=== PATIENT | male | born 1960 | race Caucasian/White ===

== ENCOUNTER 2018-03-04 20:55 | Emergency (ER) | payer BC, SELFPAY ==
[2018-03-05 00:04] LABS: Absolute Lymphocytes (CBC) 2.6 K/uL (0.7-4.9); Absolute Neutrophil 6.1 K/uL (1.8-8.0); Basophils % 0.2 % (0-1.3); Eosinophils % 4.4 % (0-4.4); Hematocrit 46.2 % (39.6-49.0); Lymphocytes % 25.4 % (15.3-44.8); MCH 33.4 pg (27.0-35.0); MCV 100.5 fL (80-100); MPV 6.7 fL (7.6-11.3); Monocytes % 10.2 % (3.3-12.3); RBC Red Blood Cell Count 4.59 M/uL (4.33-5.43)
[2018-03-05 00:08] LABS: Potassium 3.6 mEq/L (3.6-5.0)
[2018-03-05 00:14] LABS: Albumin 3.4 g/dL (3.2-5.5); Bilirubin Direct 0.2 mg/dL (0-0.2); Bilirubin Total 0.9 mg/dL (0.3-1.2)
[2018-03-05 00:52] LABS: Protime INR 1.11
--- NOTE | 2018-03-05 01:52 | ER ---
Nurse's Notes [facility] Name: Narendra Martin Age: 57 yrs Sex: Male : 1960 Arrival Date: 03/04/2018 Time: 20:57 Bed 17 Private MD: Octavia Martinez K Diagnosis: Edema, unspecified;Dermatitis, unspecified Presentation: 03/04 22:19 Presenting complaint: Patient states: he is having bilateral ankle swelling x 1 week bb with an itchy rash which is also on his back. Transition of care: patient was not received from another setting of care. Onset of symptoms was February 27, 2018. Initial Sepsis Screen: Does the patient meet any 2 criteria? No. Patient's initial sepsis screen is negative. Does the patient have a suspected source of infection? No. Patient's initial sepsis screen is negative. Care prior to arrival: None. 22:19 Method Of Arrival: Ambulatory bb 22:19 Acuity: FLORES 3 bb Historical: - Allergies: 22:23 No Known Allergies; bb - Home Meds: 22:23 felodipine oral oral [Active]; Folbic oral oral [Active]; bb lisinopril-hydrochlorothiazide oral oral [Active]; Omeprazole Oral [Active]; Thiamine Oral [Active]; 22:24 Chantix oral oral [Active]; bb - PMHx: 22:23 COPD; Hypertension; GERD; polycythemia vera; bb - PSHx: 22:23 None; bb - Immunization history:: Adult Immunizations up to date. - Social history:: Smoking status: quit one month ago. Screenin/19 01:45 Abuse screen: Denies threats or abuse. Denies injuries from another. Nutritional bs1 screening: No deficits noted. Tuberculosis screening: No symptoms or risk factors identified. Fall Risk None identified. Assessment: 03/04 22:35 General: Appears in no apparent distress. uncomfortable, Behavior is calm, cooperative, bs1 appropriate for age. Pain: Complains of pain in bilateral legs/ankles Pain does not radiate. Pain currently is 4 out of 10 on a pain scale. Quality of pain is described as aching. Neuro: Level of Consciousness is awake, alert, obeys commands, Oriented to person, place, time, situation, Appropriate for age Cable Reeler are equal bilaterally Moves all extremities. Cardiovascular: Denies chest pain, lightheadedness, palpitations, shortness of breath, Heart tones S1 S2 present Capillary refill < 3 seconds Patient's skin is warm and dry. Edema is 2+ to left ankle, left foot, right ankle and right foot pitting to left ankle, left foot, right ankle and right foot. Respiratory: Airway is patent Trachea midline Respiratory effort is even, unlabored, Respiratory pattern is regular, symmetrical, Breath sounds are clear bilaterally. GI: No deficits noted. No signs and/or symptoms were reported involving the gastrointestinal system. : No deficits noted. No signs and/or symptoms were reported regarding the genitourinary system. EENT: No deficits noted. No signs and/or symptoms were reported regarding the EENT system. Derm: Skin is intact. Musculoskeletal: Circulation, motion, and sensation intact. Capillary refill < 3 seconds, Range of motion: intact in all extremities, Swelling present in bilateral legs/ankles 2+ pitting edema. 23:35 Reassessment: No changes from previously documented assessment. Patient and/or family bs1 updated on plan of care and expected duration. Pain level reassessed. Patient is alert, oriented x 3, equal unlabored respirations, skin warm/dry/pink. 03/05 00:35 Reassessment: Patient appears in no apparent distress at this time. No changes from bs1 previously documented assessment. Patient and/or family updated on plan of care and expected duration. Pain level reassessed. Patient is alert, oriented x 3, equal unlabored respirations, skin warm/dry/pink. at bedside, pending CT results. 01:47 Reassessment: Patient appears in no apparent distress at this time. Patient is alert, bs1 oriented x 3, equal unlabored respirations, skin warm/dry/pink. No further needs at this time. 02:09 Reassessment: Pending discharge. bs1 Vital Signs: 03/04 22:24 BP 135 / 49; Pulse 80; Resp 18 S; Temp 98.4(O); Pulse Ox 98% on R/A; Weight 72.57 kg bb (R); Height 5 ft. 9 in. (175.26 cm) (R); Pain 0/10; 23:24 BP 137 / 65; Pulse 78; Resp 17; Pulse Ox 100% on R/A; Pain 0/10; bs1 03/05 00:24 BP 131 / 58; Pulse 79; Resp 16; Pulse Ox 100% on R/A; bs1 01:24 BP 131 / 57; Pulse 77; Resp 16; Temp 98.3(O); Pulse Ox 98% on R/A; Pain 0/10; bs1 18 22:24 Body Mass Index 23.63 (72.57 kg, 175.26 cm) ED Course: 03/04 20:57 Patient arrived in ED. am2 20:57 Octavia Martinez MD is Private Physician. am2 22:20 Triage completed. bb 22:24 Arm band placed on Patient placed in waiting room, Patient notified of wait time. bb Family accompanied patient. 22:36 Damian Bennett MD is Attending Physician. 23:23 Inserted saline lock: 20 gauge in right antecubital area, using aseptic technique. bs1 23:48 Patient moved to radiology via wheelchair. ag1 23:49 XRAY Chest Pa And Lat (2 Views) In Process Unspecified. EDMI 23:52 X-ray completed. Patient tolerated procedure well. ag1 23:52 Patient moved back from radiology. ag1 03/05 00:32 Kesha Barnard, VEL is Primary Nurse. bs1 01:46 Patient has correct armband on for positive identification. Bed in low position. Call bs1 light in reach. Side rails up X 1. Pulse ox on. NIBP on. Warm blanket given. 01:46 No provider procedures requiring assistance completed. bs1 02:15 IV discontinued, bleeding controlled, No redness/swelling at site. Pressure dressing bs1 applied. Administered Medications: No medications were administered Outcome: 01:51 Discharge ordered by . 02:14 Discharged to home ambulatory, with significant other. bs1 02:14 Condition: stable 02:14 Discharge instructions given to patient, Instructed on discharge instructions, follow up and referral plans. medication usage, Demonstrated understanding of instructions, follow-up care, medications, Prescriptions given X 1. 02:15 Patient left the ED. bs1 Signatures: Dispatcher [employer] EDMS Ora Reyna RN RN Miranda Marie ag1 Abbey Moreno am2 Damian Bennett MD MD gs Salazar, Brittany, VEL RN bs1 Corrections: (The following items were deleted from the chart) 02:14 01:24 BP 131 / 57; Pulse 77bpm; Pulse Ox 98% RA; bs1 bs1
--- NOTE | 2018-03-05 01:52 | EDPHYS ---
Physician Documentation [facility] Name: Narendra Martin Age: 57 yrs Sex: Male : 1960 Arrival Date: 03/04/2018 Time: 20:57 Bed 17 Private MD: Octavia Martinez K ED Physician Damian Bennett HPI: 03/05 03:52 This 57 yrs old Male presents to ER via Ambulatory with complaints of Ankle gs Swelling, Leg Swelling, Rash. 03:52 The patient's rash thought to be caused by Dermatitis. The rash is located on the right gs ankle and left ankle. The rash can be described as flat, PETICHIAL. Onset: The symptoms/episode began/occurred 1 week(s) ago, and became persistent. Associated signs and symptoms: Pertinent positives: PEDAL EDEMA, Pertinent negatives: difficulty breathing. Severity of symptoms: At their worst the symptoms were mild in the emergency department the symptoms are unchanged. The patient has not recently seen a physician. 03:52 RECENT PNEUMONIA POSSIBLE LUNG MASS. gs Historical: - Allergies: 03/04 22:23 No Known Allergies; bb - Home Meds: 22:23 felodipine oral oral [Active]; Folbic oral oral [Active]; bb lisinopril-hydrochlorothiazide oral oral [Active]; Omeprazole Oral [Active]; Thiamine Oral [Active]; 22:24 Chantix oral oral [Active]; bb - PMHx: 22:23 COPD; Hypertension; GERD; polycythemia vera; bb - PSHx: 22:23 None; bb - Immunization history:: Adult Immunizations up to date. - Social history:: Smoking status: quit one month ago. ROS: 03/05 03:52 Constitutional: Negative for fever. gs All other systems are negative. Exam: 03:52 Head/Face: Normocephalic, atraumatic. Eyes: Pupils equal round and reactive to light, gs extra-ocular motions intact. Lids and lashes normal. Conjunctiva and sclera are non-icteric and not injected. Cornea within normal limits. Periorbital areas with no swelling, redness, or edema. ENT: Nares patent. No nasal discharge, no septal abnormalities noted. Tympanic membranes are normal and external auditory canals are clear. Oropharynx with no redness, swelling, or masses, exudates, or evidence of obstruction, uvula midline. Mucous membranes moist. Neck: Trachea midline, no thyromegaly or masses palpated, and no cervical lymphadenopathy. Supple, full range of motion without nuchal rigidity, or vertebral point tenderness. No Meningismus. Chest/axilla: Normal chest wall appearance and motion. Nontender with no deformity. No lesions are appreciated. Cardiovascular: Regular rate and rhythm with a normal S1 and S2. No gallops, murmurs, or rubs. Normal PMI, no JVD. No pulse deficits. Respiratory: Lungs have equal breath sounds bilaterally, clear to auscultation and percussion. No rales, rhonchi or wheezes noted. No increased work of breathing, no retractions or nasal flaring. Abdomen/GI: Soft, non-tender, with normal bowel sounds. No distension or tympany. No guarding or rebound. No evidence of tenderness throughout. Back: No spinal tenderness. No costovertebral tenderness. Full range of motion. Neuro: Awake and alert, GCS 15, oriented to person, place, time, and situation. Cranial nerves II-XII grossly intact. Motor strength 5/5 in all extremities. Sensory grossly intact. Cerebellar exam normal. Normal gait. 03:52 Constitutional: The patient appears alert, awake. 03:52 Musculoskeletal/extremity: ROM: no acute changes, Circulation is intact in all extremities. Edema, 2+ to the left ankle and right ankle is noted. 03:52 Skin: rash a mild rash is noted, rash can be described as PETICHIAL, on the left ankle and right ankle. Vital Signs: 03/04 22:24 BP 135 / 49; Pulse 80; Resp 18 S; Temp 98.4(O); Pulse Ox 98% on R/A; Weight 72.57 kg bb (R); Height 5 ft. 9 in. (175.26 cm) (R); Pain 0/10; 23:24 BP 137 / 65; Pulse 78; Resp 17; Pulse Ox 100% on R/A; Pain 0/10; bs1 03/05 00:24 BP 131 / 58; Pulse 79; Resp 16; Pulse Ox 100% on R/A; bs1 01:24 BP 131 / 57; Pulse 77; Resp 16; Temp 98.3(O); Pulse Ox 98% on R/A; Pain 0/10; bs1 03/04 22:24 Body Mass Index 23.63 (72.57 kg, 175.26 cm) bb MDM: 03/04 23:08 Patient medically screened. 03/05 03:52 Differential diagnosis: allergic reaction, DERMATITIS. Data reviewed: vital signs, nurses notes. Counseling: I had a detailed discussion with the patient and/or guardian regarding: lab results, the need for outpatient follow up. Response to treatment: There is no appreciated change of the patient's symptoms at this time. 03/04 23:17 Order name: CBC with Diff; Complete Time: 00:49 03/04 23:17 Order name: Basic Metabolic Panel; Complete Time: 00:49 03/04 23:17 Order name: Hepatic Function; Complete Time: 00:49 03/04 23: Order name: PT-INR; Complete Time: 01:47 03/04 23:17 Order name: XRAY Chest Pa And Lat (2 Views) Administered Medications: No medications were administered Disposition: 03/05/18 01:51 Discharged to Home. Impression: Edema, unspecified, Dermatitis, unspecified. - Condition is Stable. - Discharge Instructions: Edema, Rash. - Prescriptions for Triamcinolone Acetonide 0.5 % Topical Cream - apply 1 application by TOPICAL route 2 times per day As needed; 1 tube. - Medication Reconciliation Form, Thank You Letter, Antibiotic Education, Prescription Opioid Use form. - Follow up: Private Physician; When: 2 - 3 days; Reason: Re-evaluation by your physician. Signatures: Dispatcher [employer] Ora Petty RN RN Damian Nuñez MD MD Kesha Barnard RN RN bs1
--- NOTE | 2018-03-05 07:56 | RAD REPORT ---
EXAM DESCRIPTION: Rosa M Pa And Lat (2 Views)03/04/2018 11:56 pm CLINICAL HISTORY: Cough COMPARISON: January 2018 FINDINGS: A left lower lobe opacity is without obvious change. The right lung appears clear. The jah ngs are hyperaerated. . The heart is normal size IMPRESSION: Left lower lobe opacity is without obvious change from a January 2018 cat scan. This may r epresent pneumonia or neoplasm such as a bronchioloalveolar cell carcinoma.
== END 2018-03-05 02:15 | disposition home or self-care (01) ==
LOC: ER 20:55
DX: L30.9 Dermatitis, unspecified (principal); I10 Essential (primary) hypertension; J44.9 Chronic obstructive pulmonary disease, unspecified
CPT/HCPCS: 36415; 71046; 80048; 80076; 85025; 85610; 99284

== ENCOUNTER 2018-03-17 06:56 | Day surgery (SDC) | payer BC ==
[2018-03-17] MEDS ORDERED: GLYCOPYRROLATE 0.2 MG/ML SYR ONE ×2 (06:59→07:26)
[2018-03-17] MEDS ORDERED: Phenylephrine HCl 10 MG/ML 1 ML VIAL ONE (07:00)
[2018-03-17] MEDS ORDERED: LIDOCAINE 4% TOP SOLUTION TOP ONE ×2 (07:20→07:31)
[2018-03-17] MEDS ORDERED: LIDOCAINE 1% MPF 5 ML VIAL ONE ×3 (07:26→07:49)
[2018-03-17] MEDS ORDERED: EPHEDRINE SULF 50 MG/ML SYR ONE (07:26)
[2018-03-17] MEDS ORDERED: PROPOFOL 200 MG/20 ML VIAL IV ONE (07:26)
[2018-03-17] MEDS ORDERED: MIDAZOLAM HCL 2 MG/2 ML INJ ONE (07:26)
[2018-03-17] MEDS ORDERED: LIDOCAINE VISCOUS 2% SOLN 15 ML UDC ONE (07:30)
[2018-03-17] MEDS ORDERED: LIDOCAINE 4% TOP SOLUTION ONE (07:34)
[2018-03-17] MEDS ORDERED: LIDOCAINE 1% 20 ML MDV ONE (07:36)
--- NOTE | 2018-03-17 08:17 | P.OP ---
Date of Service: 03/17/18 (Bronchoscopy with transbronchial biopsies of the left lower lobe and a BAL) Findings and Operative Technique Patient is 57 years of age evaluated by me for persistent left lower lobe lung mass hence the reason for bronchoscopy Narrative report after obtaining informed consent from the patient he was premedicated by anesthesia Findings normal vocal cords normal trachea normal aleida normal right and left- sided bronchial anatomy no endobronchial lesions visible he has some cope Rosario mucoid secretion throughout the entire respiratory tract Multiple biopsies were done from the left lower lobe lateral segment including a BAL patient tolerated the procedure very well did not experience any hypertension or arrhythmia see he has some bleeding
--- NOTE | 2018-03-17 08:53 | RAD REPORT ---
EXAM DESCRIPTION: RAD - FLUORO-GUIDE FOR BRONCH UPT1HR - 03/17/2018 8:39 am FINDINGS: The left-side chest fluoroscopy performed. Portable C-arm views were obtained during fluoroscopic assisted bronchoscopy. No suspicious or unexpected finding.
--- NOTE | 2018-03-17 09:42 | RAD REPORT ---
EXAM DESCRIPTION: RAD - Chest Single View - 03/17/2018 9:18 am CLINICAL HISTORY: Post bronchoscopy chest film COMPARISON: March 04 TECHNIQUE: AP portable chest image was obtained in expiration at 0907 hours . FINDINGS: No pneumothorax. No significant change to the mass or consolidated parenchyma in the lower left lung field. Heart and vasculature are normal. No measurable pleural fluid. Trachea is midline. No gross bony abnormality seen. No acute aortic findings suspected. IMPRESSION: No post bronchoscopy pneumothorax.
[2018-03-17] MEDS ORDERED: Ringers Lactate 1,000 ML IV ONE (09:56)
== END 2018-03-17 10:00 | disposition home or self-care (01) ==
LOC: ENDO 06:56
PROVIDERS: ATTEND Internal Medicine Sleep Medicine
PROC: 0B9J8ZX Drainage of Left Lower Lung Lobe, Via Natural or Artificial Opening Endoscopic, Diagnostic (ICD-10-PCS; 2018-03-17)
PROC: 0BDJ8ZX Extraction of Left Lower Lung Lobe, Via Natural or Artificial Opening Endoscopic, Diagnostic (ICD-10-PCS; principal; 2018-03-17 08:03)
DX: R91.8 Other nonspecific abnormal finding of lung field (principal); I10 Essential (primary) hypertension; J44.9 Chronic obstructive pulmonary disease, unspecified; Z87.891 Personal history of nicotine dependence
CPT/HCPCS: 71045; 76000; 87015; 87070; 87077; 87102; 87116; 87186; 87206; 88108; 88305; J2250; J2370

== ENCOUNTER 2018-05-15 10:28 | Emergency (ER) | payer BC ==
--- OUTSIDE RECORDS SUMMARY | 2018-05-15 10:38 | XMS REPORT | Clinical Summary ---
:1960 Author Organization [facility] Address [address] [place] [address] Care Team Providers Name Role Phone Octavia Martinez MD Primary Care Provider Allergies No Known Allergies Current Medications Prescription Sig. Disp. Refills Start Date End Date Status FOLBIC 2.5-25-2 mg tablet 03/16/2018 Active omeprazole (PriLOSEC) 20 MG 20 mg. 04/06/2018 Active capsule TRELEGY ELLIPTA 100-62.5-25 03/30/2018 Active mcg blister with device spironolactone (ALDACTONE) 25 04/23/2018 Active MG tablet lisinopril-hydrochlorothiazid DAILY 07/01/2017 Active e (PRINZIDE,ZESTORETIC) 20-12.5 mg per tablet felodipine (PLENDIL) 5 MG 24 04/28/2018 Active hr tablet felodipine (PLENDIL) 10 MG 24 10 mg. 03/16/2018 05/07/2018 Discontinued hr tablet lisinopril-hydrochlorothiazid 03/16/2018 05/07/2018 Discontinued e (PRINZIDE,ZESTORETIC) 20-12.5 mg per tablet aspirin (ECOTRIN) 81 MG DAILY 07/01/2017 05/07/2018 Discontinued enteric coated tablet Active Problems Problem Noted Date Lung cancer 04/23/2018 Hypertension 04/23/2018 Encounters Date Type Specialty Care Team Description 05/07/2018 Office Visit Cardiothoracic Yobany Davey Malignant neoplasm of Surgery MD Lobito lower lobe of right lung (Primary Dx) 05/06/2018 Telephone Cardiothoracic [place], Surgery Flory, LINDA 05/05/2018 Telephone Cardiothoracic Heidy, Surgery [place], [place] 05/01/2018 Telephone Cardiothoracic Yobany Davey Surgery MD [place]ob[place] 04/29/2018 [facility] Radiology Matty Aguilar, Encounter 04/29/2018 [facility] Radiology Matty Aguilar, Encounter MD 04/29/2018 [facility] Radiology Matty Aguilar, Encounter MD 04/29/2018 [facility] Radiology [facility], Yobany No Show Encounter MD [place]ob[place] 04/29/2018 [facility] [place] 04/29/2018 [facility] Radiology Matty Aguilar, Encounter 04/29/2018 [facility] Lung mass; Encounter MD [place] Nodule of left lung 04/29/2018 Ancillary Orders Cardiothoracic DaveyYobany Lung mass Surgery MD Lobito 04/29/2018 Ancillary Orders Cardiothoracic [facility] alba Lung mass Surgery MD Lobito 04/27/2018 Telephone Cardiothoracic Jeremy, Tip Gibbons NP 04/24/2018 Telephone Cardiothoracic Heidy, Surgery [place], LINDA 04/24/2018 Telephone Radiology Ange Freire, VEL 04/23/2018 Office Visit Cardiothoracic Yobany Davey Lung mass (Primary Dx); Surgery MD Lobito Malignant neoplasm of lung, unspecified laterality, unspecified part of lung 04/23/2018 [facility] Pulmonology Yobany Davey Lung nodule Encounter MD [place] 04/23/2018 Orders Only Cardiothoracic Provider, Tip Gamble MD 04/23/2018 Telephone Cardiothoracic Heidy, Surgery [place], [place] 04/23/2018 [facility] [place] 04/22/2018 Orders Only Cardiothoracic Heidy, Lung nodule (Primary Surgery [place], [place] Dx) 04/17/2018 [facility] of lower lobe of left lung; Encounter MD Lobito Lung nodule; LAD (lymphadenopathy), mediastinal 04/17/2018 [facility] Cardiothoracic AdveyYobany Cancer of lower lobe of left lung; Encounter Surgery MD Lobito Lung nodule; Lymphadenopathy syndrome 04/17/2018 Anesthesia Event Cardiothoracic Justina Qureshi Surgery 04/17/2018 Procedure Pass Cardiothoracic Surgery 04/17/2018 Surgery Cardiothoracic Yobany Davey FLEXIBLE BRONCHOSCOPY, Surgery MD [place]obito 04/16/2018 Telephone Cardiothoracic Heidy, Surgery [place], [place] 04/15/2018 Lab Lab Yobany Davey MD 04/15/2018 Telephone Cardiothoracic Heidy, Surgery [place], [place] 04/10/2018 Telephone Cardiothoracic Heidy, Surgery [place], [place] 04/09/2018 [facility] Radiology DaveyYobany MD 04/09/2018 [facility] [place] 04/09/2018 [facility] [place] 04/09/2018 [facility] 04[facility]09[facility]2018 [facility] MD [place] 04/09/2018 [facility] MD [place] 04/09/2018 [facility] 04/09/2018 Lab Lab Yobany Davey Malignant neoplasm of lower lobe of left lung; MD Lobito Lung nodule; LAD (lymphadenopathy), mediastinal 04/09/2018 [facility] 04[facility]2018 [facility] 04/09[facility]2018 [facility] 04/09[facility]2018 [facility] 04/09/2018 [facility] 04/09/2018 Office Visit Cardiothoracic Yobany Davey Malignant neoplasm of lower lobe of left lung (Primary Dx); Surgery MD Lobito Lung nodule; LAD (lymphadenopathy), mediastinal 04/09/2018 Telephone Cardiothoracic Heidy, Surgery [place], [place] 04/09/2018 Transcribe Orders Procedural Cardiology DaveyYobany Malignant neoplasm of lower lobe of left lung; MD Lobito Lung nodule; LAD (lymphadenopathy), mediastinal 04/09/2018 Procedure Pass Radiology 04/09/2018 Ancillary Orders Radiology Yobany Davey MD 04/03/2018 Orders Only Cardiothoracic Provider, Tip Gamble MD after 05/14/2017 Family History Medical History Relation Name Comments Stroke Brother Esophageal cancer Father COPD Mother Heart disease Mother Kidney disease Mother Heart attack Sister Relation Name Status Comments Brother Father Mother Sister Social History Tobacco Use Types Packs/Day Years Used Date Former Smoker Cigarettes 0.2 40 Quit: 01/15/2018 Smokeless Tobacco: Never Used Alcohol Use Drinks/Week oz/Week Comments Yes 14 Cans of beer 8.4 Sex Assigned at Date Recorded Not on file Last Filed Vital Signs Vital Sign Reading Time Taken Blood Pressure 132/75 05/07/2018 9:24 AM CDT Pulse 89 05/07/2018 9:24 AM CDT Temperature 36.7 C (98.1 F) 05/07/2018 9:24 AM CDT Respiratory Rate 16 05/07/2018 9:24 AM CDT Oxygen Saturation 97% 05/07/2018 9:24 AM CDT Inhaled Oxygen Concentration - - Weight 73.6 kg (162 lb 3.2 oz) 05/07/2018 9:24 AM CDT Height 175.3 cm (5' 9") 05/07/2018 9:24 AM CDT Body Mass Index 23.95 05/07/2018 9:24 AM CDT Plan of Treatment Health Maintenance Due Date Last Done Comments COLON CANCER SCREENING 2010 SHINGRIX VACCINE (#1) 2010 INFLUENZA VACCINE 06/17/2018 Procedures Procedure Name Priority Date/Time Associated Comments Diagnosis XR CHEST 1 VW Routine 04/29/2018 4:13 Results for this PM CDT procedure are in the results section. XR CHEST 1 VW Routine 04/29/2018 2:17 Results for this PM CDT procedure are in the results section. SURGICAL PATHOLOGY Routine 04/29/2018 2:10 Results for this REQUEST PM CDT procedure are in the results section. SURGICAL PATHOLOGY Routine 04/29/2018 2:10 Results for this REQUEST PM CDT procedure are in the results section. SURGICAL PATHOLOGY Routine 04/29/2018 2:10 Results for this REQUEST PM CDT procedure are in the results section. SURGICAL PATHOLOGY Routine 04/29/2018 2:10 Results for this REQUEST PM CDT procedure are in the results section. SURGICAL PATHOLOGY Routine 04/29/2018 2:10 Results for this REQUEST PM CDT procedure are in the results section. CYTOLOGY Routine 04/29/2018 1:53 Results for this (NON-GYNECOLOGICAL) PM CDT procedure are in REQUEST the results section. XR CHEST 1 VW Routine 04/29/2018 1:16 Results for this PM CDT procedure are in the results section. CT NEEDLE BIOPSY NO Routine 04/29/2018 12:15 Nodule of left lung Results for this CONTRAST PM CDT procedure are in the results section. CT CHEST WO CONTRAST Routine 04/29/2018 11:14 Results for this AM CDT procedure are in the results section. US NEEDLE BIOPSY STAT 04/29/2018 10:57 Lung mass Results for this AM CDT procedure are in the results section. SPIROMETRY PRE AND Routine 04/23/2018 9:51 Lung nodule Results for this POST WITH AM CDT procedure are in BRONCHILATOR, the results DIFFUSION, LUNG section. VOLUMES PULMONARY FUNCTION Routine 04/23/2018 12:00 TEST AM CDT SURGICAL PATHOLOGY Routine 04/17/2018 2:08 Results for this REQUEST PM CDT procedure are in the results section. CYTOLOGY Routine 04/17/2018 1:44 Results for this (NON-GYNECOLOGICAL) PM CDT procedure are in REQUEST the results section. XR CHEST 1 VW STAT 04/17/2018 11:07 Results for this PORTABLE AM CDT procedure are in the results section. CYTOLOGY Routine 04/17/2018 10:19 Results for this (NON-GYNECOLOGICAL) AM CDT procedure are in REQUEST the results section. CYTOLOGY Routine 04/17/2018 10:18 Results for this (NON-GYNECOLOGICAL) AM CDT procedure are in REQUEST the results section. CYTOLOGY Routine 04/17/2018 10:18 Results for this (NON-GYNECOLOGICAL) AM CDT procedure are in REQUEST the results section. CYTOLOGY Routine 04/17/2018 10:11 Results for this (NON-GYNECOLOGICAL) AM CDT procedure are in REQUEST the results section. CYTOLOGY Routine 04/17/2018 10:10 Results for this (NON-GYNECOLOGICAL) AM CDT procedure are in REQUEST the results section. RESPIRATORY CULTURE Timed 04/17/2018 9:32 Results for this AM CDT procedure are in the results section. GRAM STAIN Timed 04/17/2018 9:32 Results for this AM CDT procedure are in the results section. RESPIRATORY PATHOGEN Timed 04/17/2018 9:32 Results for this PANEL AM CDT procedure are in the results section. AFB STAIN Timed 04/17/2018 9:32 Results for this AM CDT procedure are in the results section. FUNGUS SMEAR Timed 04/17/2018 9:32 Results for this AM CDT procedure are in the results section. AFB CULTURE Timed 04/17/2018 9:32 Cancer of lower AM CDT lobe of left lung Lung nodule Lymphadenopathy syndrome NOCARDIA CULTURE Timed 04/17/2018 9:32 Cancer of lower Results for this AM CDT lobe of left lung procedure are in Lung nodule the results Lymphadenopathy section. syndrome LEGIONELLA CULTURE Timed 04/17/2018 9:32 Cancer of lower Results for this AM CDT lobe of left lung procedure are in Lung nodule the results Lymphadenopathy section. syndrome FUNGUS CULTURE Timed 04/17/2018 9:32 Cancer of lower AM CDT lobe of left lung Lung nodule Lymphadenopathy syndrome SD AN ELECTIVE Routine 04/17/2018 8:51 ENDOTRACHEAL AIRWAY AM CDT Procedure Note - Vera Lopez, DAVID - 04/17/2018 8:51 AM CDT Airway Date/Time: 04/17/2018 8:46 AM Performed by: VERA LOPEZ Authorized by: KARRIE TILLEY Location: OR Urgency: Elective Anesthesiologist: KARRIE TILLEY Resident/BOTTOM FILLER/AA: VERA LOPEZ Preoxygenated with 100% O2: Yes C-spine Precautions Maintained Throughout: Yes Mask Ventilation: Easy mask Final Airway Type: Endotracheal airway Final Endotracheal Airway: ETT Cuffed: Yes Technique Used: Direct laryngoscopy Devices/Methods Used in Placement: Intubating stylet Insertion Site: Oral Blade Type: Jamil Laryngoscope Blade/Videolaryngoscope Blade Size: 2 ETT Size (mm): 8.5 Cuff at minimum occlusion pressure: Yes Measured from: Lips ETT to Lips (cm): 23 Placement Verified by: CO2 detection, direct visualization and equal breath sounds Laryngoscopic view: Grade I - full view of glottis Rapid Sequence Induction (RSI): Yes Modified RSI: No Number of Attempts at Approach: 1 Atraumatic No damage to lips teeth eyes tongue or vocal cords. Patient has right chipped incisor tooth that was chipped in preop CT CHEST WO CONTRAST Routine 04/17/2018 7:59 Malignant neoplasm of Results for AM CDT lower lobe of left lung this procedure Lung nodule are in the LAD (lymphadenopathy), results mediastinal section. SURGICAL PATHOLOGY Routine 04/15/2018 4:35 Results for REQUEST PM CDT this procedure are in the results section. ECG 12-LEAD Routine 04/09/2018 11:14 Malignant neoplasm of Results for AM CDT lower lobe of left lung this procedure Lung nodule are in the LAD (lymphadenopathy), results mediastinal section. ESTIMATED GFR Routine 04/09/2018 10:19 Results for AM CDT this procedure are in the results section. PARTIAL Routine 04/09/2018 10:19 Malignant neoplasm of Results for THROMBOPLASTIN TIME AM CDT lower lobe of left lung this procedure (PTT) Lung nodule are in the LAD (lymphadenopathy), results mediastinal section. PROTHROMBIN TIME WITH Routine 04/09/2018 10:19 Malignant neoplasm of Results for INR AM CDT lower lobe of left lung this procedure Lung nodule are in the LAD (lymphadenopathy), results mediastinal section. HC COMPLETE BLD COUNT Routine 04/09/2018 10:19 Malignant neoplasm of Results for W/AUTO DIFF AM CDT lower lobe of left lung this procedure Lung nodule are in the LAD (lymphadenopathy), results mediastinal section. COMPREHENSIVE Routine 04/09/2018 10:19 Malignant neoplasm of Results for METABOLIC PANEL AM CDT lower lobe of left lung this procedure Lung nodule are in the LAD (lymphadenopathy), results mediastinal section. PET CT WHOLE BODY Routine 04/02/2018 9:53 Results for EXTERNAL STUDY AM CDT this procedure are in the results section. PET CT SKULL BASE MID Routine 04/02/2018 12:00 THIGH EXTERNAL STUDY AM CDT MRI HEAD EXTERNAL Routine 03/27/2018 3:37 Results for STUDY PM CDT this procedure are in the results section. MRI BRAIN W WO Routine 03/27/2018 12:00 CONTRAST AM CDT XR CHEST EXTERNAL Routine 03/17/2018 9:07 Results for STUDY AM CDT this procedure are in the results section. FL EXTERNAL STUDY Routine 03/17/2018 8:35 Results for EXAM AM CDT this procedure are in the results section. XR CHEST 1 VW Routine 03/17/2018 12:00 AM CDT US VASCULAR EXTERNAL Routine 03/09/2018 3:34 Results for STUDY PM CDT this procedure are in the results section. XR CHEST EXTERNAL Routine 03/04/2018 11:40 Results for STUDY PM CDT this procedure are in the results section. XR CHEST 2 VW Routine 03/04/2018 12:[address] CHEST EXTERNAL Routine 01/28/2018 9:58 Results for STUDY AM CDT this procedure are in the results section. CT CHEST W CONTRAST Routine 01/28/2018 12:00 AM CDT PULMONARY FUNCTION Routine 12/31/2017 12:00 TEST AM SOIL CHECKER US ABDOMINAL EXTERNAL Routine 12/30/2017 9:08 Results for STUDY AM SOIL CHECKER this procedure are in the results section. XR CHEST EXTERNAL Routine 07/01/2017 7:58 Results for STUDY AM CDT this procedure are in the results section. after 05/14/2017 Results XR Chest 1 Vw (04/29/2018 4:13 PM)Only the most recent of4 resultswithin the time period is included. Narrative Performed At EXAMINATION:XR CHEST 1 VW [facility] CLINICAL HISTORY:post left lung mass biopsy. COMPARISON:04/29/2018 IMPRESSION: 1.Large mass in the left lung base, unchanged. Minimal residual left chest wall emphysema. Near-complete resolution of apical pneumothorax. 2.Stable cardiomediastinal silhouette. 3.No acute osseous abnormality. [facility]-[id number] Procedure Note Interface, Radiology Results Incoming - 04/29/2018 4:26 PM CDT EXAMINATION: XR CHEST 1 VW CLINICAL HISTORY: post left lung mass biopsy. COMPARISON: 04/29/2018 IMPRESSION: 1. Large mass in the left lung base, unchanged. Minimal residual left chest wall emphysema. Near-complete resolution of apical pneumothorax. 2. Stable cardiomediastinal silhouette. 3. No acute osseous abnormality. [id number] Performing Organization Address City/[facility] Phone Number [facility] [address] [place] [phone] Surgical pathology request (04/29/2018 2:10 PM)Only the most recent of7 resultswithin the time period is included. [facility] DEPARTMENT OF PATHOLOGY AND GENOMIC MEDICINE Surgical pathology See link below for PDF Lab [facility] DEPARTMENT OF report Report PATHOLOGY AND GENOMIC MEDICINE Result status This is Supplemental Report [facility] DEPARTMENT OF to [id number] PATHOLOGY AND GENOMIC MEDICINE Performing Organization Address City/[facility]/Zipcode Phone Number [facility] DEPARTMENT OF PATHOLOGY AND [address] [place] [id number] GENOMIC MEDICINE Cytology (non-gynecological) request (04/29/2018 1:53 PM)Only the most recent of7 resultswithin the time period is included. [facility] DEPARTMENT OF PATHOLOGY AND GENOMIC MEDICINE Cytology See link below for PDF [facility] DEPARTMENT OF (non-gynecological) report Lab Report PATHOLOGY AND GENOMIC MEDICINE Result status This is Final Report to [facility] DEPARTMENT OF [id number] PATHOLOGY AND GENOMIC MEDICINE Performing Organization Address City/State/Zipcode Phone Number [facility] DEPARTMENT OF PATHOLOGY AND [address] [place] [address] Needle Biopsy No Contrast (04/29/2018 12:15 PM) Narrative Performed At [facility] Examination:CT NEEDLE BIOPSY NO CONTRAST Clinical history:"R91.1 Solitary pulmonary nodule, left lung mass biosy" Comparison:April 17, 2018 Anesthesia:Lidocaine solution was injected into the involved tissues. Conscious sedation: None. Technique:The patient was prepared using sterile technique after signed, informed consent was obtained. Maximal sterile barrier technique was implemented. Chest CT images were obtained and again reveal the known 7 cm left lower lobe mass.There was a small overlying pneumothorax, which precluded ultrasound visualization, and required using CT guidance. An appropriate access site was chosen, and the overlying skin was anesthetized with 1% lidocaine. A 19-gauge coaxial needle was advanced into the pleural space, and the pneumothorax was aspirated. After pneumothorax was satisfactorily aspirated, the guide needle was advanced into the mass, and 4 20-gauge cores were obtainedThe samples were submitted to the department of pathology for initial review.Subsequently, the attending pathologist indicated that sufficient tissue had been obtained to establish a diagnosis. The guide needle was then removed. Postprocedure imaging demonstrated a trace residual pneumothorax which will be followed. CT imaging was performed using radiation dose reduction techniques.Technical factors are evaluated and adjusted to ensure appropriate moderation of exposure.Automated dose management technology is applied to adjust radiation exposure while achieving a diagnostic quality image. Estimated blood loss:Less than 2 cc. Complications:None. Specimens removed:As above. Assistants:None. IMPRESSION: Technically successful core biopsy of left lower lobe mass. There is a trace pneumothorax which will be followed on subsequent chest x-rays. Thank you for allowing us to participate in the care of your patient. [facility]-[id number] Procedure Note Interface, Radiology Results Incoming - 04/29/2018 2:34 PM CDT Examination: CT NEEDLE BIOPSY NO CONTRAST Clinical history: "R91.1 Solitary pulmonary nodule, left lung mass biosy" Comparison: April 17, 2018 Anesthesia: Lidocaine solution was injected into the involved tissues. Conscious sedation: None. Technique: The patient was prepared using sterile technique after signed, informed consent was obtained. Maximal sterile barrier technique was implemented. Chest CT images were obtained and again reveal the known 7 cm left lower lobe mass. There was a small overlying pneumothorax, which precluded ultrasound visualization, and required using CT guidance. An appropriate access site was chosen, and the overlying skin was anesthetized with 1% lidocaine. A 19-gauge coaxial needle was advanced into the pleural space, and the pneumothorax was aspirated. After pneumothorax was satisfactorily aspirated, the guide needle was advanced into the mass, and 4 20-gauge cores were obtained The samples were submitted to the department of pathology for initial review. Subsequently, the attending pathologist indicated that sufficient tissue had been obtained to establish a diagnosis. The guide needle was then removed. Postprocedure imaging demonstrated a trace residual pneumothorax which will be followed. CT imaging was performed using radiation dose reduction techniques. Technical factors are evaluated and adjusted to ensure appropriate moderation of exposure. Automated dose management technology is applied to adjust radiation exposure while achieving a diagnostic quality image. Estimated blood loss: Less than 2 cc. Complications: None. Specimens removed: As above. Assistants: None. IMPRESSION: Technically successful core biopsy of left lower lobe mass. There is a trace pneumothorax which will be followed on subsequent chest x-rays. Thank you for allowing us to participate in the care of your patient. [facility]-[id number] Performing Organization Address City/State/Zipcode Phone Number [facility] [address] [place] [address] CT Chest Wo Contrast (04/29/2018 11:14 AM)Only the most recent of2 resultswithin the time period is included. Narrative Performed At EXAMINATION:CT CHEST WO CONTRAST [facility] CLINICAL HISTORY:post lungmass biopsy TECHNIQUE:Multiple axial images of the chest were obtained without intravenous contrast. The lack of intravenous contrast reduces the sensitivity of detecting solid organ disease and evaluating vasculature. Sagittal and coronal computerized reformatted images were also obtained. CT scans are performed using radiation dose reduction techniques. Technical factors are evaluated and adjusted to ensure appropriate moderation of exposure. Automated dose management technology is applied to adjust radiation exposure while achieving a diagnostic quality image. COMPARISON:April 17, 2018 IMPRESSION: 1.There is a small left pneumothorax status post ultrasound guided biopsy of a left lower lobe mass. 2.The left lower lobe mass is reidentified, measuring 7.7 cm. This is grossly unchanged from the prior study. There is a background of mild emphysema. 3.There is a 13 mm subcarinal lymph node which is indeterminate. Correlation with PET/CT may be obtained versus endobronchial ultrasound/FNA. 4.Limited evaluation of the upper abdomen demonstrates no adrenal mass. 5.The heart is normal in size. The thoracic aorta is normal in caliber. 6.No suspicious osseous lesions are seen. [facility]-[id number] Procedure Note Interface, Radiology Results Incoming - 04/29/2018 3:10 PM CDT EXAMINATION: CT CHEST WO CONTRAST CLINICAL HISTORY: post lung mass biopsy TECHNIQUE: Multiple axial images of the chest were obtained without intravenous contrast. The lack of intravenous contrast reduces the sensitivity of detecting solid organ disease and evaluating vasculature. Sagittal and coronal computerized reformatted images were also obtained. CT scans are performed using radiation dose reduction techniques. Technical factors are evaluated and adjusted to ensure appropriate moderation of exposure. Automated dose management technology is applied to adjust radiation exposure while achieving a diagnostic quality image. COMPARISON: April 17, 2018 IMPRESSION: 1. There is a small left pneumothorax status post ultrasound guided biopsy of a left lower lobe mass. 2. The left lower lobe mass is reidentified, measuring 7.7 cm. This is grossly unchanged from the prior study. There is a background of mild emphysema. 3. There is a 13 mm subcarinal lymph node which is indeterminate. Correlation with PET/CT may be obtained versus endobronchial ultrasound/FNA. 4. Limited evaluation of the upper abdomen demonstrates no adrenal mass. 5. The heart is normal in size. The thoracic aorta is normal in caliber. 6. No suspicious osseous lesions are seen. 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 The physician intraservice [id number] time with the patient was 15 minutes. Technique:Alternative therapies and the procedure's risks and benefits were discussed with the patient.Written, informed consent was obtained. The left lower lobe was imaged sonographically.The left lower lobe mass was identified sonographically.The overlying skin was prepared using routine, sterile technique.For local analgesia, 1% buffered lidocaine solution was injected into the overlying soft tissues.Using real-time sonographic guidance, 2 20-gauge cores were obtained through a guide needle.Subsequently, the lesion was obscured from view, and pneumothorax were suspected. Patient was then transferred to CT for a CT of the chest to evaluate for pneumothorax. The sample obtained was reviewed by the attending pathologist and was deemed insufficient for diagnostic evaluation. Estimated blood loss:Less than 1 cc. Complications:None. Specimens removed:As above. Assistants:None. IMPRESSION: Ultrasound-guided biopsy of left lower lobe mass was performed. Sample was deemed unsatisfactory for evaluation by the pathology service. Additionally, pneumothorax was suspected. This was later confirmed with a CT of the chest, dictated separately. The procedure was therefore reattempted with CT guidance dictated separately. Thank you for allowing us to participate in the care of your patient. 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 Throughout the conscious sedation duration, the patient was continuously monitored by a registered nurse. The physician intraservice [id number] time with the patient was 15 minutes. Technique: Alternative therapies and the procedure's risks and benefits were discussed with the patient. Written, informed consent was obtained. The left lower lobe was imaged sonographically. The left lower lobe mass was identified sonographically. The overlying skin was prepared using routine, sterile technique. For local analgesia, 1% buffered lidocaine solution was injected into the overlying soft tissues. Using real-time sonographic guidance, 2 20-gauge cores were obtained through a guide needle. Subsequently, the lesion was obscured from view, and pneumothorax were suspected. Patient was then transferred to CT for a CT of the chest to evaluate for pneumothorax. The sample obtained was reviewed by the attending pathologist and was deemed insufficient for diagnostic evaluation. Estimated blood loss: Less than 1 cc. Complications: None. Specimens removed: As above. Assistants: None. IMPRESSION: Ultrasound-guided biopsy of left lower lobe mass was performed. Sample was deemed unsatisfactory for evaluation by the pathology service. Additionally, pneumothorax was suspected. This was later confirmed with a CT of the chest, dictated separately. The procedure was therefore reattempted with CT guidance dictated separately. Thank you for allowing us to participate in the care of your patient. [facility]-[id number] Performing Organization Address City/State/Zipcode Phone Number [facility] [address] [place] [address] Spirometry pre & post w/ bronchodilator, diffusion, lung volumes (2017 9:51 AM) FEV1 Post 2.16 2.82 - 4.35 L [facility] FEV1/FVC % Post 55.16 66.61 - 85.97 % [facility] FVC Post 3.91 3.79 - 5.60 L [facility] PEF Post 6.20 6.96 - 11.46 L/s [facility] FEF 25-75% Post 0.69 1.48 - 4.58 L/s [facility] FEV1 Pre 2.18 2.82 - 4.35 L [facility] FEV1/FVC % Pre 55.73 66.61 - 85.97 % [facility] FVC Pre 3.92 3.79 - 5.60 L [facility] PEF Pre 6.36 6.96 - 11.46 L/s [facility] FEF 25-75% Pre 0.83 1.48 - 4.58 L/s [facility] DLCO Pre 27.74 20.74 - 36.67 ml/(min*mmHg) [facility] DL/VA Pre 4.32 3.19 - 5.60 ml/(min*mmHg*L) [facility] VA SB Pre 6.42 5.26 - 7.99 L [facility] DLCOc Pre 26.67 20.74 - 36.67 ml/(min*mmHg) [facility] KCOc SB Pre 4.16 3.19 - 5.60 ml/(min*mmHg*L) [facility] Hb Pre 16.10 g(Hb)/dL [facility] R0.5IN Pre 2.38 3.06 - 3.06 cmH2O*s/L [facility] FRCpl Pre 5.14 2.54 - 4.51 L [facility] RV Pre 4.20 1.65 - 2.99 L [facility] TLC Pre 8.06 5.77 - 8.07 L [facility] RV % TLC Pre 52.05 27.21 - 45.17 % [facility] VC Pre 3.87 3.79 - 5.60 L [facility] ERV Pre 0.94 1.20 - 1.20 L [facility] IC Pre 2.92 3.24 - 3.24 L [facility] sR0.5IN Pre 13.34 cmH2O*s [facility] Raw Pre 2.98 3.06 - 3.06 cmH2O*s/L [facility] sGaw Predicted 0.06 0.08 - 0.08 1/(cmH2O*s) [facility] FEV1 Predicted 3.58 [facility] FEV1 LLN 2.82 [facility] FEV1 % Pre of Predicted 60.9 % [facility] FEV1 % Post of Predicted 60.2 % [facility] FEV1 % Change -1.1 % [facility] FVC Predicted 4.70 [facility] FVC LLN 3.79 [facility] FVC % Pre of Predicted 83.4 % [facility] FVC % Post of Predicted 83.3 % [facility] FVC % Change -0.1 % [facility] FEV1/FVC % Predicted 76 [facility] FEV1/FVC % LLN 67 [facility] FEV1/FVC % Pre of Predicted 73.1 % [facility] FEV1/FVC % Post of Predicted 72.3 % [facility] FEV1/FVC % Change -1.0 % [facility] FEF 25-75% Predicted 3.03 [facility] FEF 25-75% LLN 1.48 [facility] FEF 25-75% % Pre of Predicted 27.5 % [facility] FEF 25-75% % Post of Predicted 22.6 % [facility] FEF 25-75% % Change -17.6 % [facility] PEF Predicted 9.21 [facility] PEF LLN 6.96 [facility] PEF % Pre of Predicted 69.1 % [facility] PEF % Post of Predicted 67.3 % [facility] PEF % Change -2.5 % [facility] VC Predicted 4.70 [facility] VC LLN 3.79 [facility] VC % Pre of Predicted 82.3 % [facility] ERV Predicted 1.20 [facility] ERV LLN 1.20 [facility] ERV % Pre of Predicted 78.2 % [facility] FRCpl % Predicted 3.52 [facility] FRCpl % LLN 2.54 [facility] FRCpl % Pre of Predicted 145.8 % [facility] IC Predicted 3.24 [facility] IC LLN 3.24 [facility] IC % Pre of Predicted 90.2 % [facility] RV Predicted 2.32 [facility] RV LLN 1.65 [facility] RV % Pre of Predicted 180.9 % [facility] RV % TLC Predicted 36 [facility] RV % TLC LLN 27 [facility] RV % TLC % Pre of Predicted 143.8 % [facility] TLC Predicted 6.92 [facility] TLC LLN 5.77 [facility] TLC % Pre of Predicted 116.5 % [facility] Raw Predicted 3.06 [facility] Raw LLN 3.06 [facility] Raw % Pre of Predicted 97.4 % [facility] R0.5IN Predicted 3.06 [facility] R0.5IN LLN 3.06 [facility] R0.5IN % Pre of Predicted 77.7 % [facility] sGaw Predicted 0.08 [facility] sGaw LLN 0.08 [facility] sGaw % Pre of Predicted 71.7 % [facility] DLCO Predicted 28.71 [facility] DLCO LLN 20.74 [facility] DLCO % Pre of Predicted 96.6 % [facility] DLCOc Predicted 28.71 [facility] DLCOc LLN 20.74 [facility] DLCOc % Pre of Predicted 92.9 % [facility] DL/VA Predicted 4.40 [facility] DL/VA LLN 3.19 [facility] DL/VA % Pre of Predicted 98.3 % [facility] KCOc SB Predicted 4.40 [facility] KCOc SB LLN 3.19 [facility] KCOc SB % Pre of Predicted 94.6 % [facility] VA SB Predicted 6.63 [facility] VA SB LLN 5.26 [facility] VA SB % Pre of Predicted 96.8 % [facility] MIP Predicted 89.54 [facility] MIP LLN 37.72 [facility] MEP Predicted 136.66 [facility] MEP LLN 80.91 [facility] MVV Predicted 136 [facility] MVV LLN 115 [facility] Performing Organization Address City/State/Zipcode Phone Number [facility] [address] [place] [address] Pulmonary function tests, complete (04/23/2018) Narrative Performed At XR Chest 1 Vw Portable (04/17/2018 11:07 AM) Narrative Performed At EXAMINATION:XR CHEST 1 VW PORTABLE [facility] CLINICAL HISTORY:Post-op surgery XR CHEST 1 VW PORTABLEimages are submitted COMPARISON:03/17/2018 FINDINGS: Cardiac silhouette is normal in size. The pulmonary vasculature is within normal limits. The right lung zone remains clear. There is persistent focal opacification seen at the left lung base. The left upper lobe remains clear. There is no pleural effusion or pneumothorax. IMPRESSION: 1. Focal opacification persists at the left lung base and demonstrates minimal change from the prior study. 2. The remaining lung zones are clear. [id number] Procedure Note Interface, Radiology Results Incoming - 04/17/2018 11:12 AM CDT EXAMINATION: XR CHEST 1 VW PORTABLE CLINICAL HISTORY: Post-op surgery XR CHEST 1 VW PORTABLE images are submitted COMPARISON: 03/17/2018 FINDINGS: Cardiac silhouette is normal in size. The pulmonary vasculature is within normal limits. The right lung zone remains clear. There is persistent focal opacification seen at the left lung base. The left upper lobe remains clear. There is no pleural effusion or pneumothorax. IMPRESSION: 1. Focal opacification persists at the left lung base and demonstrates minimal change from the prior study. 2. The remaining lung zones are clear. [id number] Performing Organization Address City/[facility]/Zipcode Phone Number [facility] [address] [place] [id number] Respiratory culture (04/17/2018 9:32 AM) Respiratory culture Normal oral jatinder isolated. [facility] DEPARTMENT OF isolate Comment: PATHOLOGY AND GENOMIC Specimen Information MEDICINE Specimen Source: Bronchial alveolar lavage Specimen Site: Lung, right lower lobe Specimen Bronchial alveolar lavage - Lung, right lower lobe Performing Organization Address City/[facility] Phone Number [facility] DEPARTMENT OF PATHOLOGY AND [address] [place] [id number] [facility] MEDICINE Fungus smear (04/17/2018 9:32 AM) Fungus smear No fungi observed. [facility] DEPARTMENT OF PATHOLOGY Comment: AND GENOMIC MEDICINE Specimen Information Specimen Source: Bronchial alveolar lavage Specimen Site: Lung, right lower lobe Specimen Bronchial alveolar lavage - Lung, right lower lobe Performing Organization Address [facility] Cent[facility]ode Phone Number [facility] DEPARTMENT OF PATHOLOGY AND [address] [place] [phone] [facility] MEDICINE Respiratory pathogen panel (04/17/2018 9:32 AM) Respiratory pathogen Negative for all pathogens tested: [facility] DEPARTMENT OF panel Negative for Adenovirus PATHOLOGY AND GENOMIC Negative for Coronavirus HKU1 MEDICINE Negative for Coronavirus NL63 Negative for Coronavirus 229E Negative for Coronavirus OC43 Negative for Human Metapneumovirus Negative for Rhinovirus/Enterovirus Negative for Influenza A Negative for Influenza A/H1 Negative for Influenza A/H3 Negative for Influenza A/H1-2009 Negative for Influenza B Negative for Parainfluenza Virus 1 Negative for Parainfluenza Virus 2 Negative for Parainfluenza Virus 3 Negative for Parainfluenza Virus 4 Negative for Respiratory Syncytial Virus Negative for Bordetella pertussis Negative for Chlamydophila pneumoniae Negative for Mycoplasma pneumoniae This real-time PCR assay detects the presence of nucleic acids (RNA or DNA) for the respiratory pathogens listed. A result of "Not-detected" does not exclude the possibility of the presence of one or more pathogens at concentrations less than the detectable limits of the assay. Comment: Specimen Information Specimen Source: Bronchial alveolar lavage Specimen Site: Lung, right lower lobe Specimen Bronchial alveolar lavage - Lung, right lower lobe Performing Organization Address [facility] [place] [place] Phone Number [facility] DEPARTMENT OF PATHOLOGY AND [address] [place] [phone] GENOMIC MEDICINE Nocardia culture (04/17/2018 9:32 AM) Nocardia culture isolate No Nocardia isolated after 7 days. [facility] DEPARTMENT OF Comment: PATHOLOGY AND GENOMIC Specimen Information MEDICINE Specimen Source: Bronchial alveolar lavage Specimen Site: Lung, right lower lobe Specimen Bronchial alveolar lavage - Lung, right lower lobe Performing Organization Address [facility] [place] [place] Phone Number [facility] DEPARTMENT OF PATHOLOGY AND [address] [place] [address] GENOMIC MEDICINE Legionella culture (04/17/2018 9:32 AM) Legionella culture No Legionella isolated. [facility] DEPARTMENT OF isolate Comment: PATHOLOGY AND GENOMIC Specimen Information MEDICINE Specimen Source: Bronchial alveolar lavage Specimen Site: Lung, right lower lobe Specimen Bronchial alveolar lavage - Lung, right lower lobe Performing Organization Address [facility] [place] [place] Phone Number [facility] DEPARTMENT OF PATHOLOGY AND [address] [place] [phone] GENOMIC MEDICINE Gram stain (04/17/2018 9:32 AM) Gram stain isolate No WBC's or organisms seen. [facility] DEPARTMENT OF PATHOLOGY Comment: AND GENOMIC MEDICINE Specimen Information Specimen Source: Bronchial alveolar lavage Specimen Site: Lung, right lower lobe Specimen Bronchial alveolar lavage - Lung, right lower lobe Performing Organization Address [facility] [place] [place] Phone Number [facility] DEPARTMENT OF PATHOLOGY AND [address] [place] [phone] GENOMIC MEDICINE AFB stain (04/17/2018 9:32 AM) AFB stain No acid fast bacilli (AFB) seen. [facility] DEPARTMENT OF PATHOLOGY AND Comment: GENOMIC MEDICINE Specimen Information Specimen Source: Bronchial alveolar lavage Specimen Site: Lung, right lower lobe Specimen Bronchial alveolar lavage - Lung, right lower lobe Performing Organization Address [facility]ode Phone Number [facility] DEPARTMENT OF PATHOLOGY AND [address] [place] [phone] [facility] ECG 12 lead (04/09/2018 11:14 AM) Ventricular rate 69 [facility] Atrial rate 69 [facility] SD interval 126 [facility] QRSD interval 90 [facility] QT interval 408 [facility] QTC interval 437 [facility] MUSE P axis 1 70 [facility] QRS axis 1 86 [facility] MUSE T wave axis 78 [facility] MUSE EKG impression Normal sinus rhythm-Normal ECG-No previous [facility] MUSE ECGs available- Performing Organization Address [facility] Cent[facility]ode Phone Number [facility] MUSE [address] [place] [address] Estimated GFR (04/09/2018 10:19 AM) GFR Non Af Amer 77 mL/min/1.73 m2 [facility] DEPARTMENT OF PATHOLOGY AND [facility] MEDICINE GFR Af Amer >90 mL/min/1.73 m2 [facility] DEPARTMENT OF Comment: PATHOLOGY AND GENOMIC Chronic kidney disease: <60 mL/min/1.73m2 MEDICINE Kidney failure: <15 mL/min/1.73m2 The estimated GFR is calculated from the IDMS-traceable Modification of Diet in Renal Disease Equation. The accuracy of the calculation is poor when the creatinine is normal. Calculated values >90 mL/min/1.73m2 are not reported. This equation has not been validated in children (<18 years), women, the elderly (>70 years), or ethnic groups other than Caucasians and Americans. Specimen Plasma specimen Performing Organization Address [facility] Cent[facility]ode Phone Number [facility] DEPARTMENT OF PATHOLOGY AND [address] [place] [address] [facility] Partial thromboplastin time, activated (04/09/2018 10:19 AM) PTT 32.7 23.0 - 36.0 sec [facility] DEPARTMENT OF PATHOLOGY Comment: AND [facility] PTT therapeutic range for unfractionated heparin is 61.0-112.0 seconds which corresponds to Anti-Xa 0.3-0.7 U/ml. Specimen Blood Performing Organization Address [facility]/Zipcode Phone Number [facility] DEPARTMENT OF PATHOLOGY AND [address] [place] [address] [facility] Prothrombin time with INR (04/09/2018 10:19 AM) Prothrombin time 13.1 12.0 - 15.0 sec [facility] DEPARTMENT OF PATHOLOGY AND GENOMIC MEDICINE INR 1.0 [facility] DEPARTMENT OF Comment: PATHOLOGY AND GENOMIC The International Normalized Ratio (INR) is a therapeutic MEDICINE monitoring tool for patients who are stable on oral anticoagulant therapy. An INR of 2.0-3.0 is suggested for deep vein thrombosis/pulmonary embolism. Specimen Blood Performing Organization Address City/State/Zipcode Phone Number [facility] DEPARTMENT OF PATHOLOGY AND [address] [place] [address] [facility] CBC with platelet and differential (04/09/2018 10:19 AM) WBC 10.16 4.50 - 11.00 k/uL [facility] DEPARTMENT OF PATHOLOGY AND GENOMIC MEDICINE RBC 4.97 4.40 - 6.00 m/uL [facility] DEPARTMENT OF PATHOLOGY AND GENOMIC MEDICINE HGB 16.1 14.0 - 18.0 g/dL [facility] DEPARTMENT OF PATHOLOGY AND GENOMIC MEDICINE HCT 46.0 41.0 - 51.0 % [facility] DEPARTMENT OF PATHOLOGY AND GENOMIC MEDICINE MCV 92.6 82.0 - 100.0 fL [facility] DEPARTMENT OF PATHOLOGY AND GENOMIC MEDICINE MCH 32.4 27.0 - 34.0 pg [facility] DEPARTMENT OF PATHOLOGY AND GENOMIC MEDICINE MCHC 35.0 31.0 - 37.0 g/dL [facility] DEPARTMENT OF PATHOLOGY AND GENOMIC MEDICINE RDW - SD 46.3 37.0 - 55.0 fL [facility] DEPARTMENT OF PATHOLOGY AND GENOMIC MEDICINE MPV 8.2 (L) 8.8 - 13.2 fL [facility] DEPARTMENT OF PATHOLOGY AND GENOMIC MEDICINE Platelet count 335 150 - 400 k/uL [facility] DEPARTMENT OF PATHOLOGY AND GENOMIC MEDICINE Nucleated RBC 0.00 /100 WBC [facility] DEPARTMENT OF PATHOLOGY AND GENOMIC MEDICINE Neutrophils 62.2 39.0 - 69.0 % [facility] DEPARTMENT OF PATHOLOGY AND GENOMIC MEDICINE Lymphocytes 26.0 25.0 - 45.0 % [facility] DEPARTMENT OF PATHOLOGY AND GENOMIC MEDICINE Monocytes 9.1 0.0 - 10.0 % [facility] DEPARTMENT OF PATHOLOGY AND GENOMIC MEDICINE Eosinophils 1.8 0.0 - 5.0 % [facility] DEPARTMENT OF PATHOLOGY AND GENOMIC MEDICINE Basophils 0.4 0.0 - 1.0 % [facility] DEPARTMENT OF PATHOLOGY AND GENOMIC MEDICINE Immature granulocytes 0.5Comment: 0.0 - 1.0 % [facility] DEPARTMENT OF "Immature PATHOLOGY AND GENOMIC granulocytes" MEDICINE (promyelocytes, myelocytes, metamyelocytes) Specimen Blood Performing Organization Address City/[facility] [place] [place] Phone Number [facility] DEPARTMENT OF [place] [address] GENOMIC MEDICINE Comprehensive metabolic panel (04/09/2018 10:19 AM) Sodium 136 135 - 148 mEq/L [facility] DEPARTMENT OF PATHOLOGY AND GENOMIC MEDICINE Potassium 3.5 3.5 - 5.0 mEq/L [facility] DEPARTMENT OF PATHOLOGY AND GENOMIC MEDICINE Chloride 93 (L) 98 - 112 mEq/L [facility] DEPARTMENT OF PATHOLOGY AND GENOMIC MEDICINE CO2 29 24 - 31 mEq/L [facility] DEPARTMENT OF PATHOLOGY AND GENOMIC MEDICINE Anion gap 14@ANIO 7 - 15 mEq/L [facility] DEPARTMENT OF PATHOLOGY AND GENOMIC MEDICINE BUN 10 6 - 20 mg/dL [facility] DEPARTMENT OF PATHOLOGY AND GENOMIC MEDICINE Creatinine 1.0 0.7 - 1.2 mg/dL [facility] DEPARTMENT OF PATHOLOGY AND GENOMIC MEDICINE Glucose 122 (H) 65 - 99 mg/dL [facility] DEPARTMENT OF PATHOLOGY AND GENOMIC MEDICINE Calcium 9.2 8.3 - 10.2 mg/dL [facility] DEPARTMENT OF PATHOLOGY AND GENOMIC MEDICINE Protein 7.5 6.3 - 8.3 g/dL [facility] DEPARTMENT OF Comment: PATHOLOGY AND GENOMIC 4.6-7.0 g/dL MEDICINE 1 week 4.4-7.6 g/dL 7 months-1year5.1-7.3 g/dL 1-2 years5.6-7.5 g/dL >3 years6.0-8.0 g/dL 18-150 6.3-8.3 g/dL Albumin 3.1 (L) 3.5 - 5.0 g/dL [facility] DEPARTMENT OF PATHOLOGY AND GENOMIC MEDICINE A/G ratio 0.7 0.7 - 3.8 [facility] DEPARTMENT OF PATHOLOGY AND GENOMIC MEDICINE Alkaline phosphatase 49 40 - 129 U/L [facility] DEPARTMENT OF PATHOLOGY AND GENOMIC MEDICINE AST 30 10 - 50 U/L [facility] DEPARTMENT OF PATHOLOGY AND GENOMIC MEDICINE ALT 13 5 - 50 U/L [facility] DEPARTMENT OF PATHOLOGY AND GENOMIC MEDICINE Total bilirubin 0.5 0.0 - 1.2 mg/dL [facility] DEPARTMENT OF PATHOLOGY AND GENOMIC MEDICINE Specimen Plasma specimen Performing Organization Address City/[facility] Phone Number [facility] DEPARTMENT OF PATHOLOGY AND [address] [place] [address] GENOMIC MEDICINE PET/CT Whole Body External Study (04/02/2018 9:53 AM) Narrative Performed At This exam was not acquired at a [facility] facility and has not been [facility] interpreted by a [facility] Provider.The exam was imported into our imaging system for comparisons purposes. Performing Organization Address [facility]ode Phone Number [facility] [address] [place] [address] PET/CT Skull Base Mid Thigh External Study (04/02/2018) Narrative Performed At MRI Head External Study (03/27/2018 3:37 PM) Narrative Performed At This exam was not acquired at a [facility] facility and has not been [facility] interpreted by a [facility] Provider.The exam was imported into our imaging system for comparisons purposes. Performing Organization Address [facility]ode Phone Number [facility] [address] [place] [address] MRI Brain W Wo Contrast (03/27/2018) Narrative Performed At XR Chest External Study (03/17/2018 9:07 AM)Only the most recent of3 resultswithin the time period is included. Narrative Performed At This exam was not acquired at a [facility] facility and has not been [facility] interpreted by a [facility] Provider.The exam was imported into our imaging system for comparisons purposes. Performing Organization Address [facility]ode Phone Number [facility] [address] [place] [address] [place] External Study Exam (03/17/2018 8:35 AM) Narrative Performed At This exam was not acquired at a [facility] facility and has not been [facility] interpreted by a [facility] Provider.The exam was imported into our imaging system for comparisons purposes. Performing Organization Address City/State/Zipcode Phone Number [facility] [address] [place] [address] [place] Vascular External Study (03/09/2018 3:34 PM) Narrative Performed At This exam was not acquired at a [facility] facility and has not been [facility] interpreted by a [facility] Provider.The exam was imported into our imaging system for comparisons purposes. Performing Organization Address City/State/Zipcode Phone Number [facility] [address] [place] [address] XR Chest 2 Vw (03/04/2018) Narrative Performed At CT Chest External Study (01/28/2018 9:58 AM) Narrative Performed At This exam was not acquired at a [facility] facility and has not been [facility] interpreted by a [facility] Provider.The exam was imported into our imaging system for comparisons purposes. Performing Organization Address City/[facility] Phone Number [facility] [address] [place] [address] CT Chest W Contrast (01/28/2018) Narrative Performed At Pulmonary function tests, complete (12/31/2017) Narrative Performed At US Abdominal External Study (12/30/2017 9:08 AM) Narrative Performed At This exam was not acquired at a [facility] facility and has not been [facility] interpreted by a [facility] Provider.The exam was imported into our imaging system for comparisons purposes. Performing Organization Address [facility] Cent[facility]ode Phone Number RAD[facility] [address] [place] [address] after 05/14/2017 Insurance Payer Benefit Plan / Group Subscriber ID Type Phone Address BCBS BCBS CHOICE PPO/FEDERAL EMPL PPO xxxxxxxxxxxx PPO Work: [id number] [facility] [phone] [address] Home: [phone] [facility]
[2018-05-15] MEDS ORDERED: NA CHLORIDE 0.9% 500 ML ONE ×2 (11:06→12:59)
[2018-05-15] MEDS ORDERED: ASPIRIN 81 MG CHEWABLE TABLET ONE (11:06)
[2018-05-15 11:08] LABS: Absolute Lymphocytes (CBC) 0.7 K/uL (0.7-4.9); Absolute Neutrophil 25.3 K/uL (1.8-8.0); Basophils % 0.2 % (0-1.3); Eosinophils % 0.2 % (0-4.4); Hematocrit 42.5 % (39.6-49.0); Lymphocytes % 2.5 % (15.3-44.8); MCH 29.5 pg (27.0-35.0); MCV 90.5 fL (80-100); MPV 6.9 fL (7.6-11.3); Monocytes % 0.1 % (3.3-12.3); RBC Red Blood Cell Count 4.69 M/uL (4.33-5.43)
[2018-05-15 11:13] LABS: Protime INR 1.12
[2018-05-15 11:33] LABS: Potassium 3.4 mmol/L (3.5-5.1)
--- NOTE | 2018-05-15 12:11 | RAD REPORT ---
EXAM DESCRIPTION: VASExtremity Venous Uni Ltd05/15/2018 11:44 am CLINICAL HISTORY: Left arm pain COMPARISON: None FINDINGS: The left internal jugular, left subclavian, left cephalic, left axillary, left brachial, l eft basilic, left ulnar and left radial veins are generally compressible and demonstrate augmentation . Doppler demonstrates good flow. IMPRESSION: No evidence of thrombus within the veins of the left upper extremity
--- NOTE | 2018-05-15 12:16 | RAD REPORT ---
EXAM DESCRIPTION: VAS - Upper Ext Artery Uni Sebastián - 05/15/2018 12:03 pm CLINICAL HISTORY: Left arm pain COMPARISON: None FINDINGS: The waveforms of left common carotid, left subclavian, left axillary, left brachial, left radial and left ulnar artery are generally triphasic. An arterial occlusion is not seen. A high-grade stenosis is not visualized IMPRESSION: Unremarkable exam
[2018-05-15 12:54] LABS: Blood Morphology Comment NOT SEEN (NOT SEEN); Platelet Estimate ADEQ
[2018-05-15] MEDS ORDERED: HEPARIN 5000 UNIT/ML 1 ML VIAL ONE (12:59)
[2018-05-15] MEDS ORDERED: HEPARIN/D5W 25,000 UNIT/500 ML BAG IV ONE (12:59)
--- NOTE | 2018-05-15 13:35 | EDPHYS ---
Physician Documentation [facility] Name: Narendra Martin Age: 57 yrs Sex: Male : 1960 Arrival Date: 05/15/2018 Time: 10:31 Bed 8 Private MD: Octavia Martinez K ED Physician Sam Patterson HPI: 05/15 10:48 This 57 yrs old Male presents to ER via Ambulatory with complaints of rn Possible clot-L arm. 10:48 The patient or guardian complains of pain. The complaints affect the left hand and rn palmar aspect of left forearm. Onset: The symptoms/episode began/occurred last night. Associated signs and symptoms: Pertinent positives: pain, Pertinent negatives: fever. Severity of symptoms: At their worst the symptoms were moderate, in the emergency department the symptoms have improved. The patient has not experienced similar symptoms in the past. Reports noticed pain to left forearm last night, along with fingers in that hand bluish/white, improved some with heat, but not back to baseline, sent in by his cancer doctor for u/s and eval. Reports slowly improving but not back to baseline. + former smoker, has small cell and non-small cell lung cancer, undergoing chemo. Also with polycythemia vera and stopped taking aspirin.. Historical: - Allergies: 10:56 No Known Allergies; ss - PMHx: 10:50 COPD; GERD; Hypertension; polycythemia vera; Lung CA, recieving chemotherapy; ss - Immunization history:: Adult Immunizations up to date. - Social history:: Smoking status: Patient uses tobacco products, "vape". - Ebola Screening: : Patient denies exposure to infectious person Patient denies travel to an Ebola-affected area in the 21 days before illness onset. - Family history:: not pertinent. - Hospitalizations: : No recent hospitalization is reported. ROS: 10:48 Constitutional: Negative for fever, chills, and weight loss, Eyes: Negative for injury, rn pain, redness, and discharge, Neck: Negative for injury, pain, and swelling, Cardiovascular: Negative for chest pain, palpitations, and edema, Respiratory: Negative for shortness of breath, cough, wheezing, and pleuritic chest pain, Abdomen/GI: Negative for abdominal pain, nausea, vomiting, diarrhea, and constipation, MS/Extremity: Negative for injury and deformity, Skin: + pallor and cyanosis of left hand/fingers Neuro: Negative for headache, weakness, numbness, tingling, and seizure. Exam: 10:48 Constitutional: This is a well developed, well nourished patient who is awake, alert, rn and in no acute distress. MS/ Extremity: Pulses equal, + distal cyanosis of left 2nd/3rd/4th digits, not cold, slow cap refill. 10:51 Head/Face: Normocephalic, atraumatic. Eyes: Pupils equal round and reactive to light, rn extra-ocular motions intact. Lids and lashes normal. Conjunctiva and sclera are non-icteric and not injected. Cornea within normal limits. Periorbital areas with no swelling, redness, or edema. Neuro: Awake and alert, GCS 15, oriented to person, place, time, and situation. Motor strength 5/5 in all extremities. Sensory grossly intact. Vital Signs: 10:50 BP 138 / 67; Pulse 54; Resp 17; Pulse Ox 97% on R/A; Pain 0/10; ss 10:55 Temp 97.9; Weight 75.3 kg; Height 5 ft. 9 in. (175.26 cm); ss 11:50 BP 126 / 57; Pulse 74; Resp 18; Pulse Ox 97% on R/A; dh3 12:12 BP 131 / 60; Pulse 74; Resp 18; Pulse Ox 97% on R/A; sv 12:52 Weight 76.16 kg; dh3 12:55 BP 131 / 64; Pulse 75; Resp 18; Pulse Ox 97% on R/A; dh3 13:58 BP 127 / 53; Pulse 77; Resp 18; Pulse Ox 98% on R/A; sv 14:19 BP 134 / 56; Pulse 69; Resp 18; Pulse Ox 97% on R/A; dh3 14:57 BP 124 / 55; Pulse 71; Resp 18; Pulse Ox 96% on R/A; dh3 12:52 Body Mass Index 24.79 (76.16 kg, 175.26 cm) dh3 MDM: 10:39 Patient medically screened. rn 13:33 Differential diagnosis: cyanosis, hypoxia, vasospasm, embolism, DVT, arterial rn occlusion. Data reviewed: vital signs, nurses notes, lab test result(s), EKG, radiologic studies, ultrasound, and as a result, I will admit patient. Counseling: I had a detailed discussion with the patient and/or guardian regarding: the historical points, exam findings, and any diagnostic results supporting the discharge/admit diagnosis, lab results, radiology results, the need to transfer to another facility, [facility] does not immediately have the required specialist. Special discussion:. ED course: Pt accepted for transfer to [facility] for hospitalist admit, fluids for renal failure, and vascular consult. . 13:34 ED course: Consulted with vascular surgeon at [facility], requests fluids and heparin.. rn 05/15 10:47 Order name: CBC with Diff; Complete Time: 12:59 rn 05/15 10:47 Order name: Basic Metabolic Panel; Complete Time: 12:17 rn 05/15 10:47 Order name: Protime (+inr); Complete Time: 11:39 rn 05/15 10:47 Order name: Ptt, Activated; Complete Time: 11:39 05/15 11:15 Order name: Manual Differential; Complete Time: 12:59 EDUT 05/15 12:55 Order name: Blood Culture Adult (2) rn 05/15 10:47 Order name: Extremity Venous Uni Ltd US; Complete Time: 12:17 rn 05/15 12:03 Order name: Upper Ext Artery Uni Sebastián; Complete Time: 12:17 EDUT 05/15 10:47 Order name: IV Start; Complete Time: 11:02 rn Administered Medications: 11:10 Drug: NS 0.9% 500 ml Route: IV; Rate: bolus; Site: right antecubital; sv 11:45 Follow up: Response: No adverse reaction; IV Status: Completed infusion; IV Intake: sv 500ml 11:10 Drug: Aspirin Chewable Tablet 243 mg Route: PO; sv 11:12 Follow up: Response: No adverse reaction sv 13:14 Drug: Heparin (DVT/PE Drip) 18 units/kg/hr - (HEParin 43867 units, D5W 500 ml) sv {Co-Signature: hb (Marixa Guzman RN).} Route: IV; Rate: calculated rate; Site: right hand; 15:43 Follow up: Response: No adverse reaction; IV Status: Infusion continued upon transfer sv 13:14 Drug: NS 0.9% 500 ml Route: IV; Rate: bolus; Site: right antecubital; sv 14:07 Follow up: Response: No adverse reaction; IV Status: Completed infusion; IV Intake: sv 500ml 13:15 Drug: Heparin (DVT/PE- Bolus per protocol) - HEParin 80 units/kg {Co-Signature: hb sv (Marixa Guzman RN).} Route: IVP; Site: right hand; 13:30 Follow up: Response: No adverse reaction sv Disposition: 05/15/18 13:34 Transfer ordered to [facility]. Diagnosis are Cyanosis, Acute kidney failure. - Reason for transfer: Higher level of care. - Accepting physician is Dr. Garcia. - Condition is Stable. - Problem is new. - Symptoms are unchanged. Signatures: Dispatcher [employer] EDMS Rula Burnett RN RN Sam Madera MD MD rn Smirch, Shelby, RN RN ss Marixa rivera Corrections: (The following items were deleted from the chart) 12:03 10:47 Lower Extremity Artery Uni Ltd+US.RAD.BRZ ordered. [facility] EDUT 13:44 13:34 05/15/2018 13:34 Transfer ordered to [facility]. Diagnosis is rn Cyanosis; Acute kidney failure. Reason for transfer: Higher level of care. Accepting physician is . Condition is Stable. Problem is new. Symptoms are unchanged. rn 15:44 13:44 05/15/2018 13:34 Transfer ordered to [facility]. Diagnosis is sv Cyanosis; Acute kidney failure. Reason for transfer: Higher level of care. Accepting physician is Dr. Garcia. Condition is Stable. Problem is new. Symptoms are unchanged. rn
--- NOTE | 2018-05-15 13:35 | ER ---
Nurse's Notes [facility] Name: Narendra Martin Age: 57 yrs Sex: Male : 1960 Arrival Date: 05/15/2018 Time: 10:31 Bed 8 Private MD: Octavia Martinez K Diagnosis: Cyanosis;Acute kidney failure Presentation: 05/15 10:44 Presenting complaint: states: "he woke up in pain and his whole hand was just ss herring." Dr. Jin told patient and to come to ER for evaluation. Transition of care: patient was not received from another setting of care. Onset of symptoms was May 15, 2018 at 03:00. Risk Assessment: Do you want to hurt yourself or someone else? Patient reports no desire to harm self or others. Initial Sepsis Screen: Does the patient meet any 2 criteria? No. Patient's initial sepsis screen is negative. Does the patient have a suspected source of infection? No. Patient's initial sepsis screen is negative. Care prior to arrival: None. 10:44 Method Of Arrival: Ambulatory ss 10:44 Acuity: FLORES 3 ss Historical: - Allergies: 10:56 No Known Allergies; ss - PMHx: 10:50 COPD; GERD; Hypertension; polycythemia vera; Lung CA, recieving chemotherapy; ss - Immunization history:: Adult Immunizations up to date. - Social history:: Smoking status: Patient uses tobacco products, "vape". - Ebola Screening: : Patient denies exposure to infectious person Patient denies travel to an Ebola-affected area in the 21 days before illness onset. - Family history:: not pertinent. - Hospitalizations: : No recent hospitalization is reported. Screenin:10 Abuse screen: Denies threats or abuse. Denies injuries from another. Nutritional sv screening: No deficits noted. Tuberculosis screening: No symptoms or risk factors identified. Fall Risk None identified. Assessment: 11:10 General: Appears in no apparent distress. comfortable, Behavior is calm, cooperative, sv appropriate for age. Pain: Denies pain. Neuro: Level of Consciousness is awake, alert, obeys commands, Oriented to person, place, time, situation, Moves all extremities. Full function Gait is steady. Respiratory: Respiratory effort is even, unlabored, Respiratory pattern is regular, symmetrical. Derm: Skin is normal, cyanosis noted to left 2nd and 3rd digit. Musculoskeletal: Range of motion: intact in all extremities. 11:10 Cardiovascular: Capillary refill is > 3 seconds is sluggish in left fingers Patient's sv skin is warm and dry. 13:14 Reassessment: Patient appears in no apparent distress at this time. No changes from sv previously documented assessment. Patient and/or family updated on plan of care and expected duration. Pain level reassessed. Patient is alert, oriented x 3, equal unlabored respirations, skin warm/dry/pink. 14:07 Reassessment: Patient appears in no apparent distress at this time. No changes from sv previously documented assessment. Patient and/or family updated on plan of care and expected duration. Pain level reassessed. Patient is alert, oriented x 3, equal unlabored respirations, skin warm/dry/pink. 15:18 Reassessment: Patient appears in no apparent distress at this time. Patient and/or sv family updated on plan of care and expected duration. Pain level reassessed. Patient is alert, oriented x 3, equal unlabored respirations, skin warm/dry/pink. Report called to [facility]. 15:41 Reassessment: Report given to EMS. sv Vital Signs: 10:50 BP 138 / 67; Pulse 54; Resp 17; Pulse Ox 97% on R/A; Pain 0/10; ss 10:55 Temp 97.9; Weight 75.3 kg; Height 5 ft. 9 in. (175.26 cm); ss 11:50 BP 126 / 57; Pulse 74; Resp 18; Pulse Ox 97% on R/A; dh3 12:12 BP 131 / 60; Pulse 74; Resp 18; Pulse Ox 97% on R/A; sv 12:52 Weight 76.16 kg; dh3 12:55 BP 131 / 64; Pulse 75; Resp 18; Pulse Ox 97% on R/A; dh3 13:58 BP 127 / 53; Pulse 77; Resp 18; Pulse Ox 98% on R/A; sv 14:19 BP 134 / 56; Pulse 69; Resp 18; Pulse Ox 97% on R/A; dh3 14:57 BP 124 / 55; Pulse 71; Resp 18; Pulse Ox 96% on R/A; dh3 12:52 Body Mass Index 24.79 (76.16 kg, 175.26 cm) 3 ED Course: 10:31 Patient arrived in ED. as 10:32 Octavia Martinez MD is Private Physician. as 10:39 Sam Patterson MD is Attending Physician. rn 10:48 Triage completed. ss 10:51 Rula Burnett, RN is Primary Nurse. sv 10:51 Arm band placed on right wrist. ss 11:02 Initial lab(s) drawn, by ga, sent to lab. Inserted saline lock: 20 gauge in right 3 antecubital area, using aseptic technique. Blood collected. 11:10 Patient has correct armband on for positive identification. Bed in low position. Call sv light in reach. Adult w/ patient. Pulse ox on. NIBP on. Door closed. Warm blanket given. Head of bed elevated. 11:14 Patient taken to ultrasound. via wheelchair. sv 11:28 Extremity Venous Uni Ltd US In Process Unspecified. EDMS 12:03 Upper Ext Artery Uni Sebastián In Process Unspecified. EDMS 13:00 Inserted saline lock: 22 gauge in right hand, using aseptic technique. Flushed right sv hand with 5 ml normal saline. 14:16 transfer approval from receiving facility. sv 15:19 No provider procedures requiring assistance completed. Patient transferred, IV remains sv in place. intact. Administered Medications: 11:10 Drug: NS 0.9% 500 ml Route: IV; Rate: bolus; Site: right antecubital; sv 11:45 Follow up: Response: No adverse reaction; IV Status: Completed infusion; IV Intake: sv 500ml 11:10 Drug: Aspirin Chewable Tablet 243 mg Route: PO; sv 11:12 Follow up: Response: No adverse reaction sv 13:14 Drug: Heparin (DVT/PE Drip) 18 units/kg/hr - (HEParin 25017 units, D5W 500 ml) sv {Co-Signature: hb (Marixa Guzman RN).} Route: IV; Rate: calculated rate; Site: right hand; 15:43 Follow up: Response: No adverse reaction; IV Status: Infusion continued upon transfer sv 13:14 Drug: NS 0.9% 500 ml Route: IV; Rate: bolus; Site: right antecubital; sv 14:07 Follow up: Response: No adverse reaction; IV Status: Completed infusion; IV Intake: sv 500ml 13:15 Drug: Heparin (DVT/PE- Bolus per protocol) - HEParin 80 units/kg {Co-Signature: hb sv (Marixa Guzman RN).} Route: IVP; Site: right hand; 13:30 Follow up: Response: No adverse reaction sv Intake: 11:45 IV: 500ml; Total: 500ml. sv 14:07 IV: 500ml; Total: 1000ml. sv Outcome: 13:34 ER care complete, transfer ordered by . rn 15:20 Transferred by ground EMS to [facility], Transfer form completed. sv 15:20 Condition: stable 15:20 Instructed on the need for transfer. 15:44 Patient left the ED. sv Signatures: Dispatcher [employer] EDRula Herring RN RN Karon Mak Roman, MD MD rn Smirch, Shelby, RN RN Ally Arreaga [facility] Marixa Guzman RN hb Corrections: (The following items were deleted from the chart) 14:07 11:10 Respiratory: Respiratory effort is even, unlabored, Respiratory pattern is sv regular, symmetrical, sv 14:07 11:10 Derm: Skin is normal, sv sv
== END 2018-05-15 15:44 | disposition short-term general hospital (02) ==
LOC: ER 10:28
DX: R23.0 Cyanosis (principal); N17.9 Acute kidney failure, unspecified; I10 Essential (primary) hypertension; C34.90 Malignant neoplasm of unspecified part of unspecified bronchus or lung; Z72.0 Tobacco use
CPT/HCPCS: 36415; 80048; 85025; 85610; 85730; 87040; 93931; 93971; 96361; 96365; 96366; 99285; J1644

== ENCOUNTER 2018-07-07 07:33 | Day surgery (SDC) | payer BC ==
[2018-07-06 16:52] LABS: Magnesium 1.9 mg/dL (1.8-2.4); Potassium 4.6 mmol/L (3.5-5.1)
--- OUTSIDE RECORDS SUMMARY | 2018-07-07 08:27 | XMS REPORT | Clinical Summary ---
:1960 Author Organization [facility] Address [address] [place] [address] Care Team Providers Name Role Phone Octavia Martinez MD Primary Care Provider Allergies No Known Allergies Current Medications Prescription Sig. Disp. Refills Start Date End Date Status FOLBIC 2.5-25-2 mg Take 1 tablet 03/16/2018 Active tablet by mouth daily. omeprazole Take 20 mg by 04/06/2018 Active (PriLOSEC) 20 MG mouth daily. capsule TRELEGY ELLIPTA 03/30/2018 Active 100-62.5-25 mcg blister with device omega-3 acid ethyl Take 1 g by Active esters (LOVAZA) 1 mouth daily. gram capsule thiamine 100 MG Take 100 mg Active tablet by mouth daily. amLODIPine (NORVASC) TAKE ONE 30 tablet 0 06/14/2018 Active 10 mg tablet TABLET BY MOUTH DAILY felodipine (PLENDIL) 10 mg. 03/16/2018 Discontinued 10 MG 24 hr tablet 8 lisinopril-hydrochlo 03/16/2018 Discontinued rothiazide 8 (PRINZIDE,ZESTORETIC ) 20-12.5 mg per tablet spironolactone Take 25 mg by 04/23/2018 Discontinued (ALDACTONE) 25 MG mouth daily. 8 tablet lisinopril-hydrochlo Takes 2 07/01/2017 Discontinued rothiazide tablet by 8 (PRINZIDE,ZESTORETIC mouth daily ) 20-12.5 mg per tablet aspirin (ECOTRIN) 81 DAILY 07/01/2017 Discontinued MG enteric coated 8 tablet felodipine (PLENDIL) Take 5 mg by 04/28/2018 Discontinued 5 MG 24 hr tablet mouth daily. 8 amLODIPine (NORVASC) Take 1 tablet 30 tablet 0 05/21/2018 Discontinued 10 mg tablet (10 mg total) 8 by mouth daily for 30 days. magnesium oxide Take 4 360 tablet 0 05/21/2018 (MAG-OX) 400 mg tablets 8 tablet (1,600 mg total) by mouth 3 (three) times a day for 30 days. aspirin 81 mg Chew 1 tablet 30 tablet 0 05/21/2018 chewable tablet (81 mg total) 8 daily for 30 days. potassium chloride Take 1 tablet 60 tablet 0 05/21/2018 (K-DUR) 20 MEQ CR (20 mEq 8 tablet total) by mouth 2 (two) times a day for 30 days. enoxaparin (LOVENOX) Inject 0.8 mL 48 mL 3 05/21/2018 80 mg/0.8 mL syringe (80 mg total) 8 under the skin every 12 (twelve) hours for 30 days. 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 Cyanosis of tip of finger 05/15/2018 Finger numbness 05/15/2018 Lung cancer 04/23/2018 Hypertension 04/23/2018 Encounters Date Type Specialty Care Team Description 07/06/2018 Telephone Cardiothoracic Tip Luna NP 06/29/2018 Orders Only Cardiothoracic Provider, Tip Gamble MD 06/25/2018 Hospital Encounter Yobany Sheppard MD 06/25/2018 Hospital Encounter Radiology Michelet Morales MD 06/25/2018 Hospital Encounter Radiation Oncology Michelet Morales MD 06/25/2018 Ancillary Orders Yobany Sheppard MD 06/25/2018 Social Work Oncology Gordon Guadalupe LMSW 06/25/2018 Oncology Radiation Oncology Cecil, Malignant neoplasm of Survivorship VEL Lopez lung, unspecified laterality, unspecified part of lung (Primary Dx) 06/25/2018 Ancillary Orders Radiology Michelet Morales MD 06/18/2018 Telephone Cardiothoracic Yobany Davey Surgery MD [place] 06/17/2018 Hospital Encounter Radiology Yobany Davey Arm numbness left; MD [place] Vertigo 06/16/2018 Telephone Cardiothoracic Heidy, Surgery [place], [place] 06/12/2018 Procedure Pass Radiology 06/12/2018 Telephone Cardiothoracic Heidy, Surgery [place] 06/12/2018 Orders Only Cardiothoracic Heidy, Arm numbness left ( Primary Dx); Surgery [place], [place] Vertigo 06/12/2018 Refill Internal Medicine Twan Escobar DO 06/08/2018 Telephone Cardiothoracic Sarepta, [place] 06/04/2018 Orders Only Cardiothoracic Jeremy, Tip Gibbons NP 05/25/2018 Orders Only Internal Medicine Jose Alejandro Bah MA 05/21/2018 Documentation Nephrology Daiana Newell MD 05/15/2018 Hospital Encounter Cardiology [facility], 05/21/2018 05/15/2018 Intake Access N/A 05/07/2018 Office Visit Cardiothoracic Yobany Davey Malignant neoplasm of Surgery MD [place] lower lobe of right lung (Primary Dx) 05/06/2018 Telephone Cardiothoracic Rosario, [place] 05/05/2018 Telephone Cardiothoracic Heidy, Surgery [place], [place] 05/01/2018 Telephone Cardiothoracic Yobany Davey MD 04/29/2018 Hospital Encounter Radiology Matty Aguilar MD 04/29/2018 Hospital Encounter Radiology Matty Aguilar MD 04/29/2018 Hospital Encounter Radiology Matty Aguilar MD 04/29/2018 Hospital Encounter Radiology Yobany Davey No Show MD [place] 04/29/2018 Hospital Encounter Radiology Yobany Davey MD 04/29/2018 Hospital Encounter Radiology Matty Aguilar MD 04/29/2018 Hospital Encounter Radiology Yobany Davey Lung mass; MD [place] Nodule of left lung 04/29/2018 Ancillary Orders Cardiothoracic Yobany Davey Lung mass Surgery MD [place] 04/29/2018 Ancillary Orders Cardiothoracic Yobany Davey Lung mass Surgery MD [place] 04/27/2018 Telephone Cardiothoracic Tip Luna NP 04/24/2018 Telephone Cardiothoracic Heidy, Surgery [place] 04/24/2018 Telephone Radiology Ange Freire RN 04/23/2018 Office Visit Cardiothoracic Yobany Davey Lung mass (Primary Dx); Surgery MD [place] Malignant neoplasm of lung, unspecified laterality, unspecified part of lung 04/23/2018 Hospital Encounter Pulmonology Yobany Davey Lung nodule MD [place] 04/23/2018 Orders Only Cardiothoracic Provider, Surgery MD Mavis 04/23/2018 Telephone Cardiothoracic Heidy, Surgery [place] 04/23/2018 Ancillary Orders Pulmonology Yobany Davey Lung nodule MD [place] 04/22/2018 Orders Only Cardiothoracic Heidy, Lung nodule (Primary Surgery [place], [place] Dx) 04/17/2018 Hospital Encounter Radiology Yobany Davey Malignant neoplasm of lower lobe of left lung; MD [place] Lung nodule; LAD (lymphadenopathy), mediastinal 04/17/2018 Hospital Encounter Cardiothoracic Yobany Davey Cancer of lower lobe of left lung; Surgery MD [place] Lung nodule; Lymphadenopathy syndrome 04/17/2018 Anesthesia Event Cardiothoracic Justina Qureshi Surgery 04/17/2018 Procedure Pass Cardiothoracic Surgery 04/17/2018 Surgery Cardiothoracic Yobany Davey FLEXIBLE Tip Robin MD BRONCHOSCOPY, 04/16/2018 Telephone Cardiothoracic Heidy, Surgery [place] 04/15/2018 Lab Lab Yobany Davey MD 04/15/2018 Telephone Cardiothoracic [place]idy, Surgery [place] 04/10/2018 Telephone Cardiothoracic Heidy, Surgery [place] 04/09/2018 Hospital Encounter Radiology Yobany Davey MD 04/09/2018 Hospital Encounter Radiology Yobany Davey MD 04/09/2018 Hospital Encounter Yobany Sheppard MD 04/09/2018 Hospital Encounter Yobany Sheppard MD 04/09/2018 Hospital Encounter Yobany Sheppard MD 04/09/2018 Hospital Encounter Radiology Yobany Davey MD 04/09/2018 Hospital Encounter Radiology Yobany Davey MD 04/09/2018 Lab Lab Yobany Davey Malignant neoplasm of lower lobe of left lung; MD [place] Lung nodule; LAD (lymphadenopathy), mediastinal 04/09/2018 Hospital Encounter Yobany Sheppard MD 04/09/2018 Hospital Encounter Yobany Sheppard MD 04/09/2018 Hospital Encounter Yobany Sheppard MD 04/09/2018 Hospital Encounter Yobany Sheppard MD 04/09/2018 Hospital Encounter Yobany Sheppard MD 04/09/2018 Office Visit Cardiothoracic Yobany Davey Malignant neoplasm of lower lobe of left lung (Primary Dx); Surgery MD [place] Lung nodule; LAD (lymphadenopathy), mediastinal 04/09/2018 Telephone Cardiothoracic Tip Moody [place] 04/09/2018 Transcribe Orders Procedural Yobany Davey Malignant neoplasm of lower lobe of left lung; Cardiology MD [place] Lung nodule; LAD (lymphadenopathy), mediastinal 04/09/2018 Procedure Pass Radiology 04/09/2018 Ancillary Orders Radiology Yobany Davey MD 04/03/2018 Orders Only Cardiothoracic Provider, Tip Gamble MD after 07/06/2017 Family History Medical History Relation Name Comments [...] Vital Sign Reading Time Taken Blood Pressure 153/70 05/21/2018 4:07 PM CDT Pulse 69 05/21/2018 4:07 PM CDT Temperature 36.4 C (97.5 F) 05/21/2018 4:07 PM CDT Respiratory Rate 19 05/21/2018 4:07 PM CDT Oxygen Saturation 100% 05/21/2018 4:07 PM CDT Inhaled Oxygen Concentration - - Weight 72.6 kg (160 lb) 06/17/2018 9:47 AM CDT Height 175.3 cm (5' 9") 06/17/2018 9:47 AM CDT Body Mass Index 23.63 06/17/2018 9:47 AM CDT Plan of Treatment Health Maintenance Due Date Last Done Comments COLON CANCER SCREENING 2010 SHINGRIX VACCINE (#1) 2010 INFLUENZA VACCINE 06/17/2018 Procedures Procedure Name Priority Date/Time Associated Comments Diagnosis CT CHEST EXTERNAL STUDY Routine 06/23/2018 2:15 Results for this PM CDT procedure are in the results section. CT CHEST EXTERNAL STUDY Routine 06/23/2018 2:15 Results for this PM CDT procedure are in the results section. CT CHEST W CONTRAST Routine 06/23/2018 12:00 AM CDT MRI BRAIN W WO CONTRAST Routine 06/17/2018 10:55 Arm numbness left Results for this AM CDT Vertigo procedure are in the results section. MANUAL DIFFERENTIAL Routine 05/21/2018 4:40 Results for this AM CDT procedure are in the results section. ESTIMATED GFR Routine 05/21/2018 4:40 Results for this AM CDT procedure are in the results section. CBC WITH PLATELET AND Routine 05/21/2018 4:40 Results for this DIFFERENTIAL AM CDT procedure are in the results section. MAGNESIUM LEVEL Routine 05/21/2018 4:40 Results for this AM CDT procedure are in the results section. BASIC METABOLIC PANEL Routine 05/21/2018 4:40 Results for this AM CDT procedure are in the results section. MAGNESIUM LEVEL Timed 05/20/2018 8:20 Results for this PM CDT procedure are in the results section. HEPARIN PF4 ANTIBODY STAT 05/20/2018 7:39 Results for this (IGG) AM CDT procedure are in the results section. MANUAL DIFFERENTIAL Routine 05/20/2018 5:20 Results for this AM CDT procedure are in the results section. CBC WITH PLATELET AND Routine 05/20/2018 5:20 Results for this DIFFERENTIAL AM CDT procedure are in the results section. ESTIMATED GFR Routine 05/20/2018 4:00 Results for this AM CDT procedure are in the results section. IONIZED CALCIUM Routine 05/20/2018 4:00 Results for this AM CDT procedure are in the results section. PHOSPHORUS LEVEL Routine 05/20/2018 4:00 Results for this AM CDT procedure are in the results section. MAGNESIUM LEVEL Routine 05/20/2018 4:00 Results for this AM CDT procedure are in the results section. BASIC METABOLIC PANEL Routine 05/20/2018 4:00 Results for this AM CDT procedure are in the results section. MAGNESIUM LEVEL Routine 05/19/2018 8:12 Results for this AM CDT procedure are in the results section. MANUAL DIFFERENTIAL Routine 05/19/2018 6:00 Results for this AM CDT procedure are in the results section. CBC WITH PLATELET AND Routine 05/19/2018 6:00 Results for this DIFFERENTIAL AM CDT procedure are in the results section. ESTIMATED GFR Routine 05/19/2018 4:00 Results for this AM CDT procedure are in the results section. BASIC METABOLIC PANEL Routine 05/19/2018 4:00 Results for this AM CDT procedure are in the results section. PHOSPHORUS LEVEL Routine 05/19/2018 4:00 Results for this AM CDT procedure are in the results section. MAGNESIUM LEVEL Routine 05/19/2018 4:00 Results for this AM CDT procedure are in the results section. MAGNESIUM LEVEL, URINE, Routine 05/18/2018 10:10 Results for this RANDOM PM CDT procedure are in the results section. PROTEIN, URINE, RANDOM Routine 05/18/2018 10:10 Results for this PM CDT procedure are in the results section. CREATININE LEVEL, URINE, Routine 05/18/2018 10:10 Results for this RANDOM PM CDT procedure are in the results section. URINALYSIS, AUTOMATED Routine 05/18/2018 10:10 Results for this WITH MICROSCOPY PM CDT procedure are in the results section. PARTIAL THROMBOPLASTIN Routine 05/18/2018 7:45 Results for this TIME (PTT) AM CDT procedure are in the results section. IONIZED CALCIUM Routine 05/18/2018 4:50 Results for this AM CDT procedure are in the results section. ESTIMATED GFR Routine 05/18/2018 4:50 Results for this AM CDT procedure are in the results section. BASIC METABOLIC PANEL Routine 05/18/2018 4:50 Results for this AM CDT procedure are in the results section. URINE EOSINOPHILS Routine 05/18/2018 2:40 Results for this AM CDT procedure are in the results section. URINALYSIS SCREEN AND Routine 05/18/2018 2:40 Results for this MICROSCOPY, WITH REFLEX AM CDT procedure are in TO CULTURE the results section. URINE CULTURE Routine 05/18/2018 2:40 Results for this AM CDT procedure are in the results section. MANUAL DIFFERENTIAL Routine 05/18/2018 1:41 Results for this AM CDT procedure are in the results section. ESTIMATED GFR Routine 05/18/2018 1:41 Results for this AM CDT procedure are in the results section. PARTIAL THROMBOPLASTIN Routine 05/18/2018 1:41 Results for this TIME (PTT) AM CDT procedure are in the results section. C4 COMPLEMENT COMPONENT Routine 05/18/2018 1:41 Results for this AM CDT procedure are in the results section. C3 COMPLEMENT COMPONENT Routine 05/18/2018 1:41 Results for this AM CDT procedure are in the results section. PHOSPHORUS LEVEL Routine 05/18/2018 1:41 Results for this AM CDT procedure are in the results section. MAGNESIUM LEVEL Routine 05/18/2018 1:41 Results for this AM CDT procedure are in the results section. BASIC METABOLIC PANEL Routine 05/18/2018 1:41 Results for this AM CDT procedure are in the results section. CBC WITH PLATELET AND Routine 05/18/2018 1:41 Results for this DIFFERENTIAL AM CDT procedure are in the results section. PARTIAL THROMBOPLASTIN Timed 05/17/2018 4:30 Results for this TIME (PTT) PM CDT procedure are in the results section. POTASSIUM LEVEL Routine 05/17/2018 4:30 Results for this PM CDT procedure are in the results section. MANUAL DIFFERENTIAL Routine 05/17/2018 6:00 Results for this AM CDT procedure are in the results section. PARTIAL THROMBOPLASTIN Routine 05/17/2018 6:00 Results for this TIME (PTT) AM CDT procedure are in the results section. CBC WITH PLATELET AND Routine 05/17/2018 6:00 Results for this DIFFERENTIAL AM CDT procedure are in the results section. PARATHYROID HORMONE Routine 05/17/2018 6:00 Results for this AM CDT procedure are in the results section. ESTIMATED GFR Routine 05/17/2018 4:00 Results for this AM CDT procedure are in the results section. PHOSPHORUS LEVEL Routine 05/17/2018 4:00 Results for this AM CDT procedure are in the results section. MAGNESIUM LEVEL Routine 05/17/2018 4:00 Results for this AM CDT procedure are in the results section. BASIC METABOLIC PANEL Routine 05/17/2018 4:00 Results for this AM CDT procedure are in the results section. PARTIAL THROMBOPLASTIN Timed 05/16/2018 9:10 Results for this TIME (PTT) PM CDT procedure are in the results section. GASTROINTESTINAL PANEL Routine 05/16/2018 7:30 Results for this PM CDT procedure are in the results section. URINALYSIS SCREEN AND Routine 05/16/2018 3:30 Results for this MICROSCOPY, WITH REFLEX PM CDT procedure are in TO CULTURE the results section. URINE CULTURE Routine 05/16/2018 3:30 Results for this PM CDT procedure are in the results section. ANTI-NEUTROPHILIC Routine 05/16/2018 3:20 Results for this CYTOPLASMIC ABS PANEL PM CDT procedure are in the results section. MIGUEL Routine 05/16/2018 3:20 Results for this PM CDT procedure are in the results section. PARTIAL THROMBOPLASTIN Routine 05/16/2018 3:00 Results for this TIME (PTT) PM CDT procedure are in the results section. US DUPLEX ARTERIAL UPPER Routine 05/16/2018 2:37 Results for this EXTREMITY LEFT PM CDT procedure are in the results section. ECHOCARDIOGRAM 2D Routine 05/16/2018 2:16 Results for this COMPLETE W MMODE PM CDT procedure are in SPECTRAL COLOR DOPPLER the results (94166) section. OSMOLALITY, URINE Routine 05/16/2018 9:10 Results for this AM CDT procedure are in the results section. UREA NITROGEN, URINE, Routine 05/16/2018 9:10 Results for this RANDOM AM CDT procedure are in the results section. CREATININE LEVEL, URINE, Routine 05/16/2018 9:10 Results for this RANDOM AM CDT procedure are in the results section. SODIUM LEVEL, URINE, Routine 05/16/2018 9:10 Results for this RANDOM AM CDT procedure are in the results section. ESTIMATED GFR Routine 05/16/2018 8:00 Results for this AM CDT procedure are in the results section. BASIC METABOLIC PANEL Routine 05/16/2018 8:00 Results for this AM CDT procedure are in the results section. MANUAL DIFFERENTIAL Routine 05/16/2018 4:00 Results for this AM CDT procedure are in the results section. MAGNESIUM LEVEL Routine 05/16/2018 4:00 Results for this AM CDT procedure are in the results section. C-REACTIVE PROTEIN Routine 05/16/2018 4:00 Results for this AM CDT procedure are in the results section. SEDIMENTATION RATE Routine 05/16/2018 4:00 Results for this AM CDT procedure are in the results section. CBC WITH PLATELET AND Routine 05/16/2018 4:00 Results for this DIFFERENTIAL AM CDT procedure are in the results section. TOTAL IRON BINDING Routine 05/16/2018 12:53 Results for this CAPACITY AM CDT procedure are in the results section. FERRITIN LEVEL Routine 05/16/2018 12:52 Results for this AM CDT procedure are in the results section. US RENAL Routine 05/15/2018 8:57 Results for this PM CDT procedure are in the results section. MANUAL DIFFERENTIAL Routine 05/15/2018 6:45 Results for this PM CDT procedure are in the results section. ESTIMATED GFR Routine 05/15/2018 6:45 Results for this PM CDT procedure are in the results section. PARTIAL THROMBOPLASTIN Routine 05/15/2018 6:45 Results for this TIME (PTT) PM CDT procedure are in the results section. PROTHROMBIN TIME WITH Routine 05/15/2018 6:45 Results for this INR PM CDT procedure are in the results section. PHOSPHORUS LEVEL Routine 05/15/2018 6:45 Results for this PM CDT procedure are in the results section. MAGNESIUM LEVEL Routine 05/15/2018 6:45 Results for this PM CDT procedure are in the results section. COMPREHENSIVE METABOLIC Routine 05/15/2018 6:45 Results for this PANEL PM CDT procedure are in the results section. CBC WITH PLATELET AND Routine 05/15/2018 6:45 Results for this DIFFERENTIAL PM CDT procedure are in the results section. XR CHEST 1 VW Routine 04/29/2018 4:13 Results for this PM CDT procedure are in the results section. MISCELLANEOUS REFERRAL Routine 04/29/2018 3:00 Results for this TEST PM CDT procedure are in the results [...] NO Routine 04/29/2018 12:15 Nodule of left Results for this CONTRAST PM CDT lung procedure are in the results section. CT CHEST WO CONTRAST Routine 04/29/2018 11:14 Results for this AM CDT procedure are in the results section. US NEEDLE BIOPSY STAT 04/29/2018 10:57 Lung mass Results for this AM CDT procedure are in the results section. SPIROMETRY PRE AND POST Routine 04/23/2018 9:51 Lung nodule Results for this WITH BRONCHILATOR, AM CDT procedure are in DIFFUSION, LUNG VOLUMES the results section. PULMONARY FUNCTION TEST Routine 04/23/2018 12:00 AM CDT SURGICAL PATHOLOGY Routine 04/17/2018 2:08 Results for this REQUEST PM CDT procedure are in the results section. CYTOLOGY Routine 04/17/2018 1:44 Results for this (NON-GYNECOLOGICAL) PM CDT procedure are in REQUEST the results section. XR CHEST 1 VW PORTABLE STAT 04/17/2018 11:07 Results for this AM CDT procedure are [...] Lung nodule the results Lymphadenopathy section. syndrome NOCARDIA CULTURE Timed 04/17/2018 9:32 Cancer [...] Lung nodule the results Lymphadenopathy section. syndrome WA AN ELECTIVE Routine 04/17/2018 8:51 ENDOTRACHEAL AIRWAY AM CDT Procedure Note - Vera Lopez, EMERGENCY DEPARTMENT PHYSICIAN - 04/17/2018 8:51 AM CDT Airway Date/Time: 04/17/2018 8:46 AM Performed by: VERA LOPEZ Authorized by: KARRIE TILLEY Location: OR Urgency: Elective Anesthesiologist: KARRIE TILLEY Resident/EMERGENCY DEPARTMENT PHYSICIAN/AA: VERA LOPEZ Preoxygenated with 100% O2: Yes [...] PULMONARY FUNCTION Routine 12/31/2017 12:00 TEST AM BONDING MACHINE TENDER US ABDOMINAL EXTERNAL Routine 12/30/2017 9:08 Results for STUDY AM BONDING MACHINE TENDER this procedure are in the results section. after 07/06/[address] Chest External Study (06/23/2018 2:15 PM)Only the most recent of3 resultswithin the time period is included. Narrative Performed At This exam was not acquired at a [facility] facility and has not been [facility] interpreted by a [facility] Provider.The exam was imported into our imaging system for comparisons purposes. Performing Organization Address City/State/Zipcode Phone Number [facility] [address] [place] [address] CT Chest W Contrast (06/23/2018)Only the most recent of2 resultswithin the time period is included. Narrative Performed At MRI Brain W Wo Contrast (06/17/2018 10:55 AM)Only the most recent of2 resultswithin the time period is included. Narrative Performed At EXAMINATION: MRI BRAIN W WO CONTRAST [facility] CLINICAL HISTORY: R20.0 Anesthesia of skin, R42 Dizziness and giddiness, arm numbness COMPARISON:None TECHNIQUE: Multiplanar and multisequence MRI imaging of the brain was obtained with and without contrast. FINDINGS: No evidence of acute intracranial hemorrhage, mass, mass effect, acute infarct or midline shift. Ventricles and sulci are normal in appearance for patient's age. Minimal chronic microvascular ischemic change. No abnormal intracranial enhancement. No abnormal susceptibility. Basal cisterns are clear. Major intracranial flow voids are maintained. Orbits are normal in appearance. Mild scattered paranasal sinus mucosal thickening. Moderate right and trace left mastoid fluid. IMPRESSION: 1. No acute intracranial abnormality. [id number] Procedure Note Interface, Radiology Results Incoming - 06/17/2018 11:34 AM CDT EXAMINATION: MRI BRAIN W WO CONTRAST CLINICAL HISTORY: R20.0 Anesthesia of skin, R42 Dizziness and giddiness, arm numbness COMPARISON: None TECHNIQUE: Multiplanar and multisequence MRI imaging of the brain was obtained with and without contrast. FINDINGS: No evidence of acute intracranial hemorrhage, mass, mass effect, acute infarct or midline shift. Ventricles and sulci are normal in appearance for patient's age. Minimal chronic microvascular ischemic change. No abnormal intracranial enhancement. No abnormal susceptibility. Basal cisterns are clear. Major intracranial flow voids are maintained. Orbits are normal in appearance. Mild scattered paranasal sinus mucosal thickening. Moderate right and trace left mastoid fluid. IMPRESSION: 1. No acute intracranial abnormality. [id number] Performing Organization Address [facility] Phone Number [facility] [address] [place] [address] Estimated GFR (05/21/2018 4:40 AM)Only the most recent of9 resultswithin the time period is included. GFR Non Af Amer 45 (A) mL/min/1.73 m2 [facility] DEPARTMENT OF PATHOLOGY AND GENOMIC MEDICINE GFR Af Amer 54 (A) mL/min/1.73 m2 [facility] DEPARTMENT OF Comment: PATHOLOGY AND GENOMIC Chronic [...] Americans. Specimen Plasma specimen Performing Organization Address [facility] Phone Number [facility] DEPARTMENT OF PATHOLOGY AND [address] [place] [id number] GENOMIC MEDICINE Manual differential (05/21/2018 4:40 AM)Only the most recent of7 resultswithin the time period is included. Manual differential PERFORMED [facility] DEPARTMENT OF PATHOLOGY AND GENOMIC MEDICINE Neutrophils 42.0 39.0 - 69.0 % [facility] DEPARTMENT OF PATHOLOGY AND GENOMIC MEDICINE Lymphocytes 51.0 (H) 25.0 - 45.0 % [facility] DEPARTMENT OF PATHOLOGY AND GENOMIC MEDICINE Monocytes 6.0 0.0 - 10.0 % [facility] DEPARTMENT OF PATHOLOGY AND GENOMIC MEDICINE Eosinophils 1.0 0.0 - 5.0 % [facility] DEPARTMENT OF PATHOLOGY AND GENOMIC MEDICINE Basophils 0.0 0.0 - 1.0 % [facility] DEPARTMENT OF PATHOLOGY AND GENOMIC MEDICINE Metamyelocytes 0 % [facility] DEPARTMENT OF PATHOLOGY AND GENOMIC MEDICINE Promyelocytes 0 % [facility] DEPARTMENT OF PATHOLOGY AND GENOMIC MEDICINE Platelet slide review Mkd decreased (A) [facility] DEPARTMENT OF PATHOLOGY AND GENOMIC MEDICINE Anisocytosis Moderate [facility] DEPARTMENT OF PATHOLOGY AND GENOMIC MEDICINE Polychromasia Moderate [facility] DEPARTMENT OF PATHOLOGY AND GENOMIC MEDICINE Schistocytes Occasional [facility] DEPARTMENT OF PATHOLOGY AND GENOMIC MEDICINE Spherocytes Occasional [facility] DEPARTMENT OF PATHOLOGY AND GENOMIC MEDICINE Lara cells Moderate (A) [facility] DEPARTMENT OF PATHOLOGY AND GENOMIC MEDICINE Enlarged platelets Moderate (A) [facility] DEPARTMENT OF PATHOLOGY AND GENOMIC MEDICINE Performing Organization Address City/State/Zipcode Phone Number [facility] DEPARTMENT OF PATHOLOGY AND [address] [place] [address] [facility] CBC with platelet and differential (05/21/2018 4:40 AM)Only the most recent of8 resultswithin the time period is included. WBC 2.67 (L) 4.50 - 11.00 k/uL [facility] DEPARTMENT OF PATHOLOGY AND GENOMIC MEDICINE RBC 3.57 (L) 4.40 - 6.00 m/uL [facility] DEPARTMENT OF PATHOLOGY AND GENOMIC MEDICINE HGB 10.7 (L) 14.0 - 18.0 g/dL [facility] DEPARTMENT OF PATHOLOGY AND GENOMIC MEDICINE HCT 29.9 (L) 41.0 - 51.0 % [facility] DEPARTMENT OF PATHOLOGY AND GENOMIC MEDICINE MCV 83.8 82.0 - 100.0 fL [facility] DEPARTMENT OF PATHOLOGY AND GENOMIC MEDICINE MCH 30.0 27.0 - 34.0 pg [facility] DEPARTMENT OF PATHOLOGY AND GENOMIC MEDICINE MCHC 35.8 31.0 - 37.0 g/dL [facility] DEPARTMENT OF PATHOLOGY AND GENOMIC MEDICINE RDW - SD 44.4 37.0 - 55.0 fL [facility] DEPARTMENT OF PATHOLOGY AND GENOMIC MEDICINE MPV 9.4 8.8 - 13.2 fL [facility] DEPARTMENT OF PATHOLOGY AND GENOMIC MEDICINE Platelet count 59 (L) 150 - 400 k/uL [facility] DEPARTMENT OF PATHOLOGY AND GENOMIC MEDICINE Nucleated RBC 0.00 /100 WBC [facility] DEPARTMENT OF PATHOLOGY AND GENOMIC MEDICINE Neutrophils 42.0 39.0 - 69.0 % [facility] DEPARTMENT OF PATHOLOGY AND GENOMIC MEDICINE Lymphocytes 51.0 (H) 25.0 - 45.0 % [facility] DEPARTMENT OF PATHOLOGY AND GENOMIC MEDICINE Monocytes 6.0 0.0 - 10.0 % [facility] DEPARTMENT OF PATHOLOGY AND GENOMIC MEDICINE Eosinophils 1.0 0.0 - 5.0 % [facility] DEPARTMENT OF PATHOLOGY AND GENOMIC MEDICINE Basophils 0.0 0.0 - 1.0 % [facility] DEPARTMENT OF PATHOLOGY AND GENOMIC MEDICINE Specimen Blood Performing Organization Address City/[facility] Phone Number [facility] DEPARTMENT PATHOLOGY AND [address] [place] [address] Magnesium level (05/21/2018 4:40 AM)Only the most recent of9 resultswithin the time period is included. Magnesium 1.7 1.6 - 2.6 mg/dL [facility] DEPARTMENT OF PATHOLOGY AND GENOMIC MEDICINE Specimen Plasma specimen Performing Organization Address [facility] Phone Number [facility] PATHOLOGY AND [address] [place] [address] Basic metabolic panel (05/21/2018 4:40 AM)Only the most recent of7 resultswithin the time period is included. Sodium 131 (L) 135 - 148 mEq/L [facility] DEPARTMENT OF PATHOLOGY AND GENOMIC MEDICINE Potassium 3.6 3.5 - 5.0 mEq/L [facility] DEPARTMENT OF PATHOLOGY AND GENOMIC MEDICINE Chloride 92 (L) 98 - 112 mEq/L [facility] DEPARTMENT OF PATHOLOGY AND GENOMIC MEDICINE CO2 24 24 - 31 mEq/L [facility] DEPARTMENT OF PATHOLOGY AND GENOMIC MEDICINE Anion gap 15@ANIO 7 - 15 mEq/L [facility] DEPARTMENT OF PATHOLOGY AND GENOMIC MEDICINE BUN 20 6 - 20 mg/dL [facility] DEPARTMENT OF PATHOLOGY AND GENOMIC MEDICINE Creatinine 1.6 (H) 0.7 - 1.2 mg/dL [facility] DEPARTMENT OF PATHOLOGY AND GENOMIC MEDICINE Glucose 89 65 - 99 mg/dL [facility] DEPARTMENT OF PATHOLOGY AND GENOMIC MEDICINE Calcium 8.4 8.3 - 10.2 mg/dL [facility] DEPARTMENT OF PATHOLOGY AND GENOMIC MEDICINE Specimen Plasma specimen Performing Organization Address [facility] Phone Number [facility] DEPARTMENT OF PATHOLOGY AND [address] [place] [address] Heparin PF4 antibody (IgG) (05/20/2018 7:39 AM) Heparin PF4 Ab OD reading 0.049 0.000 - 0.399 [facility] DEPARTMENT OF PATHOLOGY AND GENOMIC MEDICINE Heparin PF4 Ab, IgG Negative Negative [facility] DEPARTMENT OF PATHOLOGY AND GENOMIC MEDICINE Specimen Blood Performing Organization Address [facility] Phone Number [facility] DEPARTMENT OF PATHOLOGY AND [address] [place] [address] GENOMIC MEDICINE Phosphorus level (05/20/2018 4:00 AM)Only the most recent of5 resultswithin the time period is included. Phosphorus 3.2 2.4 - 4.5 mg/dL [facility] DEPARTMENT OF PATHOLOGY AND GENOMIC MEDICINE Specimen Plasma specimen Performing Organization Address [facility] Phone Number [facility] DEPARTMENT OF PATHOLOGY AND [address] [place] [address] GENOMIC MEDICINE Ionized calcium (05/20/2018 4:00 AM)Only the most recent of2 resultswithin the time period is included. pH 7.56 [facility] DEPARTMENT OF PATHOLOGY AND GENOMIC MEDICINE Ionized calcium 1.06 (L) 1.11 - 1.32 mmol/L [facility] DEPARTMENT OF PATHOLOGY AND GENOMIC MEDICINE Specimen Plasma specimen Performing Organization Address [facility] Phone Number [facility] DEPARTMENT OF PATHOLOGY AND [address] [place] [address] GENOMIC MEDICINE Protein, urine, random (05/18/2018 10:10 PM) Protein, urine random 28 mg/dL [facility] DEPARTMENT OF PATHOLOGY AND GENOMIC MEDICINE Specimen Urine Performing Organization Address [facility] Phone Number [facility] DEPARTMENT OF PATHOLOGY AND [address] [place] [address] GENOMIC MEDICINE Magnesium level, urine, random (05/18/2018 10:10 PM) Magnesium, urine, random 2 mg/dL [facility] DEPARTMENT OF Comment: PATHOLOGY AND GENOMIC Corrected result; previously reported as @FT on 05/19/2018 at 03:58 by [facility] Corrected result; previously reported as 3 on 05/19/2018 at 02:42 by [facility] Specimen Urine Performing Organization Address [facility] Phone Number [facility] DEPARTMENT OF PATHOLOGY AND [address] [place] [address] GENOMIC MEDICINE Creatinine level, urine, random (05/18/2018 10:10 PM)Only the most recent of2 resultswithin the time period is included. Creatinine, urine, random 67 mg/dL [facility] DEPARTMENT OF PATHOLOGY AND GENOMIC MEDICINE Specimen Urine Performing Organization Address [facility] Phone Number [facility] DEPARTMENT OF PATHOLOGY AND [address] [place] [address] GENOMIC MEDICINE Urinalysis, automated with microscopy (05/18/2018 10:10 PM) Color, UA Yellow [facility] DEPARTMENT OF PATHOLOGY AND GENOMIC MEDICINE Appearance, UA Clear [facility] DEPARTMENT OF PATHOLOGY AND GENOMIC MEDICINE Specific gravity, UA 1.010 1.001 - 1.035 [facility] DEPARTMENT OF PATHOLOGY AND GENOMIC MEDICINE pH, UA 6.0 5.0 - 8.5 [facility] DEPARTMENT OF PATHOLOGY AND GENOMIC MEDICINE Protein, UA 1+ (A) Negative [facility] DEPARTMENT OF PATHOLOGY AND GENOMIC MEDICINE Glucose, UA Negative Negative [facility] DEPARTMENT OF PATHOLOGY AND GENOMIC MEDICINE Ketones, UA Negative Negative [facility] DEPARTMENT OF PATHOLOGY AND GENOMIC MEDICINE Bilirubin, UA Negative Negative [facility] DEPARTMENT OF PATHOLOGY AND GENOMIC MEDICINE Blood, UA Negative Negative [facility] DEPARTMENT OF PATHOLOGY AND GENOMIC MEDICINE Nitrite, UA Negative Negative [facility] DEPARTMENT OF PATHOLOGY AND GENOMIC MEDICINE Urobilinogen, UA <2.0 <2.0 [facility] DEPARTMENT OF PATHOLOGY AND GENOMIC MEDICINE Leukocyte esterase, UA Negative Negative [facility] DEPARTMENT OF PATHOLOGY AND GENOMIC MEDICINE WBC, UA 2 (H) 0 - 1 /HPF [facility] DEPARTMENT OF PATHOLOGY AND GENOMIC MEDICINE RBC, UA 3 0 - 5 /HPF [facility] DEPARTMENT OF PATHOLOGY AND GENOMIC MEDICINE Bacteria, UA Few None seen [facility] DEPARTMENT OF PATHOLOGY AND GENOMIC MEDICINE Yeast, UA None seen [facility] DEPARTMENT OF PATHOLOGY AND GENOMIC MEDICINE Yeast with pseudohyphae, UA None seen [facility] DEPARTMENT OF PATHOLOGY AND GENOMIC MEDICINE Specimen Urine Performing Organization Address City/[facility] Phone [facility] DEPARTMENT OF PATHOLOGY AND [address] [place] [address] Partial thromboplastin time, activated (05/18/2018 7:45 AM)Only the most recent of8 resultswithin the time period is included. PTT 63.5 (H) 23.0 - 36.0 sec [facility] DEPARTMENT OF PATHOLOGY Comment: AND [facility] PTT therapeutic range for unfractionated heparin is 61.0-112.0 seconds which corresponds to Anti-Xa 0.3-0.7 U/ml. Specimen Blood Performing Organization Address City/[facility] Phone Number [facility] DEPARTMENT OF PATHOLOGY AND [address] [place] [id number] [facility] Urinalysis screen and microscopy, with reflex to culture (05/18/2018 2:40 AM) Only the most recent of2 resultswithin the time period is included. Specimen site Clean catch [facility] DEPARTMENT OF PATHOLOGY AND GENOMIC MEDICINE Color, UA Straw [facility] DEPARTMENT OF PATHOLOGY AND GENOMIC MEDICINE Appearance, UA Clear [facility] DEPARTMENT OF PATHOLOGY AND GENOMIC MEDICINE Specific gravity, UA 1.011 1.001 - 1.035 [facility] DEPARTMENT OF PATHOLOGY AND GENOMIC MEDICINE pH, UA 6.0 5.0 - 8.5 [facility] DEPARTMENT OF PATHOLOGY AND GENOMIC MEDICINE Protein, UA Negative Negative [facility] DEPARTMENT OF PATHOLOGY AND GENOMIC MEDICINE Glucose, UA 1+ (A) Negative [facility] DEPARTMENT OF PATHOLOGY AND GENOMIC MEDICINE Ketones, UA Negative Negative [facility] DEPARTMENT OF PATHOLOGY AND GENOMIC MEDICINE Bilirubin, UA Negative Negative [facility] DEPARTMENT OF PATHOLOGY AND GENOMIC MEDICINE Blood, UA Negative Negative [facility] DEPARTMENT OF PATHOLOGY AND GENOMIC MEDICINE Nitrite, UA Negative Negative [facility] DEPARTMENT OF PATHOLOGY AND GENOMIC MEDICINE Urobilinogen, UA <2.0 <2.0 [facility] DEPARTMENT OF PATHOLOGY AND GENOMIC MEDICINE Leukocyte esterase, UA Negative Negative [facility] DEPARTMENT OF PATHOLOGY AND GENOMIC MEDICINE WBC, UA 2 (H) 0 - 1 /HPF [facility] DEPARTMENT OF PATHOLOGY AND GENOMIC MEDICINE RBC, UA 3 0 - 5 /HPF [facility] DEPARTMENT OF PATHOLOGY AND GENOMIC MEDICINE Bacteria, UA None seen None seen [facility] DEPARTMENT OF PATHOLOGY AND GENOMIC MEDICINE Yeast, UA None seen [facility] DEPARTMENT OF PATHOLOGY AND GENOMIC MEDICINE Yeast with pseudohyphae, UA None seen [facility] DEPARTMENT OF PATHOLOGY AND GENOMIC MEDICINE Specimen Urine Performing Organization Address [facility] Phone Number [facility] DEPARTMENT OF PATHOLOGY AND [address] [place], [place] [id number] [facility] Urine eosinophils (05/18/2018 2:40 AM) Eosinophils, urine NONE [facility] DEPARTMENT OF PATHOLOGY AND GENOMIC MEDICINE Specimen Urine Performing Organization Address [facility] Phone Number [facility] DEPARTMENT OF PATHOLOGY AND [address] [place] [address] Urine culture (05/18/2018 2:40 AM)Only the most recent of2 resultswithin the time period is included. Urine culture SEE COMMENTComment: Bacteriuria [facility] DEPARTMENT OF PATHOLOGY screen negative. AND GENOMIC MEDICINE Performing Organization Address [facility] Phone Number [facility] DEPARTMENT OF PATHOLOGY AND [address] [place] [address] C3 complement component (05/18/2018 1:41 AM) C3 complement 122 90 - 180 mg/dL [facility] DEPARTMENT OF PATHOLOGY AND GENOMIC MEDICINE Specimen Plasma specimen Performing Organization Address [facility]/Zipcode Phone Number [facility] DEPARTMENT OF PATHOLOGY AND [address] [place] [phone] [facility] C4 complement component (05/18/2018 1:41 AM) C4 complement 24 10 - 40 mg/dL [facility] DEPARTMENT OF PATHOLOGY AND GENOMIC [facility] Specimen Plasma specimen Performing Organization Address [facility] Phone Number [facility] DEPARTMENT OF PATHOLOGY AND [address] [place] [phone] [place] [address] Potassium level (05/17/2018 4:30 PM) Potassium 3.6 3.5 - 5.0 mEq/L [facility] DEPARTMENT OF PATHOLOGY AND GENOMIC [facility] Specimen Plasma specimen Performing Organization Address [facility] Phone Number [facility] DEPARTMENT OF PATHOLOGY AND [address] [place] [address] Parathyroid hormone (05/17/2018 6:00 AM) PTH 61 15 - 65 pg/mL [facility] DEPARTMENT OF PATHOLOGY AND GENOMIC MEDICINE Specimen Blood Narrative Performed At K results called to and read back by ANTHONY [facility] DEPARTMENT OF PATHOLOGY AND GENOMIC JOVANNY/D9E (name/location) MEDICINE at05/17/201808:49 (date/time) by [facility]. Performing Organization Address [facility] Phone Number [facility] DEPARTMENT OF PATHOLOGY AND [address] [place] [address] Gastrointestinal panel (05/16/2018 7:30 PM) Gastrointestinal panel Negative for all pathogens tested: [facility] DEPARTMENT OF Negative for Salmonella PATHOLOGY AND GENOMIC Negative for Campylobacter MEDICINE Negative for Diarrheagenic E coli/Shigella Negative for Shiga-like toxin-producing E coli Negative for Plesiomonas shigelloides Negative for Yersinia enterocolitica Negative for Vibrio species Negative for Clostridium difficile (Toxin A/B) Negative for Cryptosporidium Negative for Giardia lamblia Negative for Cyclospora cayeteanensis Negative for Entamoeba histolytica Negative for Adenovirus F 40/41 Negative for Astrovirus Negative for Norovirus GI/GII Negative for Rotavirus A Negative for Sapovirus Negative for Clostridium difficile toxin Negative for E coli 0157 This real-time PCR assay detects the presence of nucleic acids (RNA or DNA) for the gastrointestinal pathogens listed. A result of "Not-detected" does not exclude the possibility of the presence of one or more pathogens at concentrations less than the detectable limits of the assay. Comment: Specimen Information Specimen Source: Stool Specimen Site: Not otherwise specified Specimen Stool - Not otherwise specified Performing Organization Address City/[facility] Phone Number [facility] DEPARTMENT OF PATHOLOGY AND [address] [place] [address] Anti-neutrophilic cytoplasmic Abs panel (05/16/2018 3:20 PM) ANCA screen Negative Negative [facility] DEPARTMENT OF PATHOLOGY AND GENOMIC MEDICINE Specimen Blood Performing Organization Address City/[facility] Phone Number [facility] DEPARTMENT OF PATHOLOGY AND [address] [place] [address] MIGUEL (05/16/2018 3:20 PM) MIGUEL screen Negative Negative [facility] DEPARTMENT OF PATHOLOGY AND [facility] MEDICINE Specimen Blood Performing Organization Address [facility] Phone Number [facility] DEPARTMENT OF PATHOLOGY AND [address] [place] [address] Pv duplex arterial upper extremity (05/16/2018 2:37 PM) Narrative Performed At [facility] Vascular Ultrasound Laboratory Upper Extremity Arterial Report [address] [place] [address] Pat.Name:Jacqueline MARTIN.ID:[id number] .Date: 05/16/2018 Refer.MD:MICHELLE BLEVINS MD Exam Time: 2:17:00 PMStudy Type:UE Arterial DOBAge:1960,57YSex: MALE Sonogrphr: MOR [place], TAMARA Pat. Stat.:Inpatient Room:[place] [address]TapeVol: DIAN, CPT - 4: 37827 Echo Event ID:[id number] Order ID:[id number] Reason for Study:Evaluate for left upper extremity embolism. History of Lung CA undergoing chemo, HTN, finger numbness . Procedures:Colorflow, Grayscale/2D, Pulsed wave Doppler Race:C SUMMARY: DUPLEX SCAN OBSERVATIONS: LEFT: There is smooth intimal lining in the subclavian, axillary, brachial , radial and ulnar arteries. Triphasic and biphasic Doppler signals are noted in the visualized arteries.All the visualized arteries with no elevated velocities . PRELIMINARY FINDINGS: 1. Normal arterial study of the left upper extremity. PHYSICIAN INTERPRETATION: 1.Left upper extremity arterial examination demonsstrates no evidence of occlusive disease. MEASUREMENTS: DOPPLER Left Brachial Brachial Dist P 148 cm/s Brachial Dist E 0 cm/s Left Brachial Mid Brachial Mid PS 162 cm/s Brachial Mid ED 0 cm/s Left P Brachial Brachial Prox P 123 cm/s Brachial Prox E 0 cm/s Left D Radial Radial Dist PSV 114 cm/s Radial Dist EDV 0 cm/s Left M Radial Radial Mid PSV 129 cm/sRadial Mid EDV 0 cm/s Left P Radial Radial Prox PSV 113 cm/s Radial Prox EDV 0 cm/s Left P Ulnar Ulnar Prox PSV 114 cm/sUlnar Prox EDV 0 cm/s Left M Ulnar Ulnar Mid PSV 96.8 cm/sUlnar Mid EDV0 cm/s Left Subclavian Mid Subclavian Isy658 cm/s Subclavian Mid 6.14 cm/s Left Axillary Mid Axillary Mid PS 142 cm/s Axillary Mid ED 0 cm/s Left Ulnar Dist Ulnar Dist PSV 114 cm/sUlnar Dist EDV 0 cm/s Signed 05/16/2018 04:27 PM Rahul Negrete MD Procedure Note Interface, Radiology Results In - 05/16/2018 4:28 PM CDT Vascular Ultrasound Laboratory Upper Extremity Arterial Report [address] [place] [address] Pat.Name: LUIS MARTIN Pat.ID: [id number] .Date: 05/16/2018 Refer.MD: MICHELLE BLEVINS MD Exam Time: 2:17:00 PM Study Type:UE Arterial Age: 10 1960,57Y Sex: MALE Sonogrphr: MOR [place], TAMARA Pat. Stat.:Inpatient Room: [address] Vol: JM, CPT - 4: 70327 Echo Event ID:[id number] Order ID: [id number] Reason for Study:Evaluate for left upper extremity embolism. History of Lung CA undergoing chemo, HTN, finger numbness . Procedures:Colorflow, Grayscale/2D, Pulsed wave Doppler Race: C SUMMARY: DUPLEX SCAN OBSERVATIONS: LEFT: There is smooth intimal lining in the subclavian, axillary, brachial , radial and ulnar arteries. Triphasic and biphasic Doppler signals are noted in the visualized arteries. All the visualized arteries with no elevated velocities . PRELIMINARY FINDINGS: 1. Normal arterial study of the left upper extremity. PHYSICIAN INTERPRETATION: 1. Left upper extremity arterial examination demonsstrates no evidence of occlusive disease. MEASUREMENTS: DOPPLER Left Brachial Brachial Dist P 148 cm/s Brachial Dist E 0 cm/s Left Brachial Mid Brachial Mid PS 162 cm/s Brachial Mid ED 0 cm/s Left P Brachial Brachial Prox P 123 cm/s Brachial Prox E 0 cm/s Left D Radial Radial Dist PSV 114 cm/s Radial Dist EDV 0 cm/s Left M Radial Radial Mid PSV 129 cm/s Radial Mid EDV 0 cm/s Left P Radial Radial Prox PSV 113 cm/s Radial Prox EDV 0 cm/s Left P Ulnar Ulnar Prox PSV 114 cm/s Ulnar Prox EDV 0 cm/s Left M Ulnar Ulnar Mid PSV 96.8 cm/s Ulnar Mid EDV 0 cm/s Left Subclavian Mid Subclavian Mid 187 cm/s Subclavian Mid 6.14 cm/s Left Axillary Mid Axillary Mid PS 142 cm/s Axillary Mid ED 0 cm/s Left Ulnar Dist Ulnar Dist PSV 114 cm/s Ulnar Dist EDV 0 cm/s Signed 05/16/2018 04:27 PM Rahul Negrete MD Performing Organization Address City/State/Zipcode Phone Number [facility] [address] [place] [address] Echocardiogram complete w contrast and 3D if needed (05/16/2018 2:16 PM) Narrative Performed At [facility] Echocardiography Report [id number] [address] Pat.Name:Jacqueline MARTIN.ID:[id number] .Date: 05/16/2018 Refer.MD:MICHELLE BLEVINS MD Exam Time: 1:49:00 PMStudy Type:Routine Echo Height:68.9inWeight: 163lb BSA: 1.89 m2 DOBAge:1960,57Y Sex: MALEBP:119/56 HR:72 bpmSonogrphr: Nilam Funk RDCS Pat. Stat.:Inpatient Room:[address] Study Status:Final Echo Event ID:[id number] Order ID:[id number] Reason for Study:emboli History / Clinical:Hypertension Procedures:2D Echo, Colorflow Doppler Race:C FINDINGS: LV: LV size is normal. LV EF is normal. Overall wall motion is normal.Estimated EF is 60-64%. RV: RV size is normal. RV systolic function is normal. LA: LA size is normal. RA: RA size is normal. AO: Aortic root diameter is normal. EDGAR: No pericardial effusion. AV: No structural AV abnormalities noted. MV: No structural MV abnormalities noted. PV: No structural PV abnormalities noted. TV: No structural TV abnormalities noted. Cerda: LV relaxation is reduced, appropriate for age. LV filling pressureis normal. Other:Insufficient TR jet to estimate PA systolic pressure. Normal Dopplerstudy. No intracardiac flow abnormalities detected byDoppler. MEASUREMENTS: 2D Parasternal [place] LVOT 1.6 cmLA Ds3.5 cm LVIDd4.3 cmIndex2.3 cm/m Ao An1.7 cm LVIDs2.5 cmAo Rtd 2.8 cm Index1.5 cm/m LV%fs 42 % LV Mass 98.5 g(122-174) IVSd 0.7 cmLVM Index 52.1 g/m2 LVPWd0.8 cmRWT0.4 LA Sng Plane LA Area 20 cm2(8.8-23.4) LA Vol58.3 ml Index30.9 ml/m LA LngAx 5.6 cm DOPPLER LVOT Stroke Vol LVOT 1.7 cmLVOT CO4.2 l/min LVOT TVI27.4 cmLVOT CI2.5 l/m/m2 LVOT Tm313 agxmUH03 bpm LVOT SV 62.2 ml Signed 05/16/2018 05:34 PM Deborah Robledo M.D. Procedure Note Interface, Radiology Results In - 05/16/2018 5:35 PM CDT Echocardiography Report [address] [place] [address] Pat.Name: LUIS MARTIN Pat.ID: [id number] .Date: 05/16/2018 Refer.MD: MICHELLE BLEVINS MD Exam Time: 1:49:00 PM Study Type:Routine Echo Height: 68.9in Weight: 163lb BSA: 1.89 m2 Age: 10 1960,57Y Sex: MALE BP: 119/56 HR: 72 bpm Sonogrphr: Nilam Funk RDCS Pat. Stat.:Inpatient Room: [address] Study Status:Final Echo Event ID:[id number] Order ID: [id number] Reason for Study:emboli History / Clinical:Hypertension Procedures:2D Echo, Colorflow Doppler Race: C FINDINGS: LV: LV size is normal. LV EF is normal. Overall wall motion is normal. Estimated EF is 60-64%. RV: RV size is normal. RV systolic function is normal. LA: LA size is normal. RA: RA size is normal. AO: Aortic root diameter is normal. EDGAR: No pericardial effusion. AV: No structural AV abnormalities noted. MV: No structural MV abnormalities noted. PV: No structural PV abnormalities noted. TV: No structural TV abnormalities noted. Cerda: LV relaxation is reduced, appropriate for age. LV filling pressure is normal. Other: Insufficient TR jet to estimate PA systolic pressure. Normal Doppler study. No intracardiac flow abnormalities detected by Doppler. MEASUREMENTS: 2D Parasternal [place] LVOT 1.6 cm LA Ds 3.5 cm LVIDd 4.3 cm Index 2.3 cm/m Ao An 1.7 cm LVIDs 2.5 cm Ao Rtd 2.8 cm Index 1.5 cm/m LV%fs 42 % LV Mass 98.5 g (122-174) IVSd 0.7 cm LVM Index 52.1 g/m2 LVPWd 0.8 cm RWT 0.4 LA Sng Plane LA Area 20 cm2 (8.8-23.4) LA Vol 58.3 ml Index 30.9 ml/m LA LngAx 5.6 cm DOPPLER LVOT Stroke Vol LVOT 1.7 cm LVOT CO 4.2 l/min LVOT TVI 27.4 cm LVOT CI 2.5 l/m/m2 LVOT Tm 313 msec HR 68 bpm LVOT SV 62.2 ml Signed 05/16/2018 05:34 PM Deborah Robledo M.D. Performing Organization Address City/State/Zipcode Phone Number [facility] [address] [place] [address] Urea nitrogen, urine, random (05/16/2018 9:10 AM) Urea nitrogen, urine, random 593 mg/dL [facility] DEPARTMENT OF PATHOLOGY AND GENOMIC MEDICINE Specimen Urine Performing Organization Address [facility] Phone Number [facility] DEPARTMENT OF PATHOLOGY AND [address] [place] [id number] [place] [address] Sodium level, urine, random (05/16/2018 9:10 AM) Sodium, urine, random 97 mEq/L [facility] DEPARTMENT OF PATHOLOGY AND GENOMIC MEDICINE Specimen Urine Performing Organization Address [facility] Phone Number [facility] DEPARTMENT OF PATHOLOGY AND [address] [place] [address] Osmolality, urine (05/16/2018 9:10 AM) Osmolality, urine 492 50 - 1,400 mOsm/kg [facility] DEPARTMENT OF PATHOLOGY AND GENOMIC MEDICINE Specimen Urine Performing Organization Address [facility] Phone Number [facility] DEPARTMENT OF PATHOLOGY AND [address] [place] [address] MEDICINE Sedimentation rate (05/16/2018 4:00 AM) Sedimentation rate 30 (H) 0 - 10 mm/hr [facility] DEPARTMENT OF PATHOLOGY AND GENOMIC MEDICINE Specimen Blood Performing Organization Address [facility] Phone Number [facility] DEPARTMENT OF PATHOLOGY AND [address] [place] [address] C-reactive protein (05/16/2018 4:00 AM) CRP 25.30 (H) 0.00 - 0.50 mg/dL [facility] DEPARTMENT OF PATHOLOGY AND GENOMIC MEDICINE Specimen Plasma specimen Performing Organization Address [facility] Phone Number [facility] DEPARTMENT OF PATHOLOGY AND [address] [place] [address] Total iron binding capacity (05/16/2018 12:53 AM) Iron level 102 59 - 158 ug/dL [facility] DEPARTMENT OF PATHOLOGY AND GENOMIC MEDICINE Iron binding capacity 119 (L) 200 - 400 ug/dL [facility] DEPARTMENT OF PATHOLOGY AND GENOMIC MEDICINE % Saturation 85.7 (H) 20.0 - 40.0 % [facility] DEPARTMENT OF PATHOLOGY AND GENOMIC MEDICINE Specimen Plasma specimen Performing Organization Address [facility] Phone Number [facility] DEPARTMENT OF PATHOLOGY AND [address] [place] [address] Ferritin level (05/16/2018 12:52 AM) Ferritin level 1,353 (H) 30 - 400 ng/mL [facility] DEPARTMENT OF PATHOLOGY AND GENOMIC MEDICINE Specimen Plasma specimen Performing Organization Address City/[facility] Phone Number [facility] DEPARTMENT OF PATHOLOGY AND [address] [place] [address] GENOMIC MEDICINE US Renal (05/15/2018 8:57 PM) Narrative Performed At EXAMINATION:[facility] CLINICAL HISTORY:DOMONIQUE COMPARISON:None. Impression: Transverse and longitudinal sonographic images were obtained through the renal fossae and bladder. 1. The right kidney hqvbtase82.5 x 5.5 x 5.6 in meters and left kidney 12.4 x 5.8 x 5.4 cm.. 2.Homogeneous cortical hyperechogenicity throughout the kidneys generally indicates medical renal disease. 0.8 cm right and 3.8 cm left renal cyst demonstrates simple characteristics. There is no hydronephrosis or perinephric fluid. 3.The bladder is incompletely distended. [facility]-[id number] Procedure Note Interface, Radiology Results Incoming - 05/15/2018 10:27 PM CDT EXAMINATION: US RENAL CLINICAL HISTORY: DOMONIQUE COMPARISON: None. Impression: Transverse and longitudinal sonographic images were obtained through the renal fossae and bladder. 1. The right kidney measures 11.5 x 5.5 x 5.6 in meters and left kidney 12.4 x 5.8 x 5.4 cm.. 2. Homogeneous cortical hyperechogenicity throughout the kidneys generally indicates medical renal disease. 0.8 cm right and 3.8 cm left renal cyst demonstrates simple characteristics. There is no hydronephrosis or perinephric fluid. 3. The bladder is incompletely distended. [facility]-[id number] Performing Organization Address [facility] Phone Number [facility] [address] [place] [address] Prothrombin time with INR (05/15/2018 6:45 PM)Only the most recent of2 resultswithin the time period is included. Prothrombin time 16.3 (H) 12.0 - 15.0 sec [facility] DEPARTMENT OF PATHOLOGY AND GENOMIC MEDICINE INR 1.3 [facility] DEPARTMENT OF Comment: PATHOLOGY AND GENOMIC The International Normalized Ratio (INR) is a therapeutic MEDICINE monitoring tool for patients who are stable on oral anticoagulant therapy. An INR of 2.0-3.0 is suggested for deep vein thrombosis/pulmonary embolism. Specimen Blood Performing Organization Address City/[facility]/Zipcode Phone Number [facility] DEPARTMENT OF PATHOLOGY AND [address] [place] [address] [facility] MEDICINE Comprehensive metabolic panel (05/15/2018 6:45 PM)Only the most recent of2 resultswithin the time period is included. Sodium 130 (L) 135 - 148 mEq/L [facility] DEPARTMENT OF PATHOLOGY AND GENOMIC MEDICINE Potassium 3.2 (L) 3.5 - 5.0 mEq/L [facility] DEPARTMENT OF PATHOLOGY AND GENOMIC MEDICINE Chloride 92 (L) 98 - 112 mEq/L [facility] DEPARTMENT OF PATHOLOGY AND GENOMIC MEDICINE CO2 21 (L) 24 - 31 mEq/L [facility] DEPARTMENT OF PATHOLOGY AND GENOMIC MEDICINE Anion gap 17@ANIO (H) 7 - 15 mEq/L [facility] DEPARTMENT OF PATHOLOGY AND GENOMIC MEDICINE BUN 41 (H) 6 - 20 mg/dL [facility] DEPARTMENT OF PATHOLOGY AND GENOMIC MEDICINE Creatinine 1.9 (H) 0.7 - 1.2 mg/dL [facility] DEPARTMENT OF PATHOLOGY AND GENOMIC MEDICINE Glucose 86 65 - 99 mg/dL [facility] DEPARTMENT OF PATHOLOGY AND GENOMIC MEDICINE Calcium 7.4 (L) 8.3 - 10.2 mg/dL [facility] DEPARTMENT OF PATHOLOGY AND GENOMIC MEDICINE Protein 5.8 (L) 6.3 - 8.3 g/dL [facility] DEPARTMENT OF Comment: PATHOLOGY AND GENOMIC [place] 4.6-7.0 g/dL MEDICINE 1 week 4.4-7.6 g/dL 7 months-1year5.1-7.3 g/dL 1-2 years5.6-7.5 g/dL >3 years6.0-8.0 g/dL 18-150 6.3-8.3 g/dL Albumin 2.2 (L) 3.5 - 5.0 g/dL [facility] DEPARTMENT OF PATHOLOGY AND GENOMIC MEDICINE A/G ratio 0.6 (L) 0.7 - 3.8 [facility] DEPARTMENT OF PATHOLOGY AND GENOMIC MEDICINE Alkaline phosphatase 28 (L) 40 - 129 U/L [facility] DEPARTMENT OF PATHOLOGY AND GENOMIC MEDICINE AST 39 10 - 50 U/L [facility] DEPARTMENT OF PATHOLOGY AND GENOMIC MEDICINE ALT 12 5 - 50 U/L [facility] DEPARTMENT OF PATHOLOGY AND GENOMIC MEDICINE Total bilirubin 0.5 0.0 - 1.2 mg/dL [facility] DEPARTMENT OF PATHOLOGY AND GENOMIC MEDICINE Specimen Plasma specimen Performing Organization Address City/[facility]/Zipcode Phone Number [facility] DEPARTMENT OF PATHOLOGY AND [address] [place] [address] GENOMIC MEDICINE XR Chest 1 Vw (04/29/2018 4:13 PM)Only the most recent of4 resultswithin the time period is included. Narrative Performed At EXAMINATION:XR CHEST 1 VW [facility] CLINICAL HISTORY:post left lung mass biopsy. COMPARISON:04/29/2018 IMPRESSION: 1.Large mass in the left lung base, unchanged. Minimal residual left chest wall emphysema. Near-complete resolution of apical pneumothorax. 2.Stable cardiomediastinal silhouette. 3.No acute osseous abnormality. [id number] Procedure Note Interface, Radiology Results Incoming - 04/29/2018 4:26 PM CDT EXAMINATION: XR CHEST 1 VW CLINICAL HISTORY: post left lung mass biopsy. COMPARISON: 04/29/2018 IMPRESSION: 1. Large mass in the left lung base, unchanged. Minimal residual left chest wall emphysema. Near-complete resolution of apical pneumothorax. 2. Stable cardiomediastinal silhouette. 3. No acute osseous abnormality. [facility]-[id number] Performing Organization Address [facility]/Zipcode Phone Number [facility] [address] [place] [address] Miscellaneous referral test (04/29/2018 3:00 PM) [facility] test name [facility] test result SEE NOTE [facility] Comment: MET FISH Sample type: Paraffin, lung Case# [id number] RESULTS: NEGATIVE Interpretation: MET(7q31) signals per nucleus: 2.2 CEN7 signals per nucleus: 2.1 MET-CEN7 signal ratio: 1.1 An H&E stained slide was reviewed by a pathologist to identify traget areas containing invasive tumor. FISH analysis was performed within the marked target areas using a dual-probe FISH assay to detect MET overexpression. Results show no evidence of MET amplification with a MET/CEN7 ratio of <2.0. This is a NEGATIVE result. This MET FISH assay was scored manually by a certified electromechanical technologist. Two or more independent areas containing invasive tumor were analyzed and the technical results underwent further review for quality engineering manager purposes. Reference range: Positive: MET(7q31) to CEN7 signal ration is >/=2.0 or when 10% of tumor cells contain clusters of >15 copies per cell of MET (7q31) signals. Negative: MET(7q31) to CEN7 signal ratio is <2.0 Equivocal: MET copy number >/=5.0 and MET/CEN7 ratio <2.0 Probe set details: MET: nuc linnette(CEN7x2.1,METx2.2)[50] Nuclei scored: 50 Test(s) performed by: Payment plugin 5 Bonneau KATHLEEN Velazquez Narrative Performed At [facility] [id number] Performing Organization Address City/State/[facility] Phone Number [facility] [address] [place] [address] Surgical pathology request (04/29/2018 2:10 PM)Only the most recent of7 resultswithin the time period is included. [facility] DEPARTMENT OF PATHOLOGY AND GENOMIC MEDICINE Surgical pathology See link below for PDF Lab [facility] DEPARTMENT OF report Report PATHOLOGY AND GENOMIC MEDICINE Result status This is Supplemental Report [facility] DEPARTMENT OF to [id number] PATHOLOGY AND GENOMIC MEDICINE Performing Organization Address City/[facility] Phone Number [facility] DEPARTMENT OF PATHOLOGY AND [address] [place] [address] GENOMIC MEDICINE Cytology (non-gynecological) request (04/29/2018 1:53 PM)Only the most recent of7 resultswithin the time period is included. [facility] DEPARTMENT OF PATHOLOGY AND GENOMIC MEDICINE Cytology See link below for PDF [facility] DEPARTMENT OF (non-gynecological) report Lab Report PATHOLOGY AND GENOMIC MEDICINE Result status This is Final Report to [facility] DEPARTMENT OF [id number] PATHOLOGY AND GENOMIC MEDICINE Performing Organization Address [facility] Phone Number [facility] DEPARTMENT OF PATHOLOGY AND [address] [place] [address] Needle Biopsy No Contrast (04/29/2018 12:15 PM) Narrative Performed At [facility] Examination:CT NEEDLE BIOPSY NO CONTRAST Clinical history:"R91.1 [...] participate in the care of your patient. [facility]-[id number] Procedure Note Hm Interface, Radiology Results Incoming - 04/29/2018 2:34 [...] participate in the care of your patient. [facility]-[id number] Performing Organization Address City/State/Zipcode Phone Number [facility] [address] [place] [address] CT Chest Wo Contrast (04/29/2018 11:14 AM)Only [...] caliber. 6.No suspicious osseous lesions are seen. [facility]-[id number] Procedure Note Interface, Radiology Results Incoming - [...] 6. No suspicious osseous lesions are seen. [facility]-[id number] Performing Organization Address City/State/Zipcode Phone Number [facility] [address] [place] [address] [place] Needle Biopsy (04/29/2018 10:57 AM) Narrative Performed At [facility] Examination:US NEEDLE BIOPSY Clinical history:"R91.8 [...] by a registered nurse. The physician intraservice [id number] time with the patient was 15 minutes. [...] participate in the care of your patient. [facility]-[id number] Procedure Note Hm Interface, Radiology Results Incoming - 04/29/2018 2:40 [...] by a registered nurse. The physician intraservice [id number] time with the patient was 15 minutes. [...] participate in the care of your patient. [facility]-[id number] Performing Organization Address City/State/Zipcode Phone Number [facility] [address] [place] [address] Spirometry pre & post w/ bronchodilator, diffusion, lung volumes (2017 9:51 AM) FEV1 Post 2.16 2.82 - 4.35 L [facility] FEV1/FVC % Post 55.16 66.61 - 85.97 [...] LLN 115 [facility] Performing Organization Address [facility] Phone Number [facility] [address] [place] [address] Pulmonary function tests, complete (04/23/2018) Narrative Performed At XR Chest 1 Vw Portable (04/17/2018 11:07 AM) Narrative Performed At EXAMINATION:XR CHEST 1 VW PORTABLE [facility] CLINICAL HISTORY:Post-op surgery XR CHEST 1 [...] 2. The remaining lung zones are clear. [id number] Procedure Note Hm Interface, Radiology Results Incoming - 04/17/2018 11:12 [...] 2. The remaining lung zones are clear. [id number] Performing Organization Address City/[facility] Phone Number [address] [address] Respiratory culture (04/17/2018 9:32 AM) Respiratory culture Normal oral jatinder isolated. [facility] DEPARTMENT OF isolate Comment: PATHOLOGY AND GENOMIC Specimen Information MEDICINE Specimen Source: Bronchial alveolar lavage Specimen Site: Lung, right lower lobe Specimen Bronchial alveolar lavage - Lung, right lower lobe Performing Organization Address [facility] Phone Number [facility] DEPARTMENT OF PATHOLOGY AND [address] [place] [phone] [place] [address] Fungus smear (04/17/2018 9:32 AM) Fungus smear No fungi observed. [facility] DEPARTMENT OF PATHOLOGY Comment: AND GENOMIC MEDICINE Specimen Information Specimen Source: Bronchial alveolar lavage Specimen Site: Lung, right lower lobe Specimen Bronchial alveolar lavage - Lung, right lower lobe Performing Organization Address [facility] Phone Number [facility] DEPARTMENT OF PATHOLOGY AND [address] [place] [address] [facility] Respiratory pathogen panel (04/17/2018 9:32 AM) Respiratory pathogen Negative for all pathogens tested: [facility] DEPARTMENT OF panel Negative for Adenovirus PATHOLOGY [...] Lung, right lower lobe Performing Organization Address [facility] Phone Number [facility] DEPARTMENT OF PATHOLOGY AND [address] [place] [address] [facility] MEDICINE AFB culture (04/17/2018 9:32 AM) AFB culture isolate No growth after 6 weeks of incubation. [facility] DEPARTMENT OF PATHOLOGY Comment: AND GENOMIC MEDICINE Specimen Information Specimen Source: Bronchial alveolar lavage Specimen Site: Lung, right lower lobe Specimen Bronchial alveolar lavage - Lung, right lower lobe Performing Organization Address City/[facility] Phone Number [facility] DEPARTMENT OF PATHOLOGY AND [address] [place] [address] GENOMIC MEDICINE Nocardia culture (04/17/2018 9:32 AM) Nocardia culture isolate No Nocardia isolated after 7 days. [facility] DEPARTMENT OF Comment: PATHOLOGY AND GENOMIC Specimen Information MEDICINE Specimen Source: Bronchial alveolar lavage Specimen Site: Lung, right lower lobe Specimen Bronchial alveolar lavage - Lung, right lower lobe Performing Organization Address City/[facility] Phone Number [facility] DEPARTMENT OF PATHOLOGY AND [address] [place] [address] GENOMIC MEDICINE Legionella culture (04/17/2018 9:32 AM) Legionella culture No Legionella isolated. [facility] DEPARTMENT OF isolate Comment: PATHOLOGY AND GENOMIC Specimen Information MEDICINE Specimen Source: Bronchial alveolar lavage Specimen Site: Lung, right lower lobe Specimen Bronchial alveolar lavage - Lung, right lower lobe Performing Organization Address [facility] Phone Number [facility] DEPARTMENT OF PATHOLOGY AND [address] [place] [phone] GENOMIC MEDICINE Gram stain (04/17/2018 9:32 AM) Gram stain isolate No WBC's or organisms seen. [facility] DEPARTMENT OF PATHOLOGY Comment: AND GENOMIC MEDICINE Specimen Information Specimen Source: Bronchial alveolar lavage Specimen Site: Lung, right lower lobe Specimen Bronchial alveolar lavage - Lung, right lower lobe Performing Organization Address City/[facility] Phone Number [facility] DEPARTMENT OF PATHOLOGY AND [address] [place] [address] GENOMIC MEDICINE AFB stain (04/17/2018 9:32 AM) AFB stain No acid fast bacilli (AFB) seen. [facility] DEPARTMENT OF PATHOLOGY AND Comment: GENOMIC MEDICINE Specimen Information Specimen Source: Bronchial alveolar lavage Specimen Site: Lung, right lower lobe Specimen Bronchial alveolar lavage - Lung, right lower lobe Performing Organization Address City/[facility] Phone Number [facility] DEPARTMENT OF PATHOLOGY AND [address] [place] [phone] GENOMIC MEDICINE Fungus culture (04/17/2018 9:32 AM) Fungus culture isolate No growth after 4 weeks of incubation. [facility] DEPARTMENT OF Comment: PATHOLOGY AND GENOMIC Specimen Information MEDICINE Specimen Source: Bronchial alveolar lavage Specimen Site: Lung, right lower lobe Specimen Bronchial alveolar lavage - Lung, right lower lobe Performing Organization Address City/[facility]/Zipcode Phone Number [facility] DEPARTMENT OF PATHOLOGY AND [address] [place] [address] GENOMIC MEDICINE ECG 12 lead (04/09/2018 11:14 AM) Ventricular rate 69 [facility] Atrial rate 69 [facility] WA interval 126 [facility] QRSD interval 90 [facility] QT interval 408 [facility] QTC interval 437 [facility] MUSE P axis 1 70 [facility] QRS axis 1 86 [facility] MUSE T wave axis 78 [facility] MUSE EKG impression Normal sinus rhythm-Normal ECG-No previous [facility] MUSE ECGs available- Performing Organization Address City/[facility] Phone Number [facility] MUSE [address] [place] [address] PET/CT Whole Body External Study (04/02/2018 9:53 AM) Narrative Performed At This exam was not acquired at a [facility] facility and has not been [facility] interpreted by a [facility] Provider.The exam was imported into our imaging system for comparisons purposes. Performing Organization Address City/[facility] Phone Number [facility] [address] [place] [address] PET/CT Skull Base Mid Thigh External Study (04/02/2018) Narrative Performed At MRI Head External Study (03/27/2018 3:37 PM) Narrative Performed At This exam was not acquired at a [facility] facility and has not been [facility] interpreted by a [facility] Provider.The exam was imported into our imaging system for comparisons purposes. Performing Organization Address City/[facility]/Zipcode Phone Number HM [facility] [address] [place] [address] XR Chest External Study (03/17/2018 9:07 AM)Only the most recent of2 resultswithin the time period is included. Narrative Performed At This exam was not acquired at a [facility] facility and has not been [facility] interpreted by a [facility] Provider.The exam was imported into our imaging system for comparisons purposes. Performing Organization Address City/State/Zipcode Phone Number HM [facility] [address] [place] [address] [place] External Study Exam (03/17/2018 8:35 AM) Narrative Performed At This exam was not acquired at a [facility] facility and has not been [facility] interpreted by a [facility] Provider.The exam was imported into our imaging system for comparisons purposes. Performing Organization Address City/State/Zipcode Phone Number RADIANT [address] [place] [address] [place] Vascular External Study (03/09/2018 3:34 PM) Narrative Performed At This exam was not acquired at a [facility] facility and has not been [facility] interpreted by a [facility] Provider.The exam was imported into our imaging system for comparisons purposes. Performing Organization Address [facility]/Zipcode Phone Number RADIANT [address] [place] [address] XR Chest 2 Vw (03/04/2018) Narrative Performed At Pulmonary function tests, complete (12/31/2017) Narrative Performed At [place] Abdominal External Study (12/30/2017 9:08 AM) Narrative Performed At This exam was not acquired at a [facility] facility and has not been [facility] interpreted by a [facility] Provider.The exam was imported into our imaging system for comparisons purposes. Performing Organization Address [facility] Phone Number RAD[facility] [address] [place] [address] after 07/06/2017 Insurance Payer Benefit Plan / Group Subscriber ID Type Phone Address BCBS BCBS CHOICE PPO/FEDERAL EMPL PPO xxxxxxxxxxxx PPO Work: [id number] [facility] [phone] [address] Home:
[2018-07-07] MEDS ORDERED: NA CHLORIDE 0.9% 250 ML ONE ×2 (08:39→11:20)
[2018-07-07 15:40] LABS: Hematocrit 24.6 % (39.6-49.0)
== END 2018-07-07 15:20 | disposition home or self-care (01) ==
LOC: DS 07:33
PROVIDERS: ATTEND Internal Medicine Medical Oncology
PROC: 30233N1 Transfusion of Nonautologous Red Blood Cells into Peripheral Vein, Percutaneous Approach (ICD-10-PCS; principal; 2018-07-07)
DX: D64.81 Anemia due to antineoplastic chemotherapy (principal); C34.31 Malignant neoplasm of lower lobe, right bronchus or lung
CPT/HCPCS: 36415; 36430; 80048; 83735; 85014; 85018; 86850; 86900; 86901; P9016

== ENCOUNTER 2018-08-06 07:32 | Day surgery (SDC) | payer BC ==
[2018-08-06] MEDS ORDERED: NA CHLORIDE 0.9% 250 ML ONE ×2 (08:10→10:26)
[2018-08-06 14:46] LABS: Hematocrit 25.2 % (39.6-49.0)
== END 2018-08-06 14:45 | disposition home or self-care (01) ==
LOC: DS 07:32
PROVIDERS: ATTEND Internal Medicine Medical Oncology
PROC: 30233N1 Transfusion of Nonautologous Red Blood Cells into Peripheral Vein, Percutaneous Approach (ICD-10-PCS; principal; 2018-08-06)
DX: D64.9 Anemia, unspecified (principal); C34.90 Malignant neoplasm of unspecified part of unspecified bronchus or lung
CPT/HCPCS: 36415; 36430; 85014; 85018; 86850; 86900; 86901; P9016

== ENCOUNTER 2022-03-11 11:47 | Inpatient (IN) | payer BC, MEDICARE, SELFPAY ==
[2022-03-11] MEDS ORDERED: MAGNESIUM SULFATE 1 gm IVPB 1 GM/100 ML BAG IV ONE (12:16)
[2022-03-11] MEDS ORDERED: METHYLPREDNISOLONE 125 MG INJ ONE (12:16)
[2022-03-11] MEDS ORDERED: LEVALBUTEROL 1.25 MG/3 ML NEB ONE (12:16)
[2022-03-11] MEDS ORDERED: NA CHLORIDE 0.9% 2,000 ML ONE (12:17)
[2022-03-11 12:35] LABS: Absolute Lymphocytes (CBC) 0.8 K/uL (0.7-4.9); Hematocrit 38.6 % (39.6-49.0); Lymphocytes % 10.1 % (15.3-44.8); MPV 6.2 fL (7.6-11.3); RBC Red Blood Cell Count 3.87 M/uL (4.33-5.43)
[2022-03-11 12:39] LABS: Protime INR 1.12
[2022-03-11 12:51] LABS: Bilirubin Direct 0.2 mg/dL (0-0.2); Bilirubin Total 0.5 mg/dL (0.2-1.0); Magnesium 1.8 mg/dL (1.8-2.4); Potassium 3.9 mmol/L (3.5-5.1)
[2022-03-11] MEDS ORDERED: CEFTRIAXONE 1000 MG/VIAL ONE (12:52)
[2022-03-11] MEDS ORDERED: Levofloxacin 750mg IV 750 MG/150 ML BAG IV ONE (12:52)
[2022-03-11] MEDS ORDERED: NA CHLORIDE 0.9% 100 ML IV ONE ×2 (12:52→18:30)
--- NOTE | 2022-03-11 12:55 | RAD REPORT ---
EXAM DESCRIPTION: RAD - Chest Single View - 03/11/2022 12:47 pm CLINICAL HISTORY: DYSPNEA COMPARISON: Chest Single View dated 03/17/2018; Chest Pa And Lat (2 Views) dated 03/04/2018; Chest Pa A nd Lat (2 Views) dated 02/13/2016; CHEST PA AND LAT 2 VIEW dated 02/08/2016; Thorax W/ Con dated 018 FINDINGS: Lines: None. Lungs: No evidence of edema or pneumonia. Suspect prior left lobectomy as there is volume loss on the left side. Pleural: Small left pleural effusion. Cardiac: The heart size is within normal limits. Bones: No acute fractures. Other: IMPRESSION: Small left pleural effusion otherwise no acute findings are identified.
[2022-03-11 13:52] LABS: SARS-COV-2 RT PCR NEGATIVE (NEGATIVE)
--- NOTE | 2022-03-11 14:29 | RAD REPORT ---
EXAM DESCRIPTION: CT - Thorax Wo Con - 03/11/2022 2:18 pm CLINICAL HISTORY: Pleural effusion, malignancy suspected COMPARISON: Thorax W/ Con dated 08/04/2018; Thorax W/ Con dated 06/23/2018; Ct Low Dose Chest Screening dated 01/28/2018 FINDINGS: Chest Wall: No suspicious thyroid nodules or pathologic lymphadenopathy. Lungs: Emphysema. Spiculated right lower lobe lesion measuring 3.3 x 2.5 cm. Tree in bud micronodular ity in the superior segment of right lower lobe. This may reflect mild pneumonitis. Volume loss in th e left lung noted. There has been surgical changes at the left hilum. Pleura: Pleural thickening at the left costophrenic angle of doubtful significance. Mediastinum/marcela: No pathologic lymphadenopathy. Pulmonary arteries/Aorta: Limited evaluation without contrast. No aortic aneurysm. Heart: No significant pericardial effusion. Normal heart size. Upper abdomen: No acute abnormality. Left renal cyst. Bones: No acute abnormality. All CT scans are performed using dose optimization technique as appropriate and may include automated exposure control or mA/KV adjustment according to patient size. 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 No mediastinal or hilar lymphadenopathy. The lesion would be amenable to CT-guided bio psy.
--- NOTE | 2022-03-11 15:33 | EDPHYS ---
Physician Documentation [facility] Name: Narendra Martin Age: 61 yrs Sex: Male : 1960 Arrival Date: 03/11/2022 Time: 11:48 Bed 18 Private MD: Hitesh Maya ED Physician Sam Patterson HPI: 03/11 13:08 This 61 yrs old Male presents to ER via Wheelchair with complaints of Breathing rn Difficulty. 13:08 The patient has shortness of breath at rest, with light activity. Onset: The rn symptoms/episode began/occurred this morning. Duration: The symptoms are continuous. The patient's shortness of breath is aggravated by exertion, light activity, talking, is alleviated by nebulizer treatment. Associated signs and symptoms: Pertinent positives: productive cough, Pertinent negatives: chest pain, fever, hemoptysis, loss of consciousness. Severity of symptoms: At their worst the symptoms were moderate in the emergency department the symptoms are unchanged. The patient has not experienced similar symptoms in the past. The patient has not recently seen a physician. Pt reports sob that began this AM, new and productive cough, + fever and chills, no runny nose/vomiting/diarrhea. Has hx of lung CA, no chemo or radiation anymore. Reports nebulizer helped but didn't take away symptoms. . Historical: - Allergies: 12:04 cisplatin; bp - Home Meds: 12:04 Chantix Oral [Active]; felodipine Oral [Active]; Folbic Oral [Active]; bp lisinopril-hydrochlorothiazide Oral [Active]; Omeprazole Oral [Active]; Thiamine Oral [Active]; - PMHx: 12:04 polycythemia vera; Lung CA, recieving chemotherapy; Hypertension; GERD; COPD; bp - Immunization history:: Adult Immunizations up to date. - Social history:: Smoking status: Patient denies any tobacco usage or history of. - Family history:: not pertinent. - Hospitalizations: : No recent hospitalization is reported. 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 Exam: 13:08 Constitutional: This is a well developed, well nourished patient who is awake, alert, rn + moderate tachypnea with mottled skin Head/Face: Normocephalic, atraumatic. Eyes: Periorbital areas with no swelling, redness, or edema. Cardiovascular: Tachycardic, regular Respiratory: + moderate tachypnea, with retractions and diffuse wheezing Abdomen/GI: Soft, non-tender Skin: Warm, dry MS/ Extremity: Pulses equal, no cyanosis. Neurovascular intact. Full, normal range of motion. Equal circumference. Neuro: Awake and alert, GCS 15 Vital Signs: 12:02 BP 149 / 67; Pulse 122; Resp 28; Temp 99.4; Pulse Ox 95% ; Weight 77.11 kg; Height 5 bp ft. 9 in. (175.26 cm); 13:00 BP 136 / 58; Pulse 100; Resp 25; Pulse Ox 100% ; bp 14:23 BP 152 / 76; Pulse 95; Resp 21; Pulse Ox 100% ; bp 15:30 BP 124 / 53; Pulse 86; Resp 24; Pulse Ox 100% ; bp 16:30 BP 123 / 58; Pulse 87; Resp 21; Pulse Ox 95% on R/A; bp 17:30 BP 130 / 67; Pulse 93; Resp 22; Pulse Ox 95% on R/A; bp 19:00 BP 121 / 67; Pulse 101; Resp 20; Pulse Ox 98% on R/A; lc1 12:02 Body Mass Index 25.10 (77.11 kg, 175.26 cm) bp MDM: 11:52 Patient medically screened. rn 14:57 ED course: Pt improved after sepsis bolus, was stopped jail 2/2 elevated BNP and rn pleural effusion, by that time HR already NSR, improved color of skin, and overall clinical improvement noted. . 15:28 Differential diagnosis: Chronic Obstructive Pulmonary Disease Myocardial Infarction rn pneumonia, Pneumothorax pulmonary edema, Sepsis. Data reviewed: vital signs, nurses notes, lab test result(s), EKG, radiologic studies, CT scan, plain films, and as a result, I will admit patient. 15:29 Counseling: I had a detailed discussion with the patient and/or guardian regarding: the rn historical points, exam findings, and any diagnostic results supporting the discharge/admit diagnosis, lab results, radiology results, the need for further work-up and treatment in the hospital. Response to treatment: the patient's symptoms have markedly improved after treatment, and as a result, I will admit patient. Admission orders: after a detailed discussion of the patient's condition and case, the admit orders are written by me. 15:32 ED course: Pt admitted to Dr. Lambert, requests CT PE ordered knowing creatinine is rn 1.6. 03/11 12:06 Order name: BMP; Complete Time: 13:36 rn 03/11 12:06 Order name: Blood Culture Adult (2) rn 03/11 12:06 Order name: CBC with Diff; Complete Time: 13:36 03/11 12:06 Order name: Hepatic Function; Complete Time: 13:36 03/11 12:06 Order name: Magnesium; Complete Time: 13:36 03/11 12:06 Order name: NT PRO-BNP; Complete Time: 13:36 rn 03/11 12:06 Order name: PT-INR; Complete Time: 13:36 rn 03/11 12:06 Order name: Ptt, Activated; Complete Time: 13:36 03/11 12:08 Order name: Procalcitonin; Complete Time: 15:39 rn 03/11 12:08 Order name: Lactate; Complete Time: 13:36 03/11 12:31 Order name: COVID-19/FLU A+B (Document "Date of Onset" if Symptomatic); Complete Time: rn 13:54 03/11 16:26 Order name: Magnesium EDAK 03/11 16:26 Order name: Magnesium; Complete Time: 21:07 EDAK 03/11 12:06 Order name: XRAY CXR (1 view); Complete Time: 13:36 rn 03/11 16:26 Order name: Magnesium EDMS 03/11 16:26 Order name: Magnesium EDMS 03/11 17:34 Order name: Thyroid Stimulating Hormone EDAK 03/11 17:34 Order name: UR CREAT EDAK 03/11 17:34 Order name: UR SODIUM EDAK 03/11 17:34 Order name: CBC with Automated Diff EDAK 03/11 17:34 Order name: CBC with Automated Diff [facility] 03/11 17:34 Order name: Comprehensive Metabolic Panel [facility] 03/11 17:34 Order name: Comprehensive Metabolic Panel [facility] 03/11 17:34 Order name: Magnesium EDAK 03/11 17:34 Order name: Magnesium [facility] 03/11 17:34 Order name: Magnesium [facility] 03/11 17:34 Order name: Magnesium [facility] 03/11 17:34 Order name: Vancomycin Level Trough [facility] 03/11 17:34 Order name: Vancomycin Level Trough [facility] 03/11 12:06 Order name: EKG; Complete Time: 12:07 rn 03/11 12:06 Order name: Cardiac monitoring; Complete Time: 12:17 rn 03/11 12:06 Order name: EKG - Nurse/Tech; Complete Time: 12:08 rn 03/11 12:06 Order name: IV Saline Lock; Complete Time: 12:17 rn 03/11 12:06 Order name: Labs collected and sent; Complete Time: 12:17 rn 03/11 12:06 Order name: O2 Per Protocol; Complete Time: 12:08 rn 03/11 12:06 Order name: O2 Sat Monitoring; Complete Time: 12:08 rn 03/11 12:06 Order name: BIPAP 03/11 13:55 Order name: CT Chest Wo Con; Complete Time: 14:57 rn 03/11 15:34 Order name: CT Chest For PE Angio; Complete Time: 21:07 rn 03/11 16:26 Order name: Echo with Doppler [facility] 03/11 17:34 Order name: CONS Physician Consult [facility] 03/11 17:34 Order name: CONS Physician Consult [facility] 03/11 17:34 Order name: Heart Healthy [facility] Administered Medications: 12:16 Drug: SOLU-Medrol (methylPrednisoLONE) 125 mg Route: IVP; Site: left antecubital; bp 12:31 Follow up: Response: No adverse reaction bp 12:16 Drug: Xopenex (levalbuterol) (3) 1.25 mg Route: Inhalation; bp 12:16 Drug: Magnesium Sulfate 1 grams Route: IVPB; Infused Over: 1 hrs; Site: left bp antecubital; 17:57 Follow up: IV Status: Completed infusion; IV Intake: 100ml bp 12:16 Drug: NS 0.9% (30 ml/kg) 30 ml/kg Route: IV; Rate: bolus; Site: left antecubital; bp 17:56 Follow up: IV Status: Order to discontinue infusion; IV Intake: 1000ml bp 12:45 Drug: Rocephin (cefTRIAXone) 1 grams Route: IV; Rate: calculated rate; Site: left bp antecubital; 17:56 Follow up: IV Status: Completed infusion; IV Intake: 100ml bp 13:00 Drug: LevaQUIN (levofloxacin) 750 mg Volume: 150 ml; Route: IVPB; Infused Over: 90 bp mins; Site: left antecubital; 17:57 Follow up: IV Status: Completed infusion; IV Intake: 150ml bp Disposition: 15:29 Critical Care:. 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 Total time: 40 rn minutes Signatures: Dispatcher [employer] EDAK Zandra White RN Johanna Hill RN VEL Sam Patterson MD MD rn Roszak, Josh, PA PA jr8 Nelson Daniels RN RN bp Corrections: (The following items were deleted from the chart) 12:05 12:04 Allergies: No Known Allergies; bp bp 18:37 15:32 rn 19:32 15:32 Telemetry/MedSurg (Inpatient) rn 19:32 18:37 230 [facility] 21:08 19:32 jr8
--- NOTE | 2022-03-11 15:33 | ER ---
Nurse's Notes [facility] Name: Narendra Martin Age: 61 yrs Sex: Male : 1960 Arrival Date: 03/11/2022 Time: 11:48 Bed 18 Private MD: Hitesh Maya Diagnosis: COPD/ Chronic obstructive pulmonary disease with (acute) exacerbation;Dyspnea, unspecified Presentation: 03/11 12:02 Chief complaint: Spouse and/or significant other states: SOB SINCE AM, MOLD ON NEB bp TREATMENT. Coronavirus screen: At this time, the client does not indicate any symptoms associated with coronavirus-19. Ebola Screen: No symptoms or risks identified at this time. Initial Sepsis Screen: Does the patient meet any 2 criteria? RR > 20 per min. HR > 90 bpm. Yes Does the patient have a suspected source of infection? Yes: Productive cough/pneumonia. Risk Assessment: Do you want to hurt yourself or someone else? Patient reports no desire to harm self or others. Onset of symptoms was March 11, 2022. 12:02 Method Of Arrival: Wheelchair bp 12:02 Acuity: FLORES 2 bp Triage Assessment: 12:06 General: Appears distressed, uncomfortable, Behavior is appropriate for age. Pain: bp Denies pain. EENT: No deficits noted. Neuro: No deficits noted. Cardiovascular: Rhythm is sinus tachycardia. Respiratory: Reports shortness of breath Onset: The symptoms/episode began/occurred today, the patient has moderate shortness of breath. GI: No signs and/or symptoms were reported involving the gastrointestinal system. : No signs and/or symptoms were reported regarding the genitourinary system. Derm: No deficits noted. Musculoskeletal: No deficits noted. Historical: - Allergies: 12:04 cisplatin; bp - Home Meds: 12:04 Chantix Oral [Active]; felodipine Oral [Active]; Folbic Oral [Active]; bp lisinopril-hydrochlorothiazide Oral [Active]; Omeprazole Oral [Active]; Thiamine Oral [Active]; - PMHx: 12:04 polycythemia vera; Lung CA, recieving chemotherapy; Hypertension; GERD; COPD; bp - Immunization history:: Adult Immunizations up to date. - Social history:: Smoking status: Patient denies any tobacco usage or history of. - Family history:: not pertinent. - Hospitalizations: : No recent hospitalization is reported. Screenin:07 Abuse screen: Denies threats or abuse. Denies injuries from another. Nutritional bp screening: No deficits noted. Tuberculosis screening: No symptoms or risk factors identified. Fall Risk None identified. Assessment: 12:07 General: SEE TRIAGE NOTE. bp 13:00 Reassessment: No changes from previously documented assessment. Cardiovascular: Rhythm bp is sinus tachycardia. Respiratory: Airway is patent Respiratory effort is labored, Breath sounds are diminished. 14:22 Reassessment: PT RETURNED FROM CT. bp 15:30 Reassessment: HOSPITALIST AT B/S. bp 16:30 Reassessment: PT WEANED FROM BIPAP BY RT. bp 17:30 Reassessment: ADMIT IN PROCESS. bp Vital Signs: 12:02 BP 149 / 67; Pulse 122; Resp 28; Temp 99.4; Pulse Ox 95% ; Weight 77.11 kg; Height 5 bp ft. 9 in. (175.26 cm); 13:00 BP 136 / 58; Pulse 100; Resp 25; Pulse Ox 100% ; bp 14:23 BP 152 / 76; Pulse 95; Resp 21; Pulse Ox 100% ; bp 15:30 BP 124 / 53; Pulse 86; Resp 24; Pulse Ox 100% ; bp 16:30 BP 123 / 58; Pulse 87; Resp 21; Pulse Ox 95% on R/A; bp 17:30 BP 130 / 67; Pulse 93; Resp 22; Pulse Ox 95% on R/A; bp 19:00 BP 121 / 67; Pulse 101; Resp 20; Pulse Ox 98% on R/A; lc1 12:02 Body Mass Index 25.10 (77.11 kg, 175.26 cm) bp ED Course: 11:48 Patient arrived in ED. am2 11:48 Hitesh Maya DO is Private Physician. am2 11:52 Sam Patterson MD is Attending Physician. rn 12:01 Nelson Daniels, VEL is Primary Nurse. bp 12:04 Triage completed. bp 12:06 Arm band placed on. bp 12:07 Patient has correct armband on for positive identification. Bed in low position. Call bp light in reach. Side rails up X2. Adult w/ patient. 12:15 Inserted saline lock: 20 gauge in left antecubital area, using aseptic technique. Blood zm collected. 12:20 Lactate Sent. zm 12:20 Procalcitonin Sent. zm 12:20 BMP Sent. zm 12:21 Blood Culture Adult (2) Sent. zm 12:21 CBC with Diff Sent. zm 12:21 Hepatic Function Sent. zm 12:21 Magnesium Sent. zm 12:21 NT PRO-BNP Sent. zm 12:21 PT-INR Sent. zm 12:21 Ptt, Activated Sent. zm 12:21 Initial lab(s) drawn, by me, sent to lab. EKG done, by ED staff, reviewed by Sam Patterson MD COVID swab sent to lab. 12:22 Warm blanket given. alarm security or surveillance monitor on. Pulse ox on. NIBP on. zm 12:49 XRAY CXR (1 view) In Process Unspecified. EDMS 14:19 CT Chest Wo Con In Process Unspecified. EDMS 15:30 Lili Lambert MD is Hospitalizing Provider. rn 16:12 CT Chest For PE Angio In Process Unspecified. EDMS 19:13 Primary Nurse role handed off by Nelson Daniels, RN mw2 19:23 Fide Perrin is Primary Nurse. 1 19:24 No provider procedures requiring assistance completed. Patient admitted, IV remains in lc1 place. Administered Medications: 12:16 Drug: SOLU-Medrol (methylPrednisoLONE) 125 mg Route: IVP; Site: left antecubital; bp 12:31 Follow up: Response: No adverse reaction bp 12:16 Drug: Xopenex (levalbuterol) (3) 1.25 mg Route: Inhalation; bp 12:16 Drug: Magnesium Sulfate 1 grams Route: IVPB; Infused Over: 1 hrs; Site: left bp antecubital; 17:57 Follow up: IV Status: Completed infusion; IV Intake: 100ml bp 12:16 Drug: NS 0.9% (30 ml/kg) 30 ml/kg Route: IV; Rate: bolus; Site: left antecubital; bp 17:56 Follow up: IV Status: Order to discontinue infusion; IV Intake: 1000ml bp 12:45 Drug: Rocephin (cefTRIAXone) 1 grams Route: IV; Rate: calculated rate; Site: left bp antecubital; 17:56 Follow up: IV Status: Completed infusion; IV Intake: 100ml bp 13:00 Drug: LevaQUIN (levofloxacin) 750 mg Volume: 150 ml; Route: IVPB; Infused Over: 90 bp mins; Site: left antecubital; 17:57 Follow up: IV Status: Completed infusion; IV Intake: 150ml bp Intake: 17:56 IV: 1000ml; Total: 1000ml. bp 17:56 IV: 100ml; Total: 1100ml. bp 17:57 IV: 100ml; Total: 1200ml. bp 17:57 IV: 150ml; Total: 1350ml. bp Outcome: 15:32 Decision to Hospitalize by Provider. rn 19:24 Condition: improved lc1 22:59 Patient left the ED. lc1 Signatures: Dispatcher [employer] EDMS Sam Patterson MD MD rn Calhoun, Lisa lc1 Abbey Moreno Brian, RN RN bp [place], MyKena 2 Maggie Muro Corrections: (The following items were deleted from the chart) 12:05 12:02 Pulse 122bpm; Resp 28bpm; Pulse Ox 95%; Temp 99.4F; bp bp 12:05 12:04 Allergies: No Known Allergies; bp bp 12:09 12:02 BP 149 / 67; Pulse 122bpm; Resp 28bpm; Pulse Ox 95%; Temp 99.4F; bp bp 12:25 12:15 Inserted saline lock: 20 gauge in left antecubital area, using aseptic technique. zm Blood collected. zm
--- NOTE | 2022-03-11 16:39 | RAD REPORT ---
EXAM DESCRIPTION: CT - Chest For Pe Angio - 03/11/2022 4:10 pm CLINICAL HISTORY: lung cancer, dyspnea, eval for PE COMPARISON: Thorax Wo Con dated 03/11/2022; Thorax W/ Con dated 08/04/2018; Thorax W/ Con dated 06/23/20; Ct Low Dose Chest Screening dated 01/28/2018 FINDINGS: Chest Wall: No suspicious thyroid nodules or pathologic lymphadenopathy. Lungs: Partial right lower lobectomy. Spiculated mass in the right lower lobe measuring 2 point cm is again noted. Mild micro nodularity within the superior segment of the right lower lobe which is pres umably secondary to a mild infectious or inflammatory process. Pleura: No significant effusions or pneumothorax. Mediastinum/marcela: No pathologic lymphadenopathy. Small hiatal hernia Pulmonary arteries/Aorta: No filling defect identified. No aortic aneurysm. Heart: No significant pericardial effusion. Normal heart size. Upper abdomen: Left renal cyst. Atherosclerosis. Bones: No acute abnormality. All CT scans are performed using dose optimization technique as appropriate and may include automated exposure control or mA/KV adjustment according to patient size. IMPRESSION: Negative for pulmonary embolism. Right lower lobe lesion remains suspicious for neoplasm . Mild micronodularity in the superior segment of the right lower lobe presumably related to infectio us or inflammatory process though this may be of little acute clinical significance.
[2022-03-11] MEDS ORDERED: FUROSEMIDE 40 MG/4 ML VIAL IV SCH (17:00)
--- NOTE | 2022-03-11 17:19 | P.HP ---
Certification for Inpatient Patient admitted to: Inpatient With expected LOS: >2 Midnights Patient will require the following post-hospital care: None Practitioner: I am a practitioner with admitting privileges, knowledge of patient current condition, hospital course, and medical plan of care. Services: Services provided to patient in accordance with Admission requirements found in Title 42 Section 412.3 of the Code of Federal Regulations Patient History Date of Service: 03/11/22 Reason for admission: shortness of breath History of Present Illness: 61-year-old male with past medical history of right lung cancer previously been treated with radiation therapy at [facility] but completed maximal dose of radiation in September 2021, on MDI at home, COPD, hypertension, prior history of chronic tobacco use who was brought in by the today because of new onset worsening shortness of breath since the last 2 days. states patient has b aseline shortness of breath but mainly with exertion. Patient developed worsening shortness of breath even at rest in the last 2 days. His chronic cough pattern has changed to becoming productive from previous nonproductive status. denies any cough contact. Patient was reportedly had fever and chills overnight. They have recently received the second booster dose of COVID last week. On presentation in the ED CT scan shows persistent right lung mass consistent with previous history of cancer. Noted micro nodularity with tree-in-bud appearance in the right lower lobe worrisome for early pneumonitis. Patient was markedly dyspneic and tachycardic requiring BiPAP use now. EKG shows sinus tach at [address] segment changes. BNP was elevated at 1500 Patient is more stable now. and patient hoping to have patient transferred to [facility] if condition continues to worsen. CT of the lungs shows no evidence of pulmonary embolism Allergies No Known Allergies Allergy (Verified 07/01/17 07:43) Home Medications: Albuterol Sulfate [Proair Hfa] 8.5 gm IH PRN PRN 07/01/17 Aspirin [Aspirin EC 81 MG] 81 mg PO DAILY 07/01/17 Cyanoco/FA/Pyri [Folbic] 1 tab PO DAILY 07/01/17 Lisinopril/Hydrochlorothiazide [Lisinopril-Hctz 20-12.5 mg Tab] 1 each PO DAILY 07/01/17 Omeprazole 20 mg PO DAILY 07/01/17 Amlodipine Besylate 1 tab PO DAILY 07/07/18 Enoxaparin Sodium [Lovenox 80 MG INJ] 80 mg SQ DAILY 07/07/18 Potassium Chloride 1 tab PO DAILY 07/07/18 - Past Medical/Surgical History Has patient received pneumonia vaccine in the past: Yes Diabetic: No -: Lung cancerstatus post radiation at [facility] -: Hypertension -: COPD Past Surgical History: Reviewed- Non-Contributory - Family History Family History: Reviewed- Non-Contributory - Social History Smoking Status: Former smoker Smoking therapy provided: No Patient receptive to therapy: No Alcohol use: No CD- Drugs: No Caffeine use: No Place of Residence: Home Review of Systems General: Fever, Chills Respiratory: Cough, Shortness of Breath, SOB with Excertion, Sputum Cardiovascular: Chest Pain, Palpitations, Orthopnea, Paroxysmal Noc. Dyspnea, Edema, Light Headedness, Other, As per HPI, Unremarkable Gastrointestinal: Nausea, Vomiting, Abdominal Pain, Diarrhea, Distention, No Distention, Constipation, Melena, Hematochezia, Other, As per HPI, Unremarkable Genitourinary: Dysuria, Frequency, Urgency, Incontinence, Hematuria, Retention, Other, As per HPI, Unremarkable Neurological: Weakness Physical Examination - Physical Exam General: Alert, In no apparent distress, Oriented x3, Moderate distress, Other (on bipap) HEENT: Atraumatic, Normocephalic, PERRLA Neck: Supple, 2+ carotid pulse no bruit, JVD not distended Respiratory: Diminished, Crackles/rales Cardiovascular: No edema, Regular rate/rhythm, Normal S1 S2 Capillary refill: <2 Seconds Gastrointestinal: Normal bowel sounds, Soft and benign, Non-distended, No ascites Musculoskeletal: No clubbing, No swelling Neurological: Sensation intact, Cranial nerves 3-12 intact - Studies Laboratory Data (last 24 hrs) 03/11/22 12:17: PT 12.3, INR 1.12, APTT 37.9 H 03/11/22 12:17: WBC 8.2, Hgb 13.1 L, Hct 38.6 L, Plt Count 440 H 03/11/22 12:17: Sodium 134 L, Potassium 3.9, BUN 16, Creatinine 1.59 H, Glucose 93, Magnesium 1.8, Total Bilirubin 0.5, AST 18, ALT 17, Alkaline Phosphatase 33 L Assessment and Plan - Plan All CT scans are performed using dose optimization technique as appropriate and may include automated exposure control or mA/KV adjustment according to patient size. IMPRESSION: Negative for pulmonary embolism. Right lower lobe lesion remains suspicious for neoplasm. Mild micronodularity in the superior segment of the right lower lobe presumably related to infectious or inflammatory process though this may be of little acute clinical significance. Impression Acute right lower lobe pneumonialikely postobstructive Right lung cancer Acute respiratory failureon BiPAP Acute kidney injury Hypertensionuncontrolled History of COPD Plan We will admit patient to ICU Continue BiPAP with slow weaning as tolerated Given mild elevated BNP, will dose Lasix now - although elevated BNP may be due to cancer in this patient Start duo nebs every 4 hours scheduled Start empirical antibiotics for presumed postobstructive pneumoniawith Vanco/cefepime Obtain blood culture x2 Wean O2 as tolerated Overall poor prognosis discussed with patient and spouse, Advanced directive option discussed, patient would prefer transfer to [facility] if worsening condition be agreeable to full code for now IV labetalol as needed Resume home regimen with amlodipine Elevated creatinine noted, hold losartan for now High risk of contrast nephropathy, may need nephrology evaluation and follow-up GI and DVT prophylaxis Pain control - Advance Directives Does patient have a Living Will: No Does patient have a Durable POA for Healthcare: No - Code Status/Comfort Care Code Status Assessed: Yes Code Status: Full Code Physician Review: Patient Assessed, Agree with Above Assessment and Plan Critical Care: Yes Time Spent Managing Pts Care (In Minutes): 70
[2022-03-11] MEDS ORDERED: HYDRALAZINE HCL 20 MG/ML VIAL IV PRN (17:23)
[2022-03-11] MEDS ORDERED: GUAIFENESIN/DM 5 ML UCUP PO PRN (17:23)
[2022-03-11] MEDS ORDERED: ONDANSETRON 4 MG/2 ML VIAL IV PRN (17:23)
[2022-03-11] MEDS ORDERED: ACETAMINOPHEN 500 MG TAB PO PRN (17:27)
[2022-03-11] MEDS ORDERED: MORPHINE 2 MG/ML SYR IV PRN (17:27)
[2022-03-11] MEDS: ENOXAPARIN 40 MG/0.4 ML SQ SCH (18:00)
[2022-03-11] MEDS ORDERED: LABETALOL 20 MG/4ML SYRINGE IV ONE ×2 (18:00→18:29)
[2022-03-11] MEDS: AMLODIPINE 10 MG TAB PO SCH (18:00)
[2022-03-11] MEDS ORDERED: FUROSEMIDE 40 MG/4 ML VIAL IV ONE (18:00)
[2022-03-11] MEDS: CEFEPIME 2 GM in NA CHLORIDE 0.9% 100 ML IV SCH (18:00)
[2022-03-11] MEDS ORDERED: AMLODIPINE 10 MG TAB ONE (18:29)
[2022-03-11] MEDS ORDERED: FUROSEMIDE 100 MG/10 ML VIAL IV ONE (18:29)
[2022-03-11] MEDS ORDERED: CEFEPIME 2 GM VIAL ONE (18:29)
[2022-03-11] MEDS ORDERED: ENOXAPARIN 40 MG/0.4 ML SQ ONE (18:29)
[2022-03-11] MEDS: IPRATROPIUM BROM 0.5MG/2.5ML NEB SCH (19:50)
[2022-03-11] MEDS: ALBUTEROL 2.5 MG/3 ML NEB SOL NEB PRN (19:50)
[2022-03-11] MEDS ORDERED: IPRATROPIUM BROM 0.5MG/2.5ML ONE (19:51)
[2022-03-11] MEDS ORDERED: ALBUTEROL 2.5 MG/3 ML NEB SOL ONE (19:52)
[2022-03-11] MEDS ORDERED: VANCOMYCIN 2 GM in NA CHLORIDE 0.9% 500 ML IVPB ONE (20:00)
[2022-03-11] MEDS: cloNIDine HCL 0.1 MG TAB PO SCH (21:00)
[2022-03-11] MEDS: FAMOTIDINE 20 MG TAB PO SCH (21:00)
[2022-03-11] MEDS ORDERED: cloNIDine HCL 0.1 MG TAB ONE (21:05)
[2022-03-11] MEDS ORDERED: FAMOTIDINE 20 MG TAB ONE (21:06)
[2022-03-11 22:22] LABS: Magnesium 2.1 mg/dL (1.8-2.4); Thyroid Stimulating Hormone 1.04 uIU/mL (0.360-3.740)
[2022-03-12] MEDS: IPRATROPIUM BROM 0.5MG/2.5ML NEB SCH ×2 (01:30→07:50)
[2022-03-12] MEDS: ALBUTEROL 2.5 MG/3 ML NEB SOL NEB PRN ×4 (01:30→19:45)
[2022-03-12 03:54] LABS: Absolute Lymphocytes (CBC) 0.4 K/uL (0.7-4.9); Hematocrit 34.1 % (39.6-49.0); Lymphocytes % 5.9 % (15.3-44.8); MPV 6.6 fL (7.6-11.3); RBC Red Blood Cell Count 3.39 M/uL (4.33-5.43)
[2022-03-12 04:03] LABS: Albumin 3.3 g/dL (3.4-5.0); Bilirubin Total 0.3 mg/dL (0.2-1.0); Potassium 4.3 mmol/L (3.5-5.1); Protein, Total 7.1 g/dL (6.4-8.2)
[2022-03-12 04:26] LABS: Blood Morphology Comment NOT SEEN (NOT SEEN); Platelet Estimate ADEQ
[2022-03-12] MEDS: LEVOTHYROXINE SOD 0.025 MG TAB PO SCH (05:54)
[2022-03-12] MEDS: CEFEPIME 2 GM in NA CHLORIDE 0.9% 100 ML IV SCH (08:59)
[2022-03-12] MEDS: ENOXAPARIN 40 MG/0.4 ML SQ SCH (08:59)
[2022-03-12] MEDS: FAMOTIDINE 20 MG TAB PO SCH ×2 (09:00→20:51)
[2022-03-12] MEDS: cloNIDine HCL 0.1 MG TAB PO SCH ×2 (09:00→20:51)
[2022-03-12] MEDS: AMLODIPINE 10 MG TAB PO SCH (09:00)
--- NOTE | 2022-03-12 09:35 | EKG ---
Test Date: 2022-03-11 Test Time: 12:04:50 [employer] Sales Engineer: CHON MEASUREMENT RESULTS: Intervals: Rate: 124 MD: 128 QRSD: 82 QT: 310 QTc: 445 [place]: P: 36 MD: 128 QRS: 95 T: 78 INTERPRETIVE STATEMENTS: Sinus tachycardia Rightward axis Possible Inferior infarct, age undetermined Abnormal ECG Compared to ECG 07/01/2017 07:59:43 Myocardial infarct finding now present Sinus rhythm no longer present Electronically Signed On 03-12-22 09:32:00 CDT by Binh Rubio
[2022-03-12] MEDS: LORAZEPAM 0.5 MG TABLET PO PRN (10:13)
--- NOTE | 2022-03-12 11:22 | P.PN ---
Subjective Date of Service: 03/12/22 Chief Complaint: shortness of breath Subjective: No new changes (Off BiPAP now, complain of some mild wheezing this morning) Physical Examination - Vital Signs Temperature: 98.2 F Blood Pressure: 134/65 Pulse: 92 Respirations: 30 Pulse Ox (%): 97 - Studies Laboratory Data (last 24 hrs) 03/11/22 17:20: Magnesium 2.1 03/11/22 12:17: PT 12.3, INR 1.12, APTT 37.9 H 03/11/22 12:17: WBC 8.2, Hgb 13.1 L, Hct 38.6 L, Plt Count 440 H 03/11/22 12:17: Sodium 134 L, Potassium 3.9, BUN 16, Creatinine 1.59 H, Glucose 93, Magnesium 1.8, Total Bilirubin 0.5, AST 18, ALT 17, Alkaline Phosphatase 33 L Assessment And Plan - Current Problems (Diagnosis) (1) Pneumonia Current Visit: Yes Status: Acute (2) Lung cancer Current Visit: Yes Status: Acute (3) COPD exacerbation Current Visit: Yes Status: Acute (4) Acute kidney injury Current Visit: Yes Status: Acute - Plan All CT scans are performed using dose optimization technique as appropriate and may include automated exposure control or mA/KV adjustment according to patient size. IMPRESSION: Negative for pulmonary embolism. Right lower lobe lesion remains suspicious for neoplasm. Mild micronodularity in the superior segment of the right lower lobe presumably related to infectious or inflammatory process though this may be of little acute clinical significance. Physical Exam General: Alert, In no apparent distress, Oriented x3, not dyspneic on room air HEENT: Atraumatic, Normocephalic, PERRLA Neck: Supple, 2+ carotid pulse no bruit, JVD not distended Respiratory: Mild bilateral wheeze, no basal crepitations Cardiovascular: No edema, Regular rate/rhythm, Normal S1 S2 Capillary refill: <2 Seconds Gastrointestinal: Normal bowel sounds, Soft and benign, Non-distended, No ascites Musculoskeletal: No clubbing, No swelling Neurological: Sensation intact, Cranial nerves 3-12 intact Impression Acute right lower lobe pneumonialikely postobstructive Right lung cancer Acute respiratory failureoFF BiPAPresolved Acute kidney injury Hypertensionuncontrolled History of COPD with mild exacerbation Plan -Will add IV steroids, continue duo nebs Continue empirical antibioticwith Vanco/cefepime Follow blood culture x2 Wean O2 as tolerated Overall poor prognosis discussed with patient and spouse, Blood pressure controlled, continue amlodipine Still elevated creatinine 1.6, continue to hold losartan High risk of contrast nephropathy, continue monitor GI and DVT prophylaxis Pain control Physician Review: Patient Assessed, Agree with Above Assessment and Plan
[2022-03-12] MEDS: METHYLPREDNISOLONE 125 MG INJ IV SCH ×3 (12:09→23:04)
--- NOTE | 2022-03-12 12:23 | P.CNS ---
Date of Consult: 03/12/22 Reason for Consult: COPD exacerbation Chief Complaint: shortness of breath History of Present Illness: Patient is 61 years of age with a history of lung cancer treated with radiation at [facility] became acutely short of breath history of COPD continues to smoke nonproductive cough, my evaluation he was still wheezing short of breath pliant with his bronchodilators Allergies No Known Allergies Allergy (Verified 07/01/17 07:43) Home Medications: Albuterol Sulfate [Proair Hfa] 8.5 gm IH PRN PRN 07/01/17 Aspirin [Aspirin EC 81 MG] 81 mg PO DAILY 07/01/17 Omeprazole 40 mg PO DAILY 07/01/17 Amlodipine Besylate 1 tab PO DAILY 07/07/18 Albuterol Sulfate 5 mg IH QID 03/11/22 Bupropion *Xl* [Wellbutrin XL*] 300 mg PO DAILY 03/11/22 Levothyroxine Sodium [Levothyroxine] 25 mcg PO DAILY 03/11/22 Losartan Potassium 50 mg PO DAILY 03/11/22 Megestrol Acetate 40 mg PO DAILY 03/11/22 Umeclidinium Brm/Vilanterol Tr [Anoro Ellipta 62.5-25 Mcg INH] 1 dose IH DAILY 03/11/22 - Past Medical/Surgical History Diabetic: No -: Lung cancerstatus post radiation at [facility] -: Hypertension -: COPD -: Hypothroid -: Lobectomy left lower lobe -: Bronchosopies - Family History Father Medical History: Cancer Notes: esophageal cancer Mother Medical History: Kidney disease Brother Medical History: Stroke Sister Medical History: Heart disease, Hypertension - Social History Alcohol use: Yes CD- Drugs: No Caffeine use: Yes Place of Residence: Home Review of Systems 10-point ROS is otherwise unremarkable General: Weakness Respiratory: Cough, Shortness of Breath Physical Examination Temp Pulse Resp BP Pulse Ox 98.3 F 89 24 H 137/65 100 03/12/22 11:56 03/12/22 11:56 03/12/22 11:56 03/12/22 11:56 03/12/22 11:56 General: Alert, Moderate distress Respiratory: Expiratory wheezes Cardiovascular: No edema, Normal S1 S2 Gastrointestinal: Normal bowel sounds, Soft and benign Integumentary: No rashes, No breakdown Neurological: Normal speech, Normal strength at 5/5 x4 extr Laboratory Data (last 24 hrs) 03/11/22 17:20: Magnesium 2.1 03/11/22 12:17: PT 12.3, INR 1.12, APTT 37.9 H 03/11/22 12:17: WBC 8.2, Hgb 13.1 L, Hct 38.6 L, Plt Count 440 H 03/11/22 12:17: Sodium 134 L, Potassium 3.9, BUN 16, Creatinine 1.59 H, Glucose 93, Magnesium 1.8, Total Bilirubin 0.5, AST 18, ALT 17, Alkaline Phosphatase 33 L - Problems (1) COPD exacerbation Current Visit: Yes Status: Acute Plan: Patient is 61 years of age heavy smoker admitted with COPD exacerbation has a right lower lobe lung mass has been evaluated and treated at [facility] in [place] chronic renal failure CT scan shows right lower lobe lung mass no evidence of pulmonary embolism no evidence of sepsis change to p.o. levofloxacin saturations satisfactory continue with bronchodilator therapy
[2022-03-12] MEDS: IPRATROPIUM BROM 0.5MG/2.5ML IH SCH ×2 (13:23→19:45)
[2022-03-12] MEDS: levoFLOXacin 750 MG TAB PO SCH (13:33)
[2022-03-12] MEDS ORDERED: NICOTINE 21 MG/PAT TD ONE (15:20)
[2022-03-12] MEDS: NICOTINE 21 MG/PAT TD SCH (15:22)
[2022-03-12] MEDS ORDERED: IPRATROPIUM BROM 0.5MG/2.5ML NEB SCH (16:00)
[2022-03-12] MEDS ORDERED: FUROSEMIDE 40 MG/4 ML VIAL IV ONE (18:00)
[2022-03-12] MEDS ORDERED: VANCOMYCIN 1.5 GM in NA CHLORIDE 0.9% 500 ML IVPB SCH ×4 (20:00)
[2022-03-12] MEDS ORDERED: LORazepam 2 MG/ML VIAL IV ONE (22:52)
[2022-03-13] MEDS: IPRATROPIUM BROM 0.5MG/2.5ML IH SCH ×4 (02:15→20:50)
[2022-03-13 04:11] LABS: Absolute Lymphocytes (CBC) 0.4 K/uL (0.7-4.9); Hematocrit 34.2 % (39.6-49.0); Lymphocytes % 5.5 % (15.3-44.8); MPV 6.4 fL (7.6-11.3); RBC Red Blood Cell Count 3.48 M/uL (4.33-5.43)
[2022-03-13 04:25] LABS: Albumin 3.3 g/dL (3.4-5.0); Bilirubin Total 0.2 mg/dL (0.2-1.0); Magnesium 2.3 mg/dL (1.8-2.4); Protein, Total 7.2 g/dL (6.4-8.2)
[2022-03-13] MEDS: METHYLPREDNISOLONE 125 MG INJ IV SCH ×2 (06:10→12:00)
[2022-03-13] MEDS: LEVOTHYROXINE SOD 0.025 MG TAB PO SCH (06:11)
[2022-03-13] MEDS: ALBUTEROL 2.5 MG/3 ML NEB SOL NEB PRN ×3 (08:21→20:50)
[2022-03-13] MEDS: cloNIDine HCL 0.1 MG TAB PO SCH ×2 (09:08→20:37)
[2022-03-13] MEDS: FAMOTIDINE 20 MG TAB PO SCH ×2 (09:08→20:36)
[2022-03-13] MEDS: AMLODIPINE 10 MG TAB PO SCH (09:09)
[2022-03-13] MEDS: NICOTINE 21 MG/PAT TD SCH (09:09)
[2022-03-13] MEDS: ENOXAPARIN 40 MG/0.4 ML SQ SCH (09:11)
--- NOTE | 2022-03-13 11:09 | P.CNS ---
Chief Complaint: shortness of breath History of Present Illness: 61-year-old male patient with history of hypertension, COPD, lung cancer hospitalization therapy and chemo in [facility] was evaluated in the ER for episode of cough and shortness of breath and was thought to have postobstructive pneumonia. On initial lab creatinine was elevated at 1.69 prompting nephrology consultation. He had mild hyponatremia with sodium of 130s but there was no issues with dizzy spells, nausea, vomiting episode. He was asked to be evaluated in nephrology for elevated creatinine raising concern for possible CKD. No history of chronic NSAID use given. Allergies No Known Allergies Allergy (Verified 07/01/17 07:43) Home Medications: Albuterol Sulfate [Proair Hfa] 8.5 gm IH PRN PRN 07/01/17 Aspirin [Aspirin EC 81 MG] 81 mg PO DAILY 07/01/17 Omeprazole 40 mg PO DAILY 07/01/17 Amlodipine Besylate 1 tab PO DAILY 07/07/18 Albuterol Sulfate 5 mg IH QID 03/11/22 Bupropion *Xl* [Wellbutrin XL*] 300 mg PO DAILY 03/11/22 Levothyroxine Sodium [Levothyroxine] 25 mcg PO DAILY 03/11/22 Losartan Potassium 50 mg PO DAILY 03/11/22 Megestrol Acetate 40 mg PO DAILY 03/11/22 Umeclidinium Brm/Vilanterol Tr [Anoro Ellipta 62.5-25 Mcg INH] 1 dose IH DAILY 03/11/22 - Past Medical/Surgical History Diabetic: No -: Lung cancerstatus post radiation at [facility] -: Hypertension -: COPD -: Hypothroid -: Lobectomy left lower lobe -: Bronchosopies - Family History Father Medical History: Cancer Notes: esophageal cancer Mother Medical History: Kidney disease Brother Medical History: Stroke Sister Medical History: Heart disease, Hypertension - Social History Alcohol use: Yes CD- Drugs: No Caffeine use: Yes Place of Residence: Home Review of Systems General: Chills, Malaise Eyes: Unremarkable ENT: Unremarkable Respiratory: Cough, Shortness of Breath Cardiovascular: Unremarkable Gastrointestinal: Unremarkable Genitourinary: Unremarkable Musculoskeletal: Unremarkable Neurological: Unremarkable Physical Examination Temp Pulse Resp BP Pulse Ox 98.0 F 98 H 20 134/75 99 03/13/22 08:00 03/13/22 09:09 03/13/22 08:00 03/13/22 09:09 03/13/22 08:00 General: Alert, Oriented x3 HEENT: Atraumatic, Normocephalic Neck: Supple Respiratory: Diminished Cardiovascular: Regular rate/rhythm, Normal S1 S2 Gastrointestinal: Soft and benign Neurological: Normal speech, Normal strength at 5/5 x4 extr Conclusions/Impression: Pneumoniadeemed postobstructive Hypertension COPD Respiratory failure with hypoxia DOMONIQUE versus CKD Hyponatremia Plan: Episode of elevated creatinine is suspected secondary to perhaps issues with infectious process and possibility of chronic kidney disease from longstanding hypertension. Creatinine has stayed stable with value of 1.65 on admission however prior creatinine before this admission was 1.40.. Will continue to monitor and adjust medication for EGFR. we will follow-up trend of kidney function. Sodium is borderline low in the 130s. Perhaps there is a component of SIADH. We will watch closely. Will start sodium tablet if this drops less than 130. Will obtain renal ultrasound to evaluate echogenicity and size of kidney to determine possible CKD.
--- NOTE | 2022-03-13 12:36 | P.PN ---
Subjective Date of Service: 03/13/22 Chief Complaint: Respiratory failure No change short of breath wheezing on high flow oxygen Review of Systems General: Weakness Respiratory: Shortness of Breath Physical Examination - Vital Signs Temperature: 98.1 F Blood Pressure: 133/64 Pulse: 84 Respirations: 20 Pulse Ox (%): 100 - Physical Exam General: Alert, Oriented x3, Moderate distress Respiratory: Expiratory wheezes Cardiovascular: No edema, Regular rate/rhythm, Normal S1 S2 Gastrointestinal: Normal bowel sounds, Soft and benign Assessment And Plan - Current Problems (Diagnosis) (1) COPD exacerbation Current Visit: Yes Status: Acute Plan: COPD exacerbation no change in condition still wheezing short of breath reduce Solu-Medrol to 40 mg IV every 8 add Daliresp continue with bronchodilators add Lasix patient has chronic renal failure may be an element of volume overload Physician Review: Patient Assessed, Agree with Above Assessment and Plan
--- NOTE | 2022-03-13 13:22 | P.PN ---
Subjective Date of Service: 03/13/22 Chief Complaint: Respiratory failure Subjective: No new changes (Very dyspneic today Still on high flow Vapotherm 30 L/min) Physical Examination - Vital Signs Temperature: 98.1 F Blood Pressure: 133/64 Pulse: 84 Respirations: 20 Pulse Ox (%): 100 Assessment And Plan - Current Problems (Diagnosis) (1) Pneumonia Current Visit: Yes Status: Acute (2) Lung cancer Current Visit: Yes Status: Acute (3) COPD exacerbation Current Visit: Yes Status: Acute (4) Acute kidney injury Current Visit: Yes Status: Acute - Plan All CT scans are performed using dose optimization technique as appropriate and may include automated exposure control or mA/KV adjustment according to patient size. IMPRESSION: Negative for pulmonary embolism. Right lower lobe lesion remains suspicious for neoplasm. Mild micronodularity in the superior segment of the right lower lobe presumably related to infectious or inflammatory process though this may be of little acute clinical significance. Physical Exam General: Alert, on 30 L Vapotherm HEENT: Atraumatic, Normocephalic, PERRLA Neck: Supple, 2+ carotid pulse no bruit, JVD not distended Respiratory: Still bilateral wheeze, no basal crepitations Cardiovascular: No edema, Regular rate/rhythm, Normal S1 S2 Capillary refill: <2 Seconds Gastrointestinal: Normal bowel sounds, Soft and benign, Non-distended, No ascites Musculoskeletal: No clubbing, No swelling Neurological: Sensation intact, Cranial nerves 3-12 intact Impression Acute right lower lobe pneumonialikely postobstructive Right lung canceradvanced and not amenable to therapy Acute respiratory failureon Vapotherm at, off BiPAP Acute kidney injury on baseline CKD stage III Hypertensionuncontrolled History of COPD with mild exacerbation Presumed superimposed CHF exacerbation Plan Continue IV steroids/duo nebs Agree with add Daliresp per pulmonary Add Lasix 40 every 12 Obtain echocardiogram to assess EF Obtain BMP and monitor trend Creatinine is elevated at 1.66, follow nephrology eval Continue empiric antibioticsDC Vanco, continue cefepime Blood cultureno growth to date We will discuss CODE STATUS with family, patient might benefit from hospice evaluation continue to hold losartan Still possible contrast nephropathy, continue monitor GI and DVT prophylaxis Physician Review: Patient Assessed, Agree with Above Assessment and Plan Time Spent Managing PTS Care (In Minutes): 35
--- NOTE | 2022-03-13 13:24 | ECHO ---
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 CARDIAC HISTORY: CATHERIZATION: SURGERY: PROSTHETIC VALVE: PACEMAKER: MEASUREMENTS (cm) DIASTOLIC (NORMALS) SYSTOLIC (NORMALS) IVSd 0.9 (0.6-1.2) LA Diam (1.9-4.0) LVEF 55% LVIDd 3.1 (3.5-5.7) LVIDs 2.3 (2.0-3.5) %FS 27% LVPWd 1.0 (0.6-1.2) Ao Diam 2.7 (2.0-3.7) 2 DIMENSIONAL ASSESSMENT: RIGHT ATRIUM: NORMAL LEFT ATRIUM: NORMAL RIGHT VENTRICLE: NORMAL LEFT VENTRICLE: NORMAL TRICUSPID VALVE: NORMAL MITRAL VALVE: NORMAL PULMONIC VALVE: NORMAL AORTIC VALVE: NORMAL PERICARDIAL EFFUSION: NONE AORTIC ROOT: NORMAL LEFT VENTRICULAR WALL MOTION: NORMAL DOPPLER/COLOR FLOW: NORMAL COMMENTS: NORMAL 2D ECHOCARDIOGRAM WITH DOPPLER. NO WALL MOTION ABNORMALITY. NO VEGETATION OR THROMBUS. TECHNOLOGIST: Suzette JONES
[2022-03-13] MEDS: ROFLUMILAST 500 MCG TABLET PO SCH (13:48)
[2022-03-13] MEDS: FUROSEMIDE 40 MG/4 ML VIAL IV SCH (13:50)
[2022-03-13 14:50] LABS: Arterial Blood Carboxyhemoglob 0.8 % (0-1.5); Blood Gas Oxyhemoglobin 94.7 % (94-97); Blood O2 Saturation 96.3 % (92-98.5)
--- NOTE | 2022-03-13 14:54 | RAD REPORT ---
EXAM DESCRIPTION: US - Renal Ultrasound-Complete - 03/13/2022 2:13 pm CLINICAL HISTORY: Acute renal insufficiency/chronic renal disease COMPARISON: None FINDINGS: The right kidney measures 9 cm with a normal echotexture. 1.4 centimeters cyst. 0.8 centim eters cyst. The left kidney measures 11 cm with a mildly increased echotexture. A 4.2 centimeter cyst. 1 centimet er cyst Hydronephrosis is not seen. No gross abnormality of bladder IMPRESSION: Mildly increased echotexture left kidney indicative of parenchymal disease 4.2 centimeter left renal cyst
[2022-03-13] MEDS: METHYLPREDNISOLONE 40 MG INJ IV SCH (17:13)
[2022-03-13] MEDS: LORAZEPAM 0.5 MG TABLET PO PRN (20:56)
[2022-03-14] MEDS: METHYLPREDNISOLONE 40 MG INJ IV SCH ×3 (00:20→16:46)
[2022-03-14 01:11] VITALS: BMI 24.9
[2022-03-14] MEDS: IPRATROPIUM BROM 0.5MG/2.5ML IH SCH ×4 (02:00→20:10)
[2022-03-14 04:18] LABS: Absolute Lymphocytes (CBC) 0.5 K/uL (0.7-4.9); Hematocrit 32.4 % (39.6-49.0); Lymphocytes % 4.8 % (15.3-44.8); MPV 6.4 fL (7.6-11.3); RBC Red Blood Cell Count 3.25 M/uL (4.33-5.43)
[2022-03-14 04:39] LABS: Albumin 3.1 g/dL (3.4-5.0); Bilirubin Total 0.2 mg/dL (0.2-1.0); Potassium 3.8 mmol/L (3.5-5.1); Protein, Total 6.6 g/dL (6.4-8.2)
[2022-03-14] MEDS: LEVOTHYROXINE SOD 0.025 MG TAB PO SCH (06:24)
[2022-03-14] MEDS: ALBUTEROL 2.5 MG/3 ML NEB SOL NEB PRN ×2 (07:35→20:10)
[2022-03-14] MEDS: cloNIDine HCL 0.1 MG TAB PO SCH ×2 (08:59→20:35)
[2022-03-14] MEDS: ENOXAPARIN 40 MG/0.4 ML SQ SCH (08:59)
[2022-03-14] MEDS: NICOTINE 21 MG/PAT TD SCH (08:59)
[2022-03-14] MEDS: FUROSEMIDE 40 MG/4 ML VIAL IV SCH (09:00)
[2022-03-14] MEDS: ROFLUMILAST 500 MCG TABLET PO SCH (09:00)
[2022-03-14] MEDS: FAMOTIDINE 20 MG TAB PO SCH ×2 (09:01→20:35)
[2022-03-14] MEDS: AMLODIPINE 10 MG TAB PO SCH (09:01)
--- NOTE | 2022-03-14 12:20 | P.PN ---
Subjective Date of Service: 03/14/22 Chief Complaint: Respiratory failure Subjective: No new changes, No C/O voiced, Improving Physical Examination - Vital Signs Temperature: 98.2 F Blood Pressure: 119/54 Pulse: 89 Respirations: 18 Pulse Ox (%): 100 Assessment And Plan - Current Problems (Diagnosis) (1) Pneumonia Current Visit: Yes Status: Acute (2) Lung cancer Current Visit: Yes Status: Acute (3) COPD exacerbation Current Visit: Yes Status: Acute (4) Acute kidney injury Current Visit: Yes Status: Acute - Plan All CT scans are performed using dose optimization technique as appropriate and may include automated exposure control or mA/KV adjustment according to patient size. IMPRESSION: Negative for pulmonary embolism. Right lower lobe lesion remains suspicious for neoplasm. Mild micronodularity in the superior segment of the right lower lobe presumably related to infectious or inflammatory process though this may be of little acute clinical significance. Physical Exam General: Alert, on 30 L Vapotherm HEENT: Atraumatic, Normocephalic, PERRLA Neck: Supple, 2+ carotid pulse no bruit, JVD not distended Respiratory: Improved. Bilateral wheeze, no basal crepitations Cardiovascular: No edema, Regular rate/rhythm, Normal S1 S2 Capillary refill: <2 Seconds Gastrointestinal: Normal bowel sounds, Soft and benign, Non-distended, No ascites Musculoskeletal: No clubbing, No swelling Neurological: Sensation intact, Cranial nerves 3-12 intact Impression Acute right lower lobe pneumonialikely postobstructive Right lung canceradvanced and not amenable to therapy Acute respiratory failureon Vapotherm at, off BiPAP Acute kidney injury on baseline CKD stage III Hypertensionuncontrolled History of COPD with mild exacerbation Presumed superimposed CHF exacerbation Plan Clinically improving Continue steroids/DuoNeb/dilated loops Continue Lasixswitch to p.o. Plan for discharge in a.m. Patient and spouse discussed about hospice but not willing Follow outpatient oncology Continue empiric antibiotics switch to p.o. at discharge Blood cultureno growth to date Creatinine still improving to 1.8, may be due to superimposed contrast nephropathy, continue diuretics Continue to hold losartan Still possible contrast nephropathy, continue monitor GI and DVT prophylaxis Physician Review: Patient Assessed, Agree with Above Assessment and Plan Critical Care: Yes
[2022-03-14] MEDS: levoFLOXacin 750 MG TAB PO SCH (12:22)
--- NOTE | 2022-03-14 16:37 | P.PN ---
Subjective Date of Service: 03/14/22 Chief Complaint: Respiratory failure Subjective: No new changes, Improving Physical Examination - Vital Signs Temperature: 97.8 F Blood Pressure: 136/60 Pulse: 101 Respirations: 20 Pulse Ox (%): 100 - Physical Exam General: Alert, Oriented x3 HEENT: Atraumatic, Normocephalic Neck: Supple Respiratory: Diminished Cardiovascular: Normal pulses, Regular rate/rhythm, Normal S1 S2 Gastrointestinal: Soft and benign Musculoskeletal: No swelling Neurological: Normal speech, Normal strength at 5/5 x4 extr Assessment And Plan - Plan Pneumoniadeemed postobstructive Hypertension COPD Respiratory failure with hypoxia CKD stage 3 Hyponatremiaresolved. Plan: His serum creatinine is slightly increased today at 1.8. He is deemed to have CKD stage III. We will continue present antibiotic therapy and dose meds for estimated glome rular filtration. We will monitor sodium level closely as his sodium is improved to 130 this morning. We will follow symptomatology closely. Physician Review: Patient Assessed, Agree with Above Assessment and Plan
[2022-03-14] MEDS: LORAZEPAM 0.5 MG TABLET PO PRN (20:35)
[2022-03-15] MEDS: METHYLPREDNISOLONE 40 MG INJ IV SCH ×3 (00:31→16:08)
[2022-03-15] MEDS: ALBUTEROL 2.5 MG/3 ML NEB SOL NEB PRN ×4 (01:10→18:20)
[2022-03-15] MEDS: IPRATROPIUM BROM 0.5MG/2.5ML IH SCH ×5 (01:10→19:07)
[2022-03-15 04:39] LABS: Absolute Lymphocytes (CBC) 0.5 K/uL (0.7-4.9); Hematocrit 32.5 % (39.6-49.0); Lymphocytes % 5.3 % (15.3-44.8); MPV 6.5 fL (7.6-11.3); RBC Red Blood Cell Count 3.25 M/uL (4.33-5.43)
[2022-03-15 05:03] LABS: Bilirubin Total 0.1 mg/dL (0.2-1.0); Protein, Total 6.3 g/dL (6.4-8.2)
[2022-03-15] MEDS: LEVOTHYROXINE SOD 0.025 MG TAB PO SCH (05:45)
--- NOTE | 2022-03-15 07:19 | P.PN ---
Subjective Date of Service: 03/15/22 Chief Complaint: Respiratory failure Physical Examination - Vital Signs Temperature: 97.7 F Blood Pressure: 132/62 Pulse: 86 Respirations: 18 Pulse Ox (%): 99 - Physical Exam General: Alert, Oriented x3 HEENT: Atraumatic, Normocephalic Neck: Supple Respiratory: Normal air movement Cardiovascular: Regular rate/rhythm, Normal S1 S2 Gastrointestinal: Soft and benign Neurological: Normal speech Assessment And Plan - Plan Pneumoniadeemed postobstructive Hypertension COPD Respiratory failure with hypoxia CKD stage 3 Hyponatremiaresolved. Plan: His serum creatinine is stable at 1.76 today. He is deemed to have CKD stage III. we will obtain urine p/c for ckd evaluation since his serum cr is stable. We will continue present antibiotic therapy and dose meds for estimated glomerular filtration. We will follow symptomatology closely. Physician Review: Patient Assessed, Agree with Above Assessment and Plan
[2022-03-15] MEDS: FAMOTIDINE 20 MG TAB PO SCH ×2 (08:00→20:32)
[2022-03-15] MEDS: FUROSEMIDE 40 MG/4 ML VIAL IV SCH (08:00)
[2022-03-15] MEDS: ENOXAPARIN 40 MG/0.4 ML SQ SCH (08:00)
[2022-03-15] MEDS: ROFLUMILAST 500 MCG TABLET PO SCH (08:00)
[2022-03-15] MEDS: AMLODIPINE 10 MG TAB PO SCH (08:01)
[2022-03-15] MEDS: NICOTINE 21 MG/PAT TD SCH (08:01)
[2022-03-15] MEDS: cloNIDine HCL 0.1 MG TAB PO SCH ×2 (08:01→20:31)
--- NOTE | 2022-03-15 15:05 | P.PN ---
Subjective Date of Service: 03/15/22 Chief Complaint: Respiratory failure Subjective: No new changes, No C/O voiced Physical Examination - Vital Signs Temperature: 98.3 F Blood Pressure: 126/59 Pulse: 94 Respirations: 18 Pulse Ox (%): 96 Assessment And Plan - Current Problems (Diagnosis) (1) Pneumonia Current Visit: Yes Status: Acute (2) Lung cancer Current Visit: Yes Status: Acute (3) COPD exacerbation Current Visit: Yes Status: Acute (4) Acute kidney injury Current Visit: Yes Status: Acute - Plan All CT scans are performed using dose optimization technique as appropriate and may include automated exposure control or mA/KV adjustment according to patient size. IMPRESSION: Negative for pulmonary embolism. Right lower lobe lesion remains suspicious for neoplasm. Mild micronodularity in the superior segment of the right lower lobe presumably related to infectious or inflammatory process though this may be of little acute clinical significance. Physical Exam General: Alert, on 30 L Vapotherm HEENT: Atraumatic, Normocephalic, PERRLA Neck: Supple, 2+ carotid pulse no bruit, JVD not distended Respiratory: Improved. Bilateral wheeze, no basal crepitations Cardiovascular: No edema, Regular rate/rhythm, Normal S1 S2 Capillary refill: <2 Seconds Gastrointestinal: Normal bowel sounds, Soft and benign, Non-distended, No ascites Musculoskeletal: No clubbing, No swelling Neurological: Sensation intact, Cranial nerves 3-12 intact Impression Acute right lower lobe pneumonialikely postobstructive Right lung canceradvanced and not amenable to therapy Acute respiratory failureon Vapotherm at, off BiPAP Acute kidney injury on baseline CKD stage III Hypertensionuncontrolled History of COPD with mild exacerbation Presumed superimposed CHF exacerbation Plan Clinically improving Continue steroids/DuoNeb/dilated loops Continue Lasix. Family wants acute rehab, awaiting insurance clearance Continue PT and OTambulating few steps with PT patient and spouse discussed about hospice but not willing Follow outpatient oncology Continue empiric antibiotics switch to p.o. at discharge Blood cultureno growth to date Creatinine still improving to 1.8, may be due to superimposed contrast nephropathy, continue diuretics Continue to hold losartan Still possible contrast nephropathy, continue monitor GI and DVT prophylaxis Physician Review: Patient Assessed, Agree with Above Assessment and Plan
[2022-03-15] MEDS: LORAZEPAM 0.5 MG TABLET PO PRN (20:32)
[2022-03-15 23:06] LABS: Urine Protein/Creatinine Ratio 0.17 ratio (<0.15)
[2022-03-16] MEDS: METHYLPREDNISOLONE 40 MG INJ IV SCH ×3 (00:14→17:23)
[2022-03-16] MEDS: IPRATROPIUM BROM 0.5MG/2.5ML IH SCH ×3 (00:15→13:32)
[2022-03-16] MEDS: ALBUTEROL 2.5 MG/3 ML NEB SOL NEB PRN ×3 (00:15→13:32)
[2022-03-16 04:52] LABS: Albumin 3.1 g/dL (3.4-5.0); Bilirubin Total 0.2 mg/dL (0.2-1.0); Potassium 3.6 mmol/L (3.5-5.1); Protein, Total 6.5 g/dL (6.4-8.2)
[2022-03-16] MEDS: LEVOTHYROXINE SOD 0.025 MG TAB PO SCH (05:51)
[2022-03-16] MEDS: NICOTINE 21 MG/PAT TD SCH (09:37)
[2022-03-16] MEDS: AMLODIPINE 10 MG TAB PO SCH (09:38)
[2022-03-16] MEDS: FAMOTIDINE 20 MG TAB PO SCH (09:38)
[2022-03-16] MEDS: FUROSEMIDE 40 MG/4 ML VIAL IV SCH (09:38)
[2022-03-16] MEDS: ENOXAPARIN 40 MG/0.4 ML SQ SCH (09:38)
[2022-03-16] MEDS: cloNIDine HCL 0.1 MG TAB PO SCH (09:39)
[2022-03-16] MEDS: ROFLUMILAST 500 MCG TABLET PO SCH (09:42)
--- NOTE | 2022-03-16 10:41 | P.PN ---
Subjective Date of Service: 03/16/22 Chief Complaint: COPD exacerbation Patient has improved significantly doing much better Review of Systems 10-point ROS is otherwise unremarkable Physical Examination - Vital Signs Temperature: 97.4 F Blood Pressure: 133/62 Pulse: 85 Respirations: 18 Pulse Ox (%): 98 - Physical Exam General: Alert, In no apparent distress, Oriented x3 Respiratory: Clear to auscultation bilaterally, Diminished Assessment And Plan - Current Problems (Diagnosis) (1) COPD exacerbation Current Visit: Yes Status: Acute Plan: Patient has improved significantly oxygenation has also improved plan for discharge add Lasix to outpatient therapy patient is on bronchodilators at home Physician Review: Patient Assessed, Agree with Above Assessment and Plan
--- NOTE | 2022-03-16 11:52 | P.PN ---
Subjective Date of Service: 03/16/22 Chief Complaint: COPD exacerbation Subjective: No new changes, No C/O voiced Physical Examination - Vital Signs Temperature: 97.4 F Blood Pressure: 133/62 Pulse: 85 Respirations: 18 Pulse Ox (%): 98 Assessment And Plan - Current Problems (Diagnosis) (1) Pneumonia Current Visit: Yes Status: Acute (2) Lung cancer Current Visit: Yes Status: Acute (3) COPD exacerbation Current Visit: Yes Status: Acute (4) Acute kidney injury Current Visit: Yes Status: Acute - Plan All CT scans are performed using dose optimization technique as appropriate and may include automated exposure control or mA/KV adjustment according to patient size. IMPRESSION: Negative for pulmonary embolism. Right lower lobe lesion remains suspicious for neoplasm. Mild micronodularity in the superior segment of the right lower lobe presumably related to infectious or inflammatory process though this may be of little acute clinical significance. Physical Exam General: Alert, on room air HEENT: Atraumatic, Normocephalic, PERRLA Neck: Supple, 2+ carotid pulse no bruit, JVD not distended Respiratory: Improved to minimal wheeze, no basal crepitations Cardiovascular: No edema, Regular rate/rhythm, Normal S1 S2 Capillary refill: <2 Seconds Gastrointestinal: Normal bowel sounds, Soft and benign, Non-distended, No ascites Musculoskeletal: No clubbing, No swelling Neurological: Sensation intact, Cranial nerves 3-12 intact Impression Acute right lower lobe pneumonialikely postobstructive Right lung canceradvanced and not amenable to therapy Acute respiratory failureon Vapotherm at, off BiPAP Acute kidney injury on baseline CKD stage III Hypertensionuncontrolled History of COPD with mild exacerbation Presumed superimposed CHF exacerbation Plan Clinically improved Awaiting discharge Rejected for acute rehab, may need to go home with home PT/SNF We discussed with patient's about discharging patient home and have case management follow-up with SNF or home health Appreciate pulmonary consult Continue steroids/DuoNeb/dilated loops Continue Lasix. Blood cultureno growth to date Creatinine still improving , may be due to superimposed contrast nephropathy, continue diuretics Continue to hold losartan Still possible contrast nephropathy, continue monitor GI and DVT prophylaxis Physician Review: Patient Assessed, Agree with Above Assessment and Plan
[2022-03-16] MEDS: levoFLOXacin 750 MG TAB PO SCH (12:31)
[2022-03-16 13:50] VITALS: TEMP 97.6
[2022-03-16 15:04] VITALS: O2SAT 98
--- NOTE | 2022-03-16 16:58 | P.DS ---
Admission Date: 03/11/22 Discharge Date: 03/16/22 Disposition: DC HOME/HOME HEALTH CARE Discharge Condition: GOOD Reason for Admission: COPD exacerbation - Problems (1) Pneumonia Current Visit: Yes Status: Acute (2) Lung cancer Current Visit: Yes Status: Acute (3) COPD exacerbation Current Visit: Yes Status: Acute (4) Acute kidney injury Current Visit: Yes Status: Acute Brief History of Present Illness: 61-year-old male with past medical history of right lung cancer previously been treated with radiation therapy at [facility] but completed maximal dose of radiation in September 2021, on MDI at home, COPD, hypertension, prior history of chronic tobacco use who was brought in by the today because of new onset worsening shortness of breath since the last 2 days. states patient has baseline shortness of breath but mainly with exertion. Patient developed worsening shortness of breath even at rest in the last 2 days. His chronic cough pattern has changed to becoming productive from previous nonproductive status. denies any cough contact. Patient was reportedly had fever and chills overnight. They have recently received the second booster dose of COVID last week. On presentation in the ED CT scan shows persistent right lung mass consistent with previous history of cancer. Noted micro nodularity with tr ee-in-bud appearance in the right lower lobe worrisome for early pneumonitis. Patient was markedly dyspneic and tachycardic requiring BiPAP use now. EKG shows sinus tach at [address] segment changes. BNP was elevated at 1500 Patient is more stable now. and patient hoping to have patient transferred to [facility] if condition continues to worsen. CT of the lungs shows no evidence of pulmonary embolism Hospital Course: With records 61-year-old male with history of radiation resistant right lung cancer currently not amenable to therapy presented because of acute respiratory failure. He was initially initiated on BiPAP in the emergency room due to significant hypoxia. Patient was diagnosed with COPD exacerbation as well as right lung cancer obstructive pneumonia. He was treated with antibiotics with Levaquin, IV steroids with slow improvement in his symptoms. He was eventually admitted diuretics as well as daily ribs patient has significant improvement. He was weaned over 24 hours to Vapotherm and later to room air. Patient had mild elevation in creatinine with worsening to 1.8 but started to improving to 1.6 now. He has weakness which improved with physical therapy. Initial plan was to get patient into acute rehab reports was not approved by insurance. Patient is being worked up for outpatient home therapy. Case management will follow up arrangement for home therapy with patient's family. He is medically stable. His shortness of breath is significantly improved and tolerating room air over the last 48 hours. He will be discharged home on medications today. Of note during hospitalization he has mild elevation in blood pressure which improved with added clonidine to his blood pressure regimen. Physical Exam General: Alert, on room air HEENT: Atraumatic, Normocephalic, PERRLA Neck: Supple, 2+ carotid pulse no bruit, JVD not distended Respiratory: Improved to minimal wheeze, no basal crepitations Cardiovascular: No edema, Regular rate/rhythm, Normal S1 S2 Capillary refill: <2 Seconds Gastrointestinal: Normal bowel sounds, Soft and benign, Non-distended, No ascites Musculoskeletal: No clubbing, No swelling Neurological: Sensation intact, Cranial nerves 3-12 intact Impression Acute right lower lobe pneumonialikely postobstructive Right lung canceradvanced and not amenable to therapy Acute respiratory failureon Vapotherm at, off BiPAP Acute kidney injury on baseline CKD stage III Hypertensionuncontrolled History of COPD with mild exacerbation Presumed superimposed CHF exacerbation Vital Signs/Physical Exam: Temp Pulse Resp BP Pulse Ox 97.6 F 90 16 138/63 98 03/16/22 12:00 03/16/22 12:00 03/16/22 12:00 03/16/22 12:00 03/16/22 12:00 Laboratory Data at Discharge: WBC 8.8 K/uL (4.3-10.9) 03/15/22 03:57 Hgb 11.3 g/dL (13.6-17.9) L 03/15/22 03:57 Hct 32.5 % (39.6-49.0) L 03/15/22 03:57 Plt Count 389 K/uL (152-406) 03/15/22 03:57 PT 12.3 SECONDS (9.5-12.5) 03/11/22 12:17 INR 1.12 03/11/22 12:17 APTT 37.9 SECONDS (24.3-36.9) H 03/11/22 12:17 Sodium 138 mmol/L (136-145) 03/16/22 03:36 Potassium 3.6 mmol/L (3.5-5.1) 03/16/22 03:36 BUN 41 mg/dL (7-18) H 03/16/22 03:36 Creatinine 1.62 mg/dL (0.55-1.3) H 03/16/22 03:36 Glucose 162 mg/dL (74-106) H 03/16/22 03:36 Magnesium Cancelled 03/13/22 16:30 Total Bilirubin 0.2 mg/dL (0.2-1.0) 03/16/22 03:36 AST 47 U/L (15-37) H 03/16/22 03:36 ALT 76 U/L (12-78) 03/16/22 03:36 Alkaline Phosphatase 20 U/L (45-117) L 03/16/22 03:36 Home Medications: Albuterol Sulfate [Proair Hfa] 8.5 gm IH PRN PRN 07/01/17 Aspirin [Aspirin EC 81 MG] 81 mg PO DAILY 07/01/17 Omeprazole 40 mg PO DAILY 07/01/17 Amlodipine Besylate 1 tab PO DAILY 07/07/18 Albuterol Sulfate 5 mg IH QID 03/11/22 Bupropion *Xl* [Wellbutrin XL*] 300 mg PO DAILY 03/11/22 Levothyroxine Sodium [Levothyroxine] 25 mcg PO DAILY 03/11/22 Losartan Potassium 50 mg PO DAILY 03/11/22 Megestrol Acetate 40 mg PO DAILY 03/11/22 Umeclidinium Brm/Vilanterol Tr [Anoro Ellipta 62.5-25 Mcg INH] 1 dose IH DAILY 03/11/22 Furosemide [Lasix] 40 mg PO DAILY #30 tablet 03/16/22 Nicotine [Nicoderm*] 21 mg TD DAILY #21 patch.td24 03/16/22 Roflumilast [Daliresp*] 500 mcg PO DAILY #30 tablet 03/16/22 cloNIDine HCL [Clonidine HCl] 0.1 mg PO DAILY 6PM #30 tablet 03/16/22 levoFLOXacin [Levaquin*] 750 mg PO DAILY #5 tab 03/16/22 predniSONE [Prednisone] 20 mg PO BID #40 tablet 03/16/22 New Medications: cloNIDine HCL [Clonidine HCl] 0.1 mg PO DAILY 6PM #30 tablet Roflumilast [Daliresp*] 500 mcg PO DAILY #30 tablet Furosemide [Lasix] 40 mg PO DAILY #30 tablet levoFLOXacin [Levaquin*] 750 mg PO DAILY #5 tab Nicotine [Nicoderm*] 21 mg TD DAILY #21 patch.td24 predniSONE [Prednisone] 20 mg PO BID #40 tablet Diet: Regular Activity: Ad shannen Followup: Chase Sanchez MD [ACTIVE - CAN ADMIT] - Hitesh Maya DO [Primary Care Provider] - Time spent managing pt's care (in minutes): 35
[2022-03-16 17:58] VITALS: BP 144/74
== END 2022-03-16 19:00 | disposition home health service (06) | DRG 193 ==
LOC: ER 11:47 → ERHOLD 17:28 → 4TH 22:24 → 2ND 03-15 17:26
PROVIDERS: ADMIT Internal Medicine; ATTEND Internal Medicine
PROC: 5A0945A Assistance with Respiratory Ventilation, 24-96 Consecutive Hours, High Flow/Velocity Cannula (ICD-10-PCS; principal; 2022-03-12)
DX: J18.8 Other pneumonia, unspecified organism (principal); J96.01 Acute respiratory failure with hypoxia; C34.91 Malignant neoplasm of unspecified part of right bronchus or lung; J44.0 Chronic obstructive pulmonary disease with (acute) lower respiratory infection; J44.1 Chronic obstructive pulmonary disease with (acute) exacerbation; N17.9 Acute kidney failure, unspecified; E87.1 Hypo-osmolality and hyponatremia; I12.9 Hypertensive chronic kidney disease with stage 1 through stage 4 chronic kidney disease, or unspecified chronic kidney disease; N18.30 Chronic kidney disease, stage 3 unspecified; Z20.822 Contact with and (suspected) exposure to COVID-19
CPT/HCPCS: 0240U; 36415; 71045; 71250; 71275; 76770; 80048; 80053; 80076; 82570; 82805; 83605; 83735; 83880; 84145; 84156; 84300; 84443; 85025; 85610; 85730; 87040; 93005; 93306; 94002; 94003; 94010; 94660; 96365; 96366; 96367; 96368; 96375; 97116; 97161; 97165; 97530; 99285; J0692; J1650; J1940; J2920; J2930; J3370; J3475; J7030; J7040; Q9967

== ENCOUNTER 2022-05-20 20:26 | Inpatient (IN) | payer MEDICARE ==
[2022-05-20] MEDS ORDERED: METHYLPREDNISOLONE 125 MG INJ ONE (20:47)
[2022-05-20] MEDS ORDERED: MAGNESIUM SULFATE 1 gm IVPB 1 GM/100 ML BAG IV ONE (20:48)
[2022-05-20] MEDS ORDERED: LEVALBUTEROL 1.25 MG/3 ML NEB ONE (20:48)
[2022-05-20 21:17] LABS: Absolute Lymphocytes (CBC) 0.7 K/uL (0.7-4.9); Hematocrit 34.1 % (39.6-49.0); Lymphocytes % 7.5 % (15.3-44.8); MCV 99.2 fL (80-100); RBC Red Blood Cell Count 3.44 M/uL (4.33-5.43)
[2022-05-20 21:24] LABS: Protime INR 1.06
--- NOTE | 2022-05-20 21:26 | RAD REPORT ---
EXAM DESCRIPTION: RAD - Chest Single View - 05/20/2022 9:12 pm CLINICAL HISTORY: SOB COMPARISON: March 11 CT chest March 11 portable chest TECHNIQUE: AP portable chest image was obtained 05/20/2022 9:12 pm . FINDINGS: No acute infiltrate, failure or volume overload finding. Chronic costophrenic angle blunti ng present, worse on the left. Focal masslike density in the lower right lung field is not clearly di fferent from prior imaging. This needs continued monitoring. CT characteristics are suspicious for ma lignancy. Heart and vasculature are normal. No measurable pleural effusion and no pneumothorax. No acute bony abnormality seen. No acute aortic findings suspected. IMPRESSION: No acute cardiopulmonary process. Chronic pleural and parenchymal changes are present and include a spiculated mass density in the lowe r right lung field. This is stable from February but is still suspicious for possible malignancy.
[2022-05-20 21:27] LABS: Arterial Blood Carboxyhemoglob 1.6 % (0-1.5); Blood Gas Oxyhemoglobin 87.4 % (94-97)
[2022-05-20 21:37] LABS: ALT/SGPT 27 U/L (12-78); AST/SGOT 15 U/L (15-37); Albumin 4.1 g/dL (3.4-5.0); Alkaline Phosphatase 28 U/L (45-117); BUN Blood Urea Nitrogen 25 mg/dL (7-18); Bicarbonate 21 mmol/L (21-32); Bilirubin Total 0.3 mg/dL (0.2-1.0); Glomerular Filtration Rate 39 ml/min (=/>90); Glucose Level 118 mg/dL (74-106); Magnesium 1.8 mg/dL (1.8-2.4); NT PRO-BNP 1799 pg/mL (<125); Potassium 4.4 mmol/L (3.5-5.1); Protein, Total 7.7 g/dL (6.4-8.2); Sodium Level 137 mmol/L (136-145); Troponin High Sensitivity 24.2 pg/mL (<58.9)
[2022-05-20] MEDS ORDERED: CEFTRIAXONE 1000 MG/VIAL ONE (21:46)
[2022-05-20] MEDS ORDERED: Levofloxacin500mg IV 500 MG/100 ML BAG IV ONE (21:46)
[2022-05-20 21:52] LABS: Bilirubin Direct < 0.1 mg/dL (0-0.2)
--- NOTE | 2022-05-20 22:19 | EDPHYS ---
Physician Documentation [facility] Name: Narendra Martin Age: 61 yrs Sex: Male : 1960 Arrival Date: 05/20/2022 Time: 20:27 Bed 19 Private MD: ED Physician Lenny Fields HPI: 05/20 20:35 This 61 yrs old Male presents to ER via Wheelchair with complaints of Shortness Of pm1 Breath. 20:35 The patient has shortness of breath at rest. Onset: The symptoms/episode began/occurred pm1 today. Duration: The symptoms are continuous, and are steadily getting worse. Associated signs and symptoms: Pertinent negatives: chest pain, productive cough, fever. Severity of symptoms: in the emergency department the symptoms are worse. The patient has experienced similar episodes in the past, a few times. The patient has not recently seen a physician. Historical: - Allergies: 20:34 cisplatin; jb4 - Home Meds: 20:34 furosemide 40 mg Oral tab [Active]; Dexamethasone Oral [Active]; jb4 - PMHx: 20:34 COPD; GERD; Hypertension; Lung CA, recieving chemotherapy; polycythemia vera; jb4 - PSHx: 20:34 Left lower lung removal; jb4 - Immunization history:: Adult Immunizations up to date. - Social history:: Smoking status: Patient/guardian denies using tobacco, but has a distant history of tobacco abuse. ROS: 20:35 Constitutional: Negative for fever, chills, and weight loss, Cardiovascular: Negative pm1 for chest pain, palpitations, and edema. 20:35 Abdomen/GI: Negative for abdominal pain, nausea, vomiting, diarrhea, and constipation, Back: Negative for injury and pain, MS/Extremity: Negative for injury and deformity, Skin: Negative for injury, rash, and discoloration. 20:35 Neuro: Negative for headache, weakness, numbness, tingling, and seizure. 20:35 Respiratory: Positive for cough, shortness of breath. 20:35 All other systems are negative. Exam: 20:35 Constitutional: This is a well developed, well nourished patient who is awake, alert, pm1 and in no acute distress. Head/Face: Normocephalic, atraumatic. 20:35 Back: No spinal tenderness. No costovertebral tenderness. Full range of motion. Skin: Warm, dry with normal turgor. Normal color with no rashes, no lesions, and no evidence of cellulitis. MS/ Extremity: Pulses equal, no cyanosis. Neurovascular intact. Full, normal range of motion. 20:35 Cardiovascular: Exam negative for acute changes, Rate: tachycardic, Rhythm: regular, Pulses: no pulse deficits are appreciated, Heart sounds: normal, normal S1and S2, Edema: is not appreciated. 20:35 Respiratory: moderate respiratory distress is noted, Respirations: tachypnea, that is moderate, Breath sounds: decreased breath sounds, diffusely . 20:35 Abdomen/GI: Exam negative for acute changes, Inspection: abdomen appears normal, Palpation: abdomen is soft and non-tender, in all quadrants. 20:35 Neuro: Exam negative for acute changes, Orientation: is normal, Mentation: is normal, Motor: is normal, moves all fours. Vital Signs: 20:33 BP 145 / 92; Pulse 136; Resp 36; Temp 98.4(O); Pulse Ox 100% on R/A; Weight 72.57 kg; jb4 Height 5 ft. 9 in. (175.26 cm); Pain 10/10; 21:15 BP 157 / 80; Pulse 97; Resp 17; Pulse Ox 100% on 3 lpm NC; ll3 20:33 Body Mass Index 23.63 (72.57 kg, 175.26 cm) jb4 MDM: 20:32 Patient medically screened. pm1 22:14 Data reviewed: vital signs. Data interpreted: Pulse oximetry: on room air is 100 %. pm1 Interpretation:. Counseling: I had a detailed discussion with the patient and/or guardian regarding: the historical points, exam findings, and any diagnostic results supporting the discharge/admit diagnosis, lab results, radiology results, the need for outpatient follow up, to return to the emergency department if symptoms worsen or persist or if there are any questions or concerns that arise at home. 05/20 20:34 Order name: Basic Metabolic Panel; Complete Time: 22:10 pm1 05/20 20:34 Order name: CBC with Diff; Complete Time: 21:36 pm1 05/20 20:34 Order name: LFT's; Complete Time: 22:10 pm1 05/20 20:34 Order name: Magnesium; Complete Time: 22:10 pm05/20 20:34 Order name: NT PRO-BNP; Complete Time: 22:10 pm05/20 20:34 Order name: PT-INR; Complete Time: 21:36 pm05/20 20:34 Order name: Troponin HS; Complete Time: 22:10 pm05/20 20:34 Order name: XRAY Chest (1 view); Complete Time: 21:36 pm05/20 20:35 Order name: BIPAP pm05/20 20:36 Order name: Flu; Complete Time: 22:10 pm05/20 20:36 Order name: COVID-19 SARS RT PCR (Document "Date of Onset" if Symptomatic); Complete pm1 Time: 22:25 05/20 21:17 Order name: ABG; Complete Time: 21:36 pm05/20 21:23 Order name: Blood Culture Adult (2) pm1 05/20 21:23 Order name: Lactate; Complete Time: 22:47 pm05/20 20:34 Order name: EKG; Complete Time: 20:35 pm05/20 20:34 Order name: Cardiac monitoring; Complete Time: 20:44 pm05/20 20:34 Order name: EKG - Nurse/Tech; Complete Time: 21:28 pm05/20 20:34 Order name: IV Saline Lock; Complete Time: 21:03 pm05/20 20:34 Order name: Labs collected and sent; Complete Time: 21:03 pm05/20 20:34 Order name: O2 Per Protocol; Complete Time: 20:44 pm05/20 20:34 Order name: O2 Sat Monitoring; Complete Time: 20:44 pm05/20 21:19 Order name: CT Chest For PE Angio pm1 Administered Medications: 20:36 CANCELLED (Physician Discretion): Albuterol - atroVENT (ipratropium) (3:1) (2.5 mg - pm1 0.5 mg) 3 ml Nebulizer once 20:37 CANCELLED (Physician Discretion): Decadron - Dexamethasone 10 mg IVP once pm1 20:44 Drug: Xopenex (levalbuterol) (3) 1.25 mg Route: Inhalation; ll3 21:02 Drug: SOLU-Medrol (methylPrednisoLONE) 125 mg Route: IVP; Site: right antecubital; ll3 21:10 Drug: Magnesium Sulfate 1 grams Route: IVPB; Infused Over: 1 hrs; Site: right ll3 antecubital; 21:33 Drug: Rocephin (cefTRIAXone) 1 grams Route: IV; Rate: calculated rate; Site: right ll3 antecubital; 21:48 Drug: LevaQUIN (levofloxacin) 500 mg Volume: 100 ml; Route: IVPB; Infused Over: 60 ll3 mins; Site: right antecubital; Disposition Summary: 05/20/22 22:18 Hospitalization Ordered Hospitalization Status: Inpatient Admission pm1 Provider: Rubia Kennedy pm1 Location: Telemetry/[facility] (Inpatient) pm1 Condition: Fair pm1 Problem: new pm1 Symptoms: have improved pm1 Bed/Room Type: Standard pm1 Room Assignment: 209(05/20/22 22:55) Diagnosis - COPD/ Chronic obstructive pulmonary disease with (acute) exacerbation pm1 - Lung Cancer pm1 - Hx of Lung Cancer pm1 Forms: - Medication Reconciliation Form pm1 - SBAR form pm1 Addendum: 06/02/2022 14:59 Co-signature as Attending Physician, Lenny Fields MD I agree with the assessment and c holland plan of care. Signatures: Dispatcher [employer] EDMS Zandra White RN RN Lenny Fields MD MD cha Marinas, Patrick, ISOTOPE HYDROLOGIST ISOTOPE HYDROLOGIST pm1 Gerald Kumar RN RN jb4 Collin Huffman RN RN ll3 Rubia Kennedy, PA PA sb3 Corrections: (The following items were deleted from the chart) 05/20 20:36 20:35 Albuterol - atroVENT (ipratropium) (3:1) (2.5 mg - 0.5 mg) 3 ml Nebulizer once pm1 ordered. pm1 20:37 20:35 Decadron - Dexamethasone 10 mg IVP once ordered. pm1 pm1 22:20 21:24 Chest For Pe Angio ordered. EDMS EDMS 22:55 22:18 pm1
--- NOTE | 2022-05-20 22:19 | ER ---
Nurse's Notes [facility] Name: Narendra Martin Age: 61 yrs Sex: Male : 1960 Arrival Date: 05/20/2022 Time: 20:27 Bed 19 Private MD: Diagnosis: COPD/ Chronic obstructive pulmonary disease with (acute) exacerbation;Lung Cancer;Hx of Lung Cancer Presentation: 05/20 20:33 Chief complaint: Patient states: I started having SOB early this morning. It has jb4 progressively gotten. Coronavirus screen: At this time, the client does not indicate any symptoms associated with coronavirus-19. Ebola Screen: No symptoms or risks identified at this time. Initial Sepsis Screen: Does the patient meet any 2 criteria? RR > 20 per min. HR > 90 bpm. Yes Does the patient have a suspected source of infection? No. Patient's initial sepsis screen is negative. Risk Assessment: Do you want to hurt yourself or someone else? Patient reports no desire to harm self or others. Onset of symptoms was May 20, 2022. Transition of care: patient was not received from another setting of care. 20:33 Method Of Arrival: Wheelchair jb4 20:33 Acuity: FLORES 2 jb4 Historical: - Allergies: 20:34 cisplatin; jb4 - Home Meds: 20:34 furosemide 40 mg Oral tab [Active]; Dexamethasone Oral [Active]; jb4 - PMHx: 20:34 COPD; GERD; Hypertension; Lung CA, recieving chemotherapy; polycythemia vera; jb4 - PSHx: 20:34 Left lower lung removal; jb4 - Immunization history:: Adult Immunizations up to date. - Social history:: Smoking status: Patient/guardian denies using tobacco, but has a distant history of tobacco abuse. Screenin:16 Abuse screen: Denies threats or abuse. Nutritional screening: No deficits noted. ll3 Tuberculosis screening: No symptoms or risk factors identified. Fall Risk No fall in past 12 months (0 pts). No secondary diagnosis (0 pts). IV access (20 points). Ambulatory Aid- Crutches/Cane/Walker (15 pts). Gait- Impaired (20 pts.). Mental Status- Oriented to own ability (0 pts). Total Mahoney Fall Scale indicates High Risk Score (45 or more points). Fall prevention measures have been instituted. Side Rails Up X 2 Placed Close to Nursing Station 1:1 Attendant Assigned Family Present and informed to notify staff if the need to leave the bedside As available patient and family educated on Fall Prevention Program and Strategies. Assessment: 20:30 General: Appears uncomfortable, Behavior is cooperative, anxious. Pain: Complains of ll3 pain in abdomen. Neuro: Level of Consciousness is awake, alert, obeys commands, Oriented to person, place, time, situation. Cardiovascular: Rhythm is irregular. Respiratory: Airway is patent Respiratory effort is labored, asymmetrical, Respiratory pattern is hyperventilation Breath sounds with wheezes bilaterally. 21:30 Reassessment: No changes from previously documented assessment. Patient and/or family ll3 updated on plan of care and expected duration. Pain level reassessed. Patient is alert, oriented x 3, equal unlabored respirations, skin warm/dry/pink. Vital Signs: 20:33 BP 145 / 92; Pulse 136; Resp 36; Temp 98.4(O); Pulse Ox 100% on R/A; Weight 72.57 kg; jb4 Height 5 ft. 9 in. (175.26 cm); Pain 10/10; 21:15 BP 157 / 80; Pulse 97; Resp 17; Pulse Ox 100% on 3 lpm NC; ll3 20:33 Body Mass Index 23.63 (72.57 kg, 175.26 cm) jb4 ED Course: 20:27 Patient arrived in ED. bp1 20:32 Bryan Deras NP is PHCP. pm1 20:32 Lenny Fields MD is Attending Physician. pm1 20:32 Gerald Kumar, VEL is Primary Nurse. jb4 20:34 Triage completed. jb4 20:34 Arm band placed on right wrist. jb4 21:14 XRAY Chest (1 view) In Process Unspecified. EDMS 22:16 Rubia Kennedy PA is Hospitalizing Provider. pm1 23:17 Patient has correct armband on for positive identification. Placed in gown. Bed in low ll3 position. Call light in reach. Side rails up X 1. Adult w/ patient. 23:56 No provider procedures requiring assistance completed. Patient admitted, IV remains in vc1 place. Administered Medications: 20:36 CANCELLED (Physician Discretion): Albuterol - atroVENT (ipratropium) (3:1) (2.5 mg - pm1 0.5 mg) 3 ml Nebulizer once 20:37 CANCELLED (Physician Discretion): Decadron - Dexamethasone 10 mg IVP once pm1 20:44 Drug: Xopenex (levalbuterol) (3) 1.25 mg Route: Inhalation; ll3 21:02 Drug: SOLU-Medrol (methylPrednisoLONE) 125 mg Route: IVP; Site: right antecubital; ll3 21:10 Drug: Magnesium Sulfate 1 grams Route: IVPB; Infused Over: 1 hrs; Site: right ll3 antecubital; 21:33 Drug: Rocephin (cefTRIAXone) 1 grams Route: IV; Rate: calculated rate; Site: right ll3 antecubital; 21:48 Drug: LevaQUIN (levofloxacin) 500 mg Volume: 100 ml; Route: IVPB; Infused Over: 60 ll3 mins; Site: right antecubital; Medication: 23:17 VIS not applicable for this client. ll3 Outcome: 22:18 Decision to Hospitalize by Provider. pm1 23:57 Admitted to Med/surg accompanied by nurse, via wheelchair, room . vc1 23:57 Condition: good 23:57 Instructed on the need for admit. 23:57 Patient left the ED. vc1 Signatures: Dispatcher [employer] EDMS Bryan Deras, ADAM CAR REPAIR SUPERVISOR pm1 Gerald Kumar RN RN jb4 Kesha Timmons [place], RN RN ll3 Kavya Alvares RN RN vc1 Corrections: (The following items were deleted from the chart) 20:37 20:33 BP 145 / 92; Pulse 136bpm; Resp 36bpm; Pulse Ox 100% RA; 72.57 kg; Height 5 ft. 9 jb4 in.; BMI: 23.6; Pain 10/10; jb4
--- NOTE | 2022-05-20 22:54 | P.HP ---
Certification for Inpatient Patient admitted to: Inpatient With expected LOS: <2 Midnights Patient will require the following post-hospital care: None Practitioner: I am a practitioner with admitting privileges, knowledge of patient current condition, hospital course, and medical plan of care. Services: Services provided to patient in accordance with Admission requirements found in Title 42 Section 412.3 of the Code of Federal Regulations Patient History Date of Service: 05/20/22 Reason for admission: COPD Exacerbation History of Present Illness: Patient is a 61-year-old male with PMH of right lung cancer previously treated with radiation therapy at [facility] but completed maximal dose of radiation in September 2021, on MDI at home, COPD, hypertension, prior history of chronic tobacco use who presented to ED with today because of worsening shortness of breath, beginning this morning. After discussion, it was discovered that patient has not taken his anoro ellipta in 2 weeks as he ran out. He was immediately given breathing treatment upon arrival with solumedrol and magnesium. He was then put on bipap and improved significantly. He was also given rocephin and levaquin. He is now saturating appropriately on 4L NC. 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 EKG without ST changes. Troponin WNL. Labs significant for Cr 1.93, BNP 1800. ABG after bipap pH 7.4, pCO2 31.7, pO2 55.6, HCO3 21. CXR had no significant changes. Patient's reports his lung cancer has been stable and is followed by [facility] with frequent chest CTs. Patient is admitted for further evaluation and treatment. Allergies No Known Allergies Allergy (Verified 07/01/17 07:43) Home medications list reviewed: Yes Home Medications: Albuterol Sulfate [Proair Hfa] 8.5 gm IH PRN PRN 07/01/17 Aspirin [Aspirin EC 81 MG] 81 mg PO DAILY 07/01/17 Omeprazole 40 mg PO DAILY 07/01/17 Amlodipine Besylate 1 tab PO DAILY 07/07/18 Albuterol Sulfate 5 mg IH QID 03/11/22 Bupropion *Xl* [Wellbutrin XL*] 300 mg PO DAILY 03/11/22 Levothyroxine Sodium [Levothyroxine] 25 mcg PO DAILY 03/11/22 Losartan Potassium 50 mg PO DAILY 03/11/22 Megestrol Acetate 40 mg PO DAILY 03/11/22 Umeclidinium Brm/Vilanterol Tr [Anoro Ellipta 62.5-25 Mcg INH] 1 dose IH DAILY 03/11/22 Furosemide [Lasix] 40 mg PO DAILY #30 tablet 03/16/22 Nicotine [Nicoderm*] 21 mg TD DAILY #21 patch.td24 03/16/22 Roflumilast [Daliresp*] 500 mcg PO DAILY #30 tablet 03/16/22 cloNIDine HCL [Clonidine HCl] 0.1 mg PO DAILY 6PM #30 tablet 03/16/22 levoFLOXacin [Levaquin*] 750 mg PO DAILY #5 tab 03/16/22 predniSONE [Prednisone] 20 mg PO BID #40 tablet 03/16/22 - Past Medical/Surgical History Diabetic: No -: Lung cancerstatus post radiation at [facility] -: Hypertension -: COPD -: Hypothroidism -: Lobectomy left lower lobe -: Bronchosopies Psychosocial/ Personal History: Patient is . - Family History Father -: Cancer Notes: esophageal cancer Mother -: Kidney disease Brother -: Stroke Sister -: Heart disease, Hypertension - Social History Smoking Status: Former smoker Alcohol use: Yes CD- Drugs: No Caffeine use: Yes Place of Residence: Home Review of Systems Respiratory: Shortness of Breath Physical Examination - Physical Exam General: Alert, In no apparent distress HEENT: Atraumatic, PERRLA, EOMI, Sclerae nonicteric Neck: Supple, 2+ carotid pulse no bruit, No LAD, Without JVD or thyroid abnormality Respiratory: Diminished, Expiratory wheezes Cardiovascular: Regular rate/rhythm, Normal S1 S2 Gastrointestinal: Normal bowel sounds, No tenderness Musculoskeletal: No tenderness Integumentary: No rashes Neurological: Normal speech, Normal strength at 5/5 x4 extr, Normal tone, Normal affect - Studies Laboratory Data (last 24 hrs) 05/20/22 20:54: PT 11.7, INR 1.06 05/20/22 20:54: WBC 9.7, Hgb 11.6 L, Hct 34.1 L, Plt Count 453 H 05/20/22 20:54: Sodium 137, Potassium 4.4, BUN 25 H, Creatinine 1.93 H, Glucose 118 H, Magnesium 1.8 D, Total Bilirubin 0.3, AST 15, ALT 27, Alkaline Phosphatase 28 L Microbiology Data (last 24 hrs): 05/20/22 20:54 Nasopharnyx Influenza Type A Antigen Screen - Final 05/20/22 20:54 Nasopharnyx Influenza Type B Antigen Screen - Final Assessment and Plan - Problems (Diagnosis) (1) Hypertension Current Visit: Yes Status: Chronic Qualifiers: Hypertension type: primary hypertension Qualified Code(s): I10 - Essential (primary) hypertension (2) Hypothyroidism Current Visit: Yes Status: Chronic Qualifiers: Hypothyroidism type: unspecified Qualified Code(s): E03.9 - Hypothyroidism, unspecified (3) COPD exacerbation Current Visit: Yes Status: Chronic (4) Lung cancer Current Visit: Yes Status: Chronic Qualifiers: Laterality: right Lung location: lower lobe of lung Qualified Code(s): C34.31 - Malignant neoplasm of lower lobe, right bronchus or lung (5) Acute kidney injury Current Visit: Yes Status: Acute - Plan -Exacerbation likely secondary to stoppage of anoro ellipta for 2 weeks -Continue scheduled IV steroids and breathing treatments -Recheck troponin and monitor on telemetry given chest pain and diaphoresis -Rocephin and levaquin given in ED. Continue levaquin for COPD exacerbation -Monitor renal function given DOMONIQUE and hold nephrotoxic drugs -Supplemental O2 and bipap as needed. Wean as appropriate -Pulmonology consulted -Monitor and replete electrolytes per protocol -Reconcile and continue home medications -Lovenox for VTE ppx -Full code Patient's , Shiela, would like to be notified with updates and can be reached at [phone]. Discharge Plan: Home Plan to discharge in: 48 Hours - Advance Directives Does patient have a Living Will: No Does patient have a Durable POA for Healthcare: Yes - Code Status/Comfort Care Code Status Assessed: Yes (Full) Critical Care: No Time Spent Managing Pts Care (In Minutes): 50
[2022-05-20] MEDS ORDERED: ONDANSETRON 4 MG/2 ML VIAL IV PRN (23:36)
[2022-05-21 00:01] VITALS: BMI 25.9
[2022-05-21 01:24] LABS: Urine Appearance Clear (Clear); Urine Bilirubin Negative (Negative); Urine Blood Negative (Negative); Urine Color Yellow (Yellow); Urine Glucose Negative (Negative); Urine Protein 1+ (Negative); Urine Specific Gravity 1.025 (1.005-1.030); Urine Urobilinogen 0.2 mg/dL (0.2-1.0); Urine pH 5.5 (5.0-7.0)
[2022-05-21 01:46] LABS: Urine Bacteria <20 /HPF (NONE SEEN); Urine RBC <5 /HPF (NONE SEEN)
[2022-05-21] MEDS: IPRATROPIUM BROM 0.5MG/2.5ML NEB SCH ×4 (02:09→19:40)
[2022-05-21] MEDS: ALBUTEROL 2.5 MG/3 ML NEB SOL NEB SCH ×4 (02:09→19:40)
[2022-05-21 03:52] LABS: Absolute Lymphocytes (CBC) 0.4 K/uL (0.7-4.9); Hematocrit 29.9 % (39.6-49.0); MCV 98.1 fL (80-100); MPV 6.2 fL (7.6-11.3); RBC Red Blood Cell Count 3.05 M/uL (4.33-5.43)
[2022-05-21 04:22] LABS: Magnesium 1.9 mg/dL (1.8-2.4); Potassium 4.8 mmol/L (3.5-5.1); Thyroid Stimulating Hormone 0.347 uIU/mL (0.360-3.740); Troponin High Sensitivity 22.4 pg/mL (<58.9)
[2022-05-21 04:42] LABS: Blood Morphology Comment NOT SEEN (NOT SEEN); Platelet Estimate ADEQ
[2022-05-21] MEDS: METHYLPREDNISOLONE 40 MG INJ IV SCH ×2 (05:19→12:05)
--- NOTE | 2022-05-21 07:56 | EKG ---
Test Date: 2022-05-20 Test Time: 20:30:45 Web Project Manager: NALLELY MEASUREMENT RESULTS: Intervals: Rate: 205 AR: QRSD: 52 QT: 156 QTc: 288 [place]: P: AR: QRS: 78 T: 88 INTERPRETIVE STATEMENTS: Poor data quality, interpretation may be adversely affected Undetermined rhythm ST elevation, consider inferior injury or acute infarct ACUTE GA / STEMI Abnormal ECG Compared to ECG 03/11/2022 12:04:50 ST (T wave) deviation now present Sinus tachycardia no longer present Right-axis deviation no longer present Myocardial infarct finding still present Electronically Signed On 05-21-22 07:55:04 CDT by Binh Rubio
[2022-05-21] MEDS: ENOXAPARIN 40 MG/0.4 ML SQ SCH (08:26)
--- NOTE | 2022-05-21 12:47 | EKG ---
Test Date: 2022-05-20 Test Time: 21:25:56 [employer] Designer: LL MEASUREMENT RESULTS: Intervals: Rate: 110 CA: 130 QRSD: 72 QT: 362 QTc: 489 [place]: P: 44 CA: 130 QRS: 55 T: 77 INTERPRETIVE STATEMENTS: Sinus tachycardia Possible Inferior infarct, age undetermined Abnormal ECG Compared to ECG 05/20/2022 20:30:45 ST (T wave) deviation no longer present Myocardial infarct finding still present Electronically Signed On 05-21-22 12:46:41 CDT by Darek Rae
--- NOTE | 2022-05-21 12:56 | P.PN ---
Subjective Date of Service: 05/21/22 Chief Complaint: COPD Exacerbation Subjective: No new changes (No acute events overnight. Respiratory status improved on 4 L nasal canula. Reports his shortness of breath is minimal at rest.) Review of Systems General: Unremarkable Eyes: Unremarkable ENT: Unremarkable Respiratory: Cough, Shortness of Breath Cardiovascular: Unremarkable Gastrointestinal: Unremarkable Genitourinary: Unremarkable Musculoskeletal: Unremarkable Integumentary: Unremarkable Neurological: Unremarkable Physical Examination - Vital Signs Temperature: 97.6 F Blood Pressure: 142/74 Pulse: 97 Respirations: 18 Pulse Ox (%): 98 - Physical Exam General: Alert, In no apparent distress, Oriented x3 HEENT: Atraumatic Neck: Supple, Without JVD or thyroid abnormality Respiratory: Clear to auscultation bilaterally, Diminished Cardiovascular: No edema, Normal pulses, Regular rate/rhythm, Normal S1 S2, No gallops, No rubs, No murmurs Gastrointestinal: Normal bowel sounds, Non-distended, No tenderness, No rebound, No guarding Musculoskeletal: No clubbing, No swelling Integumentary: No rashes Neurological: Normal speech, Normal tone, Normal affect - Studies Laboratory Data (last 24 hrs) 05/20/22 20:54: PT 11.7, INR 1.06 05/20/22 20:54: WBC 9.7, Hgb 11.6 L, Hct 34.1 L, Plt Count 453 H 05/20/22 20:54: Sodium 137, Potassium 4.4, BUN 25 H, Creatinine 1.93 H, Glucose 118 H, Magnesium 1.8 D, Total Bilirubin 0.3, AST 15, ALT 27, Alkaline Phosphatase 28 L Microbiology Data (last 24 hrs): 05/20/22 22:13 Blood - Blood Anaerobic Blood Culture - Final 05/20/22 22:07 Blood - Blood Anaerobic Blood Culture - Final 05/20/22 20:54 Nasopharnyx Influenza Type A Antigen Screen - Final 05/20/22 20:54 Nasopharnyx Influenza Type B Antigen Screen - Final Medications List Reviewed: Yes Assessment And Plan - Plan # Acute Hypoxemic Respiratory Failure - likely secondary to Acute Chronic Obstructive Pulmonary Disease Exacerbation # Lung Cancer s/p Left Lower Lobectomy, Chemotherapy, and Radiation # SIRS Criteria (Tachycardia, Tachypnea) likely secondary to COPD Exacerbation - no current evidence of infection Currently, he is on 4 L nasal cannula, with improvement of his SpO2 readings to mid-90s%. - Evaluation thus far: - ABG = pH 7.44, PCO2 31.7, PO2 55.6 - Chest x-ray = "no acute cardiopulmonary process. Chronic pleural and parenchymal changes are present and include a spiculated mass density in the lower right lung field. This is stable from February but is still suspicious for possible malignancy." - V/Q scan = pending - Pulmonary Medicine consulted - recommendations appreciated - Supplemental oxygen to maintain SpO2 > 92% - Anticipate that he may require home oxygen - requested ambulatory oxygen testing - Resume home inhalers - Continue DuoNebs + methylprednisolone - PRN benzonatate, guaifenesin - Encouraged incentive spirometry # KDIGO Stage I Acute Kidney Injury on Chronic Kidney Disease Stage III - Creatinine = 1.93 (was 1.59 on 03/11/2022) - Urinalysis = trace ketones, 1 + protein - Monitor creatinine and urine output If worsening, obtain renal ultrasound Renally dose medications # Possible Subclinical Hyperthyroidism on Hypothyroidism - TSH = 0.347 - suspect secondary to home levothyroxine - Hold home levothyroxine for now # Hypertension - Continue home amlodipine Sergio Zelaya MD Discharge Plan: Home Plan to discharge in: 48 Hours - Code Status/Comfort Care Code Status: Full Code Physician Review: Patient Assessed, Agree with Above Assessment and Plan
[2022-05-21] MEDS ORDERED: BENZONATATE 100 MG CAP PO PRN (13:09)
[2022-05-21] MEDS ORDERED: GUAIFENESIN 600 MG SA TAB PO PRN (13:09)
[2022-05-21] MEDS ORDERED: ALBUTEROL SULFATE 5 MG/ML IH SCH (17:00)
[2022-05-21] MEDS ORDERED: ALBUTEROL INHALER 60 PUFF/8 GM IH PRN (17:26)
[2022-05-21] MEDS: predniSONE 20 MG TAB PO SCH (20:38)
[2022-05-21] MEDS ORDERED: Levofloxacin500mg IV 500 MG/100 ML BAG IV SCH (21:00)
[2022-05-22] MEDS: IPRATROPIUM BROM 0.5MG/2.5ML NEB SCH ×4 (02:02→19:20)
[2022-05-22] MEDS: ALBUTEROL 2.5 MG/3 ML NEB SOL NEB SCH ×4 (02:02→19:20)
[2022-05-22 03:52] LABS: Absolute Lymphocytes (CBC) 0.6 K/uL (0.7-4.9); Hematocrit 29.6 % (39.6-49.0); Lymphocytes % 5.1 % (15.3-44.8); MCV 97.8 fL (80-100); MPV 6.2 fL (7.6-11.3); RBC Red Blood Cell Count 3.02 M/uL (4.33-5.43)
[2022-05-22 04:06] LABS: Magnesium 2.1 mg/dL (1.8-2.4); Potassium 4.5 mmol/L (3.5-5.1)
[2022-05-22] MEDS: PANTOPRAZOLE 40MG TABLET PO SCH (06:46)
--- NOTE | 2022-05-22 07:57 | P.CNS ---
Date of Consult: 05/22/22 Reason for Consult: COPD exacerbation Chief Complaint: COPD Exacerbation History of Present Illness: Patient is 61 years of age history of lung cancer completed radiation therapy in 2020 history of COPD admitted with worsening dyspnea he still continues to smoke and is compliant with his therapy he ran out of his Anoro currently doing a little better on nasal cannula oxygen denies any fever or chills Allergies No Known Allergies Allergy (Verified 05/21/22 00:23) Home Medications: Albuterol Sulfate [Proair Hfa] 8.5 gm IH PRN PRN 07/01/17 Aspirin [Aspirin EC 81 MG] 81 mg PO DAILY 07/01/17 Omeprazole 40 mg PO DAILY 07/01/17 Amlodipine Besylate 1 tab PO DAILY 07/07/18 Albuterol Sulfate 5 mg IH QID 03/11/22 Levothyroxine Sodium [Levothyroxine] 25 mcg PO DAILY 03/11/22 Losartan Potassium 50 mg PO DAILY 03/11/22 Megestrol Acetate 40 mg PO DAILY 03/11/22 Umeclidinium Brm/Vilanterol Tr [Anoro Ellipta 62.5-25 Mcg INH] 1 dose IH DAILY 03/11/22 Furosemide [Lasix] 40 mg PO DAILY #30 tablet 03/16/22 Nicotine [Nicotine Patch] 21 mg TD DAILY 05/21/22 Varenicline Tartrate [Chantix] 1 mg PO DAILY 05/21/22 - Past Medical/Surgical History Diabetic: No -: Lung cancerstatus post radiation at [facility] -: Hypertension -: COPD -: Hypothroidism -: Lobectomy left lower lobe -: Bronchosopies Psychosocial/ Personal History: Patient is . - Family History Father Medical History: Cancer Notes: esophageal cancer Mother Medical History: Kidney disease Brother Medical History: Stroke Sister Medical History: Heart disease, Hypertension - Social History Smoking Status: Former smoker Alcohol use: Yes CD- Drugs: No Caffeine use: Yes Place of Residence: Home Review of Systems 10-point ROS is otherwise unremarkable General: Weakness Respiratory: Shortness of Breath Physical Examination Temp Pulse Resp BP Pulse Ox 98.1 F 91 H 18 125/60 94 05/22/22 04:00 05/22/22 04:00 05/22/22 04:00 05/22/22 04:00 05/22/22 04:00 General: Alert, In no apparent distress, Oriented x3 Respiratory: Clear to auscultation bilaterally, Diminished Cardiovascular: No edema, Regular rate/rhythm - Problems (1) COPD exacerbation Current Visit: Yes Status: Chronic Plan: Patient is 61 years of age with a history of COPD active smoker history of lung cancer admitted with worsening dyspnea short course of breath COPD exacerbation patient has moderate hypoxemia awaiting VQ scan CT chest still shows a spiculated renal lesion on the right side near the hilum patient has chronic renal insufficiency oxygenation satisfactory continue with steroids bronchodilators possible discharge after the VQ scan on prednisone 10 mg twice a day for 2 weeks continue with Anoro 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
[2022-05-22] MEDS ORDERED: ASPIRIN EC 81 MG TAB PO SCH (09:00)
[2022-05-22] MEDS ORDERED: Umeclidinium Brm/Vilanterol Tr [Anoro Ellipta 62.5-25 Mcg Inh] Blst.W.D IH SCH (09:00)
[2022-05-22] MEDS ORDERED: AMLODIPINE 10 MG TAB PO SCH (09:00)
[2022-05-22] MEDS: predniSONE 20 MG TAB PO SCH ×2 (09:33→20:36)
[2022-05-22] MEDS: ENOXAPARIN 40 MG/0.4 ML SQ SCH (09:33)
--- NOTE | 2022-05-22 09:47 | RAD REPORT ---
EXAM DESCRIPTION: NM - Vent Perfusion VQ Scan - 05/22/2022 9:24 am CLINICAL HISTORY: Shortness of breath COMPARISON: May 21, 2022 chest x-ray TECHNIQUE: 19.8 Mci [id number] was administered by inhalation. First breath, equilibrium, and washout images of the lungs obtained 7.5 millicuries Technetium-99 MAA was administered intravenously. Anterior, posterior, lateral and ob lique views of the lungs were taken. FINDINGS: A moderate defect is present within the right lung base on perfusion images. This is mildl y larger than seen with ventilation images. Two matched perfusion defects are present within the left lung. IMPRESSION: The patient has an intermediate probability for a pulmonary embolus
[2022-05-22] MEDS: ACETAMINOPHEN 500 MG TAB PO PRN ×2 (10:48→20:34)
--- NOTE | 2022-05-22 11:47 | RAD REPORT ---
EXAM DESCRIPTION: Rosa M Single View05/22/2022 9:24 am CLINICAL HISTORY: Shortness of breath COMPARISON: May 20 2022 FINDINGS: Mild right lower lobe opacity. Remainder lungs appear clear. Lungs are mildly hyperaerated. Heart is normal size IMPRESSION: Mild right lower lobe opacity may represent infiltrate or mass.
--- NOTE | 2022-05-22 12:48 | ECHO ---
HEIGHT: 5 ft 9 in WEIGHT: 175 lb 8 oz DATE OF STUDY: 05/22/[address]: Chase Sanchez MD 2-DIMENSIONAL: YES M.MODE: YES DOPPLER: YES COLOR FLOW: YES TDS: NO PORTABLE: YES DEFINITY: NO BUBBLE STUDY: NO DIAGNOSIS: RESPIRATORY DISTRESS CARDIAC HISTORY: CATHERIZATION: NO SURGERY: NO PROSTHETIC VALVE: NO PACEMAKER: NO MEASUREMENTS (cm) DIASTOLIC (NORMALS) SYSTOLIC (NORMALS) IVSd 1.2 (0.6-1.2) LA Diam 3.4 (1.9-4.0) LVEF 51% LVIDd 3.8 (3.5-5.7) LVIDs 2.8 (2.0-3.5) %FS 26% LVPWd 1.1 (0.6-1.2) Ao Diam 2.5 (2.0-3.7) 2 DIMENSIONAL ASSESSMENT: RIGHT ATRIUM: NORMAL LEFT ATRIUM: NORMAL RIGHT VENTRICLE: NORMAL LEFT VENTRICLE: NORMAL TRICUSPID VALVE: NORMAL MITRAL VALVE: NORMAL PULMONIC VALVE: NORMAL AORTIC VALVE: NORMAL PERICARDIAL EFFUSION: NONE AORTIC ROOT: NORMAL LEFT VENTRICULAR WALL MOTION: NORMAL DOPPLER/COLOR FLOW: DECREASED LEFT VENTRICULAR COMPLIANCE. COMMENTS: DIASTOLIC DYSFUNCTION GRADE I. NORMAL LEFT VENTRICULAR EJECTION FRACTION AND LEFT VENTRICULAR SIZE. NO EFFUSION. TECHNOLOGIST: Darleen AMANDA
--- NOTE | 2022-05-22 14:32 | P.PN ---
Subjective Date of Service: 05/22/22 Chief Complaint: COPD Exacerbation No acute events overnight. Per nursing staff he did not require oxygen on ambulatory oxygen testing. He reports that he is comfortable this morning. Review of Systems General: Unremarkable Eyes: Unremarkable ENT: Unremarkable Respiratory: Cough, Shortness of Breath Cardiovascular: Unremarkable Gastrointestinal: Unremarkable Genitourinary: Unremarkable Musculoskeletal: Unremarkable Integumentary: Unremarkable Neurological: Unremarkable Physical Examination - Vital Signs Temperature: 97.8 F Blood Pressure: 141/71 Pulse: 94 Respirations: 18 Pulse Ox (%): 100 - Physical Exam General: Alert, In no apparent distress, Oriented x3 HEENT: Atraumatic, Mucous membr. moist/pink Neck: Supple, Without JVD or thyroid abnormality Respiratory: Clear to auscultation bilaterally, Normal air movement, Diminished Cardiovascular: No edema, Normal pulses, Regular rate/rhythm, No gallops, No rubs, No murmurs Gastrointestinal: Normal bowel sounds, Soft and benign, No tenderness, No rebound, No guarding Musculoskeletal: No clubbing, No swelling Integumentary: No rashes Neurological: Normal speech, Normal tone, Normal affect - Studies Microbiology Data (last 24 hrs): 05/20/22 22:07 Blood - Blood Anaerobic Blood Culture - Final 05/20/22 22:13 Blood - Blood Anaerobic Blood Culture - Final Medications List Reviewed: Yes Assessment And Plan - Plan # Acute Hypoxemic Respiratory Failure - likely secondary to Acute Chronic Obstructive Pulmonary Disease Exacerbation, improving # Lung Cancer s/p Left Lower Lobectomy, Chemotherapy, and Radiation # SIRS Criteria (Tachycardia, Tachypnea) likely secondary to COPD Exacerbation - no current evidence of infection Underwent ambulatory oxygen testing, without any issues. - Evaluation thus far: - ABG = pH 7.44, PCO2 31.7, PO2 55.6 - Chest x-ray = "no acute cardiopulmonary process. Chronic pleural and parenchymal changes are present and include a spiculated mass density in the lower right lung field. This is stable from February but is still suspicious for possible malignancy." - V/Q scan = "intermediate probability for a pulmonary embolus" - Pulmonary Medicine consulted - recommendations appreciated - Recommends obtaining a d-dimer and bilateral lower extremity Doppler - Will need to have risk/benefits discussion regarding systemic anticoagulation - Supplemental oxygen to maintain SpO2 > 92% - Resume home inhalers - Continue DuoNebs + methylprednisolone - PRN benzonatate, guaifenesin - Encouraged incentive spirometry # KDIGO Stage I Acute Kidney Injury on Chronic Kidney Disease Stage III - Initial Creatinine = 1.93 (was 1.59 on 03/11/2022) - Now 1.88 - Urinalysis = trace ketones, 1 + protein - Monitor creatinine and urine output If worsening, obtain renal ultrasound Renally dose medications # Hypothyroidism Suspect euthyroid sick syndrome, but uncertain. - TSH = 0.347 - Free T4 = 0.68 - Resume home levothyroxine # Hypertension - Continue home amlodipine Sergio Zelaya MD Discharge Plan: Home Plan to discharge in: 24 Hours - Code Status/Comfort Care Code Status Assessed: Yes Code Status: Full Code Physician Review: Patient Assessed, Agree with Above Assessment and Plan Critical Care: No
--- NOTE | 2022-05-22 16:21 | RAD REPORT ---
EXAM DESCRIPTION: US - Extrem Venous W Compress Sebastián - 05/22/2022 4:15 pm CLINICAL HISTORY: RO DVT Bilateral leg edema and swelling. COMPARISON: Upper Ext Artery Uni Sebastián dated 05/15/2018 TECHNIQUE: Real-time sonographic interrogation of the left and right lower extremity deep venous sys tems was performed. FINDINGS: Normal compressibility, flow augmentation, phasic flow and spontaneous flow is identified in both the left and right lower extremity deep venous systems. IMPRESSION: No sonographic evidence of left or right lower extremity deep venous thrombosis.
[2022-05-22] MEDS ORDERED: MORPHINE 2 MG/ML SYR IV ONE (17:00)
[2022-05-22] MEDS ORDERED: Levofloxacin 750mg IV 750 MG/150 ML BAG IV SCH (21:00)
[2022-05-23] MEDS: IPRATROPIUM BROM 0.5MG/2.5ML NEB SCH ×2 (01:10→07:34)
[2022-05-23] MEDS: ALBUTEROL 2.5 MG/3 ML NEB SOL NEB SCH ×2 (01:10→07:34)
[2022-05-23 04:17] LABS: Absolute Lymphocytes (CBC) 0.5 K/uL (0.7-4.9); Hematocrit 29.8 % (39.6-49.0); Lymphocytes % 5.9 % (15.3-44.8); MCV 100.4 fL (80-100); MPV 6.3 fL (7.6-11.3); RBC Red Blood Cell Count 2.96 M/uL (4.33-5.43)
[2022-05-23 04:31] LABS: Potassium 4.2 mmol/L (3.5-5.1)
[2022-05-23] MEDS: PANTOPRAZOLE 40MG TABLET PO SCH (05:51)
[2022-05-23] MEDS: ACETAMINOPHEN 500 MG TAB PO PRN (05:52)
[2022-05-23 06:30] VITALS: BP 121/65; TEMP 99.7
--- NOTE | 2022-05-23 07:00 | P.DS ---
Admission Date: 05/20/22 Discharge Date: 05/23/22 Disposition: ROUTINE DISCHARGE Discharge Condition: GOOD Reason for Admission: COPD Exacerbation Consultations: 1. Pulmonary Medicine Hospital Course: DIAGNOSES: # Acute Hypoxemic Respiratory Failure - likely secondary to Acute Chronic Obstructive Pulmonary Disease Exacerbation # KDIGO Stage I Acute Kidney Injury on Chronic Kidney Disease Stage III # Lung Cancer s/p Left Lower Lobectomy, Chemotherapy, and Radiation # SIRS Criteria (Tachycardia, Tachypnea) likely secondary to COPD Exacerbation - no current evidence of infection # Hypothyroidism # Hypertension HOSPITAL COURSE: Mr. Narendra Martin is a pleasant 61 year old male with a past medical history significant for right lung cancer previously treated with radiation therapy at [facility] but completed maximal dose of radiation in September 2021, on MDI at home, COPD, hypertension, prior history of chronic tobacco use who was admitted the [facility] on 05/20/2022 for acute hypoxemic repiratory failure. Upon evaluation, his ABG was notable for a PO2 of 55.6. It was thought that his symptoms were secondary to an acute COPD exacerbation as he had not used his Anoro Ellipta inhaler for about 2 weeks prior to presentation. He also had a mild acute kidney injury, which resolved during his hospitalization. He was t reated here with steroid and bronchodilator treatments. Given his hypoxia, he underwent an evaluation for venothrombolic event. A V/Q scan was performed, which revealed "intermediate probability for a pulmonary embolus." However, this is difficult to interpret given that he is s/p lobectomy. A D-dimer was performed following this result, which was within normal limits at 296. A bilateral lower extremity Doppler ultrasound was also performed, which revealed, "no sonographic evidence of left or right lower extremity deep venous thrombosis." Given the negative D-dimer, it was not felt that he required anticoagulation. It was offered to him prophylactically, and the risks and benefits were discussed; however, he declined prophylactic anticoagulation. Over his hospital course, his respiratory status improved, and pulmonary medicine cleared him for discharge with a follow-up appointment. On 05/23/2022, he was seen on morning rounds and deemed medically stable for discharge. He was discharged with instructions to schedule follow-up appointments with his PCP in 3-5 days, his Oncologist in 1-2 weeks, and Pulmonary Medicine in 5-7 days. He was provided prescriptions for Anoro Elipta and a 10 day course of prednisone. He and his family members were given the opportunity to ask questions and reported no further questions. Furthermore, all questions were answered to the best of my ability. Today, I personally spent 20 minutes with Mr. Martin, of which greater than 50% of the time was spent in patient education, counseling, and coordination of care as described above. Vital Signs/Physical Exam: Temp Pulse Resp BP Pulse Ox 99.7 F 92 H 16 121/65 97 05/23/22 04:00 05/23/22 04:00 05/23/22 04:00 05/23/22 04:00 05/23/22 04:00 General: Alert, In no apparent distress, Oriented x3 HEENT: Atraumatic Neck: Supple, Without JVD or thyroid abnormality Respiratory: Clear to auscultation bilaterally, Normal air movement, Diminished Cardiovascular: No edema, Regular rate/rhythm, Normal S1 S2, No gallops, No rubs, No murmurs Gastrointestinal: Normal bowel sounds, Soft and benign, No tenderness, No rebound, No guarding Musculoskeletal: No clubbing, No swelling Integumentary: No rashes Neurological: Normal speech, Normal affect Laboratory Data at Discharge: WBC 9.0 K/uL (4.3-10.9) D 05/23/22 03:29 Hgb 10.2 g/dL (13.6-17.9) L 05/23/22 03:29 Hct 29.8 % (39.6-49.0) L 05/23/22 03:29 Plt Count 397 K/uL (152-406) 05/23/22 03:29 PT 11.7 SECONDS (9.5-12.5) 05/20/22 20:54 INR 1.06 05/20/22 20:54 Sodium 139 mmol/L (136-145) 05/23/22 03:29 Potassium 4.2 mmol/L (3.5-5.1) 05/23/22 03:29 BUN 33 mg/dL (7-18) H 05/23/22 03:29 Creatinine 1.56 mg/dL (0.55-1.3) H 05/23/22 03:29 Glucose 142 mg/dL (74-106) H 05/23/22 03:29 Magnesium 2.0 mg/dL (1.8-2.4) 05/23/22 03:29 Total Bilirubin 0.3 mg/dL (0.2-1.0) 05/20/22 20:54 AST 15 U/L (15-37) 05/20/22 20:54 ALT 27 U/L (12-78) 05/20/22 20:54 Alkaline Phosphatase 28 U/L (45-117) L 05/20/22 20:54 Triglycerides 38 mg/dL (<150) 05/21/22 03:21 Cholesterol 179 mg/dL (<200) 05/21/22 03:21 HDL Cholesterol 66 mg/dL (40-60) H 05/21/22 03:21 Cholesterol/HDL Ratio 2.71 05/21/22 03:21 Home Medications: Albuterol Sulfate [Proair Hfa] 8.5 gm IH PRN PRN 07/01/17 Aspirin [Aspirin EC 81 MG] 81 mg PO DAILY 07/01/17 Omeprazole 40 mg PO DAILY 07/01/17 Amlodipine Besylate 1 tab PO DAILY 07/07/18 Albuterol Sulfate 5 mg IH QID 03/11/22 Levothyroxine Sodium [Levothyroxine] 25 mcg PO DAILY 03/11/22 Losartan Potassium 50 mg PO DAILY 03/11/22 Megestrol Acetate 40 mg PO DAILY 03/11/22 Furosemide [Lasix] 40 mg PO DAILY #30 tablet 03/16/22 Nicotine [Nicotine Patch] 21 mg TD DAILY 05/21/22 Varenicline Tartrate [Chantix] 1 mg PO DAILY 05/21/22 Bupropion *Xl* [Wellbutrin XL] 300 mg PO DAILY 05/22/22 Umeclidinium Brm/Vilanterol Tr [Anoro Ellipta 62.5-25 Mcg INH] 1 puff IH DAILY #1 blst.w.dev 05/22/22 predniSONE [Prednisone*] 10 mg PO BID #20 tab 05/22/22 New Medications: Umeclidinium Brm/Vilanterol Tr [Anoro Ellipta 62.5-25 Mcg INH] 1 puff IH DAILY #1 blst.w.dev predniSONE [Prednisone*] 10 mg PO BID #20 tab Physician Discharge Instructions: 1. Please schedule follow-up with your PCP in 3-5 days 2. Please schedule follow-up with Pulmonary Medicine in 5-7 days 3. Please schedule follow-up with your Oncologist in 1-2 weeks Diet: Regular Activity: Ad shannen Followup: Unknown,U [Primary Care Provider] - Chase Sanchez MD [ACTIVE - CAN ADMIT] -
[2022-05-23 09:04] VITALS: O2SAT 95
--- OUTSIDE RECORDS SUMMARY | 2022-06-05 12:16 | XMS REPORT | Continuity of Care Document ---
:1960 Author Organization [facility] t Address [facility] [place] [address] Care Team Providers Name Role Phone Mai MCGEE Primary Care Physician Unavailable Grady Maya Attending Clinician Unavailable Starla Attending Clinician Unavailable Piero Attending Clinician Unavailable NICHOL Attending Clinician Unavailable DEANNA Attending Clinician Unavailable SANTIAGO Attending Clinician Unavailable MD Naye HENDERSON.HLatanya Attending Clinician Unavailable GABY Attending Clinician Unavailable KELLEY Attending Clinician Unavailable Piero Admitting Clinician Unavailable MD Neal HENDERSONHLatanya Admitting Clinician Unavailable SANTIAGO Admitting Clinician Unavailable GABY Admitting Clinician Unavailable KELLEY Admitting Clinician Unavailable Payers Payer Name Policy Type Policy Number Effective Date Expiration Date S sidney [facility] [id number] 2020 (MEDICARE 00:00:00 REPLACEMENT HMO) [facility] [id number] 2019 CHOICE 00:00:00 [facility] [id number] 2019 2019 00:00:00 00:00:00 Problems This patient has no known problems. Allergies, Adverse Reactions, Alerts Allergy Allergy Status Severity Reaction(s) Onset Inactive Treating Comm ents Source Name Type Date Date Clinician NO KNOWN Drug Active Univers ALLERGIE Class ity of S [facility] Medications Ordered Filled Start Stop Current Ordering Indication Dosage Frequency Signature Comments Components Source Medication Medication Date Date Medication? Clinician (SIG) Name Name Omeprazole Omeprazole Yes Jimena 1 capsule Common Millender 30 minutes Spir it before - [facility] morning [facility] Anoro Anoro Yes Jimena 1 puff Common Ellipta Ellipta Millender Spir [facility] Fish Oil Fish Oil Yes Jimena not Common Millender defined [facility] Amlodipine Amlodipine Yes Jimena 1 tablet Common Besylate Besylate Millender Sp [facility] Albuterol Albuterol Yes Jimena as Comm on Sulfate Sulfate Millender directed [facility] Centrum Centrum Yes Jimena as Common Silver Silver Millender directed [facility] Vitamin C Vitamin C Yes Jimena not Comm on Millender defined [facility] Losartan Losartan Yes Jimena 1 tablet Co mmon Potassium Potassium [facility] Megestrol Megestrol Yes Jimena 5 ml Comm on Acetate Acetate Millender Spir [facility] Juan Juan Yes Jimena 1 tablet Common Aspirin EC Aspirin EC Millender [facility] Low Dose Low Dose [facility] Procedures This patient has no known procedures. Encounters Start End Encounter Admission Attending Care Care Encounter Source Date/Time Date/Time Type Type Clinicians Facility Department ID 2021-12-27 Outpatient Maya, [place] [id number] Common 10:20:01 Hitesh [facility] 2021-12-26 Outpatient Maya, [place] [id number] Common 11:51:01 Hitesh [facility] 2021-12-12 Outpatient Maya, [place] [id number] Common 14:22:57 Hitesh [id number] [facility] 2021-12-12 Outpatient Maya, [place] [id number] Common 13:38:50 Hitesh [id number] [facility] 2021-12-12 Outpatient Maya, [place] [id number] Common 13:36:28 Hitesh [facility] 2021-12-12 Outpatient Maya, [place] [id number] Common 13:36:13 Hitesh [facility] 2021-12-12 Outpatient Maya, [place] [id number] Common 12:38:05 Hitesh [id number] [facility] 2021-12-12 Outpatient Maya, STLMLC STLMLC [id number] Common 12:37:07 Hitesh 78739 [facility] 2021-12-12 Outpatient Maya, STLMLC STLMLC [id number] Common 12:36:13 Hitesh 42471 [facility] 2021-12-12 Outpatient Maya, STLMLC STLMLC [id number] Common 12:34:24 Hitesh [id number] [facility] 2021-12-12 Outpatient Maya, STLMLC STLMLC [id number] Common 12:20:40 Hitesh [id number] [facility] 2021-12-12 Outpatient STLMLC STLMLC [id number] Common 12:18:00 [id number] [facility] 2021-12-12 Outpatient Millender, STLMLC STLMLC [id number] Common 12:08:45 Jimena [id number] [facility] 2021-12-12 Outpatient Millender, STLMLC STLMLC [id number] Common 11:15:55 Jimena 53742 [facility] 2021-12-12 Outpatient Millender, STLMLC STLMLC [id number] Common 11:10:22 Jimena 16095 [facility] 2021-12-12 Outpatient Millender, STLMLC STLMLC [id number] Common 11:10:03 Jimena [id number] [facility] 2022-06-03 2022-06-03 ambulatory STLMLC STLMLC [id number] Common 00:00:00 00:00:00 [facility] 2022-05-31 2022-05-31 Outpatient Adams_R DMG TREMAYNEG [id number] [facility] 07:34:00 07:34:00 [facility] 2022-05-21 2022-05-21 ambulatory STLMLC STLMLC [id number] Common 00:00:00 00:00:00 [facility] 2022-05-08 2022-05-08 Outpatient NICHOL [facility] [id number] [place] 00:00:00 00:00:00 PARVIN [address] 2022-05-08 2022-05-08 Outpatient NICHOL [facility] [id number] [place] 00:00:00 00:00:00 PARVIN [address] 2022-05-08 2022-05-08 Outpatient NICHOL [facility] [id number] [place] 00:00:00 00:00:00 PARVIN [address] 2022-05-08 2022-05-08 Outpatient NICHOL, [facility] [id number] [place] 00:00:00 00:00:00 PARVIN [address] 2022-05-03 2022-05-03 ambulatory STLMLC STLMLC [id number] Common 00:00:00 00:00:00 [facility] 2022-04-29 2022-04-29 ambulatory STLMLC STLMLC [id number] Common 00:00:00 00:00:00 [facility] 2022-04-25 2022-04-25 ambulatory STLMLC STLMLC [id number] Common 00:00:00 00:00:00 [facility] 2022-04-23 2022-04-23 ambulatory STLMLC STLMLC [id number] Common 00:00:00 00:00:00 [facility] 2022-04-05 2022-04-05 Outpatient NICHOL [facility] [id number] [place] 00:00:00 00:00:00 PARVIN [address] 2022-04-03 2022-04-03 ambulatory STLMLC STLMLC [id number] Common 00:00:00 00:00:00 [facility] 2022-04-03 2022-04-03 ambulatory STLMLC STLMLC [id number] Common 00:00:00 00:00:00 [facility] 2022-04-02 2022-04-02 ambulatory STLMLC STLMLC [id number] Common 00:00:00 00:00:00 [facility] 2022-03-28 2022-03-28 Outpatient NICHOL [facility] [id number] [place] 00:00:00 00:00:00 PARVIN [address] 2022-03-28 2022-03-28 Outpatient NICHOL [facility] [id number] [place] 00:00:00 00:00:00 PARVIN [address] 2022-03-26 2022-03-26 ambulatory STLMLC STLMLC [id number] Common 00:00:00 00:00:00 [facility] 2022-03-22 2022-03-22 ambulatory STLMLC STLMLC [id number] Common 00:00:00 00:00:00 [facility] 2022-03-22 2022-03-22 ambulatory STLMLC STLMLC [id number] Common 00:00:00 00:00:00 [facility] 2022-03-19 2022-03-19 ambulatory STLMLC STLMLC [id number] Common 00:00:00 00:00:00 [facility] 2022-03-19 2022-03-19 ambulatory STLMLC STLMLC [id number] Common 00:00:00 00:00:00 [facility] 2022-03-18 2022-03-18 ambulatory STLMLC STLMLC [id number] Common 00:00:00 00:00:00 [facility] 2022-03-15 2022-03-15 ambulatory STLMLC STLMLC [id number] Common 00:00:00 00:00:00 [facility] 2022-03-12 2022-03-12 ambulatory STLMLC STLMLC [id number] Common 00:00:00 00:00:00 [facility] 2022-02-06 2022-02-06 ambulatory STLMLC STLMLC [id number] Common 00:00:00 00:00:00 [facility] 2022-02-05 2022-02-05 ambulatory STLMLC STLMLC [id number] Common 00:00:00 00:00:00 [facility] 2022-01-08 2022-01-08 Outpatient Adams_R DMG DMG [id number] [facility] 09:00:00 09:00:00 0[facility] 2022-01-03 2022-01-03 Outpatient NICHOL, [facility] [id number] [place] 00:00:00 00:00:00 PARVIN [address] 2022-01-03 2022-01-03 Outpatient NICHOL, [facility] [id number] [place] 00:00:00 00:00:00 PARVIN [address] 2022-01-03 2022-01-03 Outpatient NICHOL, [facility] [id number] [place] 00:00:00 00:00:00 PARVIN [address] 2022-01-03 2022-01-03 Outpatient NICHOL, [facility] [id number] [place] 00:00:00 00:00:00 PARVIN [address] 2021-12-27 2021-12-27 ambulatory STLMLC STLMLC [id number] Common 00:00:00 00:00:00 [facility] 2021-12-27 2021-12-27 ambulatory STLMLC STLMLC [id number] Common 00:00:00 00:00:00 [facility] 2021-12-27 2021-12-27 ambulatory STLMLC STLMLC [id number] Common 00:00:00 00:00:00 [facility] 2021-11-16 2021-11-16 Outpatient Adams_R DMG DMG [id number] [facility] 08:30:00 08:30:00 1231 [facility] 2021-10-31 2021-10-31 Outpatient NICHOL, [facility] [id number] [place] 00:00:00 00:00:00 PARVIN [address] 2021-10-31 2021-10-31 Outpatient NICHOL, [facility] [id number] [place] 00:00:00 00:00:00 PARVIN [address] 2021-10-25 2021-10-25 ambulatory STLMLC STLMLC [id number] Common 00:00:00 00:00:00 [facility] 2021-10-03 2021-10-03 Outpatient Adams_R DMG DMG [id number] [facility] 03:35:00 03:35:00 [facility]7 [facility] 2021-09-26 2021-09-26 ambulatory STLMLC STLMLC [id number] Common 00:00:00 00:00:00 [facility] 2021-09-14 2021-09-14 Outpatient DMG DMG [id number] [facility] 12:01:00 12:01:00 1029 [facility] 2021-09-14 2021-09-14 Outpatient [facility] [id number] [place] 00:00:00 00:00:[address] 2021-09-13 2021-09-13 [id number] [place] 00:00:00 00:00:[address] 2021-09-12 2021-09-13 Outpatient DEANNA, B[facility] [id number] [place] 00:00:00 00:00:[address] 2021-09-12 2021-09-12 Outpatient [facility] [id number] [place] 00:00:00 00:00:[address] 2021-09-11 2021-09-11 Outpatient [facility] [id number] [place] 00:00:00 00:00:[address] 2021-09-10 2021-09-10 Outpatient [facility] [id number] [place] 00:00:00 00:00:[address] 2021 2021 Outpatient [facility] [id number] [place] 00:00:00 00:00:[address] 2021-09-06 2021-09-06 Outpatient [facility] [id number] [place] 00:00:00 00:00:[address] 2021-09-05 2021-09-05 Outpatient [facility] [id number] [place] 00:00:00 00:00:[address] 2021-09-05 2021-09-05 Outpatient DEANNA, BIN [facility] [id number] [place] 00:00:00 00:00:[address] 2021-09-05 2021-09-05 Outpatient DEANNA, [facility] [id number] [place] 00:00:00 00:00:[address] 2021-09-04 2021-09-04 Outpatient [facility] [id number] [place] 00:00:00 00:00:[address] 2021-09-03 2021-09-03 Outpatient DEANNA, B[facility] [id number] [place] 00:00:00 00:00:[address] 2021-08-27 2021-08-27 Outpatient DEANNA, [facility] [id number] [place] 00:00:00 00:00:[address] 2021-08-22 2021-08-22 Outpatient DEANNA, B[facility] [id number] [place] 00:00:00 00:00:[address] 2021-08-17 2021-08-17 Outpatient DEANNA, BIN [facility] [id number] [place] 00:00:00 00:00:[address] 2021-08-17 2021-08-17 Outpatient DEANNA, B[facility] [id number] [place] 00:00:00 00:00:[address] 2021-08-17 2021-08-17 Outpatient DEANNA, BIN [facility] [id number] [place] 00:00:00 00:00:[address] 2021-08-13 2021-08-13 Outpatient DEANNA, B[facility] [id number] [place] 00:00:00 00:00:[address] 2021-08-13 2021-08-13 Outpatient DEANNA, B[facility] [id number] [place] 00:00:00 00:00:[address] 2021-08-13 2021-08-13 Outpatient DEANNA, BIN [facility] [id number] [place] 00:00:00 00:00:[address] 2021-08-03 2021-08-03 Outpatient STLMLC STLMLC [id number] [facility] 00:00:00 00:00:00 [facility] 2021-08-02 2021-08-02 Outpatient HENDERSON, [facility] [id number] [place] 00:00:00 00:00:00 EDWARD [address] 2021-07-26 2021-07-26 Outpatient HENDERSON, [facility] [id number] [place] 00:00:00 00:00:00 EDWARD [address] 2021-07-19 2021-07-19 Outpatient HENDERSON, [facility] [id number] [place] 00:00:00 00:00:00 EDWARD [address] 2021-07-16 2021-07-16 Outpatient HENDERSON, [facility] [id number] [place] 00:00:00 00:00:00 EDWARD [address] 2021-07-16 2021-07-16 Outpatient HENDERSON, [facility] [id number] [place] 00:00:00 00:00:00 EDWARD [facility] 2021-06-27 2021-06-27 Outpatient BERNICKER, [facility] [id number] [place] 00:00:00 00:00:00 PARVIN [facility] 2021-06-27 2021-06-27 Outpatient ELLENER, [facility] [id number] [place] 00:00:00 00:00:00 PARVIN [facility] 2021-06-26 2021-06-26 Outpatient STLMLC STLMLC [id number] Common 00:00:00 00:00:00 [facility] 2021-05-24 2021-05-24 Outpatient STLMLC STLMLC [id number] Common 00:00:00 00:00:00 [facility] 2021-05-22 2021-05-22 Outpatient HENDERSON, [facility] [id number] [place] 00:00:00 00:00:00 EDWARD [address] 2021-05-22 2021-05-22 Outpatient HENDERSON, [facility] [id number] [place] 00:00:00 00:00:00 EDWARD [address] 2021-05-18 2021-05-18 Outpatient HENDERSON, [facility] [id number] [place] 00:00:00 00:00:00 EDWARD [address] 2021-05-17 2021-05-17 Outpatient HENDERSON, [facility] [id number] [place] 00:00:00 00:00:00 EDWARD [address] 2021-05-08 2021-05-08 Outpatient BERNICKER, [facility] [id number] [place] 00:00:00 00:00:00 PARVIN [address] 2021-05-08 2021-05-08 Outpatient NICHOL [facility] [id number] [place] 00:00:00 00:00:00 PARVIN [address] 2021-03-26 2021-03-26 Outpatient STLMLC STLMLC [id number] Common 00:00:00 00:00:00 [facility] 2021-03-26 2021-03-26 Outpatient STLMLC STLMLC [id number] Common 00:00:00 00:00:00 [facility] 2021-03-05 2021-03-05 Outpatient STLMLC STLMLC [id number] Common 00:00:00 00:00:00 [facility] 2021-02-13 2021-02-13 Outpatient STLMLC STLMLC [id number] Common 00:00:00 00:00:00 [facility] 2021-02-01 2021-02-01 Outpatient NICHOL [facility] [id number] [place] 00:00:00 00:00:00 PARVIN [address] 2021-01-26 2021-01-26 Outpatient NICHOL [facility] [id number] [place] 00:00:00 00:00:00 PARVIN [address] 2021-01-26 2021-01-26 Outpatient NICHOL [facility] [id number] [place] 00:00:00 00:00:00 PARVIN [address] 2021-01-22 2021-01-22 Outpatient STLMLC STLMLC [id number] Common 00:00:00 00:00:00 [facility] 2021-01-22 2021-01-22 Outpatient STLMLC STLMLC [id number] Common 00:00:00 00:00:00 [facility] 2021-01-19 2021-01-19 Outpatient STLMLC STLMLC [id number] [place] 00:00:00 00:00:00 [facility] 2020-11-22 2020-11-22 Outpatient STLMLC STLMLC [id number] [place] 00:00:00 00:00:00 [facility] 2020-09-25 2020-09-25 Outpatient NICHOL [facility] [id number] [place] 00:00:00 00:00:00 PARVIN [address] 2020-09-22 2020-09-22 Outpatient NICHOL [facility] [id number] [place] 00:00:00 00:00:00 PARVIN [address] 2020-08-02 2020-08-02 Outpatient R [facility] [id number] [facility] 13:40:00 13:40:[facility] 2020-05-[facility] 2020-05-17 Outpatient NICHOL [facility] [id number] [place] 00:00:00 00:00:00 PARVIN [facility] 2020-05-05 2020-05-05 Outpatient NICHOL [facility] [id number] [place] 00:00:00 00:00:00 PARVIN 367 [facility] 2020-05-05 2020-05-05 Outpatient NICHOL [facility] [id number] [place] 00:00:00 00:00:00 PARVIN 726 [facility] 2020-05-05 2020-05-05 Outpatient NICHOL [facility] [id number] [place] 00:00:00 00:00:00 PARVIN 205 [facility] 2020-01-28 2020-02-01 Inpatient GABY [facility] [id number] [place] 00:00:00 00:00:00 AMER 969 [facility] 2020-01-11 2020-01-11 [facility] [id number] [place] 14:00:00 14:00:[address] [facility] 2019-12-06 2019-12-06 Outpatient NICHOL [facility] [id number] [place] 00:00:00 00:00:00 PARVIN 095 [facility] 2019-10-24 2019-10-28 Inpatient U KELLEY RADHA [facility] [id number] [facility] 12:21:00 11:47:00 ity [facility] 2019-02-15 2019-02-15 Outpatient JANET HUERTA [facility] [id number] [place] 00:00:00 00:00:[address] 2019-02-04 2019-02-05 Outpatient DEANNA, BIN [facility] [id number] [place] 00:00:00 00:00:[address] 2018-12-18 2018-12-19 Outpatient DEANNA, BIN [facility] [id number] [place] 00:00:00 00:00:[address] 2018-10-19 2018-10-20 Outpatient DEANNA, BIN [facility] [id number] [place] 00:00:00 00:00:[address] 2018-10-01 2018-10-01 Outpatient DEANNA, [facility] [id number] [place] 00:00:00 00:00:[address] 2018-08-17 2018-08-17 Outpatient DEANNA, [facility] [id number] [place] 00:00:00 00:00:[address] 2018-08-13 2018-08-14 Outpatient DEANNA, [facility] [id number] [place] 00:00:00 00:00:[address] 2018-06-25 2018-06-25 Outpatient DEANNA, [facility] [id number] [place] 00:00:00 00:00:[address] Results Test Description Test Time Test Comments Results Result Comments Source SARS-CoV-2 (COVID-19) RNA [Presence] in Respiratory sp ecimen by 2021-07-16 20:06:14 JACE with probe detection Test Item Value Reference Range Interpretation Comme nts SARS-CoV-2 (COVID-19) RNA [Presence] in Respiratory Not detected No t-Detected specimen by JACE with probe detection (test code = 70417-1) Whether patient is employed in a healthcare setting (test code = 17962-4) Whether the patient has symptoms related to condition of interest (test code = 98519-9) Patient was hospitalized because of this condition (test code = 10971-4) Whether the patient was admitted to intensive care unit (ICU) for condition of interest (test code = 38115-5) Whether patient resides in a congregate care setting (test code = 13353-8)
== END 2022-05-23 09:05 | disposition home or self-care (01) | DRG 189 ==
LOC: ER 20:26 → 2ND 23:07
PROVIDERS: ADMIT Internal Medicine; ATTEND Internal Medicine
DX: J96.01 Acute respiratory failure with hypoxia (principal); R65.11 Systemic inflammatory response syndrome (SIRS) of non-infectious origin with acute organ dysfunction; J44.1 Chronic obstructive pulmonary disease with (acute) exacerbation; N17.9 Acute kidney failure, unspecified; I12.9 Hypertensive chronic kidney disease with stage 1 through stage 4 chronic kidney disease, or unspecified chronic kidney disease; N18.30 Chronic kidney disease, stage 3 unspecified; E03.9 Hypothyroidism, unspecified; Z85.118 Personal history of other malignant neoplasm of bronchus and lung; Z90.2 Acquired absence of lung [part of]; Z87.891 Personal history of nicotine dependence; Z20.822 Contact with and (suspected) exposure to COVID-19
CPT/HCPCS: 36415; 71045; 78582; 80048; 80061; 80076; 81003; 81015; 82805; 83605; 83735; 83880; 84439; 84443; 84484; 85025; 85379; 85610; 87040; 87804; 93005; 93306; 93970; 94010; 94640; 94660; 94760; 96374; 96375; 99285; A9540; A9558; J1650; J2270; J2920; J2930; J3475; J7512; U0003

== ENCOUNTER 2022-07-21 22:29 | Inpatient (IN) | payer MEDICARE ==
--- OUTSIDE RECORDS SUMMARY | 2022-07-21 22:34 | XMS REPORT | Continuity of Care Document ---
:1960 Author Organization [facility] t Address [address] [place] [address] Care Team Providers Name Role Phone LASHAWN MCGEE Mai Primary Care Physician Unavailable Hitesh Maya Attending Clinician Unavailable Jimena Cha Attending Clinician Unavailable Parvin Blackwell MD Attending Clinician [phone] Williams_V Attending Clinician Unavailable Keshawn Les George Attending Clinician Unavailable Bruna Martinez MA Attending Clinician Unavailable Piero Attending Clinician Unavailable Joselyn Nam RN Attending Clinician Unavailable Provider, Unknown Attending Clinician Unavailable Michelet Morales MD Attending Clinician Hamida Stewart RN Attending Clinician Unavailable Ayah Almeida Attending Clinician Unavailable Brii Lin RN Attending Clinician Unavailable Petar OG, Yobany Robin Attending Clinician Nadeen Self MA Attending Clinician Unavailable MD YOBANY DAVEY Attending Clinician Unavailable JEFFREY GRIFFIN Attending Clinician Unavailable RADHA BENSON Attending Clinician Unavailable Williams_V Admitting Clinician Unavailable RituR Admitting Clinician Unavailable MD YOBANY DAVEY Admitting Clinician Unavailable YOBANY DAVEY Admitting Clinician Unavailable JEFFREY GRIFFIN Admitting Clinician Unavailable RADHA BENSON Admitting Clinician Unavailable Payers Payer Name Policy Type Policy Number Effective Date Expiration Date Vinciio little [facility] [id number] 2020 (MEDICARE 00:00:00 REPLACEMENT HMO) FORMERLY [facility] [id number] 2019 CHOICE 00:00:00 [facility] [id number] 2019 2019 00:00:00 00:00:00 Problems Condition Condition Condition Status Onset Resolution Last Treating Co mments Source Name Details Category Date Date Treatment Clinician Date Osteoporos Osteoporos Disease Active M ethodi is is [facility] [facility] 00:00: Hospita 00 l COPD COPD Disease Active Methodi exacerbati exacerbati [address] [facility] on on 00:00: Hospita 00 l 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, cancer, 00:00: Hospita right right 00 l lower lobe lower lobe Wheezing Wheezing Disease Active Metho di 4 st 00:00: Hospita 00 l Lara-recta Lara-recta Disease Active M ethodi l abscess l abscess [address] st 00:00: Hospita 00 l Perirectal Perirectal Disease Active 2017-11 M ethodi abscess abscess 2 st 00:00: Hospita 00 l Cancer of Cancer of Disease Active 2017-11 Met hodi bronchus bronchus 023 st of left of left 00:00: Hospita lower lobe lower lobe 00 l 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 05-16 st 00:00: Hospita 00 l Cyanosis Cyanosis Disease Active Metho di of tip of of tip of 05-15 st finger finger 00:00: Hospita 00 l Finger Finger Disease Active Methodi numbness numbness 05-15 st 00:00: Hospita 00 l Lung Lung Disease Active Methodi cancer cancer 04-23 00:00: Hospita 00 l Hypertensi Hypertensi Disease Active M ethodi on on 04-23 st 00:00: Hospita 00 l Allergies, Adverse Reactions, Alerts Allergy Allergy Status Severity Reaction(s) Onset Inactive Treating Comm ents Source Name Type Date Date Clinician Cisplati Propensi Active Other (See BLOOD Me thodi n ty to Comments) 3-[address] adverse 00:00: Hospita reaction 00 l s to drug NO KNOWN Drug Active [facility] ALLERGIE Class [facility] Family History Family Member Diagnosis Comments Start Date Stop Date Source Natural brother Stroke [facility] Natural father Esophageal cancer [facility] Natural mother COPD [facility] Natural mother Heart disease [facility] Natural mother Kidney disease [facility] ist [facility] Natural sister Heart attack [facility] Natural sister Stroke [facility] Social History Social Habit Start Date Stop Date Quantity Comments Source History of tobacco 1970-08-17 Current smoker [facility] use 00:00:00 Hospital Alcohol intake 2022-06-27 2022-06-27 Current drinker Metho dist 00:00:00 00:00:00 of alcohol Hospital (finding) Tobacco use and 2021-08-13 2021-08-13 Smokeless tobacco [facility] exposure 00:00:00 00:00:00 non-user Hospital Cigarettes smoked 2021-08-13 2021-08-[address] current (pack per 00:00:00 00:00:00 [facility] day) - Reported Cigarette 2021-08-13 2021-08-13 Jainism pack-years 00:00:00 00:00:00 Hospital Sex Assigned At [birth year] M Jainism 00:00:00 00:00:00 Hospital Smoking Status Start Date Stop Date Source Ex-smoker 2021-08-13 00:00:00 2021-08-13 00:00:00 [facility] Medications Ordered Filled Start Stop Current Ordering Indication Dosage Frequency Signature Comments Components Source Medication Medication Date Date Medication? Clinician (SIG) Name Name omega-3 Yes 1g QD Take 1 g Method i acid ethyl 8-[address] esters 12:37: daily. Hospita (LOVAZA) 1 04 l gram capsule losartan Yes 50mg QD Take 50 mg Met hodi (COZAAR) 50 8-[address] MG tablet 12:37: daily. Hospit a 04 l amLODIPine Yes 10mg QD Take 10 mg M ethodi (NORVASC) 8-[address] 10 mg 12:37: daily. Hospita tablet 04 l aspirin Yes 81mg QD Take 81 mg Meth william (ECOTRIN) 8-[address] 81 MG 12:37: daily. Hospita enteric 04 l coated tablet levothyroxi Yes 25ug QD Take 25 Met hodi ne 8-[address] (SYNTHROID) 12:37: mouth Hospi ta 25 mcg 04 daily. l tablet umeclidiniu Yes QD Inhale Meth william m-vilantero 8-[address] L (Anoro 12:37: Hospita Ellipta) 04 l 62.5-25 mcg/actuati on blister with device albuterol Yes as Methodi (ACCUNEB) 06-[address] 2.5 mg /3 12:37: Hospita mL (0.083 04 l %) nebulizer solution ascorbic Yes not Methodi acid, 06-[address] vitamin C, 12:37: Hospita 500 mg 04 l powder in packet multivitami Yes 1{tbl} QD Take 1 Me thodi n tablet 8-[address] 12:37: mouth Hospita 04 daily. l HYDROcodone 2021- Yes [id number] 1{tbl} Q6H Take 1 Methodi -acetaminop 8-[address] hen ([place]) 00:00: 04:59 mouth Hosp richie 10-325 mg 00 :00 every 6 l per tablet (six) hours as needed for moderate pain for up to 30 days .chronic pain. Max Daily Amount: 4 tablets varenicline Yes Take 1 tab Methodi (CHANTIX) 1 5-[address] mg tablet 14:56: for 30 Hospit a 04 days l megestroL 2022- No 400mg QD Take 10 mL Methodi (MEGACE) 4-06 04-07 ([address] 400 mg/10 00:00: 04:59 total) by Ho spita mL (40 00 :00 mouth l mg/mL) daily. suspension buPROPion 2020-11 Yes Methodi XL 2-09 st (WELLBUTRIN 00:00: Hospit a XL) 300 MG 00 l 24 hr tablet megestroL 2020- No 40mg QD Take 40 mg M ethodi (MEGACE) 40 07-27 09-[address] MG tablet 11:59: 00:00 daily. Hospi ta 30 :00 l megestroL 2021- No 400mg QD Take 10 mL Methodi (MEGACE) 9-10 04-06 ([address] 400 mg/10 00:00: 00:00 total) by Ho spita mL (40 00 :00 mouth l mg/mL) daily. suspension folic 2020- No 1{tbl} QD Take 1 Methodi acid/multiv 07-25-[address] it-min/lute 16:00: 00:00 mouth Hosp richie in (CENTRUM 26 :00 daily. l SILVER ORAL) acetaminoph 2020- No 500mg Q6H Take 500 Methodi en 07-25 09-[address] (TYLENOL) 16:00: 00:00 mouth Hospit a 500 MG 18 :00 every 6 l tablet (six) hours as needed for mild pain. thiamine No 100mg QD Take 100 Met hodi 100 MG 07-25-[address] tablet 16:00: 00:00 mouth Hospita 11 :00 daily. l albuterol Yes 1 puff as Met hodi sulfate -[address] (ProAir 00:00: Hospita RespiClick) 00 l 90 mcg/actuati on aerosol powdr breath activated ipratropium Yes USE 1 VIAL Methodi -albuteroL 8-[address] (DUO-NEB) 00:00: NEBULIZER Hos jacoby 0.5-2.5 00 FOUR TIMES l mg/3 mL A DAY nebulizer levoFLOXaci 2018-11 Yes 500mg Take 500 M ethodi n 2-[address] (LEVAQUIN) 00:00: mouth. Hospi ta 500 MG 00 l tablet omeprazole Yes 20mg QD Take 20 mg M ethodi (PriLOSEC) 5-[address] 20 MG 00:00: daily. Hospita capsule 00 l omeprazole 2016-0 Yes DAILY Method i OTC 8-15 st (PriLOSEC 00:00: Hospita OTC) 20 MG 00 l EC tablet lisinopriL- 0 Yes DAILY Metho di hydrochloro 8-15 st thiazide 00:00: Hospita (PRINZIDE) 00 l 20-12.5 mg per tablet Omeprazole Omeprazole Yes Jimena 1 capsule Common Millender 30 minutes Spir it before - [facility] morning [facility] Anoro Anoro Yes Jimena 1 puff Common Ellipta Ellipta Millender Sp[facility] Fish Oil Fish Oil Yes Jimena not Common Millender defined [facility] Amlodipine Amlodipine Yes Jimena 1 tablet Common Besylate Besylate Millender Sp [facility] Albuterol Albuterol Yes Jimena as Comm on Sulfate Sulfate Millender directed [facility] Centrum Centrum Yes Jimena as Common Silver Silver Millender directed [facility] Vitamin C Vitamin C Yes Jimena not Comm on Millender defined [facility] Losartan Losartan Yes Jimena 1 tablet Co mmon Potassium Potassium Millender [facility] Megestrol Megestrol Yes Jimena 5 ml Comm on Acetate Acetate Millender Sp[facility] Juan Juan Yes Jimena 1 tablet Common Aspirin EC Aspirin EC Millender [facility] Low Dose Low Dose [facility] Immunizations Ordered Immunization Filled Immunization Date Status Commen ts Source Name Name [facility] 2021-[facility]17 Completed [facility] t [facility]22 Completed Methodis t MRNA VACCINATION 00:00:00 [facility] FLUCELVAX QUAD PF 2018-09-[address] 00:00:00 Hospital Vital Signs Vital Name Observation Time Observation Value Comments Source Systolic blood 2022-07-10 18:58:00 144 mm[Hg] Method ist Hospital pressure Diastolic blood 2022-07-10 18:58:00 75 mm[Hg] [facility] pressure Heart rate 2022-07-10 18:58:00 122 /min [facility] Body temperature 2022-07-10 18:58:00 35.83 Elisabeth [facility] Respiratory rate 2022-07-10 18:58:00 22 /min [facility] Body height 2022-07-10 18:58:00 175.3 cm [facility] Body weight 2022-07-10 18:58:00 77.293 kg [facility] BMI 2022-07-10 18:58:00 25.16 kg/m2 [facility] Oxygen saturation in 2022-07-10 18:58:00 95 /min [facility] Arterial blood by Pulse oximetry Procedures Procedure Date / Time Performing Clinician Source Performed VITAMIN D 25 HYDROXY 2022-07-10 19:39:00 Parvin Blackwell [facility] BASIC METABOLIC PANEL 2022-07-10 19:39:00 Nichol [facility] ALBUMIN LEVEL 2022-07-10 19:39:00 Parvin Blackwell [facility] ESTIMATED GFR 2022-07-10 19:39:00 Parvin Blackwell [facility] HC COMPLETE BLD COUNT 2022-06-27 18:36:00 Nichol [facility] W/AUTO DIFF Ned T4 2022-06-27 18:36:00 Parvin Blackwell [facility] THYROID STIMULATING 2022-06-27 18:36:00 Nichol [facility] HORMONE Rembrandt COMPREHENSIVE METABOLIC 2022-06-27 18:36:00 Nichol [facility] VITAMIN D 25 HYDROXY 2022-06-27 18:36:00 Parvin Blackwell [facility] ESTIMATED GFR 2022-06-27 18:36:00 Parvin Blackwell [facility] CT CHEST WO CONTRAST 2022-06-21 16:52:05 Nichol [facility] BONE DENSITY 2022-04-05 14:45:00 Parvin Blackwell [facility] CT CHEST WO CONTRAST 2022-03-28 14:45:00 Parvin Blackwell [facility] US NON VASCULAR EXTERNAL 2022-03-13 19:07:00 Parvin Blackwell [facility] CT CHEST EXTERNAL STUDY 2022-03-11 20:57:00 Nichol [facility] CT CHEST EXTERNAL STUDY 2022-03-11 19:06:00 [facility] CHEST EXTERNAL STUDY 2022-03-11 17:41:00 Nichol [facility] PET CT SKULL BASE TO MID 2022-01-03 18:11:50 Parvin Blackwell [facility] THIGH Ned POC GLUCOSE 2022-01-03 16:06:00 [facility] CHEST WO CONTRAST 2021-10-31 20:17:40 Parvin Blackwell [facility] RAD ONC COURSE SUMMARY 2021-09-17 20:43:13 Provider, Unknown [facility] RAD ONC DAILY TREATMENT 2021-09-14 18:17:16 Provider, Unknown [facility] RAD ONC DAILY TREATMENT 2021-09-13 18:52:25 Provider, Unknown [facility] RAD ONC DAILY TREATMENT 2021-09-12 18:47:38 Provider, Unknown [facility] RAD ONC DAILY TREATMENT 2021-09-11 18:48:47 Provider, Unknown [facility] RAD ONC DAILY TREATMENT 2021-09-10 18:45:17 Provider, [facility] RAD ONC DAILY TREATMENT 2021 18:42:32 Provider, Unknown [facility] RAD ONC DAILY TREATMENT 2021-09-06 18:18:37 Provider, Unknown [facility] RAD ONC DAILY TREATMENT 2021-09-05 18:23:40 Provider, Unknown [facility] RAD ONC DAILY TREATMENT 2021-09-04 18:47:38 Provider, Unknown [facility] RAD ONC DAILY TREATMENT 2021-09-03 18:52:45 Provider, [facility] MRI BRAIN W WO CONTRAST 2021-08-27 21:05:00 Michelet Morales [facility] PET CT SKULL BASE TO MID 2021-08-17 19:44:48 Michelet Morales [facility] THIGH NM LUNG PERFUSION IMAGING 2021-08-17 18:51:[address] [facility] POC GLUCOSE 2021-08-17 18:08:00 Michelet Morales cass Plan of Care Planned Activity Planned Date Details Comments Source Future Scheduled 2022-07-17 HEPATITIS B VACCINES [facility] Test 16:47:26 (1 of 3 - 3-dose series) [code = HEPATITIS B VACCINES (1 of 3 - 3-dose series)] Future Scheduled 2022-07-17 Pneumococcal Vaccine: [facility] Test 16:47:26 Pediatrics (0 to 5 Years) and At-Risk Patients (6 to 64 Years) (1 - PCV) [code = Pneumococcal Vaccine: Pediatrics (0 to 5 Years) and At-Risk Patients (6 to 64 Years) (1 - PCV)] Future Scheduled 2022-07-17 Hepatitis C screening [facility] Test 16:47:26 (procedure) [code = [id number]] Future Scheduled 2022-07-17 SHINGLES VACCINES (1 Met [facility] Test 16:47:26 of 2) [code = SHINGLES VACCINES (1 of 2)] Future Scheduled 2022-07-17 COLONOSCOPY SCREENING [facility] Test 16:47:26 [code = COLONOSCOPY SCREENING] Future Scheduled 2022-07-17 INFLUENZA VACCINE Method [facility] Hospital Test 16:47:26 [code = INFLUENZA VACCINE] Future Scheduled 2022-07-17 COVID-19 VACCINE (5 - [facility] Test 16:47:26 Booster for Moderna series) [code = COVID-19 VACCINE (5 - Booster for Moderna series)] Encounters Start End Encounter Admission Attending Care Care Encounter Source Date/Time Date/Time Type Type Clinicians Facility Department ID 2022-06-25 Outpatient Maya, [facility] [id number] Common 08:36:01 Hitesh [facility] 2022-06-24 Outpatient Maya, [facility] [id number] Common 10:50:01 Hitesh [facility] 2021-12-27 Outpatient Maya, [facility] [id number] Common 10:20:01 Hitesh [facility] 2021-12-26 Outpatient Maya, [facility] [id number] Common 11:51:01 Hitesh [facility] 2021-12-12 Outpatient Maya, [facility] [id number] Common 14:22:57 Hitesh [id number] [facility] 2021-12-12 Outpatient Maya, [facility] [id number] Common 13:38:50 Hitesh [id number] [facility] 2021-12-12 Outpatient Maya, STLMLC STLMLC [id number] Common 13:36:28 Hitesh [id number] [facility] 2021-12-12 Outpatient Maya, STLMLC STLMLC [id number] Common 13:36:13 Hitesh [id number] [facility] 2021-12-12 Outpatient Maya, STLMLC STLMLC [id number] Common 12:38:05 Hitesh [id number] [facility] 2021-12-12 Outpatient Maya, STLMLC STLMLC [id number] Common 12:37:07 Hitesh [id number] [facility] 2021-12-12 Outpatient Maya, STLMLC STLMLC [id number] Common 12:36:13 Hitesh [id number] [facility] 2021-12-12 Outpatient Maya, STLMLC STLMLC [id number] Common 12:34:24 Hitesh [id number] [facility] 2021-12-12 Outpatient Maya, STLMLC STLMLC [id number] Common 12:20:40 Hitesh [id number] [facility] 2021-12-12 Outpatient STLMLC STLMLC [id number] Common 12:18:00 [id number] [facility] 2021-12-12 Outpatient Millender, STLMLC STLMLC [id number] Common 12:08:45 Jimena [id number] [facility] 2021-12-12 Outpatient Millender, STLMLC STLMLC [id number] Common 11:15:55 Jimena [id number] [facility] 2021-12-12 Outpatient Millender, STLMLC STLMLC [id number] Common 11:10:22 Jimena [id number] [facility] 2021-12-12 Outpatient Millender, STLMLC STLMLC [id number] Common 11:10:03 Jimena [id number] [facility] 2022-07-17 2022-07-17 ambulatory STLMLC STLMLC [id number] Common 00:00:00 00:00:00 [facility] 2022-07-10 2022-07-10 Infusion Bernicker, 1.2.840.1 [id number] Methodi 14:00:00 16:00:00 Parvin Marino [address]671.1.[address] 3.430.2.7 Hospit a .3.208948 l .8 2022-07-10 2022-07-10 Outpatient Williams_V [facility]G [facility] 3948 Devoted 00:00:00 00:00:00 0824 Medica l Group 2022-07-10 2022-07-10 Travel 1.2.840.1 [id number] [id number] Methodi 00:00:00 00:00:[address] 3.430.2.7 0.2.7.3.698 Ho spita .3.953969 084.8 l .8 2022-07-10 2022-07-10 [facility] [id number] [place] 00:00:00 00:00:00 PARVIN [address] 2022-06-27 2022-06-27 Lab Nichol, 1.2.840.1 [id number] Methodi 13:15:00 13:20:00 Parvin Marino [address]397.1.[address] 3.430.2.7 Hospit a .3.114259 l .8 2022-06-27 2022-06-27 Office Nichol, 1.2.840.1 [id number] Methodi 12:30:00 13:13:27 Visit Parvin Marino 07454.1.[address] 3.430.2.7 Hospit a .3.858556 l .8 2022-06-27 2022-06-27 Orders Keshawn, 1.2.840.1 [id number] Methodi 00:00:00 00:00:00 Only Les 22008.1.1 243 s t 3.430.2.7 Hospit a .3.457909 l .8 2022-06-27 2022-06-27 Orders Juan, 1.2.840.1 [id number] Methodi 00:00:00 00:00:00 Only Bruna 08833.1.[address] 3.430.2.7 Hospit a .3.902720 l .8 2022-06-27 2022-06-27 Travel 1.2.840.1 1.2.754.175 [id number] Methodi 00:00:00 00:00:[address] 3.430.2.7 0.2.7.3.698 Ho spita .3.468018 084.8 l .8 2022-06-27 2022-06-27 [facility] [id number] [place] 00:00:00 00:00:00 PARVIN [address] 2022-06-27 2022-06-27 [facility] [id number] [place] 00:00:00 00:00:00 PARVIN [address] 2022-06-25 2022-06-25 ambulatory STLMLC STLMLC [id number] Common 00:00:00 00:00:00 [facility] 2022-06-24 2022-06-24 ambulatory STLMLC STLMLC [id number] Common 00:00:00 00:00:00 [facility] 2022-06-21 2022-06-21 [facility] [id number] [place] 00:00:00 00:00:00 PARVIN [address] 2022-06-18 2022-06-18 Telephone Nichol, 1.2.840.1 [id number] Methodi 00:00:00 00:00:00 Parvin Ned [address]43.1.[address] 3.430.2.7 Hospit a .3.256741 l .8 2022-06-17 2022-06-17 Jaclyn Martinez 1.2.840.1 [id number] Methodi 00:00:00 00:00:00 Only Bruna 94380.1.[address] 3.430.2.7 Hospit a .3.753111 l .8 2022-06-11 2022-06-11 ambulatory STLMLC STLMLC [id number] Common 00:00:00 00:00:00 [facility] 2022-06-10 2022-06-10 ambulatory STLMLC STLMLC [id number] Common 00:00:00 00:00:00 [facility] 2022-06-03 2022-06-03 ambulatory STLMLC STLMLC [id number] Common 00:00:00 00:00:00 [facility] 2022-05-31 2022-05-31 Outpatient Adams_R DMG DMG [id number] Devoted 07:34:00 07:34:00 0715 Medica l Group 2022-05-21 2022-05-21 ambulatory STLMLC STLMLC [id number] Common 00:00:00 00:00:00 [facility] 2022-05-08 2022-05-08 [facility], 1.2.840.1 [id number] Methodi 15:23:36 23:59:00 Encounter Parvin Marino 34561.1.[address] 3.430.2.7 Hospit a .3.439440 l .8 2022-05-08 2022-05-08 [facility], 1.2.840.1 [id number] Methodi 15:22:19 15:22:19 Encounter Parvin Marino 16732.1.[address] 3.430.2.7 Hospit a .3.988380 l .8 2022-05-08 2022-05-08 [facility], 1.2.840.1 [id number] Methodi 15:20:48 15:21:00 Encounter Parvin Marino 64174.1.[address] 3.430.2.7 Hospit a .3.255157 l .8 2022-05-08 2022-05-08 [facility], 1.2.840.1 [id number] Methodi 15:19:59 15:19:59 Encounter Parvin Marino 07499.1.[address] 3.430.2.7 Hospit a .3.150487 l .8 2022-05-08 2022-05-08 Outpatient NICHOL [facility] [id number] [place] 00:00:00 00:00:00 PARVIN [address] 2022-05-08 2022-05-08 Outpatient NICHOL [facility] 2100 [id number] [place] 00:00:00 00:00:00 PARVIN [address] 2022-05-08 2022-05-08 Outpatient NICHOL [facility] [id number] [place] 00:00:00 00:00:00 PARVIN [address] 2022-05-08 2022-05-08 Outpatient NICHOL [facility] [id number] [place] 00:00:00 00:00:00 PARVIN [address] 2022-05-03 2022-05-03 ambulatory STLMLC STLMLC [id number] Common 00:00:00 00:00:00 [facility] 2022-04-29 2022-04-29 ambulatory STLMLC STLMLC [id number] Common 00:00:00 00:00:00 [facility] 2022-04-25 2022-04-25 ambulatory STLMLC STLMLC [id number] Common 00:00:00 00:00:00 [facility] 2022-04-23 2022-04-23 ambulatory STLMLC STLMLC [id number] Common 00:00:00 00:00:00 [facility] 2022-04-05 2022-04-05 Outpatient NICHOL [facility] [id number] [place] 00:00:00 00:00:00 PARVIN [address] 2022-04-03 2022-04-03 ambulatory STLMLC STLMLC [id number] Common 00:00:00 00:00:00 [facility] 2022-04-03 2022-04-03 ambulatory STLMLC STLMLC [id number] Common 00:00:00 00:00:00 [facility] 2022-04-02 2022-04-02 Rory Blackwell 1.2.840.1 [id number] Methodi 00:00:00 00:00:00 Parvin Marino [address]366.1.[address] 3.430.2.7 Hospit a .3.902407 l .8 2022-04-02 2022-04-02 [facility] [id number] [facility] 00:00:00 00:00:00 [facility] 2022-03-29 2022-03-29 Orders Juan, 1.2.840.1 [id number] Methodi 00:00:00 00:00:00 Only Bruna 16237.1.[address] 3.430.2.7 Hospit a .3.101940 l .8 2022-03-28 2022-03-28 [facility] Tank, 1.2.840.1 [id number] Methodi 09:07:00 23:59:00 Encounter Parvin Marino 87336.1.[address] 3.430.2.7 Hospit a .3.930589 l .8 2022-03-28 2022-03-28 Office Nichol, 1.2.840.1 [id number] Methodi 15:00:00 16:22:17 Visit Parvin Marino 41062.1.[address] 3.430.2.7 Hospit a .3.340201 l .8 2022-03-28 2022-03-28 Outpatient [facility] [id number] [place] 00:00:00 00:00:00 PARVIN [address] 2022-03-28 2022-03-28 Outpatient [facility] [id number] [place] 00:00:00 00:00:00 PARIVN [address] 2022-03-28 2022-03-28 Orders Juan, 1.2.840.1 [id number] Methodi 00:00:00 00:00:00 Only Bruna 01013.1.[address] 3.430.2.7 Hospit a .3.771954 l .8 2022-03-28 2022-03-28 Travel 1.2.840.1 1.2.053.338 [id number] Methodi 00:00:00 00:00:[address] 3.430.2.7 0.2.7.3.698 Ho spita .3.602319 084.8 l .8 2022-03-26 2022-03-26 ambulatory STLMLC STLMLC [id number] Common 00:00:00 00:00:00 [facility] 2022-03-22 2022-03-22 ambulatory STLMLC STLMLC [id number] Common 00:00:00 00:00:00 [facility] 2022-03-22 2022-03-22 ambulatory STLMLC STLMLC [id number] Common 00:00:00 00:00:00 [facility] 2022-03-19 2022-03-19 ambulatory STLMLC STLMLC [id number] Common 00:00:00 00:00:00 [facility] 2022-03-19 2022-03-19 ambulatory STLMLC STLMLC [id number] Common 00:00:00 00:00:00 [facility] 2022-03-18 2022-03-18 Telephone Ho Blackwell.2.840.1 [id number] 2 [id number] Methodi 00:00:00 00:00:00 Parvin Marino [address]3.1.[address] 3.430.2.7 Hospit a .3.099640 l .8 2022-03-18 2022-03-18 ambulatory STLMLC STLMLC [id number] Common 00:00:00 00:00:00 [facility] 2022-03-15 2022-03-15 ambulatory STLMLC STLMLC [id number] Common 00:00:00 00:00:00 [facility] 2022-03-12 2022-03-12 ambulatory STLMLC STLMLC [id number] Common 00:00:00 00:00:00 [facility] 2022-02-20 2022-02-20 Telephone Kelly Blackwell2.840.1 [id number] 2 [id number] Methodi 00:00:00 00:00:00 Parvin Mar[address]1.[address] 3.430.2.7 Hospit a .3.470204 l .8 2022-02-06 2022-02-06 ambulatory STLMLC STLMLC [id number] Common 00:00:00 00:00:00 [facility] 2022-02-05 2022-02-05 ambulatory STLMLC STLMLC [id number] Common 00:00:00 00:00:00 [facility] 2022-01-10 2022-01-10 Travel 1.2.840.1 1.2.930.558 3942 [id number] Methodi 00:00:00 00:00:[address] 3.430.2.7 0.2.7.3.698 Ho spita .3.013349 084.8 l .8 2022-01-09 2022-01-09 Orders Juan, 1.2.840.1 [id number] Methodi 00:00:00 00:00:00 Only Bruna 17253.1.[address] 3.430.2.7 Hospit a .3.754704 l .8 2022-01-09 2022-01-09 Orders Juan 1.2.840.1 Methodi 00:00:00 00:00:00 Only Bruna 95745.1.[address] 3.430.2.7 Hospit a .3.331790 l .8 2022-01-08 2022-01-08 Outpatient Adams_R DMG DMG 15965-1 022 Devoted 09:00:00 09:00:00 0222 [facility] 2022-01-03 2022-01-03 [facility].840[facility]1 [id number] 21 [id number] Methodi 09:56:29 23:59:00 Encounter Parvin Marino 26513.1.[address] 3.430.2.7 Hospit a .3.018949 l .8 2022-01-03 2022-01-03 Lab Nichol, 1.2.840.1 [id number] 478 [id number] Methodi 16:05:00 16:10:00 [address]07[address] 3.430.2.7 Hospit a .3.771798 l .8 2022-01-03 2022-01-03 Lab Nichol, 1.2.840.1 [id number] 610 [id number] Methodi 16:00:00 16:05:00 Par[address]ren [address] 3.430.2.7 Hospit a .3.193200 l .8 2022-01-03 2022-01-03 Office Nichol, 1.2.840.1 [id number] 549 [id number] Methodi 15:30:00 15:50:50 Visit Parvin Marino 15447.1.[address] 3.430.2.7 Hospit a .3.733672 l .8 2022-01-03 2022-01-03 [facility] 2100 [id number] [place] 00:00:00 00:00:00 PARVNI [address] 2022-01-03 2022-01-03 [facility] 2100 [id number] [place] 00:00:00 00:00:00 PARVIN [address] 2022-01-03 2022-01-03 Outpatient [facility] 2100 [id number] [place] 00:00:00 00:00:00 PARVIN [address] 2022-01-03 2022-01-03 [facility] 2100 [id number] [place] 00:00:00 00:00:00 PARVIN [address] 2022-01-03 2022-01-03 Travel 1.2.840.1 1.2.599.352 3901 [id number] Methodi 00:00:00 00:00:[address] 3.430.2.7 0.2.7.3.698 Ho spita .3.594995 084.8 l .8 2021-12-27 2021-12-27 ambulatory STLMLC STLMLC [id number] Common 00:00:00 00:00:00 [facility] 2021-12-27 2021-12-27 ambulatory STLMLC STLMLC [id number] Common 00:00:00 00:00:00 [facility] 2021-12-27 2021-12-27 ambulatory STLMLC STLMLC [id number] Common 00:00:00 00:00:00 [facility] 2021-11-16 2021-11-16 Outpatient Adams_R DMG DMG 67335-3 021 Devoted 08:30:00 08:30:00 1231 Medica l Group 2021-11-07 2021-11-07 Travel 1.2.840.1 1.2.364.880 4108 122419 Methodi 00:00:00 00:00:[address] 3.430.2.7 0.2.7.3.698 spita .3.551332 084.8 l .8 2021-11-05 2021-11-05 Telephone Tyrone, 1.2.840.1 [id number] 842 [id number] Methodi 00:00:00 00:00:[address] 3.430.2.7 Hospit a .3.577016 l .8 2021-10-31 2021-10-31 [facility], 1.2.840.1 [id number] 21 [id number] Methodi 12:17:57 23:59:00 Encounter Parvin Marino 05854.1.[address] 3.430.2.7 Hospit a .3.584398 l .8 2021-10-31 2021-10-31 Office [facility], 1.2.840.1 [id number] 951 [id number] Methodi 16:30:00 16:33:32 Visit Parvin Marino 42458.1.[address] 3.430.2.7 Hospit a .3.835663 l .8 2021-10-31 2021-10-31 [facility] 2100 [id number] [place] 00:00:00 00:00:00 PARVIN [address] 2021-10-31 2021-10-31 [facility] 2[facility] [id number] [place] 00:00:00 00:00:00 PARVIN [address] 2021-10-31 2021-10-31 Orders Martinez, 1.2.840.1 [id number] 62228 [id number] Methodi 00:00:00 00:00:00 Only Bruna 26930.1.[address] 3.430.2.7 Hospit a .3.996446 l .8 2021-10-31 2021-10-31 Travel 1.2.840.1 1.2.560.657 2512 693675 Methodi 00:00:00 00:00:[address] 3.430.2.7 0.2.7.3.698 Ho spita .3.183486 084.8 l .8 2021-10-25 2021-10-25 Telephone Yancibeth, 1.2.840.1 [id number] 2 [id number] Methodi 00:00:00 00:00:00 Parvin Marino 33565.1.[address] 3.430.2.7 Hospit a .3.688422 l .8 2021-10-25 2021-10-25 ambulatory STLMLC STLMLC [id number] Common 00:00:00 00:00:00 [facility] 2021-10-22 2021-10-22 Telephone Nichol, 1.2.840.1 [id number] 2 [id number] Methodi 00:00:00 00:00:00 Parvin [address] 16440.1.[address] 3.430.2.7 Hospit a .3.943419 l .8 2021-10-03 2021-10-03 Outpatient Adams_R DMG DMG 44128-7 021 Devoted 03:35:00 03:35:00 1117 Medica l Group 2021-09-26 2021-09-26 ambulatory STLMLC STLMLC [id number] Common 00:00:00 00:00:00 [facility] 2021-09-14 2021-09-[address]1 [id number] 81111 [id number] Methodi 13:04:29 13:17:[address] 3.430.2.7 Hospit a .3.293902 l .8 2021-09-14 2021-09-14 Outpatient DMG DMG 20732-2 021 Devoted 12:01:00 12:01:00 1029 Medica l Group 2021-09-14 2021-09-14 Outpatient [facility] [id number] [place] 00:00:00 00:00:[address] 2021-09-14 2021-09-14 Orders Provider, 1.2.840.1 [id number] 2100 [id number] Methodi 00:00:00 00:00:00 Only Unknown 44616.1.[address] 3.430.2.7 Hospit a .3.498937 l .8 2021-09-13 2021-09-13 [facility] 1.2.840.1 [id number] 72194 18559 Methodi 13:06:33 13:52:[address] 3.430.2.7 Hospit a .3.919445 l .8 2021-09-12 2021-09-13 [facility] 1.2.840.1 [id number] Methodi 13:45:00 11:21:01 Encounter Hamida Stewart 93496.1.[address] 3.430.2.7 Hospit a .3.342013 l .8 2021-09-13 2021-09-13 Outpatient [facility] [id number] 552 [place] 00:00:00 00:00:[address] 2021-09-13 2021-09-13 Orders Provider, 1.2.840.1 [id number] 2100 [id number] Methodi 00:00:00 00:00:00 Only Unknown 65888.1.[address] 3.430.2.7 Hospit a .3.389360 l .8 2021-09-12 2021-09-13 Outpatient [facility] [id number] 7193 [place] 00:00:00 00:00:[address] 2021-09-12 2021-09-12 [facility] 1.2.840.1 [id number] 21001 89946 Methodi 12:56:27 13:47:[address] 3.430.2.7 Hospit a .3.042982 l .8 2021-09-12 2021-09-12 Outpatient [facility] [id number] [address] [place] [address] 00:00:00 00:00:[address] 2021-09-12 2021-09-12 [facility] 1.2.840.1 1.2.939.747 3013 717134 Methodi 00:00:00 00:00:[address] 3.430.2.7 0.2.7.3.698 spita .3.610858 084.8 l .8 2021-09-12 2021-09-12 Orders Provider, 1.2.840.1 [id number] 2099 [id number] Methodi 00:00:00 00:00:00 Only Unknown 36826.1.[address] 3.430.2.7 Hospit a .3.984259 l .8 2021-09-11 2021-09-11 [facility] 1.2.840.1 [id number] 21001 70153 Methodi 12:54:49 23:59:[address] 3.430.2.7 Hospit a .3.689685 l .8 2021-09-11 2021-09-11 Outpatient [facility] [id number] [address] [place] [address] 00:00:00 00:00:[address] 2021-09-11 2021-09-11 Orders Provider, 1.2.840.1 [id number] 2099 [id number] Methodi 00:00:00 00:00:00 Only Unknown 75832.1.[address] 3.430.2.7 Hospit a .3.288606 l .8 2021-09-10 2021-09-10 [facility] 1.2.840.1 [id number] 21001 97292 Methodi 13:00:54 13:45:[address] 3.430.2.7 Hospit a .3.454290 l .8 2021-09-10 2021-09-10 Outpatient [facility] [id number] [address] [place] [address] 00:00:00 00:00:[address] 2021-09-10 2021-09-10 Orders Provider, 1.2.840.1 [id number] 2099 [id number] Methodi 00:00:00 00:00:00 Only Unknown 79793.1.[address] 3.430.2.7 Hospit a .3.959814 l .8 2021-09-10 2021-09-10 Travel 1.2.840.1 1.2.668.476 7747 863867 Methodi 00:00:00 00:00:[address] 3.430.2.7 0.2.7.3.698 Ho spita .3.956463 084.8 l .8 2021 2021 Hospital 1.2.840.1 [id number] 14771 Methodi 13:07:03 13:42:[address] 3.430.2.7 Hospit a .3.959375 l .8 2021 2021 Outpatient [facility] [id number] [address] [place] [address] 00:00:00 00:00:[address] 2021 2021 Orders Provider, 1.2.840.1 [id number] 2099 [id number] Methodi 00:00:00 00:00:00 Only Unknown 65641.1.[address] 3.430.2.7 Hospit a .3.495561 l .8 2021-09-06 2021-09-06 [facility] 1.2.840.1 [id number] 05482 Methodi 12:54:59 13:18:[address] 3.430.2.7 Hospit a .3.703772 l .8 2021-09-06 2021-09-06 Outpatient [facility] [id number] [address] [place] [address] 00:00:00 00:00:[address] 2021-09-06 2021-09-06 Orders Provider, 1.2.840.1 [id number] 2099 [id number] Methodi 00:00:00 00:00:00 Only Unknown 69856.1.[address] 3.430.2.7 Hospit a .3.212469 l .8 2021-09-05 2021-09-05 [facility], Bin 1.2.840.1 [id number] 2099 958962 Methodi 14:30:00 23:59:00 Encounter Sing 30963.1.[address] 3.430.2.7 Hospit a .3.066480 l .8 2021-09-05 2021-09-05 [facility], Bin Sing 1.2.840.1 [id number] Methodi 13:26:04 13:40:08 Encounter Ayah Almeida 20855.1.[address] 3.430.2.7 Hospit a .3.666679 l .8 2021-09-05 2021-09-05 [facility] 1.2.840.1 [id number] 87628 59304 Methodi 12:57:44 13:23:[address] 3.430.2.7 Hospit a .3.176245 l .8 2021-09-05 2021-09-05 Outpatient [facility] [id number] 552 [place] 00:00:00 00:00:[address] 2021-09-05 2021-09-05 Outpatient [facility] [id number] [place] 00:00:00 00:00:[address] 2021-09-05 2021-09-05 Outpatient [facility] [id number] [place] 00:00:00 00:00:[address] 2021-09-05 2021-09-05 Travel 1.2.840.1 1.2.273.185 4849 131754 Methodi 00:00:00 00:00:[address] 3.430.2.7 0.2.7.3.698 Ho spita .3.603979 084.8 l .8 2021-09-05 2021-09-05 Orders Provider, 1.2.840.1 [id number] 2099 057701 Methodi 00:00:00 00:00:00 Only Unknown 59251.1.[address] 3.430.2.7 Hospit a .3.194143 l .8 2021-09-04 2021-09-04 [facility] 1.2.840.1 [id number] 03909 Methodi 12:52:03 13:47:[address] 3.430.2.7 Hospit a .3.897680 l .8 2021-09-04 2021-09-04 Outpatient [facility] [id number] 552 [place] 00:00:00 00:00:[address] 2021-09-04 2021-09-04 Orders Provider, 1.2.840.1 [id number] 2099 [id number] Methodi 00:00:00 00:00:00 Only Unknown 34027.1.[address] 3.430.2.7 Hospit a .3.195120 l .8 2021-09-03 2021-09-03 Hospital [facility], [facility] 1.2.840.1 [id number] 2099 843099 Methodi 13:09:56 13:52:45 Encounter Sing 40456.1.[address] 3.430.2.7 Hospit a .3.344151 l .8 2021-09-03 2021-09-03 Outpatient [facility], [facility] [id number] [place] 00:00:00 00:00:[address] 2021-09-03 2021-09-03 Orders Provider, 1.2.840.1 [id number] 2099 [id number] Methodi 00:00:00 00:00:00 Only Unknown 46391.1.[address] 3.430.2.7 Hospit a .3.193446 l .8 2021-09-03 2021-09-03 Travel 1.2.840.1 1.2.437.006 1776 215918 Methodi 00:00:00 00:00:[address] 3.430.2.7 0.2.7.3.698 Ho spita .3.831796 084.8 l .8 2021-08-30 2021-08-30 [place] Deanna, Bin 1.2.840.1 [id number] 101 [id number] Methodi 00:00:00 00:00:[address] 3.430.2.7 Hospit a .3.437051 l .8 2021-08-27 2021-08-27 [facility], Bin 1.2.840.1 [id number] 2099 [id number] Methodi 14:31:53 23:59:00 Encounter Sing 78755.1.[address] 3.430.2.7 Hospit a .3.567689 l .8 2021-08-27 2021-08-27 Outpatient [facility], [facility] [id number] [place] 00:00:00 00:00:[address] 2021-08-27 2021-08-27 Travel 1.2.840.1 1.2.007.658 5625 823487 Methodi 00:00:00 00:00:[address] 3.430.2.7 0.2.7.3.698 Ho spita .3.046165 084.8 l .8 2021-08-22 2021-08-22 [facility], Bin 1.2.840.1 [id number] 2099 [id number] Methodi 11:49:34 12:13:26 Encounter Sing 74456.1.[address] 3.430.2.7 Hospit a .3.174689 l .8 2021-08-22 2021-08-22 Outpatient DEANNA, [facility] [id number] [place] 00:00:00 00:00:[address] 2021-08-17 2021-08-17 [facility], Bin 1.2.840.1 [id number] 2099 935443 Methodi 12:40:00 23:59:00 Encounter Sing 61792.1.[address] 3.430.2.7 Hospit a .3.775202 l .8 2021-08-17 2021-08-17 [facility], Bin 1.2.840.1 [id number] 2100 [id number] Methodi 01:00:00 16:43:09 Encounter Sing 77925.1.[address] 3.430.2.7 Hospit a .3.892269 l .8 2021-08-17 2021-08-17 [facility], Bin 1.2.840.1 [id number] 2099 [id number] Methodi 11:59:55 12:39:00 Encounter Sing 78822.1.[address] 3.430.2.7 Hospit a .3.233473 l .8 2021-08-17 2021-08-17 Outpatient DEANNA, [facility] [id number] [place] 00:00:00 00:00:[address] 2021-08-17 2021-08-17 Outpatient DEANNA, [facility] [id number] [place] 00:00:00 00:00:[address] 2021-08-17 2021-08-17 Outpatient DEANNA, [facility] [id number] 0788 [place] 00:00:00 00:00:[address] 2021-08-16 2021-08-16 Travel 1.2.840.1 1.2.944.897 5078 257280 Methodi 00:00:00 00:00:[address] 3.430.2.7 0.2.7.3.698 spita .3.202232 084.8 l .8 2021-08-13 2021-08-13 [facility], Bin 1.2.840.1 [id number] 2099 [id number] Methodi 01:00:00 16:43:05 Encounter Sing 26561.1.[address] 3.430.2.7 Hospit a .3.990711 l .8 2021-08-13 2021-08-13 [facility], Bin Sing 1.2.840.1 [id number] Methodi 13:45:18 16:13:26 Encounter Brii Lin 47213.1.[address] 3.430.2.7 Hospit a .3.856158 l .8 2021-08-13 2021-08-13 [facility] Deanna, Bin 1.2.840.1 [id number] 2099 [id number] Methodi 15:00:00 16:09:27 Encounter Sing 39894.1.[address] 3.430.2.7 Hospit a .3.900792 l .8 2021-08-13 2021-08-13 Outpatient DEANNA, [facility] [id number] [place] 00:00:00 00:00:[address] 2021-08-13 2021-08-13 Outpatient DEANNA, [facility] [id number] 8493 [place] 00:00:00 00:00:[address] 2021-08-13 2021-08-13 Outpatient DEANNA, [facility] [id number] [place] 00:00:00 00:00:[address] 2021-08-13 2021-08-13 Travel 1.2.840.1 1.2.597.394 9959 552269 Methodi 00:00:00 00:00:[address] 3.430.2.7 0.2.7.3.698 Ho spita .3.746920 084.8 l .8 2021-08-09 2021-08-09 [facility], [facility] 1.2.840.1 [id number] 542 [id number] Methodi 00:00:00 00:00:[address] 3.430.2.7 Hospit a .3.012918 l .8 2021-08-03 2021-08-03 Travel 1.2.840.1 1.2.750.650 2942 545340 Methodi 00:00:00 00:00:[address] 3.430.2.7 0.2.7.3.698 Ho spita .3.865347 084.8 l .8 2021-08-03 2021-08-03 Outpatient STLMLC STLMLC [id number] Common 00:00:00 00:00:00 [facility] 2021-08-02 2021-08-02 Telemedici Davey, 1.2.840.1 [id number] Methodi 15:45:00 16:07:34 ne Yobany Robin 05219.1.[address] 3.430.2.7 Hospit a .3.170348 l .8 2021-08-02 2021-08-02 Outpatient [facility] [id number] 301 [place] 00:00:00 00:00:[address] 2021-08-01 2021-08-01 Abstract Clair, 1.2.840.1 [id number] 2100 [id number] Methodi 00:00:00 00:00:[address] 3.430.2.7 Hospit a .3.818314 l .8 2021-07-27 2021-07-27 Telephone Nichol, 1.2.840.1 [id number] 2 [id number] Methodi 00:00:00 00:00:00 Parvin Marino 68842.1.[address] 3.430.2.7 Hospit a .3.306305 l .8 2021-07-27 2021-07-27 Telephone Clair, 1.2.840.1 [id number] 531 [id number] Methodi 00:00:00 00:00:[address] 3.430.2.7 Hospit a .3.250388 l .8 2021-07-26 2021-07-26 Telemedici Davey, 1.2.840.1 [id number] 572 [id number] Methodi 15:30:00 16:08:54 ne Yobany Robin 60162.1.[address] 3.430.2.7 Hospit a .3.210486 l .8 2021-07-26 2021-07-26 Outpatient [facility] [id number] [place] 00:00:00 00:00:[address] 2021-07-25 2021-07-25 Abstract Clair, 1.2.840.1 [id number] 2100 [id number] Methodi 00:00:00 00:00:[address] [address] .8 2021-07-19 2021-07-19 Outpatient DAVEY, [facility] [id number] 488 [place] 00:00:00 00:00:00 EDWARD [address] 2021-07-16 2021-07-16 Outpatient DAVEY, [facility] [id number] 153 [place] 00:00:00 00:00:00 EDWARD 716 Method i 2021-07-16 2021-07-16 Outpatient DAVEY, [facility] [id number] [place] 00:00:00 00:00:00 EDWARD 310 Method i 2021-06-27 2021-06-27 Outpatient TANKER, [facility] 2100 [id number] [place] 00:00:00 00:00:00 PARVIN 464 Method i 2021-06-27 2021-06-27 Outpatient BERNICKER, [facility] 2100 [id number] [place] 00:00:00 00:00:00 PARVIN 624 Method i 2021-06-26 2021-06-26 Outpatient [facility] ST[facility] [id number] Common 00:00:00 00:00:00 [facility] 2021-05-24 2021-05-24 Outpatient STLMLC STLMLC [id number] Common 00:00:00 00:00:00 [facility] 2021-05-22 2021-05-22 Outpatient DAVEY, [facility] [id number] [place] 00:00:00 00:00:00 EDWARD [address] 2021-05-22 2021-05-22 Outpatient DAVEY, [facility] [id number] 682 [place] 00:00:00 00:00:00 EDWARD [address] 2021-05-18 2021-05-18 Outpatient DAVEY, [facility] [id number] 739 [place] 00:00:00 00:00:00 EDWARD [address] 2021-05-17 2021-05-17 Outpatient DAVEY, [facility] [id number] 621 [place] 00:00:00 00:00:00 EDWARD [address] 2021-05-08 2021-05-08 Outpatient NICHOL, [facility] 2100 [id number] [place] 00:00:00 00:00:00 PARVIN [address] 2021-05-08 2021-05-08 Outpatient NICHOL, [facility] [id number] [id number] [place] 00:00:00 00:00:00 PARVIN [address] 2021-03-26 2021-03-26 Outpatient [facility]LMLC ST[facility] [id number] Common 00:00:00 00:00:00 [facility] 2021-03-26 2021-03-26 Outpatient STLMLC STLMLC [id number] Common 00:00:00 00:00:00 [facility] 2021-03-05 2021-03-05 Outpatient STLMLC STLMLC [id number] Common 00:00:00 00:00:00 [facility] 2021-02-13 2021-02-13 Outpatient STLMLC STLMLC [id number] Common 00:00:00 00:00:00 [facility] 2021-02-01 2021-02-01 Outpatient NICHOL, [facility] [id number] [id number] [place] 00:00:00 00:00:00 PARVIN [address] 2021-01-26 2021-01-26 Outpatient NICHOL, [facility] 2100 [id number] [place] 00:00:00 00:00:00 PARVIN [address] 2021-01-26 2021-01-26 Outpatient NICHOL, [facility] 2100 [id number] [place] 00:00:00 00:00:00 PARVIN [address] 2021-01-22 2021-01-22 Outpatient [facility] ST[facility] [id number] Common 00:00:00 00:00:00 [facility] 2021-01-22 2021-01-22 Outpatient STLMLC ST[facility] [id number] Common 00:00:00 00:00:00 [facility] 2021-01-19 2021-01-19 Outpatient STLMLC STLMLC [id number] Common 00:00:00 00:00:00 [facility] 2020-11-22 2020-11-22 Outpatient [facility] [id number] [facility] 00:00:00 00:00:00 [facility] 2020-09-25 2020-09-25 Outpatient NICHOL [facility] [id number] [place] 00:00:00 00:00:00 PARVIN 116 Method i 2020-09-22 2020-09-22 Outpatient [facility] [id number] [place] 00:00:00 00:00:00 PARVIN 372 [facility] 2020-08-02 2020-08-02 Outpatient [facility] [id number] [facility] 13:40[facility]-05-17 2020-05-17 Outpatient [facility] [id number] [place] 00:00:00 00:00:00 PARVIN 561 [facility] 2020-05-05 2020-05-05 Outpatient [facility]OL [facility] [id number] [place] 00:00:00 00:00:00 PARVIN 367 [facility] 2020-05-05 2020-05-05 Outpatient [facility]OL [facility] [id number] [place] 00:00:00 00:00:00 PARVIN 726 [facility] 2020-05-05 2020-05-05 Outpatient [facility]OL [facility] [id number] [place] 00:00:00 00:00:00 PARVIN 205 [facility] 2020-01-28 2020-02-01 Inpatient [facility] [id number] [place] 00:00:00 00:00:00 AMER 969 [facility] 2020-01-11 2020-01-11 Outpatient [facility] [id number] [place] 14:00:00 14:00:00 [facility] [address] [facility] 2019-12-06 2019-12-06 Outpatient NICHOL [facility] [id number] [place] 00:00:00 00:00:00 PARVIN 095 [facility] 2019-10-24 2019-10-28 Inpatient U RADHA [facility] [id number] [facility] 12:21:00 11:47:00 ity [facility] 2019-02-15 2019-02-15 Outpatient DEANNA, [facility] [id number] [place] 00:00:00 00:00:[address] 2019-02-04 2019-02-05 Outpatient DEANNA, [facility] [id number] [place] 00:00:00 00:00:[address] 2018-12-18 2018-12-19 Outpatient DEANNA, [facility] [id number] [place] 00:00:00 00:00:[address] 2018-10-19 2018-10-20 Outpatient DEANNA, [facility] [id number] [place] 00:00:00 00:00:[address] 2018-10-01 2018-10-01 Outpatient DEANNA, [facility] [id number] [place] 00:00:00 00:00:[address] 2018-08-17 2018-08-17 Outpatient DEANNA, [facility] [id number] [place] 00:00:00 00:00:[address] 2018-08-13 2018-08-14 Outpatient DEANNA, [facility] [id number] [place] 00:00:00 00:00:[address] 2018-06-25 2018-06-25 Outpatient DEANNA, [facility] [id number] [place] 00:00:00 00:00:[address] Results Test Description Test Time Test Comments Results Result Comments Source POC glucose 2022-01-03 16:10:08 Test Item Value Reference Range Interpretation Comme nts POC glucose (test code = 97 mg/dL 65-99 Ope rator Name: Kathleen Avilaalexandra ID: [id number]) [id number] able: No [facility] [id number] 20:43:13 Test Item Value Reference Range Interpretation Comments Course ID (test code = C2 5706) Course Start Date 2021-08-22 @18:48 (test code = 5707) Treatment Elapsed Days (test code = 5709) Course Intent (test Unknown code = 5686) Treatment Dates (test Course End Date: code = 5685) 2021-09-17 @15:43First Treatment Date: 2021-09-03 @13:48Last Treatment Date: 2021-09-14 @13:13 Reference Point ID Rt Lung Retr (test code = 5710) Dosage Given to Date in Gy (test code = 5711) Plan ID (test code = RtLungRetreat 5713) Plan Name (test code = RtLungRetreat 5714) Fractions Treated to Date (test code = 5715) Prescribed Dose Per Fraction in Gy (test code = 5716) Prescription Dose in cGy (test code = 5717) [facility] ONC DAILY [id number] 18:17:16 Test Item Value Reference Range Interpretation Comments Course ID (test code = C2 5706) Course Start Date 2021-08-22 @18:48 (test code = 5707) Treatment Elapsed Days (test code = 5709) Course Intent (test Unknown code = 5686) Treatment Dates (test First Treatment Date: code = 5685) 2021-09-03 @13:48Last Treatment Date: 2021-09-14 @13:13 Reference Point ID Rt Lung Retr (test code = 5710) Dosage Given to Date in Gy (test code = 5711) Session Dosage Given in Gy (test code = 5712) Plan ID (test code = RtLungRetreat 5713) Plan Name (test code = Rt Lung Retr 5714) Fractions Treated to Date (test code = 5715) Prescribed Dose Per Fraction in Gy (test code = 5716) Prescription Dose in cGy (test code = 5717) [facility] DAILY [id number] 18:52:25 Test Item Value Reference Range Interpretation Comments Course ID (test code = C2 5706) Course Start Date 2021-08-22 @18:48 (test code = 5707) Treatment Elapsed Days (test code = 5709) Course Intent (test Unknown code = 5686) Treatment Dates (test First Treatment Date: code = 5685) 2021-09-03 @13:48Last Treatment Date: 2021-09-13 @13:48 Reference Point ID Rt Lung Retr (test code = 5710) Dosage Given to Date in Gy (test code = 5711) Session Dosage Given in Gy (test code = 5712) Plan ID (test code = RtLungRetreat 5713) Plan Name (test code = Rt Lung Retr 5714) Fractions Treated to Date (test code = 5715) Prescribed Dose Per Fraction in Gy (test code = 5716) Prescription Dose in cGy (test code = 5717) [facility] ONC DAILY [id number] 18:47:38 Test Item Value Reference Range Interpretation Comments Course ID (test code = C2 5706) Course Start Date 2021-08-22 @18:48 (test code = 5707) Treatment Elapsed Days (test code = 5709) Course Intent (test Unknown code = 5686) Treatment Dates (test First Treatment Date: code = 5685) 2021-09-03 @13:48Last Treatment Date: 2021-09-12 @13:43 Reference Point ID Rt Lung Retr (test code = 5710) Dosage Given to Date in Gy (test code = 5711) Session Dosage Given in Gy (test code = 5712) Plan ID (test code = RtLungRetreat 5713) Plan Name (test code = Rt Lung Retr 5714) Fractions Treated to Date (test code = 5715) Prescribed Dose Per Fraction in Gy (test code = 5716) Prescription Dose in cGy (test code = 5717) [facility] DAILY [id number] 18:48:47 Test Item Value Reference Range Interpretation Comments Course ID (test code = C2 5706) Course Start Date 2021-08-22 @18:48 (test code = 5707) Treatment Elapsed Days (test code = 5709) Course Intent (test Unknown code = 5686) Treatment Dates (test First Treatment Date: code = 5685) 2021-09-03 @13:48Last Treatment Date: 2021-09-11 @13:44 Reference Point ID Rt Lung Retr (test code = 5710) Dosage Given to Date in Gy (test code = 5711) Session Dosage Given in Gy (test code = 5712) Plan ID (test code = RtLungRetreat 5713) Plan Name (test code = Rt Lung Retr 5714) Fractions Treated to Date (test code = 5715) Prescribed Dose Per Fraction in Gy (test code = 5716) Prescription Dose in cGy (test code = 5717) [facility] ONC DAILY [id number] 18:45:17 Test Item Value Reference Range Interpretation Comments Course ID (test code = C2 5706) Course Start Date 2021-08-22 @18:48 (test code = 5707) Treatment Elapsed Days (test code = 5709) Course Intent (test Unknown code = 5686) Treatment Dates (test First Treatment Date: code = 5685) 2021-09-03 @13:48Last Treatment Date: 2021-09-10 @13:41 Reference Point ID Rt Lung Retr (test code = 5710) Dosage Given to Date in Gy (test code = 5711) Session Dosage Given in Gy (test code = 5712) Plan ID (test code = RtLungRetreat 5713) Plan Name (test code = Rt Lung Retr 5714) Fractions Treated to Date (test code = 5715) Prescribed Dose Per Fraction in Gy (test code = 5716) Prescription Dose in cGy (test code = 5717) [facility] ON[facility] DAILY [id number] 18:42:32 Test Item Value Reference Range Interpretation Comments Course ID (test code = C2 5706) Course Start Date 2021-08-22 @18:48 (test code = 5707) Treatment Elapsed Days (test code = 5709) Course Intent (test Unknown code = 5686) Treatment Dates (test First Treatment Date: code = 5685) 2021-09-03 @13:48Last Treatment Date: 2021 @13:37 Reference Point ID Rt Lung Retr (test code = 5710) Dosage Given to Date in Gy (test code = 5711) Session Dosage Given in Gy (test code = 5712) Plan ID (test code = RtLungRetreat 5713) Plan Name (test code = Rt Lung Retr 5714) Fractions Treated to Date (test code = 5715) Prescribed Dose Per Fraction in Gy (test code = 5716) Prescription Dose in cGy (test code = 5717) [facility] ON[facility] DAILY [id number] 18:18:37 Test Item Value Reference Range Interpretation Comments Course ID (test code = C2 5706) Course Start Date 2021-08-22 @18:48 (test code = 5707) Treatment Elapsed Days (test code = 5709) Course Intent (test Unknown code = 5686) Treatment Dates (test First Treatment Date: code = 5685) 2021-09-03 @13:48Last Treatment Date: 2021-09-06 @13:14 Reference Point ID Rt Lung Retr (test code = 5710) Dosage Given to Date in Gy (test code = 5711) Session Dosage Given in Gy (test code = 5712) Plan ID (test code = RtLungRetreat 5713) Plan Name (test code = Rt Lung Retr 5714) Fractions Treated to Date (test code = 5715) Prescribed Dose Per Fraction in Gy (test code = 5716) Prescription Dose in cGy (test code = 5717) [facility] ON[facility] DAILY [id number] 18:23:40 Test Item Value Reference Range Interpretation Comments Course ID (test code = C2 5706) Course Start Date 2021-08-22 @18:48 (test code = 5707) Treatment Elapsed Days (test code = 5709) Course Intent (test Unknown code = 5686) Treatment Dates (test First Treatment Date: code = 5685) 2021-09-03 @13:48Last Treatment Date: 2021-09-05 @13:19 Reference Point ID Rt Lung Retr (test code = 5710) Dosage Given to Date in Gy (test code = 5711) Session Dosage Given in Gy (test code = 5712) Plan ID (test code = RtLungRetreat 5713) Plan Name (test code = Rt Lung Retr 5714) Fractions Treated to Date (test code = 5715) Prescribed Dose Per Fraction in Gy (test code = 5716) Prescription Dose in cGy (test code = 5717) [facility] ONC DAILY [id number] 18:47:38 Test Item Value Reference Range Interpretation Comments Course ID (test code = C2 5706) Course Start Date 2021-08-22 @18:48 (test code = 5707) Treatment Elapsed Days (test code = 5709) Course Intent (test Unknown code = 5686) Treatment Dates (test First Treatment Date: code = 5685) 2021-09-03 @13:48Last Treatment Date: 2021-09-04 @13:42 Reference Point ID Rt Lung Retr (test code = 5710) Dosage Given to Date in Gy (test code = 5711) Session Dosage Given in Gy (test code = 5712) Plan ID (test code = RtLungRetreat 5713) Plan Name (test code = Rt Lung Retr 5714) Fractions Treated to 2 Date (test code = 5715) Prescribed Dose Per Fraction in Gy (test code = 5716) Prescription Dose in cGy (test code = 5717) [facility] ON[facility] DAILY [id number] 18:52:45 Test Item Value Reference Range Interpretation Comments Course ID (test code = C2 5706) Course Start Date 2021-08-22 @18:48 (test code = 5707) Treatment Elapsed Days (test code = 5709) Course Intent (test Unknown code = 5686) Treatment Dates (test First Treatment Date: code = 5685) 2021-09-03 @13:48Last Treatment Date: 2021-09-03 @13:48 Reference Point ID Rt Lung Retr (test code = 5710) Dosage Given to Date in Gy (test code = 5711) Session Dosage Given in Gy (test code = 5712) Plan ID (test code = RtLungRetreat 5713) Plan Name (test code = Rt Lung Retr 5714) Fractions Treated to 1 Date (test code = 5715) Prescribed Dose Per Fraction in Gy (test code = 5716) Prescription Dose in cGy (test code = 5717) [facility] [Presence] in Respiratory specimen by JACE with probe [id number] 20:06:14 Test Item Value Reference Range Interpretation Comments SARS-CoV-2 (COVID-19) RNA Not detected Not-Detected [Presence] in Respiratory specimen by JACE with probe detection (test code = 35022-4) Whether patient is employed in a healthcare setting (test code = 12796-3) Whether the patient has symptoms related to condition of interest (test code = 97434-3) Patient was hospitalized because of this condition (test code = 26112-1) Whether the patient was admitted to intensive care unit (ICU) for condition of interest (test code = 28408-9) Whether patient resides in a congregate care setting (test code = 75225-1)
[2022-07-21] MEDS ORDERED: METHYLPREDNISOLONE 125 MG INJ ONE (22:45)
[2022-07-21] MEDS ORDERED: DIAZEPAM 10 MG/2 ML INJ SYRINGE ONE (22:45)
[2022-07-21 23:02] LABS: Absolute Lymphocytes (CBC) 3.3 K/uL (0.7-4.9); Hematocrit 34.2 % (39.6-49.0); Lymphocytes % 22.2 % (15.3-44.8); MCV 96.7 fL (80-100); MPV 6.3 fL (7.6-11.3); RBC Red Blood Cell Count 3.54 M/uL (4.33-5.43)
[2022-07-21 23:03] LABS: Protime INR 1.15
[2022-07-21] MEDS ORDERED: LEVALBUTEROL 1.25 MG/3 ML NEB ONE (23:03)
[2022-07-21] MEDS ORDERED: IPRATROPIUM BROM 0.5MG/2.5ML ONE (23:03)
--- NOTE | 2022-07-21 23:03 | RAD REPORT ---
EXAM DESCRIPTION: Rosa M Single View07/21/2022 10:51 pm CLINICAL HISTORY: Cough COMPARISON: May 2022 FINDINGS: 6 centimeter opacity mid to lower right lung Additional bilateral interstitial lung opacities. Heart is normal size IMPRESSION: 6 centimeter right lung opacity may represent pneumonia or mass. CT chest recommended Additional bilateral interstitial lung opacities may represent infection or interstitial pulmonary ed brandy
[2022-07-21 23:21] LABS: ALT/SGPT 37 U/L (12-78); AST/SGOT 21 U/L (15-37); Albumin 3.1 g/dL (3.4-5.0); Alkaline Phosphatase 52 U/L (45-117); BUN Blood Urea Nitrogen 21 mg/dL (7-18); Bicarbonate 25 mmol/L (21-32); Bilirubin Total 0.2 mg/dL (0.2-1.0); Glomerular Filtration Rate 21 ml/min (=/>90); Glucose Level 127 mg/dL (74-106); Magnesium 1.5 mg/dL (1.8-2.4); NT PRO-BNP 2447 pg/mL (<125); Protein, Total 7.2 g/dL (6.4-8.2); Sodium Level 138 mmol/L (136-145)
[2022-07-21 23:28] LABS: Bilirubin Direct < 0.1 mg/dL (0-0.2)
[2022-07-21 23:30] LABS: Troponin High Sensitivity 68.6 pg/mL (<58.9)
[2022-07-22] MEDS ORDERED: CEFTRIAXONE 1000 MG/VIAL ONE (00:02)
[2022-07-22] MEDS ORDERED: AZITHROMYCIN 500 MG INJ IVPB ONE (00:02)
[2022-07-22] MEDS ORDERED: FUROSEMIDE 40 MG/4 ML VIAL ONE (00:02)
[2022-07-22] MEDS ORDERED: NA CHLORIDE 0.9% 250 ML ONE (00:03)
[2022-07-22] MEDS ORDERED: DIAZEPAM 10 MG/2 ML INJ SYRINGE ONE (00:21)
[2022-07-22 01:09] LABS: Arterial Blood Carboxyhemoglob 3.2 % (0-1.5); Blood Gas Oxyhemoglobin 58.2 % (94-97); Blood O2 Saturation 60.9 % (92-98.5)
--- NOTE | 2022-07-22 01:10 | ER ---
Nurse's Notes [facility] Name: Narendra Martin Age: 61 yrs Sex: Male : 1960 Arrival Date: 07/21/2022 Time: 22:30 Bed 16 Private MD: Diagnosis: Hypoxemia;Acute kidney failure, unspecified;COPD/ Chronic obstructive pulmonary disease, unspecified;COPD/ Chronic obstructive pulmonary disease with (acute) exacerbation;Pneumonia due to other specified bacteria;Hypomagnesemia Presentation: 07/21 22:35 Chief complaint: EMS states: respiratory distress. Coronavirus screen: Vaccine status: kl unknown pt unable to answer questions. Ebola Screen: Patient negative for fever greater than or equal to 101.5 degrees Fahrenheit, and additional compatible Ebola Virus Disease symptoms. Initial Sepsis Screen: Does the patient meet any 2 criteria? RR > 20 per min. HR > 90 bpm. Does the patient have a suspected source of infection? No. Patient's initial sepsis screen is negative. Risk Assessment: Do you want to hurt yourself or someone else? Patient reports no desire to harm self or others. Onset of symptoms was July 21, 2022 at 21:00. Care prior to arrival: Medication(s) given: im benedryl A \\T\\ A breathing treatment IM epinephrine Oxygen administered. via a non-rebreather mask. 22:35 Method Of Arrival: EMS: [facility] 22:35 Acuity: FLORES 2 kl Triage Assessment: 22:47 General: Appears distressed, uncomfortable, Behavior is anxious, restless. Pain: Denies kl pain. Respiratory: Airway is patent Respiratory effort is labored, gasping, with retractions, Respiratory pattern is tachypnea Breath sounds are diminished bilaterally. Historical: - Allergies: 22:47 cisplatin; kl - Home Meds: 22:47 Chantix Oral [Active]; Dexamethasone Oral [Active]; felodipine Oral [Active]; Folbic kl Oral [Active]; furosemide 40 mg Oral tab [Active]; lisinopril-hydrochlorothiazide Oral [Active]; Omeprazole Oral [Active]; Thiamine Oral [Active]; Coumadin Oral [Active]; - PMHx: 22:47 COPD; GERD; Hypertension; Lung CA, recieving chemotherapy; polycythemia vera; kl - PSHx: 22:47 Left lower lung removal; kl - Immunization history:: Flu vaccine is not up to date. - Social history:: Smoking status: Patient reports the use of cigarette tobacco products, smokes one-half pack cigarettes per day. - Family history:: not pertinent. Screenin:11 Abuse screen: Denies threats or abuse. Nutritional screening: No deficits noted. kl Tuberculosis screening: No symptoms or risk factors identified. Fall Risk None identified. Assessment: 07/22 00:45 Reassessment: Patient states feeling better. Patient states symptoms have improved. tw5 00:52 General: Reports at the bedside reports " We got home from some friends and he tw5 took his second dose of carvedilol and in 30 min he started having trouble breathing. He sat straight up in bed and he said he he couldn't breath. His oxygen was showing 50% and his heart rate was 121. That when when we called the EMS.". Neuro: Level of Consciousness is awake, alert, obeys commands, Oriented to person, place, time, situation. Respiratory: Airway is patent Trachea midline Respiratory effort is labored, Respiratory pattern is tachypnea Breath sounds with wheezes bilaterally. Derm: Skin is intact, Skin is pale. 01:39 Reassessment: Patient appears in no apparent distress at this time. No changes from tw5 previously documented assessment. Vital Signs: 07/21 22:35 BP 151 / 83; Pulse 132; Resp 38; Pulse Ox 100% on Non-rebreather mask; 07/22 00:45 Pulse 110; Resp 18; Pulse Ox 100% on 5 lpm NC; tw5 01:39 BP 98 / 77; Pulse 100; Resp 26; Pulse Ox 100% on 5 lpm NC; tw5 ED Course: 07/21 22:30 Patient arrived in ED. mw2 22:31 Lenny Fields MD is Attending Physician. christine 22:40 Missed attempt(s): 20 gauge in right wrist. 22 gauge in right wrist. kl 22:45 Inserted saline lock: 20 gauge in left antecubital area, using aseptic technique. kl 22:47 Triage completed. kl 22:52 XRAY Chest (1 view) In Process Unspecified. EDMS 23:49 Maranda Sellers, VEL is Primary Nurse. ke1 07/22 00:22 Initial lab(s) drawn, by ED staff, sent to lab. EKG done, by ED staff, reviewed by 5 Lenny Fields MD. 00:23 Patient has correct armband on for positive identification. Placed in gown. Bed in low 5 position. Call light in reach. Side rails up X2. Adult w/ patient. Warm blanket given. Pillow given. shelter monitor on. Pulse ox on. NIBP on. 00:48 COVID-19 SARS RT PCR (Document "Date of Onset" if Symptomatic) Sent. 5 00:48 COVID swab sent to lab. 5 00:52 Awaiting bed assignment. tw5 00:52 Oxygen administration via nasal cannula \\T\\ 5L/min. tw5 00:55 Thorax Wo Con In Process Unspecified. EDUT 01:08 Sergio Zelaya MD is Hospitalizing Provider. [facility] 02:55 No provider procedures requiring assistance completed. Patient admitted, IV remains in as6 place. 02:55 Arm band placed on. as6 07:53 Primary Nurse role handed off by Maranda Sellers RN eb Administered Medications: 07/21 22:41 Drug: SOLU-Medrol (methylPrednisoLONE) 125 mg Route: IVP; Site: left antecubital; 07/22 04:23 Follow up: Response: No adverse reaction as 07/21 22:41 Not Given (Physician Discretion): Ativan (LORazepam) 1 mg IVP once 22:42 Drug: Valium (diazepam) 4 mg Route: IVP; Site: left antecubital; 07/22 04:22 Follow up: Response: No adverse reaction as 07/21 23:04 Drug: Xopenex (levalbuterol) 3.75 mg Route: Inhalation; 07/22 04:23 Follow up: Response: No adverse reaction as 07/21 23:04 Drug: AtroVENT (ipratropium) Aerosol 0.5 mg Route: Inhalation; 07/22 04:23 Follow up: Response: No adverse reaction as 00:07 Drug: Rocephin (cefTRIAXone) 1 grams Route: IV; Rate: per protocol; Site: left ke1 antecubital; 04:23 Follow up: Response: No adverse reaction; IV Status: Completed infusion; IV Intake: [id number] 00:07 Drug: Lasix (furosemide) 40 mg Route: IVP; Site: left antecubital; ke1 04:22 Follow up: Response: No adverse reaction as6 00:07 Drug: Zithromax (azithromycin) 500 mg Route: IVPB; Infused Over: 1 hrs; Site: left ke1 antecubital; 04:22 Follow up: Response: No adverse reaction; IV Status: Completed infusion; IV Intake: as6 250ml 01:26 Drug: Magnesium Sulfate 1 grams Route: IVPB; Infused Over: 1 hrs; Site: left antecubital; 04:22 Follow up: Response: No adverse reaction; IV Status: Completed infusion; IV Intake: as6 100ml Medication: 00:52 VIS not applicable for this client. tw5 Intake: 04:22 IV: 100ml; Total: 100ml. as6 04:22 IV: 250ml; Total: 350ml. as6 04:23 IV: 50ml; Total: 400ml. as6 Outcome: 01:10 Decision to Hospitalize by Provider. christine 02:55 Admitted to ER Hold. Please see [facility] for further documentation. as6 02:55 Condition: stable 02:55 Instructed on the need for admit. 10:08 Patient left the ED. ll1 Signatures: Dispatcher [employer] Juliann De León RN RN kl Anderson, Corey, MD MD cha Martinez, Maria [facility] Chrissy Dobbins 2 Kate Hanks Lynsay, RN RN ll1 Donna Lynn tw5 Thomas Mendoza RN RN as6 Maranda Sellers RN RN ke1
--- NOTE | 2022-07-22 01:10 | EDPHYS ---
Physician Documentation [facility] Name: Narendra Martin Age: 61 yrs Sex: Male : 1960 Arrival Date: 07/21/2022 Time: 22:30 Bed 16 Private MD: JANETTE Physician Lenny Fields HPI: 07/22 01:01 This 61 yrs old Male presents to ER via EMS with complaints of Respiratory christine Distress. 01:01 The patient has shortness of breath at rest, with light activity. Onset: The christine symptoms/episode began/occurred today. Duration: The symptoms are continuous, and are steadily getting worse. The patient's shortness of breath is aggravated by coughing, supine position, talking, walking. The patient or guardian reports cough, difficulty breathing. Modifying factors: The symptoms are alleviated by nothing. the symptoms are aggravated by activity, lying flat. Associated signs and symptoms: Pertinent positives: non-productive cough. Severity of symptoms: At their worst the symptoms were moderate severe in the emergency department the symptoms have improved mildly. The patient or guardian reports airway noise, flu symptoms. Historical: - Allergies: 07/21 22:47 cisplatin; kl - Home Meds: 22:47 Chantix Oral [Active]; Dexamethasone Oral [Active]; felodipine Oral [Active]; Folbic kl Oral [Active]; furosemide 40 mg Oral tab [Active]; lisinopril-hydrochlorothiazide Oral [Active]; Omeprazole Oral [Active]; Thiamine Oral [Active]; Coumadin Oral [Active]; - PMHx: 22:47 COPD; GERD; Hypertension; Lung CA, recieving chemotherapy; polycythemia vera; kl - PSHx: 22:47 Left lower lung removal; kl - Immunization history:: Flu vaccine is not up to date. - Social history:: Smoking status: Patient reports the use of cigarette tobacco products, smokes one-half pack cigarettes per day. - Family history:: not pertinent. ROS: 07/22 01:01 Constitutional: Negative for fever, chills, and weight loss, Eyes: Negative for injury, christine pain, redness, and discharge, ENT: Negative for injury, pain, and discharge, Neck: Negative for injury, pain, and swelling, Cardiovascular: Negative for chest pain, palpitations, and edema, Abdomen/GI: Negative for abdominal pain, nausea, vomiting, diarrhea, and constipation, Back: Negative for injury and pain, : Negative for injury, bleeding, discharge, and swelling, MS/Extremity: Negative for injury and deformity, Skin: Negative for injury, rash, and discoloration, Neuro: Negative for headache, weakness, numbness, tingling, and seizure, Psych: Negative for depression, anxiety, suicide ideation, homicidal ideation, and hallucinations, Allergy/Immunology: Negative for hives, rash, and allergies, Endocrine: Negative for neck swelling, polydipsia, polyuria, polyphagia, and marked weight changes, Hematologic/Lymphatic: Negative for swollen nodes, abnormal bleeding, and unusual bruising. Respiratory: Positive for cough, orthopnea, shortness of breath, wheezing, expiratory. MS/extremity: Negative for acute changes. Exam: : Constitutional: This is a well developed, well nourished patient who is awake, alert, christine and in no acute distress. Head/Face: Normocephalic, atraumatic. Eyes: Pupils equal round and reactive to light, extra-ocular motions intact. Lids and lashes normal. Conjunctiva and sclera are non-icteric and not injected. Cornea within normal limits. Periorbital areas with no swelling, redness, or edema. ENT: Nares patent. No nasal discharge, no septal abnormalities noted. Tympanic membranes are normal and external auditory canals are clear. Oropharynx with no redness, swelling, or masses, exudates, or evidence of obstruction, uvula midline. Mucous membranes moist. Neck: Trachea midline, no thyromegaly or masses palpated, and no cervical lymphadenopathy. Supple, full range of motion without nuchal rigidity, or vertebral point tenderness. No Meningismus. Chest/axilla: Normal chest wall appearance and motion. Nontender with no deformity. No lesions are appreciated. Abdomen/GI: Soft, non-tender, with normal bowel sounds. No distension or tympany. No guarding or rebound. No evidence of tenderness throughout. Back: No spinal tenderness. No costovertebral tenderness. Full range of motion. Male : Normal genitalia with no discharge or lesions. Skin: Warm, dry with normal turgor. Normal color with no rashes, no lesions, and no evidence of cellulitis. MS/ Extremity: Pulses equal, no cyanosis. Neurovascular intact. Full, normal range of motion. Neuro: Awake and alert, GCS 15, oriented to person, place, time, and situation. Cranial nerves II-XII grossly intact. Motor strength 5/5 in all extremities. Sensory grossly intact. Cerebellar exam normal. Normal gait. Psych: Awake, alert, with orientation to person, place and time. Behavior, mood, and affect are within normal limits. 01:01 Cardiovascular: Rate: tachycardic, Rhythm: regular, Pulses: Pulses are 4+ in bilateral radial, brachial, femoral, popliteal, posterior tibial and and dorsalis pedis arteries.. Heart sounds: normal, normal S1and S2, no S3 or S4, no murmur, no rub, no gallop, Edema: is not appreciated, JVD: is not appreciated. 01:01 ECG was reviewed by the Attending Physician. Vital Signs: 07/21 22:35 BP 151 / 83; Pulse 132; Resp 38; Pulse Ox 100% on Non-rebreather mask; kl 07/22 00:45 Pulse 110; Resp 18; Pulse Ox 100% on 5 lpm NC; tw5 01:39 BP 98 / 77; Pulse 100; Resp 26; Pulse Ox 100% on 5 lpm NC; tw5 MDM: 07/21 22:35 Patient medically screened. christine 07/22 01:05 Differential diagnosis: Anemia Anxiety Reaction asthma, Bronchitis CHF exacerbation, christine Chronic Obstructive Pulmonary Disease bronchitis, flu, URI, pneumonia, Pneumothorax pulmonary edema, Pulmonary Embolism. Antibiotic administration: Rocephin and Zithromax given. The patient's [place] Deep Vein Thrombosis Score was calculated as follows: Heart Rate >100 BPM (1.5 Pts). Differential Diagnosis: Bronchitis Influenza Upper Respiratory Infection Sinusitis Pharyngitis Asthma Exacerbation Viral Syndrome Pneumonia. The patient's pulmonary embolism risk score was calculated as follows: the patients heart rate is greater than 100 beats per minute (1.5 Pts). Immunization status: Influenza vaccine:. Data reviewed: vital signs, nurses notes, lab test result(s), EKG, radiologic studies, CT scan, plain films. Data interpreted: environmental monitoring specialist: rate is 110 beats/min, rhythm is regular, Pulse oximetry: on room air is 100 %. Test interpretation: by ED physician or midlevel provider: ECG, plain radiologic studies. Counseling: I had a detailed discussion with the patient and/or guardian regarding: the historical points, exam findings, and any diagnostic results supporting the discharge/admit diagnosis, lab results, radiology results, the need for further work-up and treatment in the hospital. 07/21 22:31 Order name: Basic Metabolic Panel; Complete Time: 23:30 [facility] 07/21 22:31 Order name: CBC with Diff; Complete Time: 23:21 [facility] 07/21 22:31 Order name: LFT's; Complete Time: 23:30 [facility] 07/21 22:31 Order name: Magnesium; Complete Time: 23:30 [facility] 07/21 22:31 Order name: NT PRO-BNP; Complete Time: 23:30 [facility] 07/21 22:31 Order name: PT-INR; Complete Time: 23:21 [facility] 07/21 22:31 Order name: Troponin HS; Complete Time: 23:30 [facility] 07/21 22:35 Order name: Blood Culture Adult (2) [facility] 07/21 22:35 Order name: Lactate; Complete Time: 00:20 [facility] 07/21 22:35 Order name: Procalcitonin; Complete Time: 23:46 [facility] 07/21 22:35 Order name: ABG [facility] 07/21 23:59 Order name: COVID-19 SARS RT PCR (Document "Date of Onset" if Symptomatic) 2 07/22 01:45 Order name: Urine Microscopic Only la 07/22 04:52 Order name: CBC with Automated Diff [facility] 07/21 22:31 Order name: XRAY Chest (1 view); Complete Time: 23:21 [facility] 07/21 22:35 Order name: BIPAP [facility] 07/21 23:46 Order name: Chest Wo Con [facility] 07/21 23:50 Order name: Thorax Wo Con EDAK 07/22 05:22 Order name: Manual Differential EDMS 07/22 05:24 Order name: Comprehensive Metabolic Panel EDMS 07/22 05:24 Order name: Creatine Phosphokinase EDMS 07/22 05:24 Order name: Troponin High Sensitivity EDMS 07/22 05:24 Order name: T4 Free EDMS 07/22 05:24 Order name: Thyroid Stimulating Hormone EDMS 07/22 06:28 Order name: Magnesium EDMS 07/22 07:32 Order name: US EDMS 07/22 08:52 Order name: Urine Dipstick-Ancillary EDAK 07/21 22:31 Order name: EKG; Complete Time: 22:32 [facility] 07/21 22:31 Order name: Cardiac monitoring; Complete Time: 00:22 [facility] 07/21 22:31 Order name: EKG - Nurse/Tech; Complete Time: 00:22 [facility] 07/21 22:31 Order name: IV Saline Lock; Complete Time: 00:22 [facility] 07/21 22:31 Order name: Labs collected and sent; Complete Time: 00:22 [facility] 07/21 22:31 Order name: O2 Per Protocol; Complete Time: 00:22 [facility] 07/21 22:31 Order name: O2 Sat Monitoring; Complete Time: 00:22 [facility] 07/22 01:45 Order name: Urine Dipstick-Ancillary (obtain specimen); Complete Time: 08:52 la1 EC: Rate is 112 beats/min. Rhythm is regular. QRS [place]son is Normal. QRS interval is normal. christine QT interval is normal. No Q waves. T waves are Normal. No ST changes noted. Clinical impression: Sinus tachycardia and No evidence of ischemia. Interpreted by me. Reviewed by me. Administered Medications: 07/21 22:41 Drug: SOLU-Medrol (methylPrednisoLONE) 125 mg Route: IVP; Site: left antecubital; 07/22 04:23 Follow up: Response: No adverse reaction as6 07/21 22:41 Not Given (Physician Discretion): Ativan (LORazepam) 1 mg IVP once 22:42 Drug: Valium (diazepam) 4 mg Route: IVP; Site: left antecubital; 07/22 04:22 Follow up: Response: No adverse reaction as 07/21 23:04 Drug: Xopenex (levalbuterol) 3.75 mg Route: Inhalation; 07/22 04:23 Follow up: Response: No adverse reaction as6 07/21 23:04 Drug: AtroVENT (ipratropium) Aerosol 0.5 mg Route: Inhalation; 07/22 04:23 Follow up: Response: No adverse reaction as 00:07 Drug: Rocephin (cefTRIAXone) 1 grams Route: IV; Rate: per protocol; Site: left ke antecubital; 04:23 Follow up: Response: No adverse reaction; IV Status: Completed infusion; IV Intake: [id number] 00:07 Drug: Lasix (furosemide) 40 mg Route: IVP; Site: left antecubital; ke1 04:22 Follow up: Response: No adverse reaction as6 00:07 Drug: Zithromax (azithromycin) 500 mg Route: IVPB; Infused Over: 1 hrs; Site: left ke1 antecubital; 04:22 Follow up: Response: No adverse reaction; IV Status: Completed infusion; IV Intake: as6 250ml 01:26 Drug: Magnesium Sulfate 1 grams Route: IVPB; Infused Over: 1 hrs; Site: left kl antecubital; 04:22 Follow up: Response: No adverse reaction; IV Status: Completed infusion; IV Intake: as6 100ml Disposition Summary: 07/22/22 01:10 Hospitalization Ordered Hospitalization Status: Inpatient Admission christine Provider: Sergio Zelaya cha Condition: Stable christine Problem: new christine Symptoms: have improved christine Bed/Room Type: Standard christine Location: Telemetry/MedSurg (Inpatient)(07/22/22 07:40) eb Room Assignment: [facility](07/22/22 07:40) eb Diagnosis - Hypoxemia christine - Acute kidney failure, unspecified christine - COPD/ Chronic obstructive pulmonary disease, unspecified christine - COPD/ Chronic obstructive pulmonary disease with (acute) exacerbation christine - Pneumonia due to other specified bacteria christine - Hypomagnesemia christine Forms: - Medication Reconciliation Form christine - SBAR form christine Signatures: Dispatcher [employer] EDJuliann Hope RN RN kl Anderson, Corey, MD MD cha Attema, Lee, CUSTOMER AGENT-C CUSTOMER AGENT-Cla1 Justina Calvo RN RN cg Botello, Elizabeth eb Wood, Tiffany 5 Maranda Sellers RN RN ke1 Slawson, Ashby RN as6 Corrections: (The following items were deleted from the chart) 00:37 0904 22:46 Leyva ordered. christine ke1 07/22 02:19 01:10 Telemetry/MedSurg (Inpatient) christine cg 02:19 01:10 christine cg 07:40 02:19 [facility] ER HOLD cg eb 07:40 02:19 ERHOLD- cg eb
[2022-07-22] MEDS ORDERED: MAGNESIUM SULFATE 1 gm IVPB 1 GM/100 ML BAG IV ONE (01:29)
--- NOTE | 2022-07-22 02:13 | P.HP ---
Certification for Inpatient Patient admitted to: Inpatient With expected LOS: >2 Midnights Patient will require the following post-hospital care: None Practitioner: I am a practitioner with admitting privileges, knowledge of patient current condition, hospital course, and medical plan of care. Services: Services provided to patient in accordance with Admission requirements found in Title 42 Section 412.3 of the Code of Federal Regulations <Tanner Quintanilla - Last Filed: 07/22/22 02:14> Patient History Date of Service: 07/22/22 Reason for admission: Respiratory failure History of Present Illness: 61-year-old male with history of COPD, lung cancer, polycythemia vera, recently diagnosed with CHF presented to the emergency department in respiratory distress. reports that after getting back from a friend's house he took his second dose of carvedilol which was recently prescribed to him and soon after began having a COPD exacerbation which did not respond to home nebulizer treatments. Upon arrival to the emergency department patient was in respiratory distress, he was placed on BiPAP. Further evaluation the emergency department revealed labs significant for leukocytosis, hypoxic/hypercapnic respiratory failure, acute renal failure with mildly elevated troponin/BNP chest x-ray was performed which demonstrated 6 mm to right lung opacity which may represent pneumonia or mass CT recommended CT was performed which demonstrated a spiculated pulmonary nodule in the central right lower lobe suspected increased from prior imaging concerning for neoplasm. Patient and family aware of this finding they report that he has been followed outpatient for this and no longer undergoing radiation. He was treated with IV steroids, nebulizer treatments, IV magnesium and BiPAP in the emergency department, his symptoms have since improved significantly he is currently on nasal cannula still some expiratory wheezing but feeling much better. ED provider wishes to admit for further evaluation and management of COPD exacerbation. - Past Medical/Surgical History Diabetic: No -: Lung cancerstatus post radiation at [place] [facility] -: Hypertension -: COPD -: Hypothroidism -: CHF -: CKD -: Lobectomy left lower lobe -: Bronchosopies Psychosocial/ Personal History: Patient is . - Family History Father -: Cancer Notes: esophageal cancer Mother -: Kidney disease Brother -: Stroke Sister -: Heart disease, Hypertension - Social History Smoking Status: Current every day smoker Counseled patient to stop smoking for: less than 10 minutes Smoking therapy provided: Yes Alcohol use: Yes CD- Drugs: No Caffeine use: Yes Place of Residence: Home <Tanner Quintanilla - Last Filed: 07/22/22 02:14> Date of Service: 07/22/22 <Adis Patterson - Last Filed: 07/22/22 17:37> Allergies No Known Allergies Allergy (Verified 05/21/22 00:23) Home Medications: Albuterol Sulfate [Proair Hfa] 8.5 gm IH PRN PRN 07/01/17 Aspirin [Aspirin EC 81 MG] 81 mg PO DAILY 07/01/17 Omeprazole 20 mg PO DAILY 07/01/17 Albuterol Sulfate 5 mg IH QID 03/11/22 Levothyroxine Sodium [Levothyroxine] 25 mcg PO DAILY 03/11/22 Losartan Potassium 50 mg PO DAILY 03/11/22 Megestrol Acetate 40 mg PO DAILY 03/11/22 Bupropion *Xl* [Wellbutrin XL] 450 mg PO DAILY 05/22/22 Umeclidinium Brm/Vilanterol Tr [Anoro Ellipta 62.5-25 Mcg INH] 1 puff IH DAILY #1 blst.w.dev 05/22/22 Ascorbate Calcium [Vitamin C] 500 mg PO DAILY 07/22/22 Docosahexanoic AC/Epa [Fish Oil 1,000 MG CAP] 1,000 mg PO DAILY 07/22/22 Furosemide [Lasix] 40 mg PO PRN PRN 07/22/22 Gabapentin 100 mg PO BID 07/22/22 Ipratropium/Albuterol Sulfate [Iprat-Albut 0.5-3(2.5) mg/3 ml] 3 ml IH Q4HP PRN 07/22/22 Mometasone/Formoterol [Dulera 200 Mcg/5 Mcg Inhaler] 2 puff IH BID 07/22/22 Multivit-Min/Folic/Vit K/Lycop [Men's Multivitamin Tablet] 1 each PO DAILY 07/22/22 Review of Systems 10-point ROS is otherwise unremarkable Respiratory: Cough, Shortness of Breath, Wheezing, As per HPI <Tanner Quintanilla - Last Filed: 07/22/22 02:14> Physical Examination - Physical Exam General: Alert, In no apparent distress, Oriented x3 HEENT: Atraumatic, PERRLA, Mucous membr. moist/pink, EOMI, Sclerae nonicteric Neck: Supple, 2+ carotid pulse no bruit, No LAD, Without JVD or thyroid abnormality Respiratory: Diminished, Expiratory wheezes Cardiovascular: No edema, Regular rate/rhythm, Normal S1 S2 Capillary refill: <2 Seconds Gastrointestinal: Normal bowel sounds, No tenderness Musculoskeletal: No tenderness Integumentary: No rashes Neurological: Normal speech, Normal strength at 5/5 x4 extr, Normal tone, Normal affect - Studies Laboratory Data (last 24 hrs) 07/21/22 22:35: PT 12.7 H, INR 1.15 07/21/22 22:35: WBC 15.00 H, Hgb 11.4 L, Hct 34.2 L, Plt Count 763 H 07/21/22 22:35: Sodium 138, Potassium 4.0, BUN 21 H, Creatinine 3.25 H, Glucose 127 H, Magnesium 1.5 L D, Total Bilirubin 0.2, AST 21, ALT 37, Alkaline Phosphatase 52 <Tanner Quintanilla - Last Filed: 07/22/22 02:14> - Studies Laboratory Data (last 24 hrs) 07/21/22 22:35: PT 12.7 H, INR 1.15 07/21/22 22:35: WBC 15.00 H, Hgb 11.4 L, Hct 34.2 L, Plt Count 763 H 07/21/22 22:35: Sodium 138, Potassium 4.0, BUN 21 H, Creatinine 3.25 H, Glucose 127 H, Magnesium 1.5 L D, Total Bilirubin 0.2, AST 21, ALT 37, Alkaline Phosphatase 52 Microbiology Data (last 24 hrs): 07/21/22 23:42 Blood - Blood Anaerobic Blood Culture - Final 07/21/22 23:48 Blood - Blood Anaerobic Blood Culture - Final <Adis Patterson - Last Filed: 07/22/22 17:37> Assessment and Plan - Plan Assessment: Acute on chronic hypoxic/hypercapnic respiratory failure secondary to COPD with exacerbation Chronic CHFunknown EF Acute kidney injury superimposed on CKD 3 SIRS criteria Lung cancer Hypertension Hypothyroidism Plan: Acute on chronic hypoxic/hypercapnic respiratory failure secondary to COPD with exacerbation: Pulmonology consulted, continue scheduled nebs, steroids, ICS, incentive spirometry. Daily room air saturations. It is possible that carvedilol which was recently started by his zigzagger may have contributed to this exacerbation will this medication for the time being we will need to evaluate by pulmonology/cardiology. Chronic CHFunknown EF: Family reports recent echocardiogram with his zigzagger Dr. Crystal with EF of 46%, it was reported that he was started on carvedilol and losartan, will need to hold carvedilol given his recent episode of acute respiratory failure after receiving carvedilol as well as losartan given his acute kidney injury. Cardiology consulted for additional recommendations. We will attempt to obtain results from recently performed echocardiogram. He does not appear to be overloaded at this time. Acute kidney injury superimposed on CKD 3: Nephrology consulted, renal ultrasound ordered. Patient is on losartan which is being held, he also had been taking furosemide a few times a week for wheezing/dyspnea. Patient without any lower extremity edema or weight gain chest x-ray/CT without any pulmonary edema or pleural effusions patient and family educated on appropriate use of his as needed dose of furosemide. Appreciate further input from nephrology. Continue gentle IV hydration overnight. SIRS criteria: SIRS criteria present heart rate greater than 90, respiratory rate greater than 20, white blood cell count greater than 12 although no source of infection has been confirmed currently, his chest x-ray was concerning for possible pneumonia and at that time he was given antibiotics RocephinZithromax. CT was performed which showed spiculated pulmonary nodule no infectious findings. We will con tinue RocephinZithromax for the time being. It is also possible that his recent doses of dexamethasone which was given to him earlier this week could be contributing to his leukocytosis. Lung cancer: Patient with known lung cancer follows outpatient has had chemo/radiation previously. No longer on any treatments. Hypertension: Currently holding losartan/carvedilol will need his medications adjusted. Will provide medications on as-needed basis for tonight. Hypothyroidism: Continue home medication once verified. DVT PPX: Heparin Code status: Full Discharge Plan: Home Plan to discharge in: Greater than 2 days - Advance Directives Does patient have a Living Will: No Does patient have a Durable POA for Healthcare: Yes - Code Status/Comfort Care Code Status Assessed: Yes (Full code) Critical Care: No Time Spent Managing Pts Care (In Minutes): 70 <Tanner Quintanilla - Last Filed: 07/22/22 02:14> - Plan Agree with plan of care as noted above. Patient seen this morning on rounds. Feeling better - breathing more comfortably, continues with wheeze bilaterally slight confusion / does not remember yesterday family at bedside, updated state he uses his nebs q4h at home <Adis Patterson - Last Filed: 07/22/22 17:37>
[2022-07-22] MEDS: NA CHLORIDE 0.9% 1,000 ML IV SCH ×2 (02:41→17:07)
[2022-07-22] MEDS: IPRATROPIUM BROM 0.5MG/2.5ML NEB SCH ×5 (02:41→19:50)
[2022-07-22] MEDS ORDERED: ACETAMINOPHEN 500 MG TAB PO PRN (02:41)
[2022-07-22] MEDS ORDERED: ONDANSETRON 4 MG/2 ML VIAL IV PRN (02:41)
[2022-07-22] MEDS: ALBUTEROL 2.5 MG/3 ML NEB SOL NEB SCH ×6 (02:41→19:50)
[2022-07-22 02:57] VITALS: BMI 27.3
[2022-07-22] MEDS ORDERED: NA CHLORIDE 0.9% 1,000 ML ONE (02:59)
[2022-07-22] MEDS ORDERED: IPRATROPIUM BROM 0.5MG/2.5ML ONE ×2 (03:43→08:01)
[2022-07-22] MEDS ORDERED: LEVALBUTEROL 0.63 MG/3 ML NEB ONE (04:06)
[2022-07-22 04:51] LABS: Absolute Lymphocytes (CBC) 0.6 K/uL (0.7-4.9); Hematocrit 27.5 % (39.6-49.0); Lymphocytes % 3.3 % (15.3-44.8); MCV 95.1 fL (80-100); MPV 6.4 fL (7.6-11.3); RBC Red Blood Cell Count 2.89 M/uL (4.33-5.43)
[2022-07-22 05:20] LABS: Albumin 2.7 g/dL (3.4-5.0); Bilirubin Total 0.2 mg/dL (0.2-1.0); Potassium 3.9 mmol/L (3.5-5.1); Protein, Total 6.2 g/dL (6.4-8.2); Thyroid Stimulating Hormone 0.046 uIU/mL (0.360-3.740)
[2022-07-22 05:22] LABS: Blood Morphology Comment NOT SEEN (NOT SEEN); Platelet Estimate ADEQ
[2022-07-22 05:23] LABS: Troponin High Sensitivity 790.8 pg/mL (<58.9)
--- NOTE | 2022-07-22 07:31 | RAD REPORT ---
EXAM DESCRIPTION: US - Renal Ultrasound-Complete - 07/22/2022 4:31 am CLINICAL HISTORY: Acute renal failure COMPARISON: February 2022 FINDINGS: The right kidney measures 8 cm with a mildly increased echotexture The left kidney measures 12 cm with a mildly increased echotexture. 4.2 centimeter cyst unchanged Hydronephrosis is not seen. No gross abnormality of bladder IMPRESSION: Mildly increased renal echotexture may indicate parenchymal disease 4.2 centimeter left renal cyst
[2022-07-22] MEDS ORDERED: PNEUMOCOCCAL VACCINE 0.5 ML IMVAC ONE (08:00)
[2022-07-22] MEDS: predniSONE 20 MG TAB PO SCH ×2 (08:00→17:05)
[2022-07-22] MEDS ORDERED: ALBUTEROL 2.5 MG/3 ML NEB SOL ONE (08:01)
[2022-07-22 08:52] LABS: Urine Blood Trace-intact (Negative); Urine Glucose Negative (Negative); Urine Protein 1+ (Negative)
[2022-07-22] MEDS: ENOXAPARIN 80 MG/0.8 ML SQ SCH (09:00)
[2022-07-22] MEDS ORDERED: HEPARIN 5000 UNIT/ML 1 ML VIAL SQ SCH (09:00)
[2022-07-22] MEDS: ASPIRIN EC 81 MG TAB PO SCH (09:00)
[2022-07-22] MEDS: DULERA 200/5 (MOMETASONE/FORMOTEROL) INHALER IH SCH ×2 (09:00→21:02)
[2022-07-22 09:15] LABS: Urine Bacteria <20 /HPF (<20); Urine Mucus Slight /HPF (None Seen); Urine RBC <5 /HPF (None Seen)
[2022-07-22] MEDS ORDERED: ASPIRIN EC 81 MG TAB PO ONE (09:28)
[2022-07-22] MEDS ORDERED: predniSONE 20 MG TAB ONE (09:29)
[2022-07-22] MEDS ORDERED: ENOXAPARIN 80 MG/0.8 ML SQ ONE (09:29)
--- NOTE | 2022-07-22 10:04 | P.CNS ---
Date of Consult: 07/22/22 Reason for Consult: Respiratory distress Chief Complaint: Respiratory failure History of Present Illness: Patient is 61 years of age with a history of COPD lung cancer polycythemia decrease in ejection fraction. With sudden onset of respiratory distress appar ently after he took a second dose of carvedilol as prescribed by his cardiology found to be in respiratory distress respiratory failure toxic hypercapnic was placed on BiPAP is currently doing better he is back to his baseline does have a right lower lobe mass and he has had a history of lung cancer has been followed up at [facility] history of COPD Allergies No Known Allergies Allergy (Verified 05/21/22 00:23) Home Medications: Albuterol Sulfate [Proair Hfa] 8.5 gm IH PRN PRN 07/01/17 Aspirin [Aspirin EC 81 MG] 81 mg PO DAILY 07/01/17 Omeprazole 40 mg PO DAILY 07/01/17 Amlodipine Besylate 1 tab PO DAILY 07/07/18 Albuterol Sulfate 5 mg IH QID 03/11/22 Levothyroxine Sodium [Levothyroxine] 25 mcg PO DAILY 03/11/22 Losartan Potassium 50 mg PO DAILY 03/11/22 Megestrol Acetate 40 mg PO DAILY 03/11/22 Furosemide [Lasix] 40 mg PO DAILY #30 tablet 03/16/22 Nicotine [Nicotine Patch] 21 mg TD DAILY 05/21/22 Varenicline Tartrate [Chantix] 1 mg PO DAILY 05/21/22 Bupropion *Xl* [Wellbutrin XL] 300 mg PO DAILY 05/22/22 Umeclidinium Brm/Vilanterol Tr [Anoro Ellipta 62.5-25 Mcg INH] 1 puff IH DAILY #1 blst.w.dev 05/22/22 predniSONE [Prednisone*] 10 mg PO BID #20 tab 05/22/22 - Past Medical/Surgical History Diabetic: No -: Lung cancerstatus post radiation [facility] -: Hypertension -: COPD -: Hypothroidism -: CHF -: CKD -: Lobectomy left lower lobe -: Bronchosopies Psychosocial/ Personal History: Patient is . - Family History Father Medical History: Cancer Notes: esophageal cancer Mother Medical History: Kidney disease Brother Medical History: Stroke Sister Medical History: Heart disease, Hypertension - Social History Smoking Status: Former smoker Alcohol use: Yes CD- Drugs: No Caffeine use: Yes Place of Residence: Home Review of Systems 10-point ROS is otherwise unremarkable Physical Examination Temp Pulse Resp BP Pulse Ox 98.1 F 92 H 20 114/77 100 07/22/22 04:00 07/22/22 08:00 07/22/22 08:00 07/22/22 08:00 07/22/22 08:00 General: Alert, In no apparent distress, Oriented x3 Respiratory: Clear to auscultation bilaterally, Diminished Cardiovascular: No edema, Normal pulses, Regular rate/rhythm Gastrointestinal: Normal bowel sounds, Soft and benign Laboratory Data (last 24 hrs) 07/21/22 22:35: PT 12.7 H, INR 1.15 07/21/22 22:35: WBC 15.00 H, Hgb 11.4 L, Hct 34.2 L, Plt Count 763 H 07/21/22 22:35: Sodium 138, Potassium 4.0, BUN 21 H, Creatinine 3.25 H, Glucose 127 H, Magnesium 1.5 L D, Total Bilirubin 0.2, AST 21, ALT 37, Alkaline Phosphatase 52 - Problems (1) COPD exacerbation Current Visit: No Status: Chronic Plan: Patient is 61 years of age with a history of COPD and lower lobe lung cancer he was treated with radiation therapy as he seems like he has a recurrence of his right lung cancer admitted with significant respiratory disease distress apparently after taking a dose of carvedilol scribed by his cardiology is back to his baseline patient was hypoxic hypercapnic elevated white count elevated troponins most likely his troponin is elevated from demand ischemia vital signs oxygenation all stable possible discharge on prednisone has Anoro at home he was some levofloxacin patient also has chronic renal failure
--- NOTE | 2022-07-22 13:54 | CON ---
Date of Consultation: 07/22/2022 Reason For Consultation: Acute renal failure. History Of Present Illness: Mr. Martin is a 61-year-old male with past medical history significant for history of longstanding chronic kidney disease, being followed by Dr. 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 He was evaluated by his straw hat brusher about last week and found to have some mild plaquing in his carotid arteries and also with some leaky valves and was started on Coreg. He does h ave severe COPD and is persistently dependent on nebulizers and oxygen; however, after he took his Co reg, he was okay after the first dose. After the second dose, he started to have difficulty breathin g with severe hypoxia and altered mental status because of which his family brought him to the emerge ncy room for further evaluation. His oxygen saturations improved after he was brought in and he has been admitted for observation at this time and he was also found to have a mass in his lung consisten t with a history of lung cancer. Past Medical History: Significant for history of lung cancer, chronic kidney disease, and hypertensi on with history of coronary artery disease, being followed by Dr. Crystal as outpatient. Physical Examination: Vital Signs: Showing temperature of 97.1, pulse rate of 78, respiratory rate of 18, and blood pressu re 117/52. General: He appears in no acute distress. HEENT: Atraumatic head. Neck: No JVD was noted. Lungs: Auscultation of lungs revealed bilateral wheezes. Heart: Auscultation of the heart revealed irregular rate and rhythm with mild tachycardia. Abdomen: Soft and nontender. Extremities: Showed no evidence of edema. Laboratory Data: At this time are showing WBC count of 18.8, hemoglobin of 9.6, hematocrit of 27.7, platelet count of 532. BMP results are showing a creatinine of 3.21, improving from 3.2, baseline is around 1.5. Sodium of 137, potassium of 3.9, chloride of 105. Troponin was mildly elevated. Album in was 2.7. Current Medications: Have been reviewed in detail. Impression: 1.Acute renal failure secondary to possibly from acute tubular necrosis from hypotension from use of carvedilol, which caused severe bronchospasm and possible allergic reaction causing decreased renal hypoperfusion. At this time, the patient is nonoliguric, renal function slightly better than before. Chest x-ray is showing right lung opacity representing the previous lung cancer and bilateral inter stitial lung opacities consistent with possibly interstitial pulmonary edema. We will hold off furth er on any antihypertensives at this time and prevent any further hypotensive episodes. Blood pressur e continues to be stable. We will continue to monitor off blood pressure medicines and we will hold off on any IV fluids also because of his active wheezing. 2.Underlying lung cancer. Plan to follow up with Pulmonary as outpatient and Oncology as outpatient . 3.Hypertension. Hold off on all antihypertensives as mentioned above and monitor closely. 4.Anemia secondary to chronic disease, currently stable. We will follow up. 5.Underlying chronic obstructive pulmonary disease. The patient is being followed by Dr. Sanchez. We will continue nebulizer treatments and pulmonary toilet. TYE/GERRY Voice ID: [id number] Report ID: [id number]
--- NOTE | 2022-07-22 14:58 | RAD REPORT ---
EXAM DESCRIPTION: CT - Thorax Wo Con - 07/22/2022 6:52 am CLINICAL HISTORY: Abnormal xray - lung opacity/opacities. COMPARISON: CTA of the chest from March 11, 2022. TECHNIQUE: CT of the chest was performed without contrast. Axial, coronal, and sagittal reconstructi ons were created and sent to PACS. This exam was performed according to our departmental dose-optimization program, which includes autom ated exposure control, adjustment of the mA and/or kV according to patient size and/or use of iterati ve reconstruction technique. FINDINGS: Lungs and pleura: Moderate centrilobular emphysema. Mild to moderate multifocal pulmonary interstitial thickening, most prominent in the right upper and lower lobes. Suspected increased size of the spiculated nodule in the right lower lobe in the peribronchovascular region which measures 2.1 x 3.1 x 3.1 cm (AP x TV x CC). There is mild motion degradation through the lungs. No pulmonary cons olidation. No pleural effusion. No pneumothorax. Mediastinum and neck: No mediastinal lymphadenopathy by CT size criteria. Unremarkable appearance of the thyroid gland. Cardiovascular: No cardiomegaly or pericardial effusion. No thoracic aortic aneurysm. Moderate calcif ic atherosclerosis. Abdomen: No significant upper abdominal abnormality identified. Musculoskeletal: No concerning osseous abnormality. Prior healed right-sided rib fractures. Osteopeni c appearance of the bones. Multilevel chronic mild to moderate vertebral body compression fractures i n the thoracic spine. No significant bony retropulsion. IMPRESSION: 1. Spiculated pulmonary nodule in the central right lower lobe, suspected increased fr om prior (average 26 mm). This is concerning for neoplasm. If not already performed, recommend correl ation with tissue sampling or PET/CT. 2. These guidelines do not apply to immunocompromised patients and patients with cancer. Follow up in patients with significant comorbidities as clinically warranted. For lung cancer screening, adhere to Lung-RADS guidelines. Reference: Radiology. 2017; 284(1):228-43. 3. Moderate centrilobular emphysema. Mild to moderate multifocal pulmonary interstitial thickening, possibly fibrosis. 4. Mild motion degradation. Electronically signed by: Radha Cheung MD 07/22/2022 1:03 AM CDT Due to temporary technical issues with the PACS/Fluency reporting system, reports are being signed by the in house radiologists without review as a courtesy to insure prompt reporting. The interpreting radiologist is fully responsible for the content of the report.
[2022-07-22] MEDS: levoFLOXacin 750 MG TAB PO SCH (17:05)
[2022-07-22] MEDS: NICOTINE 14 MG/PAT TD SCH (17:24)
--- NOTE | 2022-07-22 19:36 | CON ---
Date of Consultation: 07/22/2022 Admitted on 07/22/[address] Patterson. I saw the patient on 07/22/2022. Reason For Consultation: Elevated troponin, respiratory failure. History Of Present Illness: Mr. Martin is a 61-year-old male. Has had a history of COPD, gastroesopha geal reflux disease, lung cancer, hypertension, and polycythemia vera, came in with the respiratory f ailure with a pO2 of 37, pCO2 of 56, pH of 7.22. He is now on BiPAP, oxygenating better, but complai nt of shortness of breath. Denied PND, orthopnea, pedal edema, palpitation, syncope, chest pain, gleacio sea, vomiting, or diaphoresis. Past Medical History: As stated above. Allergies: NONE. Review of Systems: Negative. Social History: Negative. Family History: Noncontributory. Medications: At home include aspirin, inhalers, Norvasc, Lasix, losartan, Synthroid, prednisone, and omeprazole. He is also on a beta-ignacio that Dr. Crystal just recently added. Physical Examination: General: He was in no acute distress. Vital Signs: Stable. He was in a sinus rhythm. HEENT: Negative. Neck: Supple with no bruit. Chest: Reveals crackles both bases. Cardiac: Revealed a regular rhythm and rate with S4 gallops. No murmurs or rubs. Abdomen: Benign. Extremities: Revealed no clubbing, cyanosis, or edema. Skin: Dry and intact. Neurological: He was nonfocal. Pulses were present distally bilaterally. Diagnostic Data: His calcium was 7.6. Troponin is 790. BNP is 2447. His creatinine was 3.0. Whit e count was 18,000, hemoglobin is 9.6. He also has UTI. Impression And Plan: 1.Chronic obstructive pulmonary disease exacerbation with hypoxia, hypercapnia causing elevated trop onin. This is demand ischemia. He is on BiPAP. Continue present regimen. 2.History of lung cancer. 3.History of gastroesophageal reflux disease. 4.Hypertension, well controlled. 5.Polycythemia vera. 6.Renal failure. 7.Elevated white count. 8.Anemia. 9.Hypocalcemia. 10.Elevated BNP. Echocardiogram is pending. I would personally discontinue his Lasix. Continue aspirin, inhalers, Lo venox, prednisone. Obtain Nephrology consultation. He needs his calcium corrected. I will continue to follow. OXANA/GERRY Voice ID: [id number] Report ID: [id number]
[2022-07-22] MEDS ORDERED: AZITHROMYCIN IV 500 MG in NA CHLORIDE 0.9% 250 ML IVPB SCH (20:00)
[2022-07-22] MEDS ORDERED: CEFTRIAXONE 1,000 MG in NA CHLORIDE 0.9% 50 ML IVPB SCH (21:00)
[2022-07-23] MEDS: IPRATROPIUM BROM 0.5MG/2.5ML NEB SCH ×6 (00:05→20:20)
[2022-07-23] MEDS: ALBUTEROL 2.5 MG/3 ML NEB SOL NEB SCH ×6 (00:05→20:20)
[2022-07-23 05:43] LABS: Arterial Blood Carboxyhemoglob 1.4 % (0-1.5); Blood Gas Oxyhemoglobin 93.5 % (94-97)
[2022-07-23 05:50] LABS: Absolute Lymphocytes (CBC) 0.5 K/uL (0.7-4.9); Hematocrit 23.9 % (39.6-49.0); Lymphocytes % 3.8 % (15.3-44.8); MCV 94.9 fL (80-100); MPV 6.4 fL (7.6-11.3); RBC Red Blood Cell Count 2.51 M/uL (4.33-5.43)
[2022-07-23] MEDS: NA CHLORIDE 0.9% 1,000 ML IV SCH ×2 (05:55→17:41)
[2022-07-23 06:20] LABS: Albumin 2.5 g/dL (3.4-5.0); Bilirubin Total 0.2 mg/dL (0.2-1.0); Magnesium 1.4 mg/dL (1.8-2.4); Potassium 3.3 mmol/L (3.5-5.1); Protein, Total 5.8 g/dL (6.4-8.2)
[2022-07-23] MEDS ORDERED: CALCIUM GLUCONATE 1 GM IVPB 2 GM/100 ML BAG IV ONE (07:45)
[2022-07-23] MEDS ORDERED: Magnesium Sulfate 2gm IVPB 2 G/50 ML BAG IV ONE (08:00)
[2022-07-23] MEDS ORDERED: CALCIUM GLUC 10% INJ 9.3 MEQ in NA CHLORIDE 0.9% 100 ML IV ONE (08:00)
[2022-07-23] MEDS: ASPIRIN EC 81 MG TAB PO SCH (08:21)
[2022-07-23] MEDS: ENOXAPARIN 80 MG/0.8 ML SQ SCH (08:21)
[2022-07-23] MEDS: predniSONE 20 MG TAB PO SCH ×2 (08:21→17:41)
[2022-07-23] MEDS: DULERA 200/5 (MOMETASONE/FORMOTEROL) INHALER IH SCH ×2 (08:22→20:51)
[2022-07-23] MEDS: NICOTINE 14 MG/PAT TD SCH (08:23)
[2022-07-23] MEDS ORDERED: DULERA 200/5 (MOMETASONE/FORMOTEROL) INHALER IH SCH (09:00)
[2022-07-23] MEDS ORDERED: LOSARTAN POTASSIUM 50 MG TABLET PO SCH (09:00)
[2022-07-23] MEDS ORDERED: ASPIRIN EC 81 MG TAB PO SCH (09:00)
[2022-07-23] MEDS ORDERED: IPRATROPIUM BROM 0.5MG/2.5ML IH PRN (09:03)
[2022-07-23] MEDS ORDERED: POTASSIUM CL SA 10 MEQ TAB PO ONE (09:30)
[2022-07-23] MEDS: PANTOPRAZOLE 40MG TABLET PO SCH (10:00)
[2022-07-23] MEDS: GABAPENTIN 100 MG CAP PO SCH ×2 (10:54→20:50)
[2022-07-23] MEDS: BUPROPION HCL XL 150 MG TAB PO SCH (10:54)
[2022-07-23] MEDS: LEVOTHYROXINE SOD 0.025 MG TAB PO SCH (10:54)
[2022-07-23] MEDS: DOCOSAHEXANOIC AC/EPA 1000 MG PO SCH (10:54)
[2022-07-23] MEDS: ASCORBIC ACID 500 MG TABLET PO SCH (10:55)
[2022-07-23] MEDS: CALCITROL 0.25 MCG CAP PO SCH (10:56)
--- NOTE | 2022-07-23 12:14 | P.PN ---
Date of Service: 07/23/22 (S) Pt still endorsing some shortness of breath, no reports of CP, discussed renal function tests in detail. I learnt from his that the pt did recently get IV Zometa in late Jun given hx of osteopenia/porosis and some compression fractures. Physical Examination: Vital Signs: Reviewed in the EMR General: He appears in no acute distress. HEENT: Atraumatic head. Neck: Supple Lungs: b/l air entry, no rhonchi Heart: RRR mostly, no loud murmurs Abdomen: Soft, ND, NT Extremities: Showed no evidence of edema.Shins are non tender Derm: No rashes noted but some telangietasia over the chest Neuro: Awake, alert, non focal Impression: 1. Stage II DOMONIQUE that may have been multifactorial and sub-acute as pt did rece mamta IV bisphosphonate therapy end of last mo, compounded by more recent hypotension, ARB use, other. Cr level peaked early on and is now downward trending nicely. Likely underlying Stage III CKD unspecified, renal asymmetry noted and there is increased renal echogenicity. Ok to cont gentle IVF hydration, prior echo did not show any significant cardiomyopathy. 2. Hypocalcemia 2nd to recent bisphosphonate administration -place on PO Calcium and active Vit D as PTH > 150 in the setting of lower calcium level and possibly CKD. 3. Chronic HTN -ok to cont lower dose ARB with holding parameter since renal function now recovering Fred Robles MD, MELITON
--- NOTE | 2022-07-23 14:35 | EKG ---
Test Date: 2022-07-22 Test Time: 00:19:48 Stamping Mill Tender: MAXWELL MEASUREMENT RESULTS: Intervals: Rate: 112 TN: 124 QRSD: 82 QT: 364 QTc: 496 [place]: P: 24 TN: 124 QRS: 92 T: 81 INTERPRETIVE STATEMENTS: Sinus tachycardia Rightward axis Cannot rule out Inferior infarct, age undetermined Abnormal ECG Compared to ECG 05/20/2022 21:25:56 Right-axis deviation now present Myocardial infarct finding still present Electronically Signed On 07-23-22 14:31:30 CDT by Darek Rae
--- NOTE | 2022-07-23 14:35 | EKG ---
Test Date: 2022-07-22 Test Time: 00:21:10 Rug Receiving Clerk: MAXWELL MEASUREMENT RESULTS: Intervals: Rate: 110 CO: 122 QRSD: 80 QT: 358 QTc: 484 [place]: P: 27 CO: 122 QRS: 93 T: 76 INTERPRETIVE STATEMENTS: Sinus tachycardia Rightward axis Borderline ECG Compared to ECG 07/22/2022 00:19:48 Myocardial infarct finding no longer present Electronically Signed On 07-23-22 14:31:10 CDT by Darek Rae
--- NOTE | 2022-07-23 17:02 | P.PN ---
Subjective Date of Service: 07/23/22 Chief Complaint: Respiratory failure Patient reports improvement in shortness of breath. He has been tolerating room air today with oxygen saturation around 96%. Physical Examination - Vital Signs Temperature: 97.4 F Blood Pressure: 135/63 Pulse: 95 Respirations: 18 Pulse Ox (%): 96 - Studies Microbiology Data (last 24 hrs): 07/21/22 23:48 Blood - Blood Anaerobic Blood Culture - Final 07/21/22 23:42 Blood - Blood Anaerobic Blood Culture - Final Assessment And Plan - Plan Physical Exam General: Alert, In no apparent distress, Oriented x3 Neck: Without JVD. Respiratory: Diminished, clear to auscultation Cardiovascular: No edema, Regular rate/rhythm, Normal S1 S2 Gastrointestinal: Normal bowel sounds, No tenderness Integumentary: No rashes Neurological: Normal strength at 5/5 x4 extr. Assessment: Acute on chronic hypoxic/hypercapnic respiratory failure secondary to COPD with exacerbation Chronic CHFunknown EF Acute kidney injury superimposed on CKD 3 SIRS criteria Lung cancer Hypertension Hypothyroidism Plan: Acute on chronic hypoxic/hypercapnic respiratory failure secondary to COPD with exacerbation: Seen by pulmonary. continue scheduled nebs, steroids, ICS, incentive spirometry. Bronchospasms could be beta-ignacio related. Avoid carvedilol for now. Seen by pulmonary. Dr. Sanchez's recommendations noted. Patient has clinically improved and currently stable on room air. Assess oxygen saturation with exertion. . Chronic CHFunknown EF: Family reports recent echocardiogram with his watch assembly inspector Dr. Crystal with EF of 46%, it was reported that he was started on carvedilol and losartan, will need to hold carvedilol given his recent episode of acute respiratory failure after receiving carvedilol as well as losartan given his acute kidney injury. Cardiology recommendations noted. Lasix discontinued for now. Acute kidney injury superimposed on CKD 3: Seen by nephrology, renal ultrasound ordered. Lasix on hold. Losartan resumed by nephrology. Status post brief IV hydration. SIRS criteria: SIRS criteria present heart rate greater than 90, respiratory rate greater than 20, white blood cell count greater than 12 although no source of infection has been confirmed currently, his chest x-ray was concerning for possible pneumonia and at that time he was given antibiotics RocephinZithromax. CT was performed which showed spiculated pulmonary nodule no infectious findings. Oral Levaquin per Dr. Sanchez. Lung cancer: Patient with known lung cancer follows outpatient, status post hemo/radiation previously. Currently under surveillance. Hypertension: Losartan resumed. Patient is currently normotensive. Hypothyroidism: Continue home dose Synthroid.
[2022-07-23] MEDS ORDERED: TEMAZEPAM 15 MG CAP PO PRN (17:22)
[2022-07-23] MEDS: CALCIUM CARBONATE 500 MG TAB PO SCH (20:51)
[2022-07-24] MEDS: ALBUTEROL 2.5 MG/3 ML NEB SOL NEB SCH ×3 (00:35→08:54)
[2022-07-24] MEDS: IPRATROPIUM BROM 0.5MG/2.5ML NEB SCH ×3 (00:35→08:54)
--- NOTE | 2022-07-24 04:36 | PN ---
Mr. Martin was being followed for elevated troponin and respiratory failure. He has a history of COPD, lung cancer, gastroesophageal reflux disease, hypertension, and polycythemia vera. Echocardiogram r emains pending. He has clinically improved. Last vital signs were stable. He was in sinus rhythm a t a rate 94, blood pressure 112/81. He was afebrile. O2 saturation is 97% on room air. His last pO 2 is 77 compared to 37 when he first came in. His pCO2 was 28. His pH was 7.44. He is presently on inhalers, aspirin, Lovenox, Synthroid, prednisone, and antibiotics. We will await for his echo resu lts. Otherwise, no change in medical therapy. OXANA/MODL Voice ID: [id number] Report ID: [id number]
[2022-07-24 04:42] LABS: Absolute Lymphocytes (CBC) 0.4 K/uL (0.7-4.9); Lymphocytes % 4.1 % (15.3-44.8); MCV 95.2 fL (80-100); MPV 6.3 fL (7.6-11.3); RBC Red Blood Cell Count 2.63 M/uL (4.33-5.43)
[2022-07-24 04:53] LABS: Albumin 2.6 g/dL (3.4-5.0); Bilirubin Total 0.3 mg/dL (0.2-1.0); Magnesium 1.8 mg/dL (1.8-2.4); Potassium 3.6 mmol/L (3.5-5.1); Protein, Total 5.8 g/dL (6.4-8.2)
[2022-07-24] MEDS: LEVOTHYROXINE SOD 0.025 MG TAB PO SCH (06:01)
[2022-07-24] MEDS: PANTOPRAZOLE 40MG TABLET PO SCH (06:01)
[2022-07-24] MEDS: NA CHLORIDE 0.9% 1,000 ML IV SCH (06:48)
--- NOTE | 2022-07-24 08:52 | P.DS ---
Admission Date: 07/22/22 Discharge Date: 07/24/22 Disposition: ROUTINE DISCHARGE Discharge Condition: FAIR Reason for Admission: Respiratory failure Brief History of Present Illness: 61-year-old male with history of COPD, lung cancer, polycythemia vera, recently diagnosed with CHF presented to the emergency department in respiratory distress. reported that after getting back from a friend's house he took his second dose of carvedilol which was recently prescribed to him and soon after began having a COPD exacerbation which did not respond to home nebulizer treatments. Upon arrival to the emergency department patient was in respiratory distress, he was placed on BiPAP. Further evaluation the emergency department revealed labs significant for leukocytosis, hypoxic/hypercapnic respiratory failure, acute renal failure with mildly elevated troponin/BNP. Chest x-ray was performed which demonstrated 6 mm to right lung opacity which may represent pneumonia or mass. CT was performed which demonstrated a spiculated pulmonary nodule in the central right lower lobe suspected increased from prior imaging concerning for neoplasm. Patient and family aware of this finding they report that he has been followed outpatient for this and no longer undergoing radiation. He was treated with IV steroids, nebulizer treatments, IV magnesium and BiPAP in the emergency department, his symptoms improved significantly and was transitioned to oxygen by nasal cannula. Patient admitted for further management. Hospital Course: Diagnosis Acute on chronic hypoxic/hypercapnic respiratory failure secondary to COPD with exacerbation Chronic CHFunknown EF Acute kidney injury superimposed on CKD 3 SIRS criteria Lung cancer Hypertension Hypothyroidism Patient admitted to the medical floor. The following problems were addressed during the hospital stay: Acute on chronic hypoxic/hypercapnic respiratory failure secondary to COPD with exacerbation: Patient treated with scheduled nebs, steroids, ICS, incentive spirometry. Bronchospasms could be beta-ignacio related. Avoided beta-blockers. Seen by pulmonary. Dr. Sanchez's recommendations noted. Patient clinically improved and became stable on room air. . Chronic CHFunknown EF: Family reports recent echocardiogram with his loss control technician Dr. Crystal with EF of 46%, for which she was started on carvedilol and he was started. Seen by cardiology who recommended to discontinue Coreg. Patient was treated with Lasix which was discontinued later. Acute kidney injury superimposed on CKD 3: Seen by nephrology, renal ultrasound ordered. Lasix and losartan were discontinued. Losartan later resumed by nephrology. He was treated briefly with IV fluid. SIRS criteria: SIRS criteria present heart rate greater than 90, respiratory rate greater than 20, white blood cell count greater than 12 although no source of infection confirmed. His chest x-ray was concerning for possible pneumonia and at that time he was given antibiotics RocephinZithromax. CT was performed which showed spiculated pulmonary nodule, no pneumonia. Patient was treated with oral Levaquin per Dr. Sanchez. Lung cancer: Patient with known lung cancer follows outpatient, status post hemo/radiation previously. Currently under surveillance. Hypertension: Losartan resumed. Patient was normotensive. Hypothyroidism: Continued home dose Synthroid. Patient clinically improved and deemed stable for discharge. Vital Signs/Physical Exam: Temp Pulse Resp BP Pulse Ox 97.8 F 90 19 107/67 99 07/24/22 04:00 07/24/22 04:00 07/24/22 04:00 07/24/22 04:00 07/24/22 04:00 General: Alert, In no apparent distress, Oriented x3 HEENT: Mucous membr. moist/pink Neck: Supple, JVD not distended Respiratory: Clear to auscultation bilaterally, Normal air movement Cardiovascular: No edema, Regular rate/rhythm, Normal S1 S2 Gastrointestinal: Normal bowel sounds, Soft and benign, Non-distended, No tenderness Musculoskeletal: No swelling Integumentary: No rashes Neurological: Normal strength at 5/5 x4 extr Laboratory Data at Discharge: WBC 10.90 K/uL (4.3-10.9) 07/24/22 04:08 Hgb 8.6 g/dL (13.6-17.9) L 07/24/22 04:08 Hct 25.0 % (39.6-49.0) L 07/24/22 04:08 Plt Count 451 K/uL (152-406) H 07/24/22 04:08 PT 12.7 SECONDS (9.5-12.5) H 07/21/22 22:35 INR 1.15 07/21/22 22:35 Sodium 142 mmol/L (136-145) 07/24/22 04:08 Potassium 3.6 mmol/L (3.5-5.1) 07/24/22 04:08 BUN 24 mg/dL (7-18) H 07/24/22 04:08 Creatinine 1.77 mg/dL (0.55-1.3) H 07/24/22 04:08 Glucose 146 mg/dL (74-106) H 07/24/22 04:08 Magnesium 1.8 mg/dL (1.8-2.4) 07/24/22 04:08 Total Bilirubin 0.3 mg/dL (0.2-1.0) 07/24/22 04:08 AST 27 U/L (15-37) 07/24/22 04:08 ALT 37 U/L (12-78) 07/24/22 04:08 Alkaline Phosphatase 32 U/L (45-117) L 07/24/22 04:08 Home Medications: Albuterol Sulfate [Proair Hfa] 8.5 gm IH PRN PRN 07/01/17 Aspirin [Aspirin EC 81 MG] 81 mg PO DAILY 07/01/17 Omeprazole 20 mg PO DAILY 07/01/17 Albuterol Sulfate 5 mg IH QID 03/11/22 Levothyroxine Sodium [Levothyroxine] 25 mcg PO DAILY 03/11/22 Losartan Potassium 50 mg PO DAILY 03/11/22 Megestrol Acetate 40 mg PO DAILY 03/11/22 Bupropion *Xl* [Wellbutrin XL*] 450 mg PO DAILY 05/22/22 Umeclidinium Brm/Vilanterol Tr [Anoro Ellipta 62.5-25 Mcg INH] 1 puff IH DAILY #1 blst.w.dev 05/22/22 Ascorbate Calcium [Vitamin C] 500 mg PO DAILY 07/22/22 Docosahexanoic AC/Epa [Fish Oil 1,000 MG*] 1,000 mg PO DAILY 07/22/22 Furosemide [Lasix] 40 mg PO PRN PRN 07/22/22 Gabapentin 100 mg PO BID 07/22/22 Ipratropium/Albuterol Sulfate [Iprat-Albut 0.5-3(2.5) mg/3 ml] 3 ml IH Q4HP PRN 07/22/22 Multivit-Min/Folic/Vit K/Lycop [Men's Multivitamin Tablet] 1 each PO DAILY 07/22/22 Calcitrol [Rocaltrol*] 0.25 mcg PO DAILY #30 cap 07/24/22 Calcium Carbonate [Oscal*] 500 mg PO BID #60 tab 07/24/22 levoFLOXacin [Levaquin*] 750 mg PO Q48H #3 tab 07/24/22 predniSONE [Deltasone*] 10 mg PO DAILY #30 tab 07/24/22 New Medications: predniSONE [Deltasone*] 10 mg PO DAILY #30 tab levoFLOXacin [Levaquin*] 750 mg PO Q48H #3 tab Calcium Carbonate [Oscal*] 500 mg PO BID #60 tab Calcitrol [Rocaltrol*] 0.25 mcg PO DAILY #30 cap Diet: AHA Activity: Ad shannen Followup: Hitesh Maya, [ACTIVE - CAN ADMIT] - (Call to schedule appointment) Time spent managing pt's care (in minutes): 40
[2022-07-24] MEDS ORDERED: MULTIVITAMIN TAB PO SCH (09:00)
[2022-07-24] MEDS: DULERA 200/5 (MOMETASONE/FORMOTEROL) INHALER IH SCH (09:00)
[2022-07-24 09:19] VITALS: O2SAT 99
[2022-07-24] MEDS: levoFLOXacin 750 MG TAB PO SCH (09:36)
[2022-07-24] MEDS: CALCITROL 0.25 MCG CAP PO SCH (09:36)
[2022-07-24] MEDS: DOCOSAHEXANOIC AC/EPA 1000 MG PO SCH (09:36)
[2022-07-24] MEDS: ASPIRIN EC 81 MG TAB PO SCH (09:36)
[2022-07-24] MEDS: predniSONE 20 MG TAB PO SCH (09:37)
[2022-07-24] MEDS: BUPROPION HCL XL 150 MG TAB PO SCH (09:37)
[2022-07-24] MEDS: ASCORBIC ACID 500 MG TABLET PO SCH (09:37)
[2022-07-24] MEDS: ENOXAPARIN 80 MG/0.8 ML SQ SCH (09:38)
[2022-07-24] MEDS: NICOTINE 14 MG/PAT TD SCH (09:38)
[2022-07-24] MEDS: GABAPENTIN 100 MG CAP PO SCH (09:38)
[2022-07-24] MEDS: CALCIUM CARBONATE 500 MG TAB PO SCH (09:38)
[2022-07-24] MEDS ORDERED: LOSARTAN POTASSIUM 50 MG TABLET PO SCH (10:00)
[2022-07-24 10:36] VITALS: BP 144/66; TEMP 97.2
== END 2022-07-24 10:56 | disposition home or self-care (01) | DRG 190 ==
LOC: ER 22:29 → ERHOLD 07-22 01:53 → 4TH 07-22 09:48
PROVIDERS: ADMIT Hospitalist; ATTEND Internal Medicine
PROC: 5A09457 Assistance with Respiratory Ventilation, 24-96 Consecutive Hours, Continuous Positive Airway Pressure (ICD-10-PCS; principal; 2022-07-22)
DX: J44.1 Chronic obstructive pulmonary disease with (acute) exacerbation (principal); J96.21 Acute and chronic respiratory failure with hypoxia; J96.22 Acute and chronic respiratory failure with hypercapnia; N17.9 Acute kidney failure, unspecified; I13.0 Hypertensive heart and chronic kidney disease with heart failure and stage 1 through stage 4 chronic kidney disease, or unspecified chronic kidney disease; I50.32 Chronic diastolic (congestive) heart failure; R65.10 Systemic inflammatory response syndrome (SIRS) of non-infectious origin without acute organ dysfunction; I24.8 Other forms of acute ischemic heart disease; N18.30 Chronic kidney disease, stage 3 unspecified; D63.1 Anemia in chronic kidney disease; K21.9 Gastro-esophageal reflux disease without esophagitis; E03.9 Hypothyroidism, unspecified; D45 Polycythemia vera; E83.42 Hypomagnesemia; I95.2 Hypotension due to drugs; T44.7X5A Adverse effect of beta-adrenoreceptor antagonists, initial encounter; F17.210 Nicotine dependence, cigarettes, uncomplicated; R91.8 Other nonspecific abnormal finding of lung field; R79.89 Other specified abnormal findings of blood chemistry; Z88.8 Allergy status to other drugs, medicaments and biological substances; Z79.01 Long term (current) use of anticoagulants; Z79.52 Long term (current) use of systemic steroids; Z79.82 Long term (current) use of aspirin; Z85.118 Personal history of other malignant neoplasm of bronchus and lung; Z79.899 Other long term (current) drug therapy; Z79.890 Hormone replacement therapy; Z20.822 Contact with and (suspected) exposure to COVID-19
CPT/HCPCS: 36415; 71045; 71250; 76770; 80048; 80053; 80076; 81003; 81015; 82306; 82550; 82805; 83605; 83735; 83880; 83970; 84132; 84145; 84439; 84443; 84484; 85025; 85610; 87040; 93005; 94010; 94640; 94660; 94760; 96365; 96366; 96367; 96368; 96375; 97116; 97161; 99285; J0610; J2930; J3360; J3475; J3535; J7030; J7512; J7614; U0003